=== PATIENT | male | born 1965 | race Caucasian/White ===

== ENCOUNTER → 2020-07-02 10:31 | Outpatient (BNVA) | payer MEDICAID, SELFPAY | PROVIDERS: PCP Internal Medicine; Referring Provider Internal Medicine; Visit Provider Physician Assistant | DX: M17.0 Bilateral primary osteoarthritis of knee (principal) | CPT/HCPCS: 20610; 99212; J1020 ==

== ENCOUNTER 2020-09-23 09:48 | Outpatient (RCR) | payer MEDICAID, SELFPAY ==
--- NOTE | 2020-09-24 07:49 | MHC.PT.EP ---
[facility] [place] [facility] [place] [facility] [place] [facility] [address] [phone] F: [phone] F: [phone] F: [phone] F: [phone] Physical Therapy Plan of Care Date of Evaluation: 09/23/20 Date of Surgery: none Diagnosis: B knee pain Assessment: Patient is a 55 year old R handed male who presents with s/s consistent with b/l knee pain/OA. He is currently not working and has become fairly sedentary. Patient past medical history includes hernia repair, gastric surgery, varicose veins. Current impairments include pain, ROM, strength, safety, independence, activity tolerance and functional mobility. Functional limitations include decreased ability to walk, stand, transfer, negotiate stairs, and perform weight bearing activities.. Patient is motivated with good rehab potential. Skilled PT will address impairments and functional limitations in order to achieve goals. Frequency and Duration: The patient will be seen 2x/week for 5 weeks Short Term Goals: I with HEP - 2 weeks AROM 0-130 - 3 weeks No AD with ambulation - 3 weeks Amb > 5 minutes - 3 weeks Group Home Goals: No AD and amb > 10 minutes - 5 weeks LEFS 40/80 - 5 weeks LE strength 4-/5 - 5 weeks Treatment Plan: Modalities to reduce pain, spasms and effusion. Manual therapy to restore motion and function. Therapeutic exercise to improve strength and flexibility. Neuromuscular re-education for posture and balance. Therapeutic activities to return to functional activities of daily living. Electronically signed by: Duane Jaime, PT Please sign and return to therapist. Thank you for your referral.
== END 2020-11-02 08:28 | disposition home or self-care (01) ==
LOC: HO.PTCHIC 09:48
PROVIDERS: PCP Internal Medicine; Visit Provider Internal Medicine
DX: M25.561 Pain in right knee (principal)
CPT/HCPCS: 97110; 97162

== ENCOUNTER 2020-11-25 22:53 | Emergency (ER) | payer MEDICAID, SELFPAY ==
[2020-11-26 00:02] VITALS: BP 133/72; PULSE 75; RESP 17; TEMP 36.4; O2SAT 96; BMI 46.8
--- NOTE | 2020-11-26 00:13 | ED_ITS ---
HPI - Dental/Oral General Chief complaint: Dental/Oral Stated complaint: dental pain Time Seen by Provider: 11/26/20 00:05 Source: patient Mode of arrival: ambulatory Limitations: no limitations History of Present Illness HPI Narrative: 55-year-old male presents with left lower dental pain. Was supposed to see a dentist and oral surgeon several times this year however due to COVID-19 restrictions he was unable to make those appointments. He does not describe any fevers, chills, chest pain or pressure, difficulty swallowing, difficulty managing secretions, ear pain, neck pain, palpitations, shortness of breath, abdominal pain, abdominal distention, dysuria, hematuria, and any other concerning symptoms. MD Complaint: tooth pain Teeth map: 1. Onset (ago): day(s) (4) Duration: constant Severity: severe Severity scale (1-10): 9 Relieving factors: nothing Exacerbating factors: chewing, cold, heat and drinking fluids Context: history of dental caries and poor dental care Treatment prior to arrival: oral analgesic Related Data Home Medications Medication Instructions Recorded Confirmed bupropion HBr 174 mg 174 mg PO DAILY 07/02/20 tablet,extended release 24 hr cholecalciferol (vitamin D3) 50 50 mcg PO DAILY 07/02/20 mcg (2,000 unit) capsule mecobalamin (vitamin B12) 5,000 5,000 mcg PO DAILY 07/02/20 mcg lozenge Previous Rx's Medication Instructions Recorded amoxicillin-pot clavulanate 1 tab PO Q12H 10 Days #20 tab 11/26/20 [Augmentin] ketorolac 10 mg PO TID PRN 5 Days #15 tab 11/26/20 Allergies Allergy/AdvReac Type Severity Reaction Status Date / Time No Known Allergies Allergy Verified 07/02/20 10:33 [No Known Allergies*] Review of Systems Review of Systems: Constitutional: No Fever, No Chills ENT/Mouth: No swallowing difficulty, no change in voice, positive dental pain, n o jaw pain, no facial swelling Eyes: No Eye Pain, No Swelling Cardiovascular: No Chest Pain, No SOB Respiratory: No Cough, No Sputum, No Wheezing, No Smoke Exposure, No Dyspnea Gastrointestinal: No Nausea, No Vomiting, No Diarrhea Genitourinary: No Dysuria Musculoskeletal: No Myalgias Skin: No rash Neuro: No Weakness, No Numbness, No Headache Yes all other systems are reviewed and are negative [facility] Past Medical History Attestation statement: The following information was validated with the patient. Source: old records reviewed Medical History (Updated 11/26/20 @ 00:17 by Violetta Lee NP) HTN (hypertension) ELO (obstructive sleep apnea) Rupture, spleen Varicose veins of both lower extremities with inflammation Surgical History H/O hernia repair History of vasectomy S/P gastric surgery Social History Social History Smoking Status: Never smoker Use of substances other than those prescribed or required for medical reasons: No Advance Directives: No Current occupational status: unemployed Physical Exam Vital Signs: Vital Signs: Last Vital Signs Temp 97.5 F 11/26/20 00:02 Pulse 75 11/26/20 00:02 Resp 17 11/26/20 00:02 BP 133/72 11/26/20 00:02 Pulse Ox 96 11/26/20 00:02 Body Mass Index 46.8 Appearance: Alert. Oriented X3. No acute distress. Eyes: Pupils equal, round and reactive to light. EOMI, sclera nonicteric ENT: Pharynx normal. Multiple broken molars throughout mouth. Neck: Normal inspection. Neck supple. No cervical lymphadenopathy. CVS: Normal heart rate and rhythm. Pulses normal. Respiratory: No respiratory distress. Breath sounds normal. Abdomen: Soft and nontender. Skin: Skin warm and dry. Normal skin color. Normal skin turgor. Extremities: No lower extremity edema. Neuro: No motor deficit. No sensory deficit. Course Course Course Narrative: 55-year-old male with past medical history of hypertension, morbid obesity, obstructive sleep apnea presents with several days of worsening left lower dental pain. A not been able to see his dentist and oral surgeon secondary to COVID-19 restrictions throughout the year. At this time will treat with antibiotics and Toradol. He will follow-up with his dentist as soon as he can. He does not describe any other symptoms, no indication of Pantera's angina, fevers, chills, trismus, or TMJ dysfunction. Patient verbalized understanding of and agrees to plan of care discharge home. MDM - Dental/Oral Differential Diagnosis Differential diagnosis: Likely gingival abscess, dental caries, toothache, dental abscess and fracture of tooth Medical Records Attestation: I reviewed the patient's medical records. Discharge Plan Discharge Clinical Impression: Dental caries, Dental abscess Patient Disposition: Home, Self-Care Instructions: Dental Abscess (ED), Toothache (ED) Additional Instructions: You evaluated for dental pain and caries. Please take Augmentin twice a day for the next 10 days. Please take Toradol 10 mg every 6 hours as needed for pain management. Please follow-up with your dentist. Thank you for choosing this emergency department for evaluation. Please follow-up with primary care physician as needed. Return to the emergency department for any new, concerning, or worsening symptoms. Prescriptions: New amoxicillin-pot clavulanate [Augmentin] 875-125 mg tablet 1 tab PO Q12H 10 Days Qty: 20 RF: 0 ketorolac 10 mg tablet 10 mg PO TID PRN (Reason: pain) 5 Days Qty: 15 RF: 0
[2020-11-26] MEDS: Ketorolac Tromethamine 60 MG/2 ML VIAL IM (00:25)
[2020-11-26] MEDS: Amoxicillin/Potassium Clav 875 MG TABLET PO (00:25)
== END 2020-11-26 00:42 | disposition home or self-care (01) ==
PROVIDERS: Emergency Provider Emergency Medicine; PCP Internal Medicine
DX: K08.89 Other specified disorders of teeth and supporting structures (principal); K02.9 Dental caries, unspecified; K04.7 Periapical abscess without sinus; I10 Essential (primary) hypertension
CPT/HCPCS: 96372; 99284; J1885

== ENCOUNTER → 2021-02-23 12:58 | Outpatient (BNVA) | payer MEDICAID, SELFPAY | PROVIDERS: PCP Internal Medicine; Visit Provider Surgery Vascular Surgery | DX: I83.12 Varicose veins of left lower extremity with inflammation (principal) | CPT/HCPCS: 99212 ==

== ENCOUNTER → 2021-03-19 07:26 | Outpatient (BNVA) | payer MEDICAID, SELFPAY | PROVIDERS: PCP Internal Medicine; Visit Provider Surgery Vascular Surgery | DX: I83.12 Varicose veins of left lower extremity with inflammation (principal) | CPT/HCPCS: 36482 ==

== ENCOUNTER 2021-03-22 14:04 | Outpatient (REF) | payer MEDICAID, SELFPAY ==
--- NOTE | ~2021-03-22 | US_ITS ---
EXAMINATION: US VENOUS ULTRASOUND WITH DOPPLER LOWER EXTREMITY, LEFT CLINICAL INFORMATION: Post venaseal. Rule out DVT. COMPARISON: Previous exam most recent September 2019 TECHNIQUE: Ultrasound of the deep veins is performed from the hip to the calf with compression sonography and color and pulse Doppler assessment. Spectral analysis with color-flow imaging is performed. FINDINGS: There is normal venous compression and respiratory variation and augmented flow. The visualized common femoral vein, superficial femoral vein, profunda femoral vein, popliteal vein, and the trifurcation region shows no evidence of deep venous thrombosis. There is echogenic material seen in the left greater saphenous vein compatible with previous venaseal procedure. This is 10.6 cm from the saphenofemoral junction. The greater saphenous vein is closed. There is no significant popliteal fossa cyst. US/US venous duplex LE IMPRESSION: No DVT demonstrated in the left lower extremity.
== END 2021-03-22 14:05 | disposition home or self-care (01) ==
LOC: HO.HMGCX 14:04
PROVIDERS: PCP Internal Medicine; Visit Provider Surgery Vascular Surgery
DX: M79.605 Pain in left leg (principal)
CPT/HCPCS: 93971

== ENCOUNTER → 2021-03-25 10:46 | Outpatient (BNVA) | payer MEDICAID, SELFPAY | PROVIDERS: PCP Internal Medicine; Visit Provider Surgery Vascular Surgery | DX: I83.12 Varicose veins of left lower extremity with inflammation (principal) | CPT/HCPCS: 99212 ==

== ENCOUNTER 2021-04-06 05:43 | Emergency (ER) | payer MEDICAID, SELFPAY ==
[2021-04-06 05:54] VITALS: BP 133/75; PULSE 78; RESP 16; TEMP 36.8; O2SAT 93; BMI 48.8
[2021-04-06 08:43] VITALS: BP 137/73; PULSE 71; RESP 20; O2SAT 94
--- NOTE | 2021-04-06 08:44 | PC.NURSE ---
pt reports having rash all over his body mostly on his extremities and some on his back, itchy that started yesterday, the bumps are raised red dots, ls clear and speaking in full clear sentances
--- NOTE | 2021-04-06 09:00 | ED_ITS ---
HPI - Allergic Reaction General Chief complaint: Allergic Reaction Stated complaint: hives all over body Time Seen by Provider: 04/06/21 08:54 Source: patient Mode of arrival: ambulatory Limitations: language barrier (French-speaking) History of Present Illness MD complaint: allergic reaction and hives Onset (ago): day(s) (Since yesterday) Exposure: unknown (Patient reports he was outside a few days ago and might have gotten mosquito bites although he did not start having a rash until yesterday) Symptoms: rash and itching Severity: mild Treatment prior to arrival: benadryl Previous Allergic Reaction History: none Related Data Home Medications Medication Instructions Recorded Confirmed bupropion HBr 174 mg 174 mg PO DAILY 07/02/20 tablet,extended release 24 hr cholecalciferol (vitamin D3) 50 50 mcg PO DAILY 07/02/20 mcg (2,000 unit) capsule mecobalamin (vitamin B12) 5,000 5,000 mcg PO DAILY 07/02/20 mcg lozenge furosemide 20 mg tablet 10 mg PO BID 02/23/21 ibuprofen 800 mg tablet 800 mg PO TID 02/23/21 ropinirole 0.25 mg tablet 0.25 mg PO BEDTIME 02/23/21 Previous Rx's Medication Instructions Recorded amoxicillin-pot clavulanate 1 tab PO Q12H 10 Days #20 tab 11/26/20 [Augmentin] ketorolac 10 mg PO TID PRN 5 Days #15 tab 11/26/20 diphenhydramine HCl [Benadryl 50 mg PO TID PRN #14 tab 04/06/21 Allergy] famotidine [Pepcid] 20 mg PO BID #14 tab 04/06/21 hydrocortisone 1 appl TOPICAL QD-TID PRN #454 g 04/06/21 prednisone 40 mg PO DAILY 5 Days #10 tab 04/06/21 Allergies Allergy/AdvReac Type Severity Reaction Status Date / Time No Known Allergies Allergy Verified 04/06/21 05:57 [No Known Allergies*] Review of Systems Review of Systems: Constitutional : No Fever, No Chills , no body aches, no recent illness Head/Face: No facial swelling, No facial redness ENT/Mouth : No oral/throat swelling, No Hoarseness, No Swallowing Difficulty Eyes: No Eye Pain, No Swelling, No Redness Cardiovascular : No Chest Pain, No SOB, No palpitations Respiratory : No Cough, No Sputum, No Wheezing, No Smoke Exposure, No Dyspnea Gastrointestinal : No Nausea, No Vomiting, No Diarrhea, No abdominal Pain Genitourinary : No Dysuria, No Urinary Frequency, No Hematuria Musculoskeletal : No joint pain, No Myalgias, No Joint Swelling Skin : No Skin Lesions, positive rash Neuro : No Weakness, No Numbness, No Headache, No dizziness, No tingling Psych : No Anxiety/Panic, No Depression Heme/Lymph: No Bruising, No Lymphadenopathy Endocrine : No Polyuria, No Polydipsia Denies changes in lotions or detergents. Denies new medications or any changes in medications. Denies drainage from rash. Denies any recent sick contacts or recent travel. Yes all other systems are reviewed and are negative [facility] Past Medical History Attestation statement: The following information was validated with the patient. Medical History HTN (hypertension) ELO (obstructive sleep apnea) Rupture, spleen Varicose veins of both lower extremities with inflammation Surgical History H/O hernia repair History of vasectomy S/P gastric surgery Social History Social History Patient Tobacco Use Status: Never used Tobacco Use of substances other than those prescribed or required for medical reasons: No Advance Directives: No Advance Directives Information Provided: No Current occupational status: unemployed Physical Exam Vital Signs: Vital Signs: Last Vital Signs Temp 98.3 F 04/06/21 05:54 Pulse 71 04/06/21 08:43 Resp 20 04/06/21 08:43 BP 137/73 04/06/21 08:43 Pulse Ox 94 04/06/21 08:43 Body Mass Index 48.8 vital signs have been reviewed as normal and appeared to be correct. Blood pressure normal. Heart rate normal. Respiration rate normal. Temperature normal. Oxygen saturation normal. Appearance: Alert. Oriented X3. No acute distress. Head: Normal external exam. Normocephalic. Eyes: PERRLA. EOMI. Conjunctiva and sclera normal. Eyelids normal. ENT: Pharynx normal. Uvula midline. Moist mucous membranes. No trismus noted. No drooling noted. No muffled voice noted. Neck: Normal inspection. Neck supple. FROM. No adenopathy. No meningeal signs. CVS: Normal heart rate and rhythm. Heart sound normal. No murmurs noted. Pulses normal throughout. Respiratory: No respiratory distress. Painless inspiration. Breath sounds normal. No wheezes/rales/rhonchi noted. Chest nontender. No accessory muscle usage noted or decreased air movement noted. Abdomen: Soft and nontender. Nondistended. No guarding. No rigidity. Bowel sounds normal in all 4 quadrants. No distention noted. No organomegaly noted. No visible injury noted. Back: Full range of motion noted. Skin: Skin warm and dry. Normal skin color. Normal skin turgor. Patient with scattered macular papular pruritic blanchable rash consistent with mosquito bites versus hives. No additional rashes/lesions/lacerations noted. Extremities: Extremities exhibit normal range of motion. Extremities nontender. Neuro: Oriented X 3. No motor deficit. No sensory deficit. Reflexes normal. Normal steady gait. Course Course Course Narrative: IMP/Plan: Allergic rxn. Not anaphylaxis. Not sepsis/ infe ctious etiology. Patient well appearing in no acute distress, breathing easily without throat symptoms. Speaking full sentences, and handling secretions without difficulty. There is no obvious threat to airway. Lungs are CTA in all cast[place]. No signs of angioedema, stridor, airway compromise, anaphylaxis or anaphylactic shock. Not c/w SSSS/ TEN/ Eryth multiforme/ [place]. Given HPI and PE - Will watch and observe. If patient continues to be symptom free - will d/c with return precautions. Patient understands and agrees with plan MDM - Allergic Reaction Medical Records Attestation: I reviewed the patient's medical records. Discharge Plan Discharge Clinical Impression: Allergic reaction, Urticaria Patient Disposition: Home, Self-Care Instructions: General Allergic Reaction (ED), Allergy Testing (ED) Prescriptions: New diphenhydramine HCl [Benadryl Allergy] 25 mg tablet 50 mg PO TID PRN (Reason: allergic reaction) Qty: 14 RF: 0 famotidine [Pepcid] 20 mg tablet 20 mg PO BID Qty: 14 RF: 0 prednisone 20 mg tablet 40 mg PO DAILY 5 Days Qty: 10 RF: 0 hydrocortisone 2.5 % ointment 1 appl topical QD-TID PRN (Reason: skin irritation) Qty: 454 RF: 0 No Action amoxicillin-pot clavulanate [Augmentin] 875-125 mg tablet 1 tab PO Q12H 10 Days Qty: 20 RF: 0 ketorolac 10 mg tablet 10 mg PO TID PRN (Reason: pain) 5 Days Qty: 15 RF: 0 Referrals: Physician,Unknown [Primary Care Provider] - 2 days (your pcp for allergy testing) Print Language: French
[2021-04-06] MEDS: predniSONE 20 MG TABLET 60 MG PO (09:24)
[2021-04-06] MEDS: Famotidine 20 MG TABLET PO (09:24)
[2021-04-06] MEDS: diphenhydrAMINE HCL 25 MG TABLET 50 MG PO (09:24)
== END 2021-04-06 09:43 | disposition home or self-care (01) ==
PROVIDERS: Emergency Provider Emergency Medicine Emergency Medical Services
DX: T78.40XA Allergy, unspecified, initial encounter (principal); L50.9 Urticaria, unspecified; X58.XXXA Exposure to other specified factors, initial encounter
CPT/HCPCS: 99283; 99284; Q0163

== ENCOUNTER 2021-11-03 11:11 | Outpatient (REF) | payer MEDICAID, SELFPAY ==
--- NOTE | ~2021-11-03 | XR_ITS ---
EXAMINATION: XR KNEE, LEFT CLINICAL INFORMATION: Pain COMPARISON: Previous x-ray October 2017 TECHNIQUE: Four views of the left knee. FINDINGS: Bone alignment is normal. No fracture or dislocation is seen. There is mild arthritis at the medial femoral tibial joint with joint space narrowing and osteophyte formation. There is severe arthritis at the patellofemoral joint with joint space narrowing and osteophyte formation. Very slight lateral subluxation of the patella on the sunrise view. There is a large osteophyte at the quadriceps tendon insertion. There is no joint effusion. XR/XR knee LT 4V IMPRESSION: Degenerative changes, greatest at the patellofemoral joint.
== END 2021-11-03 11:12 | disposition home or self-care (01) ==
LOC: HO.XRAY 11:11
PROVIDERS: Absent Provider Internal Medicine; PCP Internal Medicine; Visit Provider Family Medicine
DX: M25.562 Pain in left knee (principal)
CPT/HCPCS: 73564

== ENCOUNTER 2021-12-23 15:23 | Outpatient (REF) | payer MEDICAID, SELFPAY ==
--- NOTE | ~2021-12-23 | US_ITS ---
EXAMINATION: ULTRASOUND EXTREMITY NONVASCULAR CLINICAL INFORMATION: Left posterior knee pain COMPARISON: None TECHNIQUE: Grayscale and color imaging of the left popliteal fossa using a linear transducer FINDINGS: There is a complex Weinberg's cyst with bilobed appearance measuring 4.3 x 0.8 x 4.1 cm and 4.1 x 1.9 x 3 cm. The left popliteal vein is patent. US/US extremity nonvascular IMPRESSION: Weinberg's cyst.
== END 2021-12-23 15:24 | disposition home or self-care (01) ==
LOC: HO.HMGCX 15:23
PROVIDERS: Visit Provider Internal Medicine
DX: M25.562 Pain in left knee (principal)
CPT/HCPCS: 76882

== ENCOUNTER → 2022-01-17 14:58 | Outpatient (BNVA) | payer MEDICAID, SELFPAY | PROVIDERS: PCP Internal Medicine; Visit Provider Physician Assistant | DX: M17.12 Unilateral primary osteoarthritis, left knee (principal) | CPT/HCPCS: 20610; 99212; J1040 ==

== ENCOUNTER → 2022-03-07 15:49 | Outpatient (BNVA) | payer MEDICAID, SELFPAY | PROVIDERS: PCP Internal Medicine; Visit Provider Anesthesiology | DX: M17.12 Unilateral primary osteoarthritis, left knee (principal); M71.22 Synovial cyst of popliteal space [Baker], left knee; M17.11 Unilateral primary osteoarthritis, right knee; G89.4 Chronic pain syndrome; E66.01 Morbid (severe) obesity due to excess calories; Z68.42 Body mass index [BMI] 45.0-49.9, adult | CPT/HCPCS: 99202 ==

== ENCOUNTER 2022-03-22 05:56 | Outpatient (REF) | payer MEDICAID, SELFPAY ==
--- NOTE | ~2022-03-22 | FL_ITS ---
EXAMINATION: XR FLUOROSCOPY WITH IMAGES CLINICAL INFORMATION: M17.12 - Unilateral primary osteoarthritis, left knee COMPARISON: Radiographs left knee 11/03/2021 TECHNIQUE: Fluoroscopy performed by Dr. Jaylan Cornejo. Fluoroscopy time: 0.3 minutes. Cumulative Dose: 4.73 mGy. DAP: 1.29 Gycm2. Images: 3. FINDINGS: There are spinal needles adjacent to the distal femoral shaft, medial and lateral sides, mid depth. There is a spinal needle adjacent to the proximal tibia on medial side mid depth. FL/FL guidance in treatment room IMPRESSION: Fluoroscopy for pain management procedures.
== END 2022-03-22 05:57 | disposition home or self-care (01) ==
LOC: HO.RADIR 05:56
PROVIDERS: Visit Provider Anesthesiology
DX: M17.0 Bilateral primary osteoarthritis of knee (principal); M71.22 Synovial cyst of popliteal space [Baker], left knee; G89.4 Chronic pain syndrome; E66.01 Morbid (severe) obesity due to excess calories
CPT/HCPCS: 64454

== ENCOUNTER → 2022-03-28 09:41 | Outpatient (BNVA) | payer MEDICAID, SELFPAY | PROVIDERS: PCP Internal Medicine; Visit Provider Anesthesiology | DX: M17.0 Bilateral primary osteoarthritis of knee (principal); M71.22 Synovial cyst of popliteal space [Baker], left knee; G89.4 Chronic pain syndrome; E66.01 Morbid (severe) obesity due to excess calories; Z68.42 Body mass index [BMI] 45.0-49.9, adult | CPT/HCPCS: 99212 ==

== ENCOUNTER 2022-04-26 06:16 | Outpatient (REF) | payer MEDICAID, SELFPAY | END 2022-04-26 06:17 | disposition home or self-care (01) | LOC: HO.RADIR 06:16 | PROVIDERS: Visit Provider Anesthesiology | DX: M71.22 Synovial cyst of popliteal space [Baker], left knee (principal); M17.0 Bilateral primary osteoarthritis of knee; G89.4 Chronic pain syndrome; E66.01 Morbid (severe) obesity due to excess calories | CPT/HCPCS: 64447 ==

== ENCOUNTER 2022-08-09 07:58 | Outpatient (REF) | payer MEDICAID, SELFPAY ==
--- NOTE | ~2022-08-09 | XR_ITS ---
EXAMINATION: XR CHEST CLINICAL INFORMATION: Acute upper respiratory infection COMPARISON: None TECHNIQUE: 2 views of the chest were obtained. FINDINGS: The lungs are somewhat expanded with bandlike atelectasis right middle lobe. Rest of the lungs are clear. The heart size is enlarged. Pulmonary vascularity is normal. No gross bony abnormality seen XR/XR chest 2V IMPRESSION: 1. Bandlike atelectasis right middle lobe. 2. Mild cardiomegaly.
== END 2022-08-09 07:59 | disposition home or self-care (01) ==
LOC: HO.XRAY 07:58
PROVIDERS: Absent Provider Internal Medicine; PCP Internal Medicine; Visit Provider Family Medicine
DX: J06.9 Acute upper respiratory infection, unspecified (principal)
CPT/HCPCS: 71046

== ENCOUNTER 2022-09-14 08:39 | Outpatient (REF) | payer MEDICAID, SELFPAY ==
--- NOTE | ~2022-09-14 | CT_ITS ---
EXAMINATION: CT CHEST WITH CONTRAST CLINICAL INFORMATION: Right middle lobe atelectasis. COMPARISON: Chest x-ray 08/09/2022 TECHNIQUE: Multidetector volumetric CT imaging of the chest was obtained after the administration of 50 mL of Omnipaque 350 intravenous contrast without immediate adverse reactions. Axial MIP volume rendering provided. Sagittal and coronal reformatted images were obtained. This CT examination was performed using dose optimization techniques as appropriate, variously including the following: *Automated exposure control *Adjustment of mA and/or kV according to patient size (this includes techniques or standardized protocols for targeted exams where dose is matched to indication/reason for exam; i.e. extremities or head) *Use of iterative reconstruction technique DLP: 462 mGy-cm FINDINGS: PERSONAL COMPANION: Unremarkable LUNGS: The lungs are well-expanded with a 1 mm calcified nodule, left upper lobe adjacent to the anterior mediastinum, axial image 21/4, a 6 mm nodule left upper lobe axial image 19/4. Band-like atelectasis seen in the right middle lobe and lingula. MEDIASTINUM: The thyroid lobes are symmetric and normal. The central trachea and the bronchi are widely patent. Heart size and the great vessels are normal caliber. No abnormal size mediastinal or hilar lymph nodes seen. There is no pericardial effusion. PLEURA: There is no pleural effusion. No pleural mass or thickening. AXILLA: No abnormal size axillary lymph nodes seen. The chest wall is unremarkable. UPPER ABDOMEN: Visualized liver, pancreas and bilateral adrenal glands are unremarkable. Gastric sleeve surgical changes are noted. The spleen is absent with a small accessory splenule visualized in the left upper quadrant. OSSEOUS STRUCTURES: There is moderate ventral spondylosis throughout mid and lower dorsal spine. No aggressive lytic or sclerotic process seen. CT/CT chest w IV con IMPRESSION: 1. 6 mm noncalcified nodule left upper lobe and a 1 mm calcified nodule left upper lobe. 2. Band-like atelectasis right middle lobe and lingula. 3. No abnormal mediastinal or axillary lymph nodes seen. 4. Gastric sleeve surgical changes are noted. The spleen is absent with multiple accessory splenules visualized in the left upper quadrant. 5. Recommend follow-up in 6-12 months as per Eddy guidelines. Fleischner guidelines were followed.
[2022-09-14] MEDS: iohexoL 350 MG/ML 100 ML INFUS..BTL IV (10:14)
[2022-09-14 12:45] LABS: Creatinine POC 0.4 mg/dL (0.5-1.4); GFR POC > 60
== END 2022-09-14 08:40 | disposition home or self-care (01) ==
LOC: HO.CT 08:39
PROVIDERS: Visit Provider Family Medicine
DX: J98.11 Atelectasis (principal)
CPT/HCPCS: 71260; 82565; Q9967

== ENCOUNTER → 2022-10-05 15:13 | Outpatient (BNVA) | payer MEDICAID, SELFPAY | PROVIDERS: PCP Internal Medicine; Visit Provider Anesthesiology | DX: M25.561 Pain in right knee (principal) | CPT/HCPCS: 99212 ==

== ENCOUNTER 2022-10-28 07:38 | Outpatient (REF) | payer MEDICAID, SELFPAY ==
--- NOTE | ~2022-10-28 | XR_ITS ---
EXAMINATION: XR KNEE, RIGHT XR KNEE AP STANDING CLINICAL INFORMATION: Pain. COMPARISON: None TECHNIQUE: Lateral and axial views of the right knee were obtained. AP bilateral standing view of the knees was obtained. FINDINGS: The lateral joint space compartment of the right knee is well-maintained. The medial and patellofemoral joint space compartments show moderately severe narrowing. There is tricompartment peripheral osteophyte formation. A small loose body is suspected in the lateral joint space compartment. The medial joint space compartment of the left knee shows mild to moderate narrowing, and the lateral joint space compartment is well-maintained. There is peripheral osteophyte formation of the lateral and medial joint space compartments. No fracture or dislocation is seen. There is no significant varus or valgus configuration noted bilaterally. No foreign body is seen. XR/XR knee standing BI IMPRESSION: 1. There is tricompartment osteoarthritic change of the right knee, most pronounced in the medial and patellofemoral compartments, where it is moderately severe. 2. A small loose body is suspected in the lateral joint space compartment of the right knee. 3. There is mild to moderate osteoarthritic change of the medial joint space compartment of the left knee. 4. No fracture or dislocation is seen. 5. There is no significant varus or valgus configuration noted bilaterally.
--- NOTE | ~2022-10-28 | XR_ITS ---
EXAMINATION: XR KNEE, RIGHT XR KNEE AP STANDING CLINICAL INFORMATION: Pain. COMPARISON: None TECHNIQUE: Lateral and axial views of the right knee were obtained. AP bilateral standing view of the knees was obtained. FINDINGS: The lateral joint space compartment of the right knee is well-maintained. The medial and patellofemoral joint space compartments show moderately severe narrowing. There is tricompartment peripheral osteophyte formation. A small loose body is suspected in the lateral joint space compartment. The medial joint space compartment of the left knee shows mild to moderate narrowing, and the lateral joint space compartment is well-maintained. There is peripheral osteophyte formation of the lateral and medial joint space compartments. No fracture or dislocation is seen. There is no significant varus or valgus configuration noted bilaterally. No foreign body is seen. XR/XR knee RT 2V IMPRESSION: 1. There is tricompartment osteoarthritic change of the right knee, most pronounced in the medial and patellofemoral compartments, where it is moderately severe. 2. A small loose body is suspected in the lateral joint space compartment of the right knee. 3. There is mild to moderate osteoarthritic change of the medial joint space compartment of the left knee. 4. No fracture or dislocation is seen. 5. There is no significant varus or valgus configuration noted bilaterally.
== END 2022-10-28 07:39 | disposition home or self-care (01) ==
LOC: HO.HOSX 07:38
PROVIDERS: Visit Provider Physician Assistant
DX: M17.11 Unilateral primary osteoarthritis, right knee (principal)
CPT/HCPCS: 20610; 73560; 73565; 99212; J1040

== ENCOUNTER → 2022-12-22 13:20 | Outpatient (BNVA) | payer MEDICAID, SELFPAY | PROVIDERS: PCP Internal Medicine; Visit Provider Hospitalist | DX: R06.00 Dyspnea, unspecified (principal); J98.11 Atelectasis; R91.8 Other nonspecific abnormal finding of lung field; G47.33 Obstructive sleep apnea (adult) (pediatric); G47.00 Insomnia, unspecified; Z99.89 Dependence on other enabling machines and devices | CPT/HCPCS: 99202 ==

== ENCOUNTER 2023-01-24 09:38 | Outpatient (REF) | payer MEDICAID, SELFPAY ==
--- NOTE | 2023-01-24 10:54 | PFT_ITS ---
FLOWS: 1. FEV1 86% of predicted at 3.48 L. 2. FVC 74% of predicted at 3.96 L. 3. FEV1 to FVC ratio of 0.88. 4. No bronchodilator response. LUNG VOLUMES: 1. Total lung capacity 70% of predicted at 5.37 L. 2. Residual volume 76% of predicted at 1.83 L. 3. Slow vital capacity 68% of predicted at 3.54 L. 4. Expiratory residual volume 27% of predicted at 0.44 L. DIFFUSION CAPACITY: Normal. IMPRESSION: Mild restrictive ventilatory defect. There is no bronchodilator response. Decreased expiratory residual volume suggests extrathoracic restriction likely secondary to abdominal obesity. Shawn Dominguez MD AP/MODL / [id number]
== END 2023-01-24 09:39 | disposition home or self-care (01) ==
LOC: HO.RESP 09:38
PROVIDERS: PCP Internal Medicine; Visit Provider Hospitalist
DX: R06.00 Dyspnea, unspecified (principal)
CPT/HCPCS: 94010; 94727; 94729

== ENCOUNTER → 2023-03-10 09:43 | Outpatient (BNVA) | payer MEDICAID, SELFPAY | PROVIDERS: PCP Internal Medicine; Visit Provider Hospitalist | DX: R06.02 Shortness of breath (principal); J98.11 Atelectasis; R91.8 Other nonspecific abnormal finding of lung field; G47.33 Obstructive sleep apnea (adult) (pediatric); G47.00 Insomnia, unspecified; Z99.89 Dependence on other enabling machines and devices; Z90.81 Acquired absence of spleen | CPT/HCPCS: 99212 ==

== ENCOUNTER 2023-03-30 09:08 | Outpatient (AMB) | payer MEDICAID, SELFPAY ==
--- NOTE | 2023-03-30 09:13 | A.OFFVIS_ITS ---
Intake VS Expanded 03/30/23 09:18 Height 6 ft 1 in Weight 332 lb 6.4 oz BMI 43.9 BP 135/65 Blood Pressure Location Rt brachial Blood Pressure Position Sitting Pulse 60 Pulse Source Pulse Oximeter Temp 97.2 F Temperature Source Temporal Artery Scan Pulse Oximetry 93 Oxygen Delivery Method Room Air Body Fat 126.4 Body Fat Percentage 38.0 Free Fat Mass 206.0 Muscle Mass 196.0 Visceral Mass 26.0 Water Mass 153.0 BMR 2,913 Comment pt states having lung issues being seen for it Intake Visit Reasons: (OV) PO LSG 09/20/18 Allergies No Known Allergies [No Known Allergies*] Allergy (Verified 03/30/23 09:16) Medication List - Last Reconciled 03/30/23 by NOHEMI Sloan budesonide-formoterol 160-4.5 mcg/actuation (Symbicort) 2 puffs inhalation BID 30 days bupropion HCl 1 tab PO QAM cholecalciferol (vitamin D3) 50 mcg PO DAILY CPAP (CPAP Machine/Device) As directed diphenhydramine HCl (Benadryl Allergy) 50 mg (2 x 25 mg) PO TID PRN doxepin 150 mg PO BEDTIME eszopiclone (Lunesta) 3 mg PO BEDTIME 30 days famotidine (Pepcid) 20 mg PO BID furosemide 10 mg PO BID hydrocortisone 2.5% 1 appl topical QD-TID PRN ibuprofen 800 mg PO TID ivermectin 5 tabs PO QWEEK ketoconazole 2% 1 appl topical 2XW ketorolac 10 mg PO TID PRN 5 days mecobalamin (vitamin B12) 5,000 mcg PO DAILY mirtazapine 7.5 mg PO BEDTIME ropinirole 0.25 mg PO BEDTIME sildenafil (Viagra) 1 tab PO DAILY PRN vitamin B complex ER (Complex B-100 tablet,extended release) 1 tab PO DAILY HPI HPI Comments History of Present Illness Details This?is a?57?yo male who is s/p LSG 09/20/2018. Presents for 4.5 year post op visit. Has not been seen in office in several years. Returns to office today to request a new meal plan to help with weight loss. Lowest weight postop was 283lbs. Present meal plan includes: none but wants a new plan taking MVI All meals last 20 - 30 minutes and does not drink and eat at the same time. Exercise routine includes: chronic arthritis, lung issues, follows with pulmonology Did the patient ever have any of these conditions and are they resolved or still being treated? GERD: Pepcid ELO:? CPAP DM:?never HTN:? furosemide Hyperlipidemia:?never Post op complications:? 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 Physical Exam Vital Signs: Last Vital Signs Temp 97.2 F 03/30/23 09:18 Pulse 60 03/30/23 09:18 BP 135/65 03/30/23 09:18 Pulse Ox 93 03/30/23 09:18 Oxygen Delivery Method Room Air 03/30/23 09:18 BMI result Body Mass Index 43.9 Const General: cooperative, comfortable and no acute distress Orientation/consciousness: patient oriented x3 GI Other: soft, nontender, nondistended, incisions well healed, no hernia, no masses, pt also has a large well healed midline scar Neuro General: patient oriented x3 Assessment & Plan Assessment & Plan (1) S/P laparoscopic sleeve gastrectomy: Code(s): Z98.84 - Bariatric surgery status (2) Morbid obesity: Code(s): E66.01 - Morbid (severe) obesity due to excess calories Plan New meal plan per pt request; he does not like shakes, reports he did not feel full with them in the past and experienced anxiety. He does like PP bars. 9am breakfast- 3 eggs 12pm lunch- 3oz protein, 3oz veg 2-4pm snack- Pure Protein bar 5 or 6pm dinner- 3oz protein, 3oz veg 8-10pm bar Offered to write plan down for pt but he reports he should be able to remember as it was similar to plans that were effective for him in the past. Gave pt handout on home workout videos including Sit and Be Fit, and Jaylin Howell. Labs ordered. Also discussed that his NSAID use is not ideal considering he has had bariatric surgery. Also discussed EtOH use in moderation- pt reports every few weeks he will have 3-4 cups of wine while watching a boxing match. Discussed risk for gastritis or reflux. RTC 6 weeks to meet with steamfitter apprentice to ensure meal plan is going well. After that can reschedule for next annual visit unless pt prefers more frequent checkins. Patient is morbidly obese and is not considered stable at this time. I spent a total of 30 minutes reviewing/updating records, examining the patient and counseling the patient on weight management as detailed above. Orders: Orders Vitamin B12 and Folate Today E66.01 - Morbid (severe) obesity due to excess calories, Z98.84 - Bariatric surgery status Comprehensive Met. Panel Today E66.01 - Morbid (severe) obesity due to excess calories, Z98.84 - Bariatric surgery status C Reactive Protein Today E66.01 - Morbid (severe) obesity due to excess calories, Z98.84 - Bariatric surgery status Ferritin Today E66.01 - Morbid (severe) obesity due to excess calories, Z98.84 - Bariatric surgery status Hemoglobin A1c Today E66.01 - Morbid (severe) obesity due to excess calories, Z98.84 - Bariatric surgery status Insulin Today E66.01 - Morbid (severe) obesity due to excess calories, Z98.84 - Bariatric surgery status IRON PROFILE Today E66.01 - Morbid (severe) obesity due to excess calories, Z98.84 - Bariatric surgery status Lipid Panel Today E66.01 - Morbid (severe) obesity due to excess calories, Z98.84 - Bariatric surgery status PTHI Today E66.01 - Morbid (severe) obesity due to excess calories, Z98.84 - Bariatric surgery status TSH reflex Free T4 Today E66.01 - Morbid (severe) obesity due to excess calories, Z98.84 - Bariatric surgery status Vitamin A Today E66.01 - Morbid (severe) obesity due to excess calories, Z98.84 - Bariatric surgery status Vitamin B1 Today E66.01 - Morbid (severe) obesity due to excess calories, Z98.84 - Bariatric surgery status Vitamin D 25-OH Total Today E66.01 - Morbid (severe) obesity due to excess calories, Z98.84 - Bariatric surgery status Zinc Today E66.01 - Morbid (severe) obesity due to excess calories, Z98.84 - Bariatric surgery status Complete Blood Count Auto Diff Today E66.01 - Morbid (severe) obesity due to excess calories, Z98.84 - Bariatric surgery status Coding Level of Care Code Est Pt Level 4 (80071) Diagnoses S/P laparoscopic sleeve gastrectomy Z98.84 Morbid obesity E66.01
[2023-03-30 09:18] VITALS: BP 135/65; PULSE 60; TEMP 36.2; O2SAT 93; BMI 43.9
== END 2023-03-30 10:04 | disposition home or self-care (01) ==
PROVIDERS: PCP Internal Medicine; Visit Provider Physician Assistant Surgical
DX: E66.01 Morbid (severe) obesity due to excess calories (principal); Z68.41 Body mass index [BMI] 40.0-44.9, adult; Z90.3 Acquired absence of stomach [part of]; Z98.84 Bariatric surgery status
CPT/HCPCS: 99213

== ENCOUNTER → 2023-03-30 09:08 | Outpatient (BNVA) | payer MEDICAID, SELFPAY | PROVIDERS: PCP Internal Medicine; Visit Provider Physician Assistant Surgical | DX: E66.01 Morbid (severe) obesity due to excess calories (principal); Z68.41 Body mass index [BMI] 40.0-44.9, adult; Z98.84 Bariatric surgery status | CPT/HCPCS: 99214 ==

== ENCOUNTER 2023-05-03 10:16 | Outpatient (REF) | payer MEDICAID, SELFPAY ==
[2023-05-03 11:06] LABS: Basophils Absolute Auto 0.1 X10*3/uL (0.0-0.2); Basophils Percent Auto 0.5 % (0-2); Eosinophils Absolute Auto 0.6 X10*3/uL (0.0-0.4); Eosinophils Percent Auto 4.1 % (0-4); Hemoglobin 15.3 g/dl (14.0-18.0); Imm Gran Abs Auto 0.04 X10*3/uL (0.00-0.03); Imm Gran Pct Auto 0.3 % (0.0-0.4); Lymphocytes Absolute Auto 5.7 X10*3/uL (1.2-4.9); Lymphocytes Percent Auto 36.6 % (20-40); MANUAL DIFF FLAG SCAN; Mean Corpuscular Hemoglobin 31.1 pg (27.0-33.0); Mean Corpuscular Volume 91.5 fL (80.0-98.0); Mean Platelet Volume 10.8 fL (9.4-12.4); Monocytes Absolute Auto 1.9 X10*3/uL (0.1-1.2); Monocytes Percent Auto 12.4 % (2-11); Neutrophils Absolute Auto 7.1 x10*3/uL (2.0-8.3); Neutrophils Percent Auto 46.1 % (45-73); Platelet Count 429 X10*3/uL (160-400); Red Blood Count 4.92 X10*6/uL (4.60-5.80); Red Cell Distribution Width 14.9 % (11.0-16.0); SCAN SMEAR FLAG 1; White Blood Count 15.4 X10*3/uL (4.8-10.8)
[2023-05-03 11:17] LABS: Estimated Average Glucose 97 mg/dL
[2023-05-03 12:00] LABS: SLIDE REVIEW VERIFIED
[2023-05-03 12:22] LABS: Alanine Aminotransferase 41 U/L (0-40); Albumin Level 3.9 g/dL (3.5-5.0); Alkaline Phosphatase 98 U/L (39-117); Anion Gap 9 (12-20); Aspartate Amino Transferase 22 U/L (5-37); Bilirubin Total 0.6 mg/dL (0.0-1.0); Blood Urea Nitrogen 17 mg/dL (9-16); Calcium 9.8 mg/dL (8.4-10.2); Carbon Dioxide 27 mmol/L (22-29); Chloride 108 mmol/L (96-108); Cholesterol 205 mg/dL (<200); Estimated Glomerular Filt Rate > 60; Ferritin 149 ng/mL (20-250); Glucose Random 87 mg/dL (60-115); HDL Cholesterol 35 mg/dL (>40); Insulin 15 uU/mL (2-29); Iron 119 mcg/dL (45-160); LDL Cholesterol Calculated 153 mg/dL (<100); Percent Iron Saturation 37 % (15-50); Potassium 3.9 mmol/L (3.3-5.1); Sodium 140 mmol/L (135-145); TSH reflex Free T4 1.13 uIU/mL (0.32-4.0); Total Iron Binding Capacity 318 mcg/dL (228-428); Total Protein 6.8 g/dL (6.5-8.0); Triglycerides 88 mg/dL (<150); Unsaturated Iron Binding 199 ug/dL; Vitamin D 25-OH Total 42.9 ng/mL (>30)
[2023-05-03 12:46] LABS: Folate 15.3 ng/mL (> or = 4.0); Vitamin B12 1148 pg/mL (200-900)
[2023-05-04 10:48] LABS: Calcium (PTHI) 9.5 mg/dL (8.6-10.3); PTHI 44 pg/mL (16-77)
[2023-05-07 01:59] LABS: Zinc 88 mcg/dL (60-130)
[2023-05-08 11:58] LABS: Vitamin B1 23 nmol/L (8-30)
[2023-05-09 14:23] LABS: Vitamin A 44 mcg/dL (38-98)
== END 2023-05-03 10:17 | disposition home or self-care (01) ==
LOC: HO.LAB 10:16
PROVIDERS: PCP Internal Medicine; Visit Provider Physician Assistant Surgical
DX: E66.01 Morbid (severe) obesity due to excess calories (principal); Z98.84 Bariatric surgery status
CPT/HCPCS: 36415; 80053; 80061; 82306; 82607; 82728; 82746; 83036; 83525; 83540; 83970; 84425; 84443; 84590; 84630; 85025; 86140

== ENCOUNTER 2023-05-18 09:50 | Outpatient (AMB) | payer MEDICAID, SELFPAY ==
--- NOTE | 2023-05-18 09:55 | MHC.AMNUTRGE ---
Intake VS Expanded 05/18/23 10:46 Height 6 ft 1 in Weight 317 lb BMI 41.8 Intake Visit Reasons: (OV) PO LSG 09/20/18 Trouble Tracer Required: Yes Trouble Tracer Name: Cindy [id number] Information Interpreted: non-clinical & clinical Allergies No Known Allergies [No Known Allergies*] Allergy (Verified 03/30/23 09:16) HPI Nutrition Presentation Details LSG 09/20/2018 4.5 year post op Had not been seen in office in several years. Returned 2 months ago in March with Luisana SONG lowest weight postop was 283# - BMI 37.3 last weight 332# - BMI 43.9 Trouble Tracer was on the phone as standby - however patient and I were able to communicate effectively without the use a fountain operator. Patient declined the use fountain operator for future Sessions patient is accompanied today by his , both are very engaged Reason for consult elevated BMI Diet Assmnt Details nutrition: 7am 3 eggs - either boiled or omelette with veg; decaf coffee with Truvia and 1/2oz of half and half mid morning - pure protein bar lunch: tuna with vegetables or on a sandwich (wheat bread cyril yoly) mid afternoon pure protein bar dinner chicken about 5oz and vegetables another bar pt feels good, no complaints. Doesn't like the protein shakes Exercise: Currently none. Has issues in both knees, walks with a cane. Also has pulmonary issues. He shares his stream is to walk with his in the morning. she walks 4 miles every morning Dietary counseling reduction Who buys your food self and spouse Who prepares/cooks your food self and spouse Lifestyle Reads food labels Yes (Both he and his , but requested education today) Family support Yes () Exercise No Diagnosis Nutrition problem #1 overweight/obesity As related to (etiology) #1 excess energy intake and physical inactivity As evidenced by (sign/symptom) #1 high BMI Monitoring/Goals Nutrition problem monitoring total energy intake, level of knowledge/skill, total PRO intake, total CHO intake and weight Outcome progress progressing Learning/Education Readiness to learn excellent Stages of change action Educational materials provided Yes Most Recent Diabetes Results: Cholesterol 205 mg/dL (<200) H 05/03/23 HDL Cholesterol 35 mg/dL (>40) L 05/03/23 Triglycerides 88 mg/dL (<150) 05/03/23 Creatinine 0.65 mg/dL (0.5-1.4) 05/03/23 Blood Urea Nitrogen 17 mg/dL (9-16) H 05/03/23 Sodium 140 mmol/L (135-145) 05/03/23 Potassium 3.9 mmol/L (3.3-5.1) 05/03/23 Chloride 108 mmol/L (96-108) 05/03/23 Carbon Dioxide 27 mmol/L (22-29) 05/03/23 Calcium 9.8 mg/dL (8.4-10.2) 05/03/23 AST 22 U/L (5-37) 05/03/23 ALT 41 U/L (0-40) H 05/03/23 Total Protein 6.8 g/dL (6.5-8.0) 05/03/23 Albumin 3.9 g/dL (3.5-5.0) 05/03/23 [facility] Medical History (Updated 12/22/22 @ 20:04 by Cayden Hill MD) Insomnia ELO on CPAP Atelectasis Pulmonary nodules Dyspnea Rupture, spleen HTN (hypertension) ELO (obstructive sleep apnea) Varicose veins of both lower extremities with inflammation Surgical History H/O hernia repair History of vasectomy S/P gastric surgery Social History [facility] Members: 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 Educated nutrition label reading. Recommended switching to high-fiber, low carb bread products such as 647 bread or mission wraps. Encouraged increasing exercise, recommended upper body exercises and informational handout provided . Follow-up July 18 at 10:00 in office Coding Level of Care Code Nutr Indiv Subseq (72078) Diagnoses Morbid obesity E66.01 Time Spent (min) 30
[2023-05-18 10:46] VITALS: BMI 41.8
== END 2023-05-18 10:46 | disposition home or self-care (01) ==
PROVIDERS: PCP Internal Medicine; Visit Provider Dietitian, Registered
DX: E66.01 Morbid (severe) obesity due to excess calories (principal)

== ENCOUNTER → 2023-05-18 09:50 | Outpatient (BNVA) | payer MEDICAID, SELFPAY | PROVIDERS: PCP Internal Medicine; Visit Provider Dietitian, Registered | DX: E66.01 Morbid (severe) obesity due to excess calories (principal); Z68.41 Body mass index [BMI] 40.0-44.9, adult; Z98.84 Bariatric surgery status | CPT/HCPCS: 97803 ==

== ENCOUNTER 2023-07-06 10:24 | Outpatient (AMB) | payer MEDICAID, SELFPAY ==
--- NOTE | 2023-07-06 10:36 | MHC.OFFVIS ---
Intake Vital Signs 07/06/23 10:37 Height 6 ft 1 in Weight 324 lb 1.272 oz BMI 42.8 BP 132/65 Blood Pressure Location Lt brachial Position Sitting Pulse 66 Intake Visit Reasons: Colonoscopy Screening Intake Note: Shin presents in the office as a new patient for a colonoscopy screening. CC: He states that he gets acid reflux due to bariartric surgery and sometimes food will come up. He used to take carafate. Bonded Strand Operator Required: Yes Bonded Strand Operator Name: [id number] Allergies No Known Allergies [No Known Allergies*] Allergy (Verified 07/06/23 10:38) HPI HPI Comments History of Present Illness Details A 57-year-old male hx colon polyps- last colonoscopy 2017 -polyps presents with persistent acid reflux status post bariatric surgery He was taking carafate - years ago -have seem to help all ever he has just been dealing with over the past several years. Bowels are normal- Occasional nausea, no vomiting, hematemesis, hematochezia fever chills PFSH Medical History (Updated 07/06/23 @ 11:01 by Sun Ulrich PA-C) Insomnia ELO on CPAP Atelectasis Pulmonary nodules Dyspnea Rupture, spleen HTN (hypertension) ELO (obstructive sleep apnea) Varicose veins of both lower extremities with inflammation Surgical History (Updated 07/06/23 @ 13:47 by Sun Ulrich PA-C) Hx of colonoscopy S/P gastric surgery History of vasectomy H/O hernia repair Social History [facility] Members: [facility] Tobacco Use Status: Never used Tobacco service: No Current occupational status: unemployed and disabled 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 Review of Systems Const All systems reviewed & are unremarkable except as noted in HPI and below Card Denies chest pain and Denies dyspnea Resp Denies dyspnea GI Denies hematochezia, Denies change in bowel habits and Reports heartburn Musc Reports abnormal gait and Reports arthralgias Neuro Reports abnormal gait Physical Exam Vital Signs: Last Vital Signs Pulse 66 07/06/23 10:37 BP 132/65 07/06/23 10:37 BMI result Body Mass Index 42.8 Const General: cooperative, healthy appearing and comfortable Nutritional Appearance: overweight Orientation/consciousness: patient oriented x3 Limitations: language barrier and ambulation with cane Resp Effort & Inspection: normal respiratory effort and able to speak in complete sentences Auscultation: no rales, no rhonchi, no wheezes and diminished lung sounds Cardio Rate: regular rate Rhythm: regular rhythm GI Inspection: Yes Abdominal panniculus present and Yes obesity Palpation (GI): Soft to palpation and nontender Auscultation: normal bowel sounds Neuro General: patient oriented x3 Extrem Other: In all lower extremity venous stasis-varicosities Psych Appearance: well kempt Mental Status: mental status grossly normal Speech and movement: Normal speech and movement present Affect: normal affect Attitude: cooperative Thought process: Normal thought process present Thought content: Normal thought content present Insight: Good insight present (Psych) Judgement: Good judgement present (Psych) Results Reviewed Results Reviewed: 2018-2 adenomas- Dr. Garcia- Assessment & Plan Assessment & Plan (1) Hx of colonoscopy: Code(s): Z98.890 - Other specified postprocedural states Plan: Polyp surveillance colonoscopy (2) History of colon polyps: Code(s): Z86.010 - Personal history of colonic polyps Plan: 2018 to adenoma (3) S/P laparoscopic sleeve gastrectomy: Comment: Persistent GERD, bloating H pylori stool antigen Code(s): Z98.84 - Bariatric surgery status Plan: After submit sample for H pylori he may begin pantoprazole 20 mg (4) ELO on CPAP: Code(s): G47.33 - Obstructive sleep apnea (adult) (pediatric); Z99.89 - Dependence on other enabling machines and devices Plan: Anesthesia consult for procedure (5) Acid reflux: Code(s): K21.9 - Gastro-esophageal reflux disease without esophagitis Plan: Reflux precautions reviewed H pylori test pending if positive will treat If negative continue pantoprazole 20 mg daily EGD Plan HP stool pantoprazole EGD/ colo-anesthesia consult-pulmonary- ELO-CPAP- Orders: Orders H pylori Ag Stool Today A04.8 - Other specified bacterial intestinal infections EGD/Dowagiac Combo - GI Use Only Today G47.33 - Obstructive sleep apnea (adult) (pediatric), K21.9 - Gastro-esophageal reflux disease without esophagitis, Z86.010 - Personal history of colonic polyps, Z98.84 - Bariatric surgery status, Z99.89 - Dependence on other enabling machines and devices Medications: New bisacodyl (Dulcolax (bisacodyl)) Day before procedure, prep day Take 4 tablets by mouth upon awakening followed by large glass of water 20 mg (4 x 5 mg) PO ONCE 1 day 4 tabs 0RF colonoscopy prep Z12.11 - Encounter for screening for malignant neoplasm of colon polyethylene glycol 3350 (Miralax) Take as directed by mouth the day before your procedure. 238 grams PO ONCE 1 day PRN 238 grams 0RF laxative effect pantoprazole 20 mg PO QAM 30 tabs 6RF Patient Instructions: EGD colonoscopy-MiraLax Gatorade prep literature given If H pylori negative continue pantoprazole 20 mg daily Avoid culprits Coding Level of Care Code New Pt Level 4 (71330) Diagnoses Hx of colonoscopy Z98.890 History of colon polyps Z86.010 S/P laparoscopic sleeve gastrectomy Z98.84 ELO on CPAP G47.33; Z99.89 Acid reflux K21.9 Time Spent (min) 35 Comment Rica [id number]
[2023-07-06 10:37] VITALS: BP 132/65; PULSE 66; BMI 42.8
== END 2023-07-06 11:49 | disposition home or self-care (01) ==
PROVIDERS: PCP Internal Medicine; Visit Provider Physician Assistant
DX: Z98.890 Other specified postprocedural states (principal); Z86.010 Personal history of colon polyps; Z98.84 Bariatric surgery status; G47.33 Obstructive sleep apnea (adult) (pediatric); Z99.89 Dependence on other enabling machines and devices; K21.9 Gastro-esophageal reflux disease without esophagitis
CPT/HCPCS: 99204

== ENCOUNTER → 2023-07-06 10:24 | Outpatient (BNVA) | payer MEDICAID, SELFPAY | PROVIDERS: PCP Internal Medicine; Visit Provider Physician Assistant | DX: K21.9 Gastro-esophageal reflux disease without esophagitis (principal); G47.33 Obstructive sleep apnea (adult) (pediatric); Z98.890 Other specified postprocedural states; Z86.010 Personal history of colon polyps; Z98.84 Bariatric surgery status; Z99.89 Dependence on other enabling machines and devices | CPT/HCPCS: 99212 ==

== ENCOUNTER 2023-07-24 15:54 | Outpatient (REF) | payer MEDICAID, SELFPAY ==
[2023-07-24 18:26] LABS: C Reactive Protein 0.49 mg/dL (< or = 0.50); Uric Acid 4.5 mg/dL (3.4-7.0)
[2023-07-24 18:27] LABS: Rheumatoid Factor < 13.0 IU/mL (<15.0)
[2023-07-24 18:37] LABS: Erythrocyte Sedimentation Rate 8 MM/HR (0-15)
== END 2023-07-24 15:55 | disposition home or self-care (01) ==
LOC: HO.CHCLDS 15:54
PROVIDERS: Visit Provider Internal Medicine
DX: M25.579 Pain in unspecified ankle and joints of unspecified foot (principal)
CPT/HCPCS: 36415; 84550; 85652; 86140; 86431

== ENCOUNTER 2023-07-26 09:05 | Outpatient (REF) | payer MEDICAID, SELFPAY ==
--- NOTE | ~2023-07-26 | XR_ITS ---
EXAMINATION: XR FOOT, LEFT CLINICAL INFORMATION: Arthralgia COMPARISON: None available. TECHNIQUE: AP, lateral, and oblique views of the left foot. FINDINGS: There is no evidence of fracture or subluxation. There are changes of osteoarthritis of the second and first metatarsophalangeal joint with marginal spurring. There is plantar and superior calcaneal spurring. Soft tissues unremarkable. XR/XR foot LT min 3V IMPRESSION: Changes of osteoarthritis and calcaneal spurring.
--- NOTE | ~2023-07-26 | XR_ITS ---
EXAMINATION: XR FOOT, RIGHT CLINICAL INFORMATION: Arthralgia COMPARISON: None available. TECHNIQUE: AP, lateral, and oblique views of the right foot. FINDINGS: The bones and soft tissues are normal. No fracture. Alignment is anatomic. Joint spaces are maintained. There is plantar and superior calcaneal spurring. There is mild soft tissue swelling of the fourth toe. XR/XR foot RT min 3V IMPRESSION: Calcaneal spurring and soft tissue swelling.
== END 2023-07-26 09:06 | disposition home or self-care (01) ==
LOC: HO.XRAY 09:05
PROVIDERS: Physician Assistant; PCP Internal Medicine; Visit Provider Internal Medicine
DX: A04.8 Other specified bacterial intestinal infections (principal); M25.571 Pain in right ankle and joints of right foot; M25.572 Pain in left ankle and joints of left foot
CPT/HCPCS: 73630; 87338

== ENCOUNTER → 2023-08-08 11:00 | Outpatient (BNVA) | payer MEDICAID, SELFPAY | PROVIDERS: PCP Internal Medicine; Visit Provider Dietitian, Registered | DX: E66.9 Obesity, unspecified (principal) | CPT/HCPCS: 97803 ==

== ENCOUNTER 2023-08-30 08:52 | Outpatient (REF) | payer MEDICAID, SELFPAY | END 2023-08-30 08:53 | disposition home or self-care (01) | LOC: HO.CT 08:52 | PROVIDERS: PCP Internal Medicine; Visit Provider Hospitalist | DX: R91.8 Other nonspecific abnormal finding of lung field (principal) | CPT/HCPCS: 71250 ==

== ENCOUNTER 2023-08-30 12:15 | Outpatient (AMB) | payer OTHER, SELFPAY ==
--- NOTE | 2023-08-30 12:27 | A.OFFWM_ITS ---
Intake Intake Visit Reasons: VIDEO PO LSG 09/20/18 Allergies No Known Allergies [No Known Allergies*] Allergy (Verified 07/06/23 10:38) PFSH Medical History (Updated 07/06/23 @ 11:01 by Sun Ulrich PA-C) Insomnia ELO on CPAP Atelectasis Pulmonary nodules Dyspnea Rupture, spleen HTN (hypertension) ELO (obstructive sleep apnea) Varicose veins of both lower extremities with inflammation Surgical History (Updated 07/06/23 @ 13:47 by Sun Ulrich PA-C) Hx of colonoscopy S/P gastric surgery History of vasectomy H/O hernia repair Social History [facility]hold Members: [facility] Tobacco Use Status: Never used Tobacco service: No Current occupational status: unemployed and disabled 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 PT reports she is receiving bi-weekly therapy sessions due to adjustment Dx with symptoms of anxiety, depression and sleeping disturbances. Today we identified recent triggers, completed ABC analysis to identofy responses to trigering events. Provided psychoeducation around emotiona/stress eating, and provided twith different strategies to work on these responses, such as mindullness excercises to intruvice thoughts and cravings, and other stress management tecniques to use on a daily basis even if feelign well. Processed sources of stress and patient's concerns. Pt will continue meeting with his current providers and will request another augie with me if feel in need. Presenting Concerns Referral Source Kate Phillips, Electronics Engineering Professor. Reason for referral Support with emotional eating. Precipitating Event PT has been depressed, dealing with sleeping issues and appetite has increased, leading him to eat when alone/bored. Living Situation Current Living Situation Rent At risk of losing current housing? No Satisfied with current living situation? Yes Comments PT lives with partner and 2 children. 17 y/o step-son and 10 y/o son who has autism. Mental Health and Addiction Treatment Psychiatric history PT is attending counseling services at [facility] on a bi-weekly basis. And sees prescriber every 2 months. Never inpatient and/or in crisis, denies any history or concern with SI/SA. Assessment & Plan Assessment & Plan (1) Adjustment disorder: Code(s): F43.20 - Adjustment disorder, unspecified Qualifiers: Adjustment disorder type: with mixed anxiety and depressed mood Qualified Code(s): F43.23 - Adjustment disorder with mixed anxiety and depressed mood Plan: Pt will continue meeting with own providers and will request additional support from me if he decides that. No need for a follow up is required today. Telehealth Telehealth Location of provider rendering services: other Location of patient: address on file Patient Identification confirmed using: Name, : Yes Telehealth method: voice only Patient verbally consented to treatment: No Patient verbally consented to billing insurance company: No Patient informed of any privacy concerns related to visit: Yes Minutes spent on Phone/Video with Pt.: 60 Coding Level of Care Code New Pt Tele Psy Diag Marin ([id number]) Patient Type New Diagnoses Adjustment disorder with mixed anxiety and depressed mood F43.23 Adjustment disorder type: with mixed anxiety and depressed mood Time Spent (min) 60
== END 2023-08-30 13:15 | disposition home or self-care (01) ==
LOC: HO.HBST 13:05
PROVIDERS: PCP Internal Medicine; Visit Provider Counselor Mental Health
DX: F43.23 Adjustment disorder with mixed anxiety and depressed mood (principal)
CPT/HCPCS: 90837

== ENCOUNTER 2023-09-15 09:32 | Outpatient (AMB) | payer MEDICAID, SELFPAY ==
[2023-09-15 09:37] VITALS: PULSE 71; O2SAT 93; BMI 45.4
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
== END 2023-09-15 10:07 | disposition home or self-care (01) ==
PROVIDERS: PCP Internal Medicine; Visit Provider Hospitalist
DX: R06.09 Other forms of dyspnea (principal); R91.8 Other nonspecific abnormal finding of lung field; J98.11 Atelectasis; G47.33 Obstructive sleep apnea (adult) (pediatric); Z99.89 Dependence on other enabling machines and devices; F51.01 Primary insomnia; R06.00 Dyspnea, unspecified
CPT/HCPCS: 99214

== ENCOUNTER → 2023-09-15 09:32 | Outpatient (BNVA) | payer MEDICAID, SELFPAY | PROVIDERS: PCP Internal Medicine; Visit Provider Hospitalist | DX: Z23 Encounter for immunization (principal); R91.8 Other nonspecific abnormal finding of lung field; R06.09 Other forms of dyspnea; J98.11 Atelectasis; G47.33 Obstructive sleep apnea (adult) (pediatric); F51.01 Primary insomnia; Z99.89 Dependence on other enabling machines and devices | CPT/HCPCS: 90471; 90677; 99212 ==

== ENCOUNTER 2023-11-22 08:25 | Day surgery (SDC) | payer MEDICAID, SELFPAY ==
[2023-11-20 11:44] VITALS: BMI 46.2
--- NOTE | 2023-11-20 13:33 | P.CONAN_ITS ---
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) Osteoarthritis of right knee (Acute) Right knee pain (Acute) Morbid obesity (Acute) Chronic pain syndrome (Acute) Synovial cyst of popliteal space [Weinberg], left knee (Acute) Varicose veins of left lower extremity with inflammation (Acute) Patellofemoral arthritis of right knee (Acute) Patellofemoral arthritis of left knee (Acute) Past Medical History Medical History Insomnia ELO on CPAP Atelectasis Pulmonary nodules Dyspnea Rupture, spleen HTN (hypertension) ELO (obstructive sleep apnea) Varicose veins of both lower extremities with inflammation Surgical History Surgical History (Updated 11/22/23 @ 08:50 by Rosangela Aponte RN) Hx of splenectomy Hx of colonoscopy S/P gastric surgery History of vasectomy H/O hernia repair Social History Social History Household Members: Family Housing: [facility] Patient Tobacco Use Status: Never used Tobacco service: No Current occupational status: unemployed and disabled 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 Meds Allergies Allergy/AdvReac Type Severity Reaction Status Date / Time No Known Allergies Allergy Verified 11/22/23 08:58 [No Known Allergies*] Home Medications Medication Instructions Recorded Confirmed Last Taken Type cholecalciferol (vitamin D3) 50 50 mcg PO DAILY 07/02/20 11/22/23 Unknown History mcg (2,000 unit) capsule ibuprofen 800 mg tablet 800 mg PO TID 02/23/21 11/22/23 Unknown History ropinirole 0.25 mg tablet 0.25 mg PO BEDTIME 02/23/21 11/22/23 Unknown History ketoconazole 2 % shampoo 1 appl topical 2XW 01/17/22 11/22/23 Unknown History vitamin B complex (Complex B-100 1 tab PO DAILY 01/17/22 11/22/23 Unknown History tablet,extended release) bupropion HCl 300 mg 24 hr tablet, 1 tab PO QAM 11/23/22 11/22/23 Unknown History extended release sildenafil 25 mg tablet (Viagra) 1 tab PO DAILY PRN Sexual Activity 11/23/22 11/22/23 Unknown History CPAP (CPAP Machine/Device) 12/22/22 11/22/23 Unknown History fluticasone propionate 50 1 spray intranasal BID congestion 07/06/23 11/22/23 Unknown History mcg/actuation nasal spray,suspension gabapentin 300 mg capsule 900 mg PO BEDTIME 07/06/23 11/22/23 Unknown History furosemide 20 mg tablet (Lasix) 20 mg PO DAILY 09/15/23 11/22/23 Unknown History Exam Height,Weight and Vital Signs: Height 6 ft 1 in Weight 158.757 kg Narrative Narrative: ECHO 10/2023 1. LV size is nml 2. Mild conc LVH 3. Overall LV systolic function is nml with EF 65-70% 4. Accurate pulmo pressures could be obtained d/t inadequate TR jet 5. No pericardial effusion 6. Aortic root dilated measuring 40mm 7. No signif changes c/w 10/2022. Aortic arch appears calcified Assessment and Plan Assessment Anesthesia Assessment: Chart Reviewed Documented by User: Jasiel Sheldon MD 11/22/23 09:07 [facility] Past Medical History Medical History Insomnia ELO on CPAP Atelectasis Pulmonary nodules Dyspnea Rupture, spleen HTN (hypertension) ELO (obstructive sleep apnea) Varicose veins of both lower extremities with inflammation Family History Family history of problems with anesthesia: No Surgical History Surgical History (Updated 11/22/23 @ 08:50 by Rosangela Aponte RN) Hx of splenectomy Hx of colonoscopy S/P gastric surgery History of vasectomy H/O hernia repair History of Problems with Anesthesia: No Social History Social History Household Members: Family Housing: Condominium Patient Tobacco Use Status: Never used Tobacco service: No Current occupational status: unemployed and disabled 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 Meds Allergies Allergy/AdvReac Type Severity Reaction Status Date / Time No Known Allergies Allergy Verified 11/22/23 08:58 [No Known Allergies*] Home Medications Medication Instructions Recorded Confirmed Last Taken Type cholecalciferol (vitamin D3) 50 50 mcg PO DAILY 07/02/20 11/22/23 Unknown History mcg (2,000 unit) capsule ibuprofen 800 mg tablet 800 mg PO TID 02/23/21 11/22/23 Unknown History ropinirole 0.25 mg tablet 0.25 mg PO BEDTIME 02/23/21 11/22/23 Unknown History ketoconazole 2 % shampoo 1 appl topical 2XW 01/17/22 11/22/23 Unknown History vitamin B complex (Complex B-100 1 tab PO DAILY 01/17/22 11/22/23 Unknown History tablet,extended release) bupropion HCl 300 mg 24 hr tablet, 1 tab PO QAM 11/23/22 11/22/23 Unknown History extended release sildenafil 25 mg tablet (Viagra) 1 tab PO DAILY PRN Sexual Activity 11/23/22 11/22/23 Unknown History CPAP (CPAP Machine/Device) 12/22/22 11/22/23 Unknown History fluticasone propionate 50 1 spray intranasal BID congestion 07/06/23 11/22/23 Unknown History mcg/actuation nasal spray,suspension gabapentin 300 mg capsule 900 mg PO BEDTIME 07/06/23 11/22/23 Unknown History furosemide 20 mg tablet (Lasix) 20 mg PO DAILY 09/15/23 11/22/23 Unknown History Exam Airway Mallampati Class: II TM Dist: <=3cm Neck ROM: Full Loose/Missing/Broken Teeth: Yes (missing) and Upper Heart: ok Lungs: ok Assessment and Plan Assessment Anesthesia Assessment: Anesthesia Plan Discussed Final Anesthetic Review Family History of Problems with Anesthesia: No History of Problems with Anesthesia: No NPO: Yes ASA Class: III Final Preanesthetic Review: No Changes in Pt Med Stat, Meds/Allgs Chart Reviewed, Consent Obtained/Reviewed and Anes Risks/Benef Reviewed Patient Risk: Intermediate Procedure Risk: Intermediate Anesthetic Plan Anesthetic Plan: Agree w/ Assess. and Plan and TIVA Disposition: Standard PACU
[2023-11-22 08:59] VITALS: BMI 46.2
--- NOTE | 2023-11-22 09:03 | MHC.SHP ---
Pre-Procedural Eval Section A - 24 Hr Update-Section A only Date of Service: 11/22/23 Section B - Complete if H&P > 30 days Chief Complaint: Gastro-esophageal reflux disease without esophagit Details of Present Illness: colon screening Relevant Family History (Specify if Yes): No Relevant Social History: None Present Medications: see Short Stay Collaborative assessment Medical History: Significant History (nsomnia ELO on CPAP Atelectasis Pulmonary nodules Dyspnea Rupture, spleen HTN (hypertension) ELO (obstructive sleep apnea) Varicose veins of both lower extremities with inflammation) History of Previous Operations: Relevant previous surgery/procedure and date(s) (Hx of splenectomy Hx of colonoscopy S/P gastric surgery History of vasectomy H/O hernia repair) Allergies: Allergies Allergy/AdvReac Type Severity Reaction Status Date / Time No Known Allergies Allergy Verified 11/22/23 08:58 [No Known Allergies*] Review of Systems Sugical H&P ROS: Negative: Constitution, Cardiovascular, Respiratory, Neurological, Psychiatric, Hem-Onc, Allergic/Immunologic, Gastrointestinal, Genitourinary, Musculoskeletal, Integumentary, Endocrine and Eyes/Ears/Nose/Throat Exam Surgical H&P Exam: Normal: HEENT, Normal: Heart, Normal: Lungs, Normal: Extremities, Normal: Abdomen, Normal: Skin and Normal: Neurological Plan Diagnosis/Plan: Unchanged I have reviewed the history and physical and performed a pertinent physical examination on my patient. No changes have occurred unless specified. Time Spent With Patient Time: Total time managing care of this patient today ____ minutes.
[2023-11-22 09:13] VITALS: BP 163/99; PULSE 87; RESP 18; TEMP 37.3; O2SAT 94
[2023-11-22] MEDS: Lactated Ringers 1,000 ML 100 ML IVCONT (09:20)
--- NOTE | 2023-11-22 09:38 | P.OP_ITS ---
Operative Note Operative Note Date of Service: 11/22/23 Narrative: Operative Information Procedure Description: EGD, Colonoscopy Indication: GERd, screening colo Anesthesia: MAC FLEXIBLE TRANSORAL UPPER GASTROINTESTINAL ENDOSCOPY AND COLONOSCOPY PROCEDURE NOTE UPPER ENDOSCOPY Consent: Indications for the procedure and potential complications of bleeding, perforation, reaction to medications and missed diagnosis were discussed with the patient and informed consent was obtained. Instrument: Olympus GIF H 190 J mid size upper endoscope Monitoring: Vital signs and clinical assessment, continuous EKG monitoring, Pulse oximetry, Carbon Dioxide monitoring and blood pressure monitoring were done throughout the procedure. Procedure: The patient was placed in the left lateral decubitis position and pre-procedure medications were administered and a bite block was placed. The endoscope was inserted into the mouth and advanced under direct vision to the third part of duodenum. A careful inspection was made as the upper endoscope was withdrawn including a retroflexed examination of the proximal stomach; Findings and interventions are described below. Findings: Larynx:normal Esophagus: GE junction at 42 cm, diaphragm hiatus at 42 cm, normal mucosa Stomach: Patchy erythema with some scarring. Biopsies were obtained. Grade 2 flap valve on retroflexed examination of the cardia. Duodenum: Normal bulb and descending duodenum, Intervention: Biopsies as noted above, COLONOSCOPY Instrument: Olympus variable stiffness pediatric scope 190L Colonoscopy Monitoring: Vital signs and clinical assessment, continuous EKG monitoring, Pulse oximetry, Carbon Dioxide monitoring and blood pressure monitoring were done throughout the procedure. Colon withdrawal time was 6 minutes. Procedure: The patient was placed in the left lateral decubitis position and pre-procedure medications were administered. After a digital rectal examination of the ano-rectum, the video colonoscope was inserted into the rectum and advanced through the colon to the cecum/TI. The colonoscope was slowly withdrawn in a retrograde panoramic fashion and the colon mucosa was carefully examined including a retroflexed view of the rectum. Findings and interventions are described below. Procedure Difficulty:moderate Findings: Terminal Ileum-normal Cecum:normal Right sided retroflexion- few scattered diverticula seen Ascending Colon: normal Transverse Colon -normal Descending Colon:normal Sigmoid Colon: moderate diverticulosis Rectum: Retroflexion with medium sized internal hemorrhoids, grade I Anorectum - normal Colon preparation: [place] Bowel Preparation Scale Right colon; 2 Transverse colon: 2 Left colon; 2 (0 = Unprepared colon segment with mucosa not seen due to solid stool that cannot be cleared. 1 = Portion of mucosa of the colon segment seen, but other areas of the colon segment not well seen due to staining, residual stool and/or opaque liquid. 2 = Minor amount of residual staining, small fragments of stool and/or opaque liquid, but mucosa of colon segment seen well. 3 = Entire mucosa of colon segment seen well with no residual staining, small fragments of stool or opaque liquid) Impression and Post Procedure Diagnosis: Endoscopy Findings: gastritis Colonoscopy Findings: diverticulosis internal hemorrhoids Plan: Await Pathology results Repeat Colonoscopy in 10 years or earlier if clinically indicated High fiber diet leaflet avoid straining at stool, epsom salts and sitz bath, anusol supps or cream if h pylori pos then treat Above findings were reviewed with the patient and relevant handouts were provided if indicated.
[2023-11-22 10:09] VITALS: BP 110/66; PULSE 90; RESP 18; TEMP 37.1; O2SAT 93
[2023-11-22 10:24] VITALS: BP 119/68; PULSE 73; RESP 16; O2SAT 94
[2023-11-22 10:38] VITALS: BP 127/83; PULSE 81; RESP 16; O2SAT 94
[2023-11-22 10:52] VITALS: BP 134/76; PULSE 73; RESP 16; TEMP 36.8; O2SAT 94
== END 2023-11-22 11:28 | disposition home or self-care (01) ==
PROVIDERS: PCP Internal Medicine; Visit Provider Internal Medicine Gastroenterology
PROC: (CPT 43239; principal; 2023-11-22 10:30)
DX: K29.70 Gastritis, unspecified, without bleeding (principal); K21.9 Gastro-esophageal reflux disease without esophagitis; Z98.84 Bariatric surgery status; Z12.11 Encounter for screening for malignant neoplasm of colon; K57.30 Diverticulosis of large intestine without perforation or abscess without bleeding; K64.0 First degree hemorrhoids; I10 Essential (primary) hypertension; G47.33 Obstructive sleep apnea (adult) (pediatric); R06.00 Dyspnea, unspecified; Z99.89 Dependence on other enabling machines and devices
CPT/HCPCS: 43239; 45378; 88305; 88313; 88342; J2704

== ENCOUNTER → 2023-11-22 08:25 | Outpatient (BNV) | payer MEDICAID, SELFPAY | PROVIDERS: PCP Internal Medicine; Visit Provider Internal Medicine Gastroenterology | DX: Z12.11 Encounter for screening for malignant neoplasm of colon (principal); K57.90 Diverticulosis of intestine, part unspecified, without perforation or abscess without bleeding; K64.0 First degree hemorrhoids; K21.9 Gastro-esophageal reflux disease without esophagitis; K29.70 Gastritis, unspecified, without bleeding | CPT/HCPCS: 43239; 45378 ==

== ENCOUNTER 2023-12-06 08:18 | Outpatient (AMB) | payer MEDICAID, SELFPAY ==
--- NOTE | 2023-12-06 08:25 | A.OFFVIS_ITS ---
Intake Vital Signs 12/06/23 08:27 Height 6 ft 1 in Weight 344 lb BMI 45.4 BP 131/68 Blood Pressure Location Lt brachial Position Sitting Intake Visit Reasons: S/P Double; Dr. Alcocer Intake Note: Patient follow up for EGD/Colonoscopy Patient denies any GI issues. Transfer Worker Required: Yes Accompanied by: Spouse Allergies No Known Allergies [No Known Allergies*] Allergy (Verified 12/06/23 08:25) HPI HPI Comments History of Present Illness Details A 58 y/o male f/u after EGD or reflux and colonoscopy Reflux well controlled with ppi and dietary modifications Bowels ok- hemorrhoids bleed on occ. if eats spicy-otherwise not typically initial No N/V/D- abdominal pain- fever or chills Reviewed procedure report, pathology and recommendation [facility] Medical History (Updated 12/06/23 @ 08:38 by Sun Ulrich PA-C) Insomnia ELO on CPAP Atelectasis Pulmonary nodules Dyspnea Rupture, spleen HTN (hypertension) ELO (obstructive sleep apnea) Varicose veins of both lower extremities with inflammation Surgical History History of esophagogastroduodenoscopy (EGD) Hx of splenectomy Hx of colonoscopy S/P gastric surgery History of vasectomy H/O hernia repair Social History Household Members: Family 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 Review of Systems Const All systems reviewed & are unremarkable except as noted in HPI and below Card Denies chest pain and Denies dyspnea Resp Denies dyspnea Physical Exam Vital Signs: Last Vital Signs BP 131/68 12/06/23 08:27 BMI result Body Mass Index 45.4 Const General: cooperative and comfortable Nutritional Appearance: overweight Orientation/consciousness: patient oriented x3 Limitations: language barrier Neuro General: patient oriented x3 Psych Mental Status: mental status grossly normal Speech and movement: Normal speech and movement present and Clear speech present Affect: normal affect Attitude: cooperative Thought process: Normal thought process present Thought content: Normal thought content present Insight: Good insight present (Psych) Judgement: Good judgement present (Psych) Results Reviewed Results Reviewed: Impression and Post Procedure Diagnosis: Endoscopy Findings: gastritis Colonoscopy Findings: diverticulosis internal hemorrhoids Plan: Await Pathology results Repeat Colonoscopy in 10 years or earlier if clinically indicated High fiber diet leaflet avoid straining at stool, epsom salts and sitz bath, anusol supps or cream if h pylori pos then treat Name: Shin Ortiz Age/Sex: 58/M Attending: Joy Alcocer MD : 1965 Submitted by: Joy Alcocer MD Copies to: Ham Burgos MD MR #: [id number] Status: [facility] Collected: 11/22/23 Location: [facility] Received: 11/22/23 Diagnosis Stomach, biopsy: Antral-type and oxyntic mucosa with mild chronic inactive inflammation; no Helicobacter organisms seen. Clinical History Pre-Op Dx: Gastro-esophageal reflux disease without esophagitis Post-Op Dx: Gastritis, diverticulosis, internal hemorrhoids Microscopic Description Microscopic sections examined. No metaplastic changes are seen, supported by AB/PAS stains; no Helicobacter organisms are seen, supported by H. pylori immunostain. Material Received Stomach Gross Description Received in formalin labeled ?stomach? are 3 fragments of pink-waddell soft tissue ranging from 0.2-0.3 cm in greatest dimension which are wrapped in lens paper and entirely submitted for microscopic examination, 3 pieces in 1 cassette ([facility]). Special studies ordered and performed: immunostain for H. pylori and AB/PAS stains Copies To Ham Burgos MD [address] [place] [id number] Joy Alcocer MD [address] [place] [address] [place] [id number] Patient: Shin Ortiz Age/Sex: 58/M MR#: [id number] Page 1 of 2 Assessment & Plan Assessment & Plan (1) Diverticulosis: Code(s): K57.90 - Diverticulosis of intestine, part unspecified, without perforation or abscess without bleeding Plan: ER protocol (2) Hemorrhoids: Code(s): K64.9 - Unspecified hemorrhoids Plan: Avoid straining Rectal cream High-fiber (3) Acid reflux: Code(s): K21.9 - Gastro-esophageal reflux disease without esophagitis Plan: Continue PPI Avoid culprits Plan Repeat asymptomatic colonoscopy 10 Medications: New hydrocortisone 2.5% (Proctosol HC) 1 appl IA BEDTIME 30 days 30 grams 3RF hemorrhoids Refilled pantoprazole 20 mg PO QAM 30 tabs 6RF Patient Instructions: Patient and present with H hris manager Reviewed procedure report, pathology and recommendations Opportunity for questions answered to his satisfaction Repeat asymptomatic colonoscopy 10 years-reminder will be placed Maintain high-fiber diet Diverticulosis/diverticulitis ER protocol reviewed Reflux precautions reviewed Avoid culprits Continue PPI-script refill sent to pharmacy-may follow-up with PCP Encouraged to call questions or concerns Appreciate the opportunity assist in the care the patient Coding Level of Care Code Est Pt Level 3 (95080) Diagnoses Diverticulosis K57.90 Hemorrhoids K64.9 Acid reflux K21.9 Time Spent (min) 25 Comment Transfer Worker
[2023-12-06 08:27] VITALS: BP 131/68; BMI 45.4
== END 2023-12-06 09:11 | disposition home or self-care (01) ==
PROVIDERS: PCP Internal Medicine; Visit Provider Physician Assistant
DX: K57.90 Diverticulosis of intestine, part unspecified, without perforation or abscess without bleeding (principal); K64.9 Unspecified hemorrhoids; K21.9 Gastro-esophageal reflux disease without esophagitis
CPT/HCPCS: 99213

== ENCOUNTER → 2023-12-06 08:18 | Outpatient (BNVA) | payer MEDICAID, SELFPAY | PROVIDERS: PCP Internal Medicine; Visit Provider Physician Assistant | DX: K21.9 Gastro-esophageal reflux disease without esophagitis (principal); K57.90 Diverticulosis of intestine, part unspecified, without perforation or abscess without bleeding; K64.9 Unspecified hemorrhoids | CPT/HCPCS: 99212 ==

== ENCOUNTER 2024-01-29 09:29 | Outpatient (REF) | payer MEDICAID, SELFPAY ==
--- NOTE | ~2024-01-29 | XR_ITS ---
EXAMINATION: XR CHEST CLINICAL INFORMATION: Heart failure. COMPARISON: 08/09/2022 chest radiographs. 08/30/2023 CT chest. TECHNIQUE: 3 views of the chest. FINDINGS: Lung volumes are low. There is no gross pneumothorax. Cardiomediastinal silhouette is stable, but visualization is limited due to low lung volumes. No gross pleural effusion. Increased predominantly right basilar streaky opacities characteristic of atelectasis, although an infectious/inflammatory process should also be considered in the appropriate clinical setting. XR/XR chest 2V IMPRESSION: Increased predominantly right basilar streaky opacities characteristic of atelectasis, although an infectious/inflammatory process should also be considered in the appropriate clinical setting.
[2024-01-29 10:43] LABS: Basophils Absolute Auto 0.1 X10*3/uL (0.0-0.2); Basophils Percent Auto 0.7 % (0-2); Eosinophils Absolute Auto 0.7 X10*3/uL (0.0-0.4); Eosinophils Percent Auto 4.7 % (0-4); Hematocrit 46.2 % (42.0-52.0); Hemoglobin 15.7 g/dl (14.0-18.0); Imm Gran Abs Auto 0.05 X10*3/uL (0.00-0.03); Imm Gran Pct Auto 0.4 % (0.0-0.4); Lymphocytes Percent Auto 35.6 % (20-40); MANUAL DIFF FLAG SCAN; Mean Corpuscular Hemoglobin 31.7 pg (27.0-33.0); Mean Corpuscular Volume 93.3 fL (80.0-98.0); Mean Platelet Volume 9.9 fL (9.4-12.4); Monocytes Absolute Auto 1.8 X10*3/uL (0.1-1.2); Monocytes Percent Auto 12.6 % (2-11); Neutrophils Absolute Auto 6.4 x10*3/uL (2.0-8.3); Platelet Count 456 X10*3/uL (160-400); Red Blood Count 4.95 X10*6/uL (4.60-5.80); SCAN SMEAR FLAG 1
[2024-01-29 11:12] LABS: Anion Gap 10 (12-20); Blood Urea Nitrogen 19 mg/dL (9-16); Calcium 9.6 mg/dL (8.4-10.2); Carbon Dioxide 28 mmol/L (22-29); Chloride 107 mmol/L (96-108); Estimated Glomerular Filt Rate > 60; Glucose Random 98 mg/dL (60-115); Potassium 4.2 mmol/L (3.3-5.1); SLIDE REVIEW VERIFIED; Sodium 141 mmol/L (135-145)
[2024-01-29 11:13] LABS: B Type Natriuretic Peptide 11 pg/mL (<100)
[2024-01-29 11:15] LABS: Troponin-I High Sensitivity < 2.7 ng/L (<3.5-35.0)
== END 2024-01-29 09:30 | disposition home or self-care (01) ==
LOC: HO.XRAY 09:29
PROVIDERS: PCP Internal Medicine; Visit Provider Hospitalist
DX: I50.9 Heart failure, unspecified (principal); R06.09 Other forms of dyspnea
CPT/HCPCS: 36415; 71046; 80048; 83880; 84484; 85025; 94618; 99212

== ENCOUNTER 2024-01-29 09:29 | Outpatient (AMB) | payer MEDICAID, SELFPAY ==
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
[2024-01-29 09:38] VITALS: PULSE 69; O2SAT 93; BMI 46.2
[2024-01-29 21:46] VITALS: PULSE 91; O2SAT 94
== END 2024-01-29 10:11 | disposition home or self-care (01) ==
PROVIDERS: PCP Internal Medicine; Visit Provider Hospitalist
DX: R06.09 Other forms of dyspnea (principal); R91.8 Other nonspecific abnormal finding of lung field; J98.11 Atelectasis; G47.33 Obstructive sleep apnea (adult) (pediatric); Z99.89 Dependence on other enabling machines and devices; F51.01 Primary insomnia; R60.0 Localized edema; I50.810 Right heart failure, unspecified
CPT/HCPCS: 94618; 99214

== ENCOUNTER 2024-02-14 09:44 | Outpatient (AMB) | payer MEDICAID, SELFPAY ==
--- NOTE | 2024-02-14 09:47 | MHC.OFFVIS ---
Intake Visit Reasons: LE swelling Intake Note: Patient presents for leg swelling. Bilateral but the right leg is worse. Patient was given Lasix two weeks ago for 5 days but he did not notice any difference. He sometimes gets cramping. Accompanied by: Spouse Allergies No Known Allergies [No Known Allergies*] Allergy (Verified 02/14/24 09:49) HPI HPI LE swelling: Details: Very pleasant 58-year-old gentleman who is morbidly obese presents for follow-up regarding swollen lower extremities. He would actually seen us nearly 3 years ago for prior venous ablation is. He has persistent swelling of the lower extremities. Most recently he had seen his primary care and had a 5 day course of Lasix which provided no improvement. He is now for follow-up. [facility] Medical History Lower extremity edema CHF (congestive heart failure) Insomnia ELO on CPAP Atelectasis Pulmonary nodules Dyspnea Rupture, spleen HTN (hypertension) ELO (obstructive sleep apnea) Varicose veins of both lower extremities with inflammation Surgical History History of esophagogastroduodenoscopy (EGD) Hx of splenectomy Hx of colonoscopy S/P gastric surgery History of vasectomy H/O hernia repair Social History Household Members: Family Housing: [facility] Patient Tobacco Use Status: Never used Tobacco service: No Current occupational status: unemployed and disabled 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 Review of Systems Const Reports as per HPI ENT Reports no additional complaints Card Denies chest pain, Denies chest pain at rest and Denies chest pain with activity Resp Denies chest congestion and Denies cough GI Reports no additional complaints Musc Details: pain over varicosities, aching of lower extremities, swelling, cramping, heaviness and tiredness, itching Denies abnormal gait Skin/Breast Reports pruritus and Denies wounds Neuro Reports no additional complaints and Denies abnormal gait Psych Denies no additional complaints Physical Exam Const General: cooperative, healthy appearing and comfortable Orientation/consciousness: oriented to person, oriented to place and oriented to time Neck Carotids: no bruits Chest Chest palpation & inspection: normal inspection of the chest and normal palpation of entire chest wall Resp Effort & Inspection: normal respiratory effort and able to speak in complete sentences Cardio Rate: regular rate Heart sounds: S1 normal heart sound present and S2 normal heart sound present Peripheral pulses: Peripheral pulses 2+ throughout GI Inspection: Yes normal to inspection Skin Other: +2 edema, large rope-like varicosities greater than 4 mm left calf CEAP Classification C4 - skin color changes Ep - Etiology Primary As - superficial veins P - reflux General skin exam: dry skin Neuro General: oriented to person, oriented to place and oriented to time Extrem Right lower extremity: full ROM, normal capillary refill and edema Left lower extremity: full ROM, normal capillary refill and edema Psych Mental Status: mental status grossly normal Assessment & Plan Assessment & Plan (1) Varicose veins of left lower extremity with inflammation: Comment: 03/19/2021 left great saphenous vein Cyanoacralate ablation Code(s): I83.12 - Varicose veins of left lower extremity with inflammation Category: Medical Plan: In short patient has lower extremity swelling. This may be actually multifactorial in nature as he does have an element of Congestive heart failure and is morbidly obese. We did discuss routine conservative measures including compression elevation and exercise. Was resistant to exercise as he does have knee issues and shortness of breath. We did reinforce the need for some exercise as he continues to gain weight. I have taken the liberty of ordering repeat venous insufficiency testing. He will follow up with us after testing. Thank you for allowing us to assist in his care. Orders: Orders US venous duplex LE BI 1 Week I83.12 - Varicose veins of left lower extremity with inflammation Coding Level of Care Code Est Pt Level 4 (67645) Diagnoses Varicose veins of left lower extremity with inflammation I83.12
== END 2024-02-14 10:13 | disposition home or self-care (01) ==
PROVIDERS: PCP Internal Medicine; Visit Provider Surgery Vascular Surgery
DX: I83.12 Varicose veins of left lower extremity with inflammation (principal)
CPT/HCPCS: 99213

== ENCOUNTER → 2024-02-14 09:44 | Outpatient (BNVA) | payer MEDICAID, SELFPAY | PROVIDERS: PCP Internal Medicine; Visit Provider Surgery Vascular Surgery | DX: I83.12 Varicose veins of left lower extremity with inflammation (principal) | CPT/HCPCS: 99212 ==

== ENCOUNTER 2024-02-22 09:53 | Outpatient (AMB) | payer MEDICAID, SELFPAY ==
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
[2024-02-22 10:02] VITALS: PULSE 81; O2SAT 92; BMI 46.8
[2024-02-22 21:46] VITALS: PULSE 92; O2SAT 94
== END 2024-02-22 10:34 | disposition home or self-care (01) ==
PROVIDERS: PCP Internal Medicine; Visit Provider Hospitalist
DX: J98.11 Atelectasis (principal); I27.20 Pulmonary hypertension, unspecified; R91.8 Other nonspecific abnormal finding of lung field; G47.33 Obstructive sleep apnea (adult) (pediatric); Z99.89 Dependence on other enabling machines and devices; F51.01 Primary insomnia; R60.0 Localized edema
CPT/HCPCS: 94618; 99215

== ENCOUNTER 2024-02-22 09:53 | Outpatient (REF) | payer MEDICAID, SELFPAY ==
[2024-02-22 11:14] LABS: Venous Blood Gas Refer to POC result
[2024-02-22 11:15] LABS: VBG Base Excess 4.8 mmol/L; VBG HCO3 28 mmol/L (22-26); VBG pCO2 39 mmHg; VBG pH 7.47 (7.32-7.43); VBG pO2 39 mmHg
[2024-02-22 11:16] LABS: Basophils Absolute Auto 0.1 X10*3/uL (0.0-0.2); Basophils Percent Auto 0.7 % (0-2); Eosinophils Absolute Auto 0.7 X10*3/uL (0.0-0.4); Eosinophils Percent Auto 4.9 % (0-4); Hematocrit 44.4 % (42.0-52.0); Hemoglobin 15.6 g/dl (14.0-18.0); Imm Gran Abs Auto 0.05 X10*3/uL (0.00-0.03); Imm Gran Pct Auto 0.3 % (0.0-0.4); Lymphocytes Absolute Auto 5.5 X10*3/uL (1.2-4.9); Lymphocytes Percent Auto 37.8 % (20-40); MANUAL DIFF FLAG SCAN; Mean Corpuscular HGB Conc 35.1 g/dl (31.0-36.0); Monocytes Absolute Auto 1.7 X10*3/uL (0.1-1.2); Monocytes Percent Auto 11.6 % (2-11); Neutrophils Absolute Auto 6.5 x10*3/uL (2.0-8.3); Neutrophils Percent Auto 44.7 % (45-73); Platelet Count 446 X10*3/uL (160-400); Red Blood Count 4.88 X10*6/uL (4.60-5.80); Red Cell Distribution Width 15.4 % (11.0-16.0); SCAN SMEAR FLAG 1; White Blood Count 14.6 X10*3/uL (4.8-10.8)
[2024-02-22 11:33] LABS: Anion Gap 12 (12-20); Blood Urea Nitrogen 18 mg/dL (9-16); Calcium 9.4 mg/dL (8.4-10.2); Carbon Dioxide 25 mmol/L (22-29); Chloride 107 mmol/L (96-108); Estimated Glomerular Filt Rate > 60; Glucose Random 89 mg/dL (60-115); Potassium 4.1 mmol/L (3.3-5.1); Sodium 140 mmol/L (135-145)
[2024-02-22 11:34] LABS: Troponin-I High Sensitivity < 2.7 ng/L (<3.5-35.0)
[2024-02-22 11:38] LABS: SLIDE REVIEW VERIFIED
[2024-02-22 11:47] LABS: B Type Natriuretic Peptide < 10 pg/mL (<100)
== END 2024-02-22 09:54 | disposition home or self-care (01) ==
LOC: HO.LAB 09:53
PROVIDERS: PCP Internal Medicine; Visit Provider Hospitalist
DX: R60.0 Localized edema (principal); I50.810 Right heart failure, unspecified; R06.09 Other forms of dyspnea; G47.33 Obstructive sleep apnea (adult) (pediatric); I27.20 Pulmonary hypertension, unspecified; R91.8 Other nonspecific abnormal finding of lung field; J98.11 Atelectasis; G47.00 Insomnia, unspecified; F51.01 Primary insomnia; Z99.89 Dependence on other enabling machines and devices
CPT/HCPCS: 36415; 80048; 82803; 83880; 84484; 85025; 94618; 99212

== ENCOUNTER 2024-02-26 12:55 | Outpatient (REF) | payer MEDICAID, SELFPAY ==
--- NOTE | ~2024-02-26 | US_ITS ---
EXAMINATION: US LOWER EXTREMITY VENOUS (REFLUX EXAM), BILATERAL CLINICAL INDICATION: Chronic venous insufficiency with lower extremity varicose veins. History of left great saphenous venous procedures COMPARISON: None. TECHNIQUE: Color flow triplex imaging and compression Doppler was performed to evaluate both the deep and the superficial systems bilaterally. To evaluate the superficial system, the examination was performed in the upright position. Color-flow Doppler ultrasound and compression ultrasound were utilized. In addition, maneuvers were utilized to demonstrate reflux. FINDINGS: 1. DEEP VENOUS ULTRASOUND OF THE RIGHT LOWER EXTREMITY: Common Femoral Vein: Compressible, normal respiratory variation and augmented flow. Femoral Vein: Compressible, normal color flow and augmentation. Popliteal Vein: Compressible, normal augmentation. Deep Reflux: There is no evidence of reflux in the deep system in either the common femoral vein, superficial femoral or the popliteal vein. There is no evidence of a Weinberg's cyst. 2. SUPERFICIAL ULTRASOUND WITH DOPPLER OF RIGHT LOWER EXTREMITY: GREAT SAPHENOUS VEIN: Saphenofemoral Junction: 0.7 cm; Reflux: 0 ms Proximal Thigh: 0.8 cm; Reflux: 0 ms Mid Thigh: 0.5 cm; Reflux: 0 ms Above Knee: 0.5 cm; Reflux: 0 ms At Knee: 0.4 cm; Reflux: 0 ms Below Knee: 0.3 cm; Reflux: 0 ms Mid Calf: 0.3 cm; Reflux: 0 ms Ankle: 0.3 cm; Reflux: 0 ms DUPLICATED MEDIAL GREAT SAPHENOUS VEIN: Diameter: None imaged Reflux: NA DUPLICATED LATERAL GREAT SAPHENOUS VEIN: Diameter: None imaged Reflux: NA SMALL SAPHENOUS VEIN: Saphenopopliteal Junction: 0.2 cm; Reflux: 0 ms Proximal: 0.2 cm; Reflux: 0 ms Distal: 0.3 cm; Reflux: 0 ms VEIN OF GIACOMINI: Size: NA Reflux: NA PERFORATORS: Location: None imaged Size: NA Reflux: NA VARICOSITIES: Location: Varicose vein at the level of the knee arising from the great saphenous vein Size: 0.4 cm Reflux: None 3. DEEP VENOUS ULTRASOUND OF THE LEFT LOWER EXTREMITY: Common Femoral Vein: Compressible, normal respiratory variation and augmented flow. Femoral Vein: Compressible, normal color flow and augmentation. Popliteal Vein: Compressible, normal augmentation. Deep Reflux: There is no evidence of reflux in the deep system in either the common femoral vein, superficial femoral or the popliteal vein. There is no evidence of a Weinberg's cyst. 4. SUPERFICIAL ULTRASOUND WITH DOPPLER OF LEFT LOWER EXTREMITY: GREAT SAPHENOUS VEIN: Saphenofemoral Junction: 1.0 cm; Reflux: 0 ms Proximal Thigh: 0.3 cm; occluded Mid Thigh: 0.3 cm; Reflux: 0 ms Above Knee: 0.3 cm; occluded At Knee: 0.3 cm; Reflux: 1980 ms Below Knee: Not visualized Mid Calf: 0.4 cm; Reflux: 968 ms Ankle: 0.3 cm; Reflux: 0 ms DUPLICATED MEDIAL GREAT SAPHENOUS VEIN: Diameter: None imaged Reflux: NA DUPLICATED LATERAL GREAT SAPHENOUS VEIN: Diameter: None imaged Reflux: NA SMALL SAPHENOUS VEIN: Saphenopopliteal Junction: 0.3 cm; Reflux: 0 ms Proximal: 0.2 cm; Reflux: 0 ms Distal: 0.3 cm; Reflux: 0 ms VEIN OF GIACOMINI: Size: NA Reflux: NA PERFORATORS: Location: Mid calf Size: 0.5 cm Reflux: 2056 ms VARICOSITIES: Location: Mid thigh arising from of the residual great saphenous vein Size: 0.3 cm Reflux: 1548 ms US/US venous duplex LE BI IMPRESSION: Right: No significant venous insufficiency or reflux throughout the right great saphenous vein or small saphenous vein. There are multiple varicose veins without significant reflux Left: Partially occluded left great saphenous vein from a prior venous seal ablation. There are recanalized segments in the mid thigh, knee and mid calf with areas of reflux as described above. 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
== END 2024-02-26 12:56 | disposition home or self-care (01) ==
LOC: HO.US 12:55
PROVIDERS: PCP Internal Medicine; Visit Provider Surgery Vascular Surgery
DX: I83.12 Varicose veins of left lower extremity with inflammation (principal)
CPT/HCPCS: 93970

== ENCOUNTER → 2024-02-27 10:48 | Outpatient (REF) | payer MEDICAID, SELFPAY ==
--- NOTE | 2024-02-27 10:51 | CA_ITS ---
Acquisition Time: 2024-02-27 11:49:57 Total Exercise Time: 00:03:49 Test Indications: SOB Medications: SEE H Protocol: EDUAR Max HR: 142 BPM 88% of Pred: 160 BPM Max BP: 180/060 mmHG Max Work Load: 5.5 METS Exercise stress test with exercise 3 min 49 sec of Eduar protocol, achieving 88% MPHR, with moderate shortness of breath and fatigue, without arrythmia, with normotensive response to exercise, without EKG changes meeting criteria for ischemia, with moderate decrease in activity tolerance. Echo images obtained by tech at rest and immediately post peak exercise. Definity contrast used. Test reviewed with Dr Hess. Referred By: Cayden Hill Overread By: IDRIS FITZGERALD
== END ==
LOC: HO.CARD 10:48
PROVIDERS: PCP Internal Medicine; Visit Provider Hospitalist
DX: R06.09 Other forms of dyspnea (principal)
CPT/HCPCS: 93350; Q9957

== ENCOUNTER → 2024-02-27 10:51 | Outpatient (BNV) | payer MEDICAID, SELFPAY | PROVIDERS: PCP Internal Medicine; Visit Provider Nurse Practitioner Family | DX: R06.02 Shortness of breath (principal) | CPT/HCPCS: 93016; 93018; 93350; 93352 ==

== ENCOUNTER 2024-04-06 09:50 | Outpatient (REF) | payer MEDICAID, SELFPAY ==
--- NOTE | 2024-04-06 10:00 | PFT_ITS ---
Flows: FEV1: 75 % of predicted at 2.92 L FVC: 63 % of predicted at 3.21 L FEV1/FVC: 91 % Bronchodilator response: Present Volumes: Total lung capacity: 69 % of predicted at 5.47 L Residual volume: 97 % of predicted at 2.38 L Slow vital capacity: 55 % of predicted at 3.09 L Expiratory reserve volume: 2 % of predicted at 0.03 L Diffusion capacity: Normal Impression: Moderate restrictive ventilatory defect with positive bronchodilator response. Decreased expiratory reserve volume suggests extrathoracic restriction likely secondary to abdominal obesity. MTDD
[2024-04-06 11:06] VITALS: PULSE 75; RESP 16; O2SAT 96
== END 2024-04-06 09:51 | disposition home or self-care (01) ==
LOC: HO.RESP 09:50
PROVIDERS: PCP Internal Medicine; Visit Provider Hospitalist
DX: R06.09 Other forms of dyspnea (principal)
CPT/HCPCS: 94010; 94640; 94727; 94729

== ENCOUNTER 2024-04-11 08:59 | Outpatient (AMB) | payer MEDICAID, SELFPAY ==
--- NOTE | 2024-04-11 09:00 | MHC.OFFVIS ---
Intake Visit Reasons: follow up s/p 02/26/24 Intake Note: Patient presents for follow up 02/26/24. Patient states he is experiencing swelling , more than his last visit. Says the swelling get worse as the day goes on , has trouble walking later in the day. He is using a cane to ambulate. He gets pain and cramping here and there . Allergies No Known Allergies [No Known Allergies*] Allergy (Verified 04/11/24 09:04) HPI HPI follow up s/p 02/26/24: Details: Pleasant 58-year-old gentleman presents for follow-up with venous insufficiency testing. He is morbidly obese and has swollen lower extremities. He had seen us nearly 3 years ago and has had continued swollen lower extremities. He has been on Lasix from his primary care with no significant improvement. He now presents for follow-up with testing [facility] Medical History (Updated 04/11/24 @ 15:53 by Eduardo Nunes MD) Pulmonary hypertension Lower extremity edema CHF (congestive heart failure) Insomnia ELO on CPAP Atelectasis Pulmonary nodules Dyspnea Rupture, spleen HTN (hypertension) ELO (obstructive sleep apnea) Varicose veins of both lower extremities with inflammation Surgical History History of esophagogastroduodenoscopy (EGD) Hx of splenectomy Hx of colonoscopy S/P gastric surgery History of vasectomy H/O hernia repair Social History Household Members: Family [facility]: [facility] Patient Tobacco Use Status: Never used Tobacco service: No Current occupational status: unemployed and disabled 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 Review of Systems Const All systems reviewed & are unremarkable except as noted in HPI and below Reports no additional complaints ENT Reports Normal hearing present Card Denies chest pain, Denies chest pain at rest, Denies chest pain with activity and Denies pedal edema Resp Denies cough GI Denies abdominal pain Musc Denies abnormal gait, Denies muscle cramps and Denies radiating pain into limb Skin/Breast Denies skin ulcer and Denies wounds Neuro Reports Normal hearing present and Denies abnormal gait Psych Reports no additional complaints Physical Exam Const General: cooperative, healthy appearing and comfortable Orientation/consciousness: oriented to person, oriented to place and oriented to time HEENT Head: Yes normal to inspection Neck Neck: Yes normal visual inspection Carotids: no bruits Chest Chest palpation & inspection: normal inspection of the chest Resp Effort & Inspection: normal respiratory effort and able to speak in complete sentences Auscultation: clear to auscultation bilaterally, no crackles, no rales, no rhonchi and no wheezes Cardio Rate: regular rate Rhythm: regular rhythm Heart sounds: S1 normal heart sound present and S2 normal heart sound present Bruits: no carotid bruits Peripheral pulses: Peripheral pulses 2+ throughout GI Inspection: Yes normal to inspection Skin Wounds: no wounds Hair: normal Neuro General: oriented to person, oriented to place and oriented to time Cranial nerves: Yes CN's II-XII intact bilaterally and Yes Normal hearing present Cognition (Neuro): normal cognition Motor exam (neuro): 5/5 motor strength present throughout Extrem Other: venous exam: +2 edema Right in cm: Thigh 67 Knee 48.5 Calf 48 Ankle 31 Left in cm: Thigh 66 Knee 46 Calf 47 Ankle 30 Hip/waist 147 General: No clubbing, No cyanosis and Yes edema Psych Appearance: grossly normal Mental Status: mental status grossly normal Speech and movement: Normal speech and movement present Results Reviewed Results Reviewed: Brief summary of venous insufficiency testing is as follows: right great saphenous vein: negative right small saphenous vein: negative right accessory vein: none present left great saphenous vein: negative left small saphenous vein: negative left accessory vein: none present Please note there is no evidence of any venous aneurysms or significant tortuosity Assessment & Plan Assessment & Plan (1) Varicose veins of left lower extremity with inflammation: Comment: 03/19/2021 left great saphenous vein Cyanoacralate ablation Code(s): I83.12 - Varicose veins of left lower extremity with inflammation Category: Medical Plan: Venous testing is essentially negative. Will treat him for lymphedema. This was discussed with the patient and he will come back for lymphedema clinic (2) Lymphedema: Code(s): I89.0 - Lymphedema, not elsewhere classified Category: Medical Plan: In short the patient has late on sent lymphedema. The patient has been on conservative treatment for at least 3 months with minimal relief. Patient has tried 30 mm of mercury compression garments, elevation, exercise healthy diet and doing manual says self MLD to the best of their ability for over 4 weeks but with no significant relief. She has been compliant with the program but has provided minimal relief. In addition on physical we are noticing hyperpigmentation, lymphorrhea, and hyperplasia. It appears that she has stage 2 lymphedema. Patient has completed multiple forms of conservative therapy yet significant symptoms remain. Patient requires the use of a pneumatic compression device which we will assist in trying to have the patient obtain them. A pneumatic compression device will help reduce swelling and other lymphedema comorbidities. Thank you for allowing us to assist in this patient's care. Coding Level of Care Code Est Pt Level 4 (95742) Diagnoses Varicose veins of left lower extremity with inflammation I83.12 Lymphedema I89.0
== END 2024-04-11 09:44 | disposition home or self-care (01) ==
PROVIDERS: PCP Internal Medicine; Visit Provider Surgery Vascular Surgery
DX: I83.12 Varicose veins of left lower extremity with inflammation (principal); I89.0 Lymphedema, not elsewhere classified
CPT/HCPCS: 99214

== ENCOUNTER → 2024-04-11 08:59 | Outpatient (BNVA) | payer MEDICAID, SELFPAY | PROVIDERS: PCP Internal Medicine; Visit Provider Surgery Vascular Surgery | DX: I83.12 Varicose veins of left lower extremity with inflammation (principal); I89.0 Lymphedema, not elsewhere classified; E66.01 Morbid (severe) obesity due to excess calories | CPT/HCPCS: 99212 ==

== ENCOUNTER 2024-04-12 10:05 | Outpatient (AMB) | payer MEDICAID, SELFPAY ==
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
[2024-04-12 10:12] VITALS: PULSE 73; O2SAT 95; BMI 46.2
== END 2024-04-12 10:40 | disposition home or self-care (01) ==
PROVIDERS: PCP Internal Medicine; Referring Provider Internal Medicine; Visit Provider Hospitalist
DX: R06.09 Other forms of dyspnea (principal); I27.20 Pulmonary hypertension, unspecified; R91.8 Other nonspecific abnormal finding of lung field; J98.11 Atelectasis; G47.33 Obstructive sleep apnea (adult) (pediatric); Z99.89 Dependence on other enabling machines and devices; F51.01 Primary insomnia; R60.0 Localized edema
CPT/HCPCS: 99214

== ENCOUNTER → 2024-04-12 10:05 | Outpatient (BNVA) | payer MEDICAID, SELFPAY | PROVIDERS: PCP Internal Medicine; Visit Provider Hospitalist | DX: R06.09 Other forms of dyspnea (principal); G47.33 Obstructive sleep apnea (adult) (pediatric); R91.8 Other nonspecific abnormal finding of lung field; R60.0 Localized edema; I27.20 Pulmonary hypertension, unspecified; J98.11 Atelectasis; F51.01 Primary insomnia; Z99.89 Dependence on other enabling machines and devices | CPT/HCPCS: 99212 ==

== ENCOUNTER 2024-04-29 12:36 | Outpatient (AMB) | payer MEDICAID, SELFPAY ==
--- NOTE | 2024-04-29 12:40 | A.OFFVIS_ITS ---
Intake Visit Reasons: Lymphedema Clinic Intake Note: Lymphedema clinic for bilateral LE Swelling, worse as the day goes on, even has difficulty ambulating by the end of the day. Pt does have bilateral LE discoloration Information Interpreted: clinical only Accompanied by: Spouse Allergies No Known Allergies [No Known Allergies*] Allergy (Verified 04/29/24 12:44) [facility] Lymphedema Clinic: Details: Morbidly obese 58-year-old gentleman presents for follow-up regarding lower extremity swelling. He had been previously worked up for venous insufficiency and had been treated with Lasix with no significant improvement. He has had previous lymphedema evaluation and now presents for follow-up lymphedema evaluation and trial. Has had no interval changes no significant improvement. He does note any increase in varicosities in particular his left lower extremity. [facility] Medical History Chronic respiratory failure [id number] syndrome Pulmonary hypertension Lower extremity edema CHF (congestive heart failure) Insomnia ELO on CPAP Atelectasis Pulmonary nodules Dyspnea Rupture, spleen HTN (hypertension) ELO (obstructive sleep apnea) Varicose veins of both lower extremities with inflammation Surgical History History of esophagogastroduodenoscopy (EGD) Hx of splenectomy Hx of colonoscopy S/P gastric surgery History of vasectomy H/O hernia repair Social History Household Members: Family [facility] Patient Tobacco Use Status: Never used Tobacco service: No Current occupational status: unemployed and disabled 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 Review of Systems Const Reports as per HPI ENT Reports no additional complaints Card Denies chest pain, Denies chest pain at rest and Denies chest pain with activity Resp Denies chest congestion and Denies cough GI Reports no additional complaints Musc Details: pain over varicosities, aching of lower extremities, swelling, cramping, heaviness and tiredness, itching Denies abnormal gait Skin/Breast Reports pruritus and Denies wounds Neuro Reports no additional complaints and Denies abnormal gait Psych Denies no additional complaints Physical Exam Const General: cooperative, healthy appearing and comfortable Orientation/consciousness: oriented to person, oriented to place and oriented to time Neck Carotids: no bruits Chest Chest palpation & inspection: normal inspection of the chest and normal palpation of entire chest wall Resp Effort & Inspection: normal respiratory effort and able to speak in complete sentences Cardio Rate: regular rate Heart sounds: S1 normal heart sound present and S2 normal heart sound present Peripheral pulses: Peripheral pulses 2+ throughout GI Inspection: Yes normal to inspection Skin Other: +2 edema, large rope-like varicosities greater than 4 mm CEAP Classification C4 - skin color changes Ep - Etiology Primary As - superficial veins P - reflux General skin exam: dry skin Neuro General: oriented to person, oriented to place and oriented to time Extrem Other: Right in cm: Thigh 66.25 Knee 49.25 Calf 48 Ankle 31.75 Left in cm: Thigh 67.5 Knee 50.25 Calf 47 Ankle 31.25 Hip/waist 147 Right lower extremity: full ROM, normal capillary refill and edema Left lower extremity: full ROM, normal capillary refill and edema Psych Mental Status: mental status grossly normal Assessment & Plan Assessment & Plan (1) Lymphedema: Code(s): I89.0 - Lymphedema, not elsewhere classified Category: Medical Plan: In short the patient has late on sent lymphedema. The patient has been on conservative treatment for at least 3 months with minimal relief. Patient has tried 30 mm of mercury compression garments, elevation, exercise healthy diet and doing manual says self MLD to the best of their ability for over 4 weeks but with no significant relief. She has been compliant with the program but has provided minimal relief. In addition on physical we are noticing hyperpigmentation, lymphorrhea, and hyperplasia. It appears that she has stage 2 lymphedema. Patient has completed multiple forms of conservative therapy yet significant symptoms remain. Patient requires the use of a pneumatic compression device which we will assist in trying to have the patient obtain them. A pneumatic compression device will help reduce swelling and other lymphedema comorbidities. In addition I do believe he has truncal swelling. He will require an advance pump to better treat this. Thank you for allowing us to assist in this patient's care. (2) Varicose veins of left lower extremity with inflammation: Comment: 03/19/2021 left great saphenous vein Cyanoacralate ablation Code(s): I83.12 - Varicose veins of left lower extremity with inflammation Category: Medical Plan: We did note an increase in varicosities. We will treat the lymphedema and see how that works. I have scheduled him for 3 month surveillance follow-up as well to see the status of his veins at that point and we will consider microphlebectomy if required. Thank you for allowing us to assist in his care. Please note a longitudinal relationship has been created with the patient and we have been following and surveillance this chronic condition. Coding Level of Care Code Est Pt Level 4 (52938) Complex EM visit Add On G2211 Diagnoses Lymphedema I89.0 Varicose veins of left lower extremity with inflammation I83.12
== END 2024-04-29 13:21 | disposition home or self-care (01) ==
PROVIDERS: PCP Internal Medicine; Visit Provider Surgery Vascular Surgery
DX: I89.0 Lymphedema, not elsewhere classified (principal); I83.12 Varicose veins of left lower extremity with inflammation
CPT/HCPCS: 99214

== ENCOUNTER → 2024-04-29 12:36 | Outpatient (BNVA) | payer MEDICAID, SELFPAY | PROVIDERS: PCP Internal Medicine; Visit Provider Surgery Vascular Surgery | DX: I83.12 Varicose veins of left lower extremity with inflammation (principal); I89.0 Lymphedema, not elsewhere classified; E66.01 Morbid (severe) obesity due to excess calories | CPT/HCPCS: 99212 ==

== ENCOUNTER 2024-05-23 10:00 | Outpatient (RCR) | payer MEDICAID, SELFPAY | END 2024-07-18 10:10 | disposition home or self-care (01) | LOC: HO.PR 10:00 | PROVIDERS: PCP Internal Medicine; Visit Provider Hospitalist | DX: I27.20 Pulmonary hypertension, unspecified (principal); U09.9 Post COVID-19 condition, unspecified; J96.10 Chronic respiratory failure, unspecified whether with hypoxia or hypercapnia | CPT/HCPCS: 94618; 99212 ==

== ENCOUNTER 2024-07-18 11:58 | Outpatient (REF) | payer MEDICAID, SELFPAY ==
[2024-07-18 14:12] LABS: Basophils Absolute Auto 0.1 X10*3/uL (0.0-0.2); Basophils Percent Auto 0.8 % (0-2); Eosinophils Absolute Auto 0.7 X10*3/uL (0.0-0.4); Eosinophils Percent Auto 5.5 % (0-4); Hematocrit 44.6 % (42.0-52.0); Hemoglobin 15.3 g/dl (14.0-18.0); Imm Gran Abs Auto 0.05 X10*3/uL (0.00-0.03); Imm Gran Pct Auto 0.4 % (0.0-0.4); Lymphocytes Absolute Auto 3.7 X10*3/uL (1.2-4.9); Lymphocytes Percent Auto 29.9 % (20-40); MANUAL DIFF FLAG SCAN; Mean Corpuscular HGB Conc 34.3 g/dl (31.0-36.0); Mean Corpuscular Hemoglobin 31.1 pg (27.0-33.0); Mean Corpuscular Volume 90.7 fL (80.0-98.0); Mean Platelet Volume 10.5 fL (9.4-12.4); Monocytes Absolute Auto 1.5 X10*3/uL (0.1-1.2); Monocytes Percent Auto 12.3 % (2-11); Neutrophils Absolute Auto 6.3 x10*3/uL (2.0-8.3); Neutrophils Percent Auto 51.1 % (45-73); Platelet Count 474 X10*3/uL (160-400); Red Blood Count 4.92 X10*6/uL (4.60-5.80); Red Cell Distribution Width 15.6 % (11.0-16.0); SCAN SMEAR FLAG 1; White Blood Count 12.3 X10*3/uL (4.8-10.8)
[2024-07-18 14:17] LABS: INTERNATIONAL NORM RATIO 0.9 (0.9-1.1); Prothrombin Time 10.9 SEC (10.9-12.4)
[2024-07-18 14:19] LABS: Partial Thromboplastin Time 33.5 SEC (26.0-36.8)
[2024-07-18 14:26] LABS: Cholesterol 201 mg/dL (<200); HDL Cholesterol 44 mg/dL (>40); LDL Cholesterol Calculated 137 mg/dL (<100); Triglycerides 102 mg/dL (<150)
[2024-07-18 14:37] LABS: SLIDE REVIEW VERIFIED
== END 2024-07-18 11:59 | disposition home or self-care (01) ==
LOC: HO.CHCLDS 11:58
PROVIDERS: Visit Provider Internal Medicine
DX: R23.3 Spontaneous ecchymoses (principal); I51.7 Cardiomegaly
CPT/HCPCS: 36415; 80061; 85025; 85610; 85730

== ENCOUNTER 2024-08-01 09:47 | Outpatient (AMB) | payer MEDICAID, SELFPAY ==
--- NOTE | 2024-08-01 09:52 | A.OFFVIS_ITS ---
Intake Visit Reasons: 3 mo leg check Intake Note: Patient presents for 3 month leg check. He is using his lymphedema pumps and has noticed his left leg is not swelling as much. He states his right leg has not shown improvement. Accompanied by: Self / Same As Patient Allergies No Known Allergies [No Known Allergies*] Allergy (Verified 08/01/24 09:53) HPI HPI 3 mo leg check: Details: Very pleasant 58-year-old gentleman presents for follow-up regarding lower extremity swelling. He has been previously treated with Lasix and actually has undergone venous ablation with us. He most recently has received lymphedema pumps which have been used for his lower extremity including truncal lymphedema. It does provide some relief but the left lower extremity continues to be swollen. He does have some varicosities that which have been a source of pain and discomfort. Of note since this past May he has become O2 dependent. [facility] Medical History Chronic respiratory failure [id number] syndrome Pulmonary hypertension Lower extremity edema CHF (congestive heart failure) Insomnia ELO on CPAP Atelectasis Pulmonary nodules Dyspnea Rupture, spleen HTN (hypertension) ELO (obstructive sleep apnea) Varicose veins of both lower extremities with inflammation Surgical History History of esophagogastroduodenoscopy (EGD) Hx of splenectomy Hx of colonoscopy S/P gastric surgery History of vasectomy H/O hernia repair Social History Household Members: Family Housing: Condominium Patient Tobacco Use Status: Never used Tobacco service: No Current occupational status: unemployed and disabled 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 Review of Systems Const Reports as per HPI ENT Reports no additional complaints Card Denies chest pain, Denies chest pain at rest and Denies chest pain with activity Resp Denies chest congestion and Denies cough GI Reports no additional complaints Musc Details: pain over varicosities, aching of lower extremities, swelling, cramping, heaviness and tiredness, itching Denies abnormal gait Skin/Breast Reports pruritus and Denies wounds Neuro Reports no additional complaints and Denies abnormal gait Psych Denies no additional complaints Physical Exam Const General: cooperative, healthy appearing and comfortable Orientation/consciousness: oriented to person, oriented to place and oriented to time Neck Carotids: no bruits Chest Chest palpation & inspection: normal inspection of the chest and normal palpation of entire chest wall Resp Effort & Inspection: normal respiratory effort and able to speak in complete sentences Cardio Rate: regular rate Heart sounds: S1 normal heart sound present and S2 normal heart sound present Peripheral pulses: Peripheral pulses 2+ throughout GI Inspection: Yes normal to inspection Skin Other: +2 edema, large rope-like varicosities greater than 4 mm right thigh and calf CEAP Classification C4 - skin color changes Ep - Etiology Primary As - superficial veins P - reflux General skin exam: dry skin Neuro General: oriented to person, oriented to place and oriented to time Extrem Right lower extremity: full ROM, normal capillary refill and edema Left lower extremity: full ROM, normal capillary refill and edema Psych Mental Status: mental status grossly normal Assessment & Plan Assessment & Plan (1) Varicose veins of right lower extremity with inflammation: Code(s): I83.11 - Varicose veins of right lower extremity with inflammation Category: Medical Plan: This patient has varicose veins with inflammation. They continue to be a source of discomfort for the patient. The patient has tried conservative treatment with compression, leg elevation and exercise program for over 3 months time. They have been compliant with all treatment. This has provided minimal relief for the patient. I do not anticipate this course of treatment will alter the underlying etiology. The patient has been scheduled for lower extremity venous treatment inclusive of --- Right leg microphlebectomy. Risks, benefits, and complications of this procedure has been discussed in detail with the patient including but not limited to bleeding, infection, and the development of a DVT. The patient has demonstrated a clear understanding and has consented. We will schedule the patient as soon as possible. Thank you for allowing us to participate in this patient's care. If there are any questions or concerns please do not hesitate to contact us. Coding Level of Care Code Est Pt Level 4 (15627) Diagnoses Varicose veins of right lower extremity with inflammation I83.11
== END 2024-08-01 10:14 | disposition home or self-care (01) ==
PROVIDERS: PCP Internal Medicine; Visit Provider Surgery Vascular Surgery
DX: I83.11 Varicose veins of right lower extremity with inflammation (principal)
CPT/HCPCS: 99214

== ENCOUNTER → 2024-08-01 09:47 | Outpatient (BNVA) | payer MEDICAID, SELFPAY | PROVIDERS: PCP Internal Medicine; Visit Provider Surgery Vascular Surgery | DX: I83.11 Varicose veins of right lower extremity with inflammation (principal) | CPT/HCPCS: 99212 ==

== ENCOUNTER 2024-08-19 09:34 | Outpatient (AMB) | payer MEDICAID, SELFPAY ==
[2024-08-19 09:40] VITALS: BP 138/77; PULSE 78; O2SAT 94; BMI 47.9
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
== END 2024-08-19 10:03 | disposition home or self-care (01) ==
PROVIDERS: PCP Internal Medicine; Visit Provider Hospitalist
DX: R06.09 Other forms of dyspnea (principal); I27.20 Pulmonary hypertension, unspecified; R91.8 Other nonspecific abnormal finding of lung field; J98.11 Atelectasis; G47.33 Obstructive sleep apnea (adult) (pediatric); Z99.89 Dependence on other enabling machines and devices; F51.01 Primary insomnia; R60.0 Localized edema
CPT/HCPCS: 99214

== ENCOUNTER → 2024-08-19 09:34 | Outpatient (BNVA) | payer MEDICAID, SELFPAY | PROVIDERS: PCP Internal Medicine; Visit Provider Hospitalist | DX: R06.09 Other forms of dyspnea (principal); G47.33 Obstructive sleep apnea (adult) (pediatric); R91.8 Other nonspecific abnormal finding of lung field; R60.0 Localized edema; I27.20 Pulmonary hypertension, unspecified; J98.11 Atelectasis; F51.01 Primary insomnia; Z99.89 Dependence on other enabling machines and devices | CPT/HCPCS: 99212 ==

== ENCOUNTER → 2024-09-03 10:55 | Outpatient (REF) | payer MEDICAID, SELFPAY ==
--- NOTE | 2024-09-03 10:58 | CA_ITS ---
Transthoracic Echocardiogram Patient (Last, First, Middle): Shin Ortiz Humberto Gender: Male Date of : 1965 Age: 59 Procedure Date: 09/03/2024 Procedure Type: Transthoracic Echocardiogram Location: OP Height: 185.42 cm Weight: 163.3 kg BSA: 2.76 m2 Heart Rate: bpm BP: 120 / 74 mmHg Orthophoto Tech/Draftsman: TO Referring MD: Cayden Hill MD Symptoms: I27.20 - Pulmonary hypertension, unspecified Study Quality: Technically Difficult/contrast ECG Rhythm: Sinus Conclusions: - The left ventricular systolic function is normal. The calculated ejection fraction is 66% by biplane method. - No obvious valvular pathology seen on this study. Findings Procedure Information Contrast agent, definity, is being given per protocol without apparent complications. The study quality is limited by patients body habitus. Left Ventricle Normal left ventricular cavity size. There is normal left ventricular wall thickness. The left ventricular systolic function is normal. The calculated ejection fraction is 66% by biplane method. There is no evidence of regional wall motion abnormalities. Diastolic function is normal for age. Right Ventricle Normal right ventricular cavity size and systolic function. Atria Both atria are normal in size. Aortic Valve There is a normal trileaflet aortic valve. There is mild calcification of the aortic valve. There is no aortic valve stenosis. There is no aortic valve regurgitation. Mitral Valve There is mild mitral annular calcification. There is trace mitral valve regurgitation. There is no mitral valve stenosis. Pulmonic Valve The pulmonic valve is likely normal. Tricuspid Valve There is trace tricuspid valve regurgitation. Tricuspid regurgitation envelope is inadequate for calculation of right ventricular systolic pressure. Great Vessels The asc aorta is normal in size. Venous The inferior vena cava was not well visualized. The inferior vena cava is normal in size. Pericardium/Pleural There is a trivial pericardial effusion. Prior Study Comparison No significant change compared to prior study dated: 06/21/2018. Recommendations, Care & Conclusions No obvious valvular pathology seen on this study. Measurements 2D Linear Measurements IVSd: 1.01 0.6-0.9/0.6-1.0 cm LVIDd: 5.63 3.9-5.3/4.2-5.9 cm LVIDd Index: 2.04 2.4-3.2/2.2-3.1 cm/m2 LVIDs: 3.30 2.0-3.6 cm LVPWd: 1.02 0.7-1.1 cm LA Diam: 3.60 2.7-3.8/3.0-4.0 cm LAIDs Index: 1.30 1.5-2.3 cm/m2 LV Mass: 281.84 67-162/88-224 g LV Mass Index: 102.12 43-95/49-115 g/m2 LVOT Diam: 2.40 3.0+(-)1.3 cm 2D Systolic Function EF 4C: 67.90 >55% EF 2C: 61.40 >55% EF BiP: 65.70 >55% Mitral Valve MV Pk E: 0.76 MV PK A: 0.68 MV Decel Time: 254.00 E/A: 1.10 E'Lateral: 8.27 E'Medial: 6.31 E/E' Med: 12.10 E/E' Lat: 9.20 PHT: 74.00 MVA PHT: 2.97 Decel Polk: 3.01 Aortic Valve AoV Pk Jama: 1.87 AoV Mn Jama: 1.29 AoV VTI: 0.36 AoV Pk Grad: 14.00 Aov Mn Grad: 7.00 GAYLA Cont.VTI: 3.65 LVOT LVOT Pk Jama: 1.46 LVOT Mn Jama: 0.93 LVOT VTI: 0.29 LVOT Pk Grad: 9.00 LVOT Mn Grad: 4.00 LVOT Diam: 2.40 LVOT Area: 4.52 Diastolic Function MV Pk E: 0.76 MV Pk A: 0.68 E/A: 1.10 E'Medial: 6.31 E/E' Med: 12.10 E' Laterial: 8.27 E/E' Lat: 9.20 Right Ventricle TAPSE (mm): 22.00 TVS' Jama: 14.30 Tricuspid Valve RA Press: 3.00 Great Vessels Aorta Sinus of Valsalva: 3.71 2.0-3.5 cm Ao Asc: 3.70 2.1-3.4 cm Updated in Other Vendor System with Status of Final Todd Hickman MD electronically signed on 09/03/2024 1:24:32 PM with status of Final
== END ==
LOC: HO.CARD 10:55
PROVIDERS: PCP Internal Medicine; Visit Provider Hospitalist
DX: I27.20 Pulmonary hypertension, unspecified (principal)
CPT/HCPCS: 93306; Q9957

== ENCOUNTER → 2024-09-03 10:58 | Outpatient (BNV) | payer MEDICAID, SELFPAY | PROVIDERS: PCP Internal Medicine; Visit Provider Internal Medicine | DX: I35.8 Other nonrheumatic aortic valve disorders (principal); I34.81 Nonrheumatic mitral (valve) annulus calcification; I27.20 Pulmonary hypertension, unspecified | CPT/HCPCS: 93306 ==

== ENCOUNTER 2024-09-27 10:23 | Outpatient (AMB) | payer MEDICAID, SELFPAY ==
[2024-09-27 11:34] VITALS: BMI 47.9
--- NOTE | 2024-09-27 11:34 | MHC.OFFVIS ---
Vital Signs 09/27/24 11:34 Height 6 ft 1 in Weight 363 lb BMI 47.9 Intake Visit Reasons: Right Micro Allergies No Known Allergies [No Known Allergies*] Allergy (Verified 09/27/24 11:34) [facility] HPI Right Micro: Details: Very pleasant 59-year-old gentleman presents to the office for procedure for right lower extremity microphlebectomy. At the time of his visit and exam he reported that he had increased shortness of breath. He has increased swelling of the legs. Of note he is on home oxygen and did come with a portable oxygen tank. He did see pulmonology this past August and was noted to have pulmonary hypertension. He reports that his lower extremity edema has worsened over the past several weeks. He now presents for follow-up. [facility] Medical History Chronic respiratory failure [id number] syndrome Pulmonary hypertension Lower extremity edema CHF (congestive heart failure) Insomnia ELO on CPAP Atelectasis Pulmonary nodules Dyspnea Rupture, spleen HTN (hypertension) ELO (obstructive sleep apnea) Varicose veins of both lower extremities with inflammation Surgical History History of esophagogastroduodenoscopy (EGD) Hx of splenectomy Hx of colonoscopy S/P gastric surgery History of vasectomy H/O hernia repair Social History Household Members: [facility] Tobacco Use Status: Never used Tobacco service: No Current occupational status: unemployed and disabled 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 Review of Systems Const Reports as per HPI ENT Reports no additional complaints Card Denies chest pain, Denies chest pain at rest and Denies chest pain with activity Resp Denies chest congestion and Denies cough GI Reports no additional complaints Musc Details: pain over varicosities, aching of lower extremities, swelling, cramping, heaviness and tiredness, itching Denies abnormal gait Skin/Breast Reports pruritus and Denies wounds Neuro Reports no additional complaints and Denies abnormal gait Psych Denies no additional complaints Physical Exam Vital Signs: BMI result Body Mass Index 47.9 Const General: cooperative, healthy appearing and comfortable Orientation/consciousness: oriented to person, oriented to place and oriented to time Neck Carotids: no bruits Chest Chest palpation & inspection: normal inspection of the chest and normal palpation of entire chest wall Resp Effort & Inspection: normal respiratory effort and able to speak in complete sentences Cardio Rate: regular rate Heart sounds: S1 normal heart sound present and S2 normal heart sound present Peripheral pulses: Peripheral pulses 2+ throughout GI Inspection: Yes normal to inspection Skin Other: +2 edema, large rope-like varicosities greater than 4 mm bilateral calf CEAP Classification C4 - skin color changes Ep - Etiology Primary As - superficial veins P - reflux General skin exam: dry skin Neuro General: oriented to person, oriented to place and oriented to time Extrem Right lower extremity: full ROM, normal capillary refill and edema Left lower extremity: full ROM, normal capillary refill and edema Psych Mental Status: mental status grossly normal Assessment & Plan Assessment & Plan (1) Varicose veins of right lower extremity with inflammation: Code(s): I83.11 - Varicose veins of right lower extremity with inflammation Category: Medical Plan: In short patient has right lower extremity varicosities. At the current time his overall status including his breathing status is tenuous. Would like to hold off on any procedures until his Congestive heart failure improves. We did cancel his 2 week postprocedure follow-up and scheduled him for a six-month routine lower extremity check. We did discuss routine conservative measures including compression elevation and exercise. In addition he does have lymphedema boots at home and I did request he increase usage to twice a day. Thank you for allowing us to assist in his care. If there are any questions or concerns please do not hesitate to contact us. Coding Level of Care Code Est Pt Level 3 (31935) Diagnoses Varicose veins of right lower extremity with inflammation I83.11
== END 2024-09-27 10:58 | disposition home or self-care (01) ==
PROVIDERS: PCP Internal Medicine; Visit Provider Surgery Vascular Surgery
DX: I83.11 Varicose veins of right lower extremity with inflammation (principal)
CPT/HCPCS: 99213

== ENCOUNTER → 2024-09-27 10:23 | Outpatient (BNVA) | payer MEDICAID, SELFPAY | PROVIDERS: PCP Internal Medicine; Visit Provider Surgery Vascular Surgery | DX: I83.11 Varicose veins of right lower extremity with inflammation (principal) | CPT/HCPCS: 99212 ==

== ENCOUNTER 2024-11-22 09:43 | Outpatient (AMB) | payer MEDICAID, SELFPAY ==
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
[2024-11-22 10:05] VITALS: BP 150/78; PULSE 71; O2SAT 94; BMI 47.6
--- OUTSIDE RECORDS SUMMARY | 2024-11-22 10:44 | XMS_ITS | Encounter Summary ---
Author Organization [employer] Address [address] [place] [address] Care Team Providers Care Trawl Net Maker Name Role Phone Ham Burgos MD Primary Care Provider [phone] Encounter Details Date Type Department Care Team ([facility] st Contact Info) Description 04/16/2024 Orders Only [facility] [address] [place], [place] [id number] Ham Burgos MD [address] [place] [address] Restless legs (Primary Dx) Social History Tobacco Use Types Packs/Day Years Used Date Smoking Tobacco: Never Passive Smoke Exposure: Never Smokeless Tobacco: Never Alcohol Use Standard Drinks/Week Comments Never 0 (1 standard drink = 0.6 oz pur e alcohol) Depression Answer Date Recorded Patient Health Questionnaire-9 Score 8 12/11/2023 Patient Health Questionnaire-9 Score 8 12/11/2023 Last PHQ-9: Questionnaire Data Not on file 0 12/11/2023 Housing Stability Answer Date Recorded What is your housing situation today? I have keya ruggiero 07/06/[address] you li ve. Do you have problems with any of the following? None of the above 07/06/2023 Food Insecurity Answer Date Recorded Within the past 12 months, y ou worried that your food would run out before you got money to buy more: Never True 07/06/2023 Within the past 12 months,th e food you bought just didn't last and you didn't have enough money to get more: Never True Transportation Answer Date Recorded In the past 12 months, has l ack of transportation kept you from medical appts, meetings, work or from getting things needed for daily living? No 07/06/2023 Utilities Answer Date Recorded In the past 12 months, has t he electric, gas, oil or water company threatened to shut off services in your home? No 07/06/2023 Depression Answer Date Recorded Patient Health Questionnaire-2 Score 1 12/11/2023 Sex and Gender Information Value Date Recorded Sex Assigned at Male 07/11/2022 10:32 AM EDT Legal Sex Male 10:32 AM EDT Gender Identity Male 07/11/2022 10:32 AM EDT Sexual Orientation Straight 07/11/2022 10 :32 AM EDT documented as of this encounter Plan of Treatment Upcoming Encounters Date Type Department Care Team (Late st Contact Info) Description 11/28/2024 8:00 AM EDT Office Visit [facility] [address] [place] [address] Robb Pickering DMD [address] [place] [address] 12/11/2024 10:00 AM EDT Office Visit [facility] [address] [place] [address] Ham Burgos MD [address] [place] [address] 01/13/2025 9:15 AM EDT Office Visit [facility] [address] [place] [address] Ham Burgos MD [address] [place] [address] documented as of this encounter Visit Diagnoses Diagnosis Restless legs- Primary Restless legs syndrome (RLS) documented in this encounter Additional Health Concerns Assessment Noted Time PHQ-9 Depression Total Score: 8 12/11/19 24 9:29 AM EDT documented as of this encounter Care Teams Trawl Net Maker Relationship Specialty Start Date End Date Ham Burgos MD [address] [place] [address] PCP - General Internal Medicine 05/10/18 documented as of this encounter
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
--- OUTSIDE RECORDS SUMMARY | 2024-11-22 10:44 | XMS_ITS | Encounter Summary ---
Author Organization [employer] Address [address] [place] [address] Care Team Providers Care Menagerie Caretaker Name Role Phone Ham Burgos MD Primary Care Provider [phone] Encounter Details Date Type Department Care Team (Latest Contact Info) Description 11/11/2024 Travel Social History Tobacco Use Types Packs/Day Years [...] Description 11/28/2024 8:00 AM EDT Office Visit [facility] AD[facility] [address] [place] [address] Robb Pickering, SAMANTA [address] [place] [address] 12/11/2024 10:00 AM EDT Office Visit [facility] MED [facility] PEDS [address] [place] [address] Ham Burgos MD [address] [place] [address] 01/13/2025 9:15 AM EDT Office Visit [facility]ED[facility] [address] [place] [address] Ham Burgos MD [address] [place] [address] documented as of this encounter Visit Diagnoses Not on filedocumented in this encounter Additional Health Concerns Assessment Noted Time PHQ-9 Depression Total Score: 17 025 9:11 AM EST documented as of this encounter Care Teams Menagerie Caretaker Relationship Specialty Start Date End Date Ham Burgos MD [address] [place] [address] PCP - General Internal Medicine 05/10/18 documented as of this encounter
--- OUTSIDE RECORDS SUMMARY | 2024-11-22 10:44 | XMS_ITS | Encounter Summary ---
Author Organization [employer] Address [address] 7[address] [place] [address] Care Team Providers Care Oim Architect Name Role Phone Ham Burgos MD Primary Care Provider [phone] Encounter Details Date Type Department Care Team (Latest Contact Info) Description 07/18/2024 Orders Only [facility] [address] [place], [place] [phone] Ham Burgos MD [address] [place] [address] Hypercholesterolemia (Primary Dx) Social History Tobacco Use Types [...] 11/28/2024 8:00 AM EDT Office Visit [facility] ADULT [facility] [address] [place] [address] Robb Pickering DMD [address] [place] [address] 12/11/2024 10:00 AM EDT Office Visit [facility] MED [facility] PEDS [address] [place] [address] Ham Burgos MD [address] [place] [address] 01/13/2025 9:15 AM EDT Office Visit [facility] MED & PEDS [address] [place] [address] Ham Burgos MD [address] [place] [address] documented as of this encounter Visit Diagnoses Diagnosis Hypercholesterolemia- Primary Pure hypercholesterolemia documented in this encounter Additional Health Concerns Assessment Noted Time PHQ-9 Depression Total Score: 8 12/11/19 24 9:29 AM EDT documented as of this encounter Care Teams Oim Architect Relationship Specialty Start Date End Date Ham Brugos MD [address] [place] [address] PCP - General Internal Medicine 05/10/18 documented as of this encounter
--- OUTSIDE RECORDS SUMMARY | 2024-11-22 10:44 | XMS_ITS | Encounter Summary ---
Author Organization [employer] [facility] Address [address] [place] [address] [address] [place] [address] Care Team Providers Care Nail Maker Name Role Phone Ham Burgos MD Primary Care Provider [phone] Reason for Visit * Reason Comments Filling Patient presents tod ay for fillings Trinity HANKS Encounter Details Date Type Department Care Team ([facility] st Contact Info) Description 10/24/2024 1:00 PM EST Office Visit [facility] ADULT [facility] [address] [place] [address] Robb Pickering, DMD [address] [place] [address] Dental caries (Primary Dx) Social History Tobacco Use Types [...] Sign Reading Time Taken Comments Blood Pressure 138/72 10/24/2024 1:05 PM EST Pulse - - Temperature - - Respiratory Rate - - Oxygen Saturation - - Inhaled Oxygen Concentration - - Weight - - Height - - Body Mass Index - - documented in this encounter Progress Notes * Robb Pickering DMD - 10/24/2024 1:00 PM EST Patient ID: Shin Cadena is a 59 y.o. male. Time Out: Timeout Date: 10/24/24, Timeout Time: 1310 (Luis #21,22) Location: [facility] Tooth: #21 and #22 Procedure: Yarsani Verified the above with patient, news production assistant, and provider. Confirmed via patient's chart, intraorally and by radiographs. Stallion Manager: Yes. Language: Malawian. Stallion Manager's Name: Trinity HANKS Chief Complaint Patient presents with Filling Patient presents today for fillings Trinity RDA Medical Hx: Vitals: Blood pressure 138/72. Medications, Med Hx reviewed with patient and updated in chart. Consent Obtained: The risks, benefits, indications, potential complications, and alternatives were explained to the patient and informed consent was obtained with good understanding. Treatment Provided: Dental procedures in this visit D2392 - RESIN-BASED COMPOSITE - 2 SURF, POSTERIOR 21 DBB(V) (Completed) Service provider: Robb Pickering DMD Billing provider: Robb Pickering DMD D2617 - RESIN-BASED COMPOSITE - 3 SURF, ANTERIOR 22 DFL (Completed) Service provider: Robb Pickering DMD Billing provider: Robb Pickering DMD D9450 - CASE PRESENTATION, DETAILED AND EXTENSIVE TREATMENT PLANNING (Completed) Service provider: Robb Pickering DMD Billing provider: Robb Pickering DMD Diagnosis: primary caries into dentin #21-DBB5 and #22-DLF Pt asymptomatic Note generalized heavy plaque on #20,21,27 Stressed importance of oral hygiene Scaled mandibular teeth. Heavy bleeding occurred Topical: 20% Benzocaine Anesthesia: 4% Septocaine (Articaine) w/ 1:200,000 epinephrine Number of Cartridges: 1 Injection Type: Buccal infiltration Confirmed profound anesthesia. Isolation: high speed suction, cotton rolls, and cheek guard Note pt has very strong and active orbicularis jazmín muscle - significant effort required for retraction Tongue very strong, large and active as well Access difficult Prep: All caries removed and Preparation finalized Note heavy bleeding due to inflamed gingiva. Controlled with Quikstat Matrix: size 000 cord soaked in hemodent placed in sulcus, verified removal prior to discharge. Mylar strip and wedge used for #22 Etch: 37% Phosphoric Acid Etch Desensitizer: Gluma Liner/Base: None Alvares: I-Alvares Yarsani Material: Voco Grandioso Packable Shade: A3.5 Polished. Occlusion & contacts verified. Patient satisfied with comfort and esthetics. Patient tolerated procedure well. Post-operative instructions were given. Patient departed alert, oriented, and in stable condition. NV: EXTs Pellet Preparation Operator: Trinity Hill Dentist: Robb Pickering DMD documented in this encounter Plan of Treatment Upcoming Encounters Date Type Department Care Team (Late st Contact Info) Description 11/28/2024 8:00 AM EDT Office Visit [facility] ADULT DENTAL [address] [place] [address] Robb Pickering DMD [address] [place] [address] 12/11/2024 10:00 AM EDT Office Visit [facility] MED & PEDS [address] [place] [address] Ham Burgos MD [address] [place] [address] 01/13/2025 9:15 AM EDT Office Visit [facility] MED & PEDS [address] [place] [address] Ham Burgos MD [address] [place] [address] documented as of this encounter Procedures Procedure Name Priority Date/Time Associated Diagnosis Comments 21 DBB(V) RESIN-BASED COMPOSITE - 2 SURF, POSTERIOR Routine 10/24/2024 1:00 PM EST Dental caries 22 DFL RESIN-BASED COMPOSITE - 3 SURF, ANTERIOR Routine 10/24/2024 1:00 PM EST Dental caries CASE PRESENTATION, DETAILED AND EXTENSIVE TREATMENT PLANNING Routine 10/24/2024 1:00 PM EST Dental caries documented in this encounter Visit Diagnoses Diagnosis Dental caries- Primary Unspecified dental caries documented in this encounter Additional Health Concerns Assessment Noted Time PHQ-9 Depression Total Score: 8 12/11/19 24 9:29 AM EDT documented as of this encounter Care Teams Nail Maker Relationship Specialty Start Date End Date Ham Burgos MD [address] [place] [address] PCP - General Internal Medicine 05/10/18 documented as of this encounter
--- OUTSIDE RECORDS SUMMARY | 2024-11-22 10:44 | XMS_ITS | Clinical Summary ---
Author Organization [employer] Address [address] [place] [address] 7[address] [place] [address] Care Team Providers Care Pipe Finisher Name Role Phone Ham Burgos MD Primary Care Provider [phone] Allergies No known active allergies Medications acetaminophen (Tylenol) 500 MG tablet take 1 tablet by oral route every6 -8 hours as needed not to exceed 4 tablets per 24hrs 022 Active aspirin 81 MG EC tablet Take 1 tablet by mouth at bed time. Take 1 tablet by mouth at bed time. 018 Active buPROPion XL (Wellbutrin XL) 300 MG 24 hr tablet Take 300 mg by mouth in the morning. 023 Active cholecalciferol ([facility] D3) 25 MCG (1000 UT) capsule Ac tive cyanocobalamin (Vitamin B-12) 500 MCG tablet Activ e Diclofenac Sodium 1 % gel APPLY TWO GRAM TO THE AFFECTED AREA(s) TWICE DAILY 022 Active fluticasone (Flonase) 50 MCG/ACT nasal spray USE ONE SPRAY IN EACH NOSTRIL TWICE DAILY FOR NASAL CONGESTION 022 Active furosemide (Lasix) 20 MG tablet take 1 Tablet by oral route 2 times a day Active gabapentin (Neurontin) 300 MG capsule TAKE THREE CAPSULES AT BEDTIME NEEDED 023 Active mirtazapine (Remeron) 7.5 MG tablet Take 7.5 mg by mouth at bedtime. 022 Active Sulfacetamide Sodium 10 % liquid Wash 2 times a day 022 Active zinc 50 MG tablet Ac tive hydrocortisone 2.5 % cream Apply topically in the morning, at noon, and at bedtime. APPLY TO THE AFFECTED AREA(S) TWICE DAILY 20 g 023 Active Additional Information Patient not taking.Reported on 06/11/2024 Symbicort 160-4.5 MCG/ACT inhaler INHALE TWO PUFFS TWICE DAILY, RINSE MOUTH AFTER USE Active Diclofenac Sodium 1 % gelIndications:Ar thralgia of toe, unspecified laterality To apply to the affected area 3 times a day 100 g 023 Active Additional Information Patient not taking.Reported on 06/11/2024 betamethasone valerate (Valisone) 0.1 % ointmentIndicatio ns:Irritant contact dermatitis due to other chemical products Apply topically if needed in the morning and at bedtime (dryness). 45 g 2 024 Active Additional Information Patient not taking.Reported on 06/11/2024 lidocaine (Lidoderm) 5 % patchIndications: Primary osteoarthritis of both knees Apply 1 patch topically Once per day. Remove & discard patch within 12 hours or as directed by MD. 30 patch 3 Active ibuprofen 800 MG tabletIndications :Primary osteoarthritis involving multiple joints Take 1 tablet (800 mg) by mouth 2 times daily. 60 tablet 3 Active ammonium lactate (Lac-Hydrin) 12 % lotionIndications :Dry skin Apply topically every 12 (twelve) hours. Apply topically every 12 (twelve) hours. 500 g 11 Active ketoconazole (NIZOral) 2 % shampoo apply by topical route 2 times every week shampoo with at least 3 days between each shampooing 120 mL 2 Active rOPINIRole (Requip) 0.5 MG tabletIndications :Restless legs Take 1 tablet (0.5 mg) by mouth 3 times daily. 90 tablet 11 024 2024 Active pantoprazole (ProtoNix) 20 MG EC tablet Take 20 mg by mouth in the morning. Active Lunesta 3 MG tablet Active Sod Fluoride-Potassiu m Nitrate 1.1-5 % pasteIndications: Dental caries Boykins teeth for 2 minutes, morning and night. Spit, do not rinse. Do not eat or drink anything for 30 minutes following brushing. 112 g 3 024 Active acetaminophen (Tylenol) 500 MG tabletIndications :History of tooth extraction, unspecified edentulism class Take 1 tablet (500 mg) by mouth every 6 (six) hours if needed for mild pain for up to 20 doses. 20 tablet 024 Active econazole nitrate 1 % creamIndications: Seborrheic dermatitis To apply to the affected area 2 times a day 15 g 024 Active atorvastatin (Lipitor) 40 MG tabletIndications :Hypercholesterol emia Take 1 tablet (40 mg) by mouth Once per day. 30 tablet 11 024 2024 Active terbinafine (LamISIL) 250 MG tabletIndications :Onychomycosis TAKE ONE TABLET EVERY MORNING 30 tablet 2 024 Active sildenafil (Viagra) 25 MG tablet Take 1 tablet (25 mg) by mouth if needed for erectile dysfunction. 8 tablet 5 025 Active ibuprofen 800 MG tabletIndications :Primary osteoarthritis involving multiple joints TAKE ONE TABLET EVERY 8 HOURS NEEDED FOR PAIN 60 tablet 3 025 Active Tirzepatide-Weigh t Management (Zepbound) 2.5 MG/0.5ML solution auto-injectorIndi cations:Morbid obesity (CMS/HCC) Inject 0.5 mL (2.5 mg) under the skin 1 (one) time per week. 2 mL 1 025 Active ibuprofen 800 MG tabletIndications :Primary osteoarthritis involving multiple joints TAKE 1 TABLET EVERY 8 HOURS NEEDED MILD PAIN 60 tablet 3 024 2024 Discontinued Active Problems Problem Noted Date Diagnosed Date Hypercholesterolemia 07/18/2024 Morbid obesity 10/03/2022 ELO (obstructive sleep apnea) 10/03/2022 Restrictive lung disease 08/15/2022 Cardiomegaly 08/15/2022 Synovial cyst of knee 12/27/2021 Demodex acne 07/13/2018 Adjustment insomnia 02/02/2018 Depressive disorder 02/02/2018 Encounters Date Type Department Care Team Description 11/11/2024 9:00 AM EST Office Visit [facility] [address] [place] [address] Ham Burgos MD Seborrheic dermatitis (Primary Dx); Cardiomegaly; Morbid obesity ([facility]/HCC); Hypercholesterolemia; Arthralgia of toe, unspecified laterality 11/11/2024 Travel 11/08/2024 Telephone [facility] [address] [place] [address] Ham Burgos MD chart prep 11/05/2024 Refill [facility] [address] [place] [address] Ham Burgos MD Primary osteoarthritis involving multiple joints 10/24/2024 1:00 PM EST Office Visit [facility] [address] [place], [place] [phone] Robb Pickering DMD Dental caries (Primary Dx) 10/16/2024 Refill [facility] [address] [place] [address] Ham Burgos MD from Last 3 Months Immunizations Name Administration Dates Next Due Influenza injectable quadriv alent IIV4 with preservative 08/01/2019,08/25/2017 Influenza injectable quadriv alent preservative free 06/20/2023,07/11/2022,08/25/2017 Influenza, IIV3, injectable 07/13/2021 Influenza, seasonal, injecta ble, preservative free 06/19/2024 Pfizer Covid-19 Vaccine 12+ 06/19/2024,1 ,07/30/2021,2020,12/09/2020 Pfizer Covid-19 Vaccine 12+ Bivalent 07/28/2022 Pfizer Covid-19 Vaccine 12+ dana-sucrose (Monreal Cap) 07/30/2021,01/01/2021,12/09/2020 Pneumococcal Conjugate PCV 20 09/15/2023 Tdap 08/25/2017 Social History Tobacco Use Types Packs/Day Years Used Date Smoking Tobacco: Never Passive Smoke Exposure: Never Smokeless Tobacco: Never Tobacco Cessation:Counseling Given: Not Answered Alcohol Use Standard Drinks/Week Comments Never 0 [...] Orientation Straight 07/11/2022 10 :32 AM EDT Last Filed Vital Signs Vital Sign Reading [...] Mass Index 47.81 11/11/2024 9:08 AM EST Plan of Treatment Upcoming Encounters Date Type Department Care Team (Late st Contact Info) Description 11/28/2024 8:00 AM EDT Office Visit [facility] [address] [place] [address] Robb Pickering DMD [address] [place] [address] 12/11/2024 10:00 AM EDT Office Visit [facility] [address] [place] [address] Ham Burgos MD [address] [place] [address] 01/13/2025 9:15 AM EDT Office Visit [facility] [address] [place] [address] Ham Burgos MD [address] [place] [address] Health Maintenance Due Date Last Done Comments CT Colonography 1963 FIT DNA/Cologuard 1963 FIT 1963 FOBT 1963 HIV Screening 1963 Sigmoidoscopy 1963 Zoster Vaccines (1 of 2) 2013 RSV Patients and Patients Aged 60 years or older (1 - Risk 60-74 years 1-dose series) 2023 Dental Oral Exam 12/11/2024 06/11/2024 Dental Prophylaxis 01/03/2025 07/04/2024 Depression Monitoring (PHQ-9) 05/14/2025 11/11/2024, 11/11/2024 Dental X-Ray: Bitewings 06/12/2025 06/11/2024 Alcohol/Substance Use Screening 11/11/2025 11/11/2024 Depression Screening 11/11/2025 11/11/2024, 11/12/19 SDOH Screening 11/11/2025 11/11/2024 Tobacco Screening 11/11/2025 11/11/2024 Dental X-Ray: Full Mouth 06/12/2027 024, 06/11/2024, 12/07/2017 DTaP/Tdap/Td Vaccines (2 - Td or Tdap) 08/25/2027 08/25/2017 Lipid Panel 07/18/2029 07/18/2024, 05/03/2023 Colonoscopy 11/22/2033 11/23/2023 Colorectal Cancer Screening 11/22/2033 Pneumococcal Vaccine: 50+ Years Completed 09/15/2023 COVID-19 Vaccine Completed 06/19/2024, 06/2023, 07/28/2022, Additional history exists Influenza Vaccine Completed 06/19/2024, , 07/11/2022, Additional history exists HIB Vaccines Aged Out No longer eligi ble based on patient's age to complete this topic HPV Vaccines Aged Out No longer eligi ble based on patient's age to complete this topic Hepatitis A Vaccines Aged Out No long er eligible based on patient's age to complete this topic Hepatitis B Vaccines Aged Out No long er eligible based on patient's age to complete this topic Hepatitis C Screening Discontinued IPV Vaccines Aged Out No longer eligi ble based on patient's age to complete this topic Meningococcal Vaccine Aged Out No lamont henna eligible based on patient's age to complete this topic RSV under 20 months Aged Out No longe r eligible based on patient's age to complete this topic Rotavirus Vaccines Aged Out No longer eligible based on patient's age to complete this topic Procedures Procedure Name Priority Date/Time Associated Diagnosis Comments CASE PRESENTATION, DETAILED AND EXTENSIVE TREATMENT PLANNING Routine 10/24/2024 1:00 PM EST Dental caries 21 DBB(V) RESIN-BASED COMPOSITE - 2 SURF, POSTERIOR Routine 10/24/2024 1:00 PM EST Dental caries 22 DFL RESIN-BASED COMPOSITE - 3 SURF, ANTERIOR Routine 10/24/2024 1:00 PM EST Dental caries LIPID PANEL, STANDARD Routine 07/18/2024 11:59 AM EST Cardiomegaly PROPHYLAXIS - ADULT Routine 07/04/2024 1 0:00 AM EDT Periodontal disease INTRAORAL - COMPLETE SERIES OF RADIOGRAPHIC IMAGES Routine 06/11/2024 10:00 AM EDT Dental calculus Periodontal disease Dental caries COMPREHENSIVE ORAL EVALUATION - NEW OR ESTABLISHED PATIENT Routine 06/11/2024 10:00 AM EDT Dental calculus Periodontal disease Dental caries HM COLONOSCOPY Routine 11/23/2023 from Last 3 Months or Most Recently Relevant to Health Maintenance Results * (ABNORMAL) Lipid Panel, Standard (07/18/2024 11:59 AM EST) Triglycerides 102 <150 mg/dL [facility] Comment:Desirable Triglyceri de: less than 150 mg/dLBorderline High Triglyceride 150-199 mg/dLHigh Triglyceride: 200-499 mg/dLVery High Triglyceride: greater than or equal to 5OO mg/dL Cholesterol 201(H) <200 mg/dL [facility] Comment:Desirable Cholestero l: less than 200 mg/dLBorderline High Cholesterol: 200-239 mg/dLHigh Cholesterol: greater than 239 mg/dL LDL Cholesterol Calculated 137(H) <100 mg/dL [facility] Comment:Desirable LDL: less than 100 mg/dLNear Optimal/Above Optimal LDL: 110- 129 mg/dLBorderline High LDL: 130-159 mg/dLHigh LDL: 160-189 mg/dLVery High LDL: greater than or equal to 190 mg/dL HDL Cholesterol 44 >40 mg/dL [facility] Comment:Desirable HDL: great er than 40 mg/dL Note: This HDL assay may give artificially low results in patients with liver disease. Blood Venous blood specimen / Unknown 07/18/2024 11:59 AM EST 07/18/2024 2:08 PM EST us Ham Burgos MD LAB BLOOD ORDERABLES Final Result [facility] [address] [place] [phone] * Colonoscopy (11/23/2023) Colonoscopy Normal Normal Narrative Jeri Munoz - 11/23/2023 Repeat colonoscopy in 10 years Historical Provider HEALTH MAINTENANCE Final Result from Last 3 Months or Most Recently Relevant to Health Maintenance Insurance [place] [facility] MEDICAID STAND ADULT Care Teams Pipe Finisher Relationship Specialty Start Date End Date Ham Burgos MD [address] [place] [phone] PCP - General Internal Medicine 05/10/18
--- OUTSIDE RECORDS SUMMARY | 2024-11-22 10:44 | XMS_ITS | Encounter Summary ---
Author Organization [employer] Address [address] [place] [address] 7 [place] [address] Care Team Providers Care Beaming Machine Operator Name Role Phone Ham Burgos MD Primary Care Provider [phone] Reason for Visit * Reason Onset Date Comments chart prep 11/08/2024 Encounter Details Date Type Department Care Team ([facility] st Contact Info) Description 11/08/2024 Telephone [facility] [address] [place] [address] Ham Burgos MD [address] [place] [address] chart prep Social History Tobacco Use Types Packs/Day Years [...] AM EDT documented as of this encounter Miscellaneous Notes * Telephone Encounter - Stephen Vang [place] - 11/08/2024 8:43 AM EST Chart Prep Labs: done Images: done Vaccines due: yes Referrals: complete Screenings: Overdue care gaps: Sbirt, SDOH, PHQ-9 documented in this encounter Plan of Treatment Upcoming Encounters Date Type Department Care Team (Late st Contact Info) Description 11/28/2024 8:00 AM EDT Office Visit [facility] [address] [place] [address] Robb Pickering DMD [address] [place] [address] 12/11/2024 10:00 AM EDT Office Visit [facility] [address] [place] [address] Ham Burgos MD [address] [place] [address] 01/13/2025 9:15 AM EDT Office Visit [facility] [address] [place] [address] Ham Burgos MD [address] [place] [address] documented as of this encounter Visit Diagnoses Not on filedocumented in this encounter Additional Health Concerns Assessment Noted Time PHQ-9 Depression Total Score: 8 12/11/19 24 9:29 AM EDT documented as of this encounter Care Teams Beaming Machine Operator Relationship Specialty Start Date End Date Ham Burgos MD [address] [place] [phone] PCP - General Internal Medicine 05/10/18 documented as of this encounter
--- OUTSIDE RECORDS SUMMARY | 2024-11-22 10:44 | XMS_ITS | Encounter Summary ---
Author Organization [employer] Address [address] [place] [address] 7 [place] [address] Care Team Providers Care Risk Management Consultant Name Role Phone Ham Burgos MD Primary Care Provider [phone] Reason for Visit * Reason Comments Med Refill Encounter Details Date Type Department Care Team ([facility] st Contact Info) Description 11/05/[address] [facility] [address] [place], [place] [phone] Ham Burgos MD [address] [place] [address] Primary osteoarthritis involving multiple joints Social History Tobacco Use Types Packs/Day Years [...] Description 11/28/2024 8:00 AM EDT Office Visit [facility] [address] [place] [address] Robb Pickering DMD [address] [place] [address] 12/11/2024 10:00 AM EDT Office Visit [facility] [address] [place] [address] Ham Burgos MD [address] [place] [address] 01/13/2025 9:15 AM EDT Office Visit [facility] [address] [place] [address] Ham Burgos MD [address] [place] [address] documented as of this encounter Visit Diagnoses Diagnosis Primary osteoarthritis involving multiple joints documented in this encounter Additional Health Concerns Assessment Noted Time PHQ-9 Depression Total Score: 8 12/11/19 24 9:29 AM EDT documented as of this encounter Care Teams Risk Management Consultant Relationship Specialty Start Date End Date Ham Burgos MD [address] [place] [id number] PCP - General Internal Medicine 05/10/18 documented as of this encounter
--- OUTSIDE RECORDS SUMMARY | 2024-11-22 10:44 | XMS_ITS | Encounter Summary ---
Author Organization [employer] Address [address] [place] [address] 7 [place] [address] Care Team Providers Care Pulpit Operator Name Role Phone Ham Burgos MD Primary Care Provider [phone] Reason for Visit * Reason Onset Date Comments Med Refill 10/16/2024 Encounter Details Date Type Department Care Team ([facility] st Contact Info) Description 10/16/2024 Refill [facility] [address] [place] [address] Ham Burgos MD [address] [place] [address] Social History Tobacco Use Types Packs/Day Years [...] 11/28/2024 8:00 AM EDT Office Visit [facility] [address] [place] [address] Robb Pickering DMD [address] [place] [address] 12/11/2024 10:00 AM EDT Office Visit [facility] [address] [place] [address] Ham Burgos MD [address] [place] [address] 01/13/2025 9:15 AM EDT Office Visit [facility] [address] [place] [address] Ham Burgos MD [address] [place] [address] documented as of this encounter Visit Diagnoses Not on filedocumented in this encounter Additional Health Concerns Assessment Noted Time PHQ-9 Depression Total Score: 8 12/11/19 24 9:29 AM EDT documented as of this encounter Care Teams Pulpit Operator Relationship Specialty Start Date End Date Ham Burgos MD [address] [place] [phone] PCP - General Internal Medicine 05/10/18 documented as of this encounter
--- OUTSIDE RECORDS SUMMARY | 2024-11-22 10:44 | XMS_ITS | Encounter Summary ---
Author Organization [employer] Address [address] [place] [address] 7 [place] [address] Care Team Providers Care Guard Entrance Registrar Name Role Phone Ham Burgos MD Primary Care Provider [phone] Encounter Details Date Type Department Care Team ([facility] Contact Info) Description 10/09/2022 Orders Only [facility] [address] [place], [place] [phone] Ham Burgos MD [address] [place], [place] [phone] Morbid obesity (CMS/HCC) (Primary Dx) Social History Tobacco Use Types Packs/Day Years Used Date Smoking Tobacco: Never Passive Smoke Exposure: Never Smokeless Tobacco: Never Sex and Gender Information Value Date Recorded Sex Assigned at Male 07/11/2022 10:32 AM EDT Legal Sex Male 10:32 AM EDT Gender Identity Male 07/11/2022 10:32 AM EDT Sexual Orientation Straight 07/11/2022 10 :32 AM EDT COVID-19 Exposure Response Date Recorded In the last 10 days, have yo u been in contact with someone who was confirmed or suspected to have Coronavirus/COVID-19? No / Unsure 10/03/2022 12:52 PM EST documented as of this encounter Plan of Treatment Upcoming Encounters Date Type Department Care Team (Late Contact Info) Description 11/28/2024 8:00 AM EDT Office Visit [facility]ULT [facility] [address] [place], [place] [phone] Robb Pickering DMD [address] [place], [place] [phone] 12/11/2024 10:00 AM EDT Office Visit [facility] [address] [place] [address] Ham Burgos MD [address] [place] [address] 01/13/2025 9:15 AM EDT Office Visit [facility] [address] [place] [address] Ham Burgos MD [address] [place] [address] Scheduled Orders Name Type Priority Associated Diagnoses Orde r Schedule CBC auto differential Lab Routine Morbid obesity (CMS/HCC) Expected: 10/09/2022 (Approximate), Expires: 10/09/2023 Basic Metabolic Panel Lab Routine Morbid obesity (CMS/HCC) Expected: 10/09/2022 (Approximate), Expires: 10/09/2023 documented as of this encounter Visit Diagnoses Diagnosis Morbid obesity (CMS/HCC)- Primary Morbid obesity documented in this encounter Additional Health Concerns Assessment Noted Time PHQ-9 Depression Total Score: 0 10/03/19 23 1:13 PM EST documented as of this encounter Care Teams Guard Entrance Registrar Relationship Specialty Start Date End Date Ham Burgos MD [address] [place] [id number] PCP - General Internal Medicine 05/10/18 documented as of this encounter
--- OUTSIDE RECORDS SUMMARY | 2024-11-22 10:44 | XMS_ITS | Encounter Summary ---
Author Organization [facility] [facility] Address [address] [place] [address] [address] [place] [address] Care Team Providers Care Embedded Software Development Engineer Name Role Phone Ham Burgos MD Primary Care Provider [phone] Encounter Details Date Type Department Care Team ([facility] Contact Info) Description 05/19/2023 Orders Only [facility]ED[facility] [address] [place], [place] [phone] aHm Burgos MD [address] [place], [place] [phone] Dry skin (Primary Dx) Social History Tobacco Use Types Packs/Day Years Used Date Smoking Tobacco: Never Passive Smoke Exposure: Never Smokeless Tobacco: Never Alcohol Use Standard Drinks/Week Comments Never 0 (1 standard drink = 0.6 oz pur e alcohol) Depression Answer Date Recorded Patient Health Questionnaire-9 Score 14 12/07/2022 Depression Answer Date Recorded Patient Health Questionnaire-2 Score 3 12/07/2022 Sex and Gender Information Value Date Recorded [...] [facility] [address] [place], [place] [phone] Robb Pickering DMD [address] [place], [place] [phone] 12/11/2024 10:00 AM EDT Office Visit [facility] [address] [place] [address] Ham Burgos MD [address] [place] [address] 01/13/2025 9:15 AM EDT Office Visit [facility] PED[facility] [address] [place] [address] Ham Burgos MD [address] [place] [address] documented as of this encounter Visit Diagnoses Diagnosis Dry skin- Primary Other symptoms involving skin and integumentary tissues documented in this encounter Additional Health Concerns Assessment Noted Time PHQ-9 Depression Total Score: 14 023 11:04 AM EDT documented as of this encounter Care Teams Embedded Software Development Engineer Relationship Specialty Start Date End Date Ham Burgos MD [address] [place] [phone] PCP - General Internal Medicine 05/10/18 documented as of this encounter
== END 2024-11-22 10:35 | disposition home or self-care (01) ==
LOC: HO.HPS 09:43
PROVIDERS: PCP Internal Medicine; Visit Provider Hospitalist
DX: R06.09 Other forms of dyspnea (principal); I27.20 Pulmonary hypertension, unspecified; R91.8 Other nonspecific abnormal finding of lung field; J98.11 Atelectasis; G47.33 Obstructive sleep apnea (adult) (pediatric); Z99.89 Dependence on other enabling machines and devices; F51.01 Primary insomnia; R60.0 Localized edema; I50.810 Right heart failure, unspecified
CPT/HCPCS: 99214

== ENCOUNTER → 2024-11-22 09:43 | Outpatient (BNVA) | payer MEDICAID, SELFPAY | PROVIDERS: PCP Internal Medicine; Visit Provider Hospitalist | DX: G47.33 Obstructive sleep apnea (adult) (pediatric) (principal); J98.11 Atelectasis; I27.20 Pulmonary hypertension, unspecified; R91.8 Other nonspecific abnormal finding of lung field; F51.01 Primary insomnia; I50.810 Right heart failure, unspecified; Z99.89 Dependence on other enabling machines and devices | CPT/HCPCS: 99212 ==

== ENCOUNTER → 2024-12-17 19:30 | Outpatient (REF) | payer MEDICAID, SELFPAY ==
--- OUTSIDE RECORDS SUMMARY | 2024-12-17 21:02 | XMS_ITS | Clinical Summary ---
Author Organization [email or web address] Address [address] [place] [address] 7t [place] [address] Care Team Providers Care Meat Butcher Name Role Phone Ham Burgos MD Primary Care Provider [phone] Allergies No known active allergies Medications acetaminophen (Tylenol) 500 MG tablet take 1 tablet by oral route every6 -8 hours as needed not to exceed 4 tablets per 24hrs 09/20/19 22 Active aspirin 81 MG EC tablet Take 1 tablet by mouth at bed time. Take 1 tablet by mouth at bed time. 09/28/19 18 Active buPROPion XL (Wellbutrin XL) 300 MG 24 hr tablet Take 300 mg by mouth in the morning. 09/30/19 23 Active cholecalciferol ([facility] D3) 25 MCG (1000 UT) capsule Ac tive cyanocobalamin (Vitamin B-12) 500 MCG tablet Active Diclofenac Sodium 1 % gel APPLY TWO GRAM TO THE AFFECTED AREA(s) TWICE DAILY 11/19/19 22 Active fluticasone (Flonase) 50 MCG/ACT nasal spray USE ONE SPRAY IN EACH NOSTRIL TWICE DAILY FOR NASAL CONGESTION 08/01/20 22 Active furosemide (Lasix) 20 MG tablet take 1 Tablet by oral route 2 times a day 03/17/20 21 Active gabapentin (Neurontin) 300 MG capsule TAKE THREE CAPSULES AT BEDTIME NEEDED 09/19/19 23 Active mirtazapine (Remeron) 7.5 MG tablet Take 7.5 mg by mouth at bedtime. 11/03/19 22 Active Sulfacetamide Sodium 10 % liquid Wash 2 times a day 10/28/19 22 Active zinc 50 MG tablet Ac tive hydrocortisone 2.5 % cream Apply topically in the morning, at noon, and at bedtime. APPLY TO THE AFFECTED AREA(S) TWICE DAILY 20 g 12/08/19 23 Active Additional Information Patient not taking.Reported on 06/11/2024 Symbicort 160-4.5 MCG/ACT inhaler INHALE TWO PUFFS TWICE DAILY, RINSE MOUTH AFTER USE 04/18/20 23 Active Diclofenac Sodium 1 % gelIndications:Art hralgia of toe, unspecified laterality To apply to the affected area 3 times a day 100 g 07/24/20 23 Active Additional Information Patient not taking.Reported on 06/11/2024 betamethasone valerate (Valisone) 0.1 % ointmentIndication s:Irritant contact dermatitis due to other chemical products Apply topically if needed in the morning and at bedtime (dryness). 45 g 2 10/11/19 24 Active Additional Information Patient not taking.Reported on 06/11/2024 lidocaine (Lidoderm) 5 % patchIndications:P rimary osteoarthritis of both knees Apply 1 patch topically Once per day. Remove & discard patch within 12 hours or as directed by MD. 30 patch 3 01/03/20 24 Active ibuprofen 800 MG tabletIndications: Primary osteoarthritis involving multiple joints Take 1 tablet (800 mg) by mouth 2 times daily. 60 tablet 3 03/15/20 24 Active ammonium lactate (Lac-Hydrin) 12 % lotionIndications: Dry skin Apply topically every 12 (twelve) hours. Apply topically every 12 (twelve) hours. 500 g 11 03/26/20 24 Active ketoconazole (NIZOral) 2 % shampoo apply by topical route 2 times every week shampoo with at least 3 days between each shampooing 120 mL 2 03/26/20 24 Active rOPINIRole (Requip) 0.5 MG tabletIndications: Restless legs Take 1 tablet (0.5 mg) by mouth 3 times daily. 90 tablet 11 04/16/20 24 025 Active pantoprazole (ProtoNix) 20 MG EC tablet Take 20 mg by mouth in the morning. 04/15/20 24 Active Lunesta 3 MG tablet 12/27/19 23 Active Sod Fluoride-Potassium Nitrate 1.1-5 % pasteIndications:D ental caries Holl[place] teeth for 2 minutes, morning and night. Spit, do not rinse. Do not eat or drink anything for 30 minutes following brushing. 112 g 3 06/11/20 24 Active acetaminophen (Tylenol) 500 MG tabletIndications: History of tooth extraction, unspecified edentulism class Take 1 tablet (500 mg) by mouth every 6 (six) hours if needed for mild pain for up to 20 doses. 20 tablet 07/04/20 24 Active econazole nitrate 1 % creamIndications:S eborrheic dermatitis To apply to the affected area 2 times a day 15 g 07/18/20 24 Active atorvastatin (Lipitor) 40 MG tabletIndications: Hypercholesterolem ia Take 1 tablet (40 mg) by mouth Once per day. 30 tablet 11 07/18/20 24 025 Active terbinafine (LamISIL) 250 MG tabletIndications: Onychomycosis TAKE ONE TABLET EVERY MORNING 30 tablet 2 07/22/20 24 Active sildenafil (Viagra) 25 MG tablet Take 1 tablet (25 mg) by mouth if needed for erectile dysfunction. 8 tablet 5 10/22/19 25 Active ibuprofen 800 MG tabletIndications: Primary osteoarthritis involving multiple joints TAKE ONE TABLET EVERY 8 HOURS NEEDED FOR PAIN 60 tablet 3 11/05/19 25 Active Tirzepatide-Weight Management (Zepbound) 2.5 MG/0.5ML solution auto-injectorIndic ations:Morbid obesity (CMS/HCC) Inject 0.5 mL (2.5 mg) under the skin 1 (one) time per week. 2 mL 1 11/12/19 25 Active chlorhexidine (Peridex) 0.12 % solutionIndication s:History of tooth extraction, unspecified edentulism class Swish 15 mL morning and night for 1 minute. Spit, do not swallow. Do not eat or drink for 30 minutes following use. 473 mL 11/29/19 25 Active acetaminophen (Tylenol) 500 MG tabletIndications: History of tooth extraction, unspecified edentulism class Take 1 tablet (500 mg) by mouth every 6 (six) hours if needed for mild pain for up to 20 doses. 20 tablet 11/29/19 25 Active Phentermine-Topira mate 3.75-23 MG capsule sustained-release 24 hrIndications:Morb id obesity (CMS/HCC) 1 capsule a day 30 capsule 3 03/27/20 25 Active econazole nitrate 1 % creamIndications:S eborrheic dermatitis Apply topically Once per day. 30 g 12/12/19 25 026 Active amoxicillin (Amoxil) 500 MG capsuleIndications :History of tooth extraction, unspecified edentulism class Take 1 capsule (500 mg) by mouth every 8 (eight) hours for 7 days. 21 capsule 11/29/19 25 025 Active Problems Problem Noted Date Diagnosed Date Hypercholesterolemia 07/18/2024 Morbid obesity 10/03/2022 ELO (obstructive sleep apnea) 10/03/2022 Restrictive lung disease 08/15/2022 Cardiomegaly 08/15/2022 Synovial cyst of knee 12/27/2021 Demodex acne 07/13/2018 Adjustment insomnia 02/02/2018 Depressive disorder 02/02/2018 Encounters Date Type Department Care Team Description 12/11/2024 10:00 AM EDT Office Visit [facility] [address] [place] [address] Ham Burgos MD Annual physical exam (Primary Dx); Dietary counseling; Exercise counseling; Class 3 severe obesity due to excess calories with serious comorbidity and body mass index (BMI) of 45.0 to 49.9 in adult ([facility]); Seborrheic dermatitis; Hypercholesterolemia; S/P splenectomy; Encounter for immunization 12/11/2024 Travel 12/09/2024 Telephone [facility] [address] [place] [address] Ham Burgos MD Chart Prep 12/05/2024 Orders Only [facility] [address] [place] [address] Ham Burgos MD Morbid obesity ([facility]) (Primary Dx) 12/04/2024 Orders Only [facility] [address] [place] [address] Ham Burgos MD 12/03/2024 Patient Outreach [address] [address] Ham Burgos MD Pre-visit Planning (SDOH screening completed on 11/11/24) 11/29/[address] [place] [address] Ham Burgos MD PA 11/28/2024 8:00 AM EDT Office Visit [facility] [address] [place] [address] Robb Pickering DMD History of tooth extraction, unspecified edentulism class (Primary Dx); Periodontal disease; Dental caries 11/27/2024 Travel 11/22/2024 Population Health Risk Score [facility] () Department [address] [place] [phone] Provider, Population Health Generic 11/11/2024 9:00 AM EST Office Visit [facility] [address] [place] [address] Ham Burgos MD Seborrheic dermatitis (Primary Dx); Cardiomegaly; Morbid obesity ([facility]); Hypercholesterolemia; Arthralgia of toe, unspecified laterality 11/11/2024 Travel 11/08/2024 Telephone [facility] [address] [place] [address] Ham Burgos MD chart prep 11/05/2024 Refill [facility] [address] [place] [address] Ham Burgos MD Primary osteoarthritis involving multiple joints 10/24/2024 1:00 PM EST Office Visit [facility] [address] [place] [address] Robb Pickering DMD Dental caries (Primary Dx) 10/16/2024 Refill [facility] [address] [place] [address] Ham Burgos MD from Last 3 Months Immunizations Name Administration Dates Next Due Influenza injectable quadriv alent IIV4 with preservative 08/01/2019,08/25/2017 Influenza injectable quadriv alent preservative free 06/20/2023,07/11/2022,08/25/2017 Influenza, IIV3, injectable 07/13/2021 Influenza, seasonal, injecta ble, preservative free 06/19/2024 Meningococcal Polysaccharide A,C,Y,W-135 TT Conjugate 12/11/2024 Pfizer Covid-19 Vaccine 12+ 06/19/2024,1 ,07/30/2021,01/01,12/09/2020 Pfizer Covid-19 Vaccine 12+ Bivalent 07/28/2022 Pfizer [...] Sign Reading Time Taken Comments Blood Pressure 137/76 12/11/2024 9:56 AM EDT Pulse 77 12/11/2024 9:56 AM EDT Temperature 36.8 ??C (98.2 ??F) 12/11/2024 9:56 AM ED T Respiratory Rate 19 12/11/2024 9:56 AM EDT Oxygen Saturation 97% 12/11/2024 9:56 AM EDT Inhaled Oxygen Concentration - - Weight 161 kg (356 lb) 12/11/2024 9:56 AM EDT Height 185.4 cm (6' 1 ) 12/11/2024 9:56 AM EDT Body Mass Index 46.97 12/11/2024 9:56 AM EDT Plan of Treatment Upcoming Encounters Date Type Department Care Team (Late st Contact Info) Description 01/02/2025 8:00 AM EDT Office Visit [facility] [address] [place] [address] Robb Pickering, DMD [address] [place] [address] 01/13/2025 9:15 AM EDT Office Visit [facility] [address] [place] [address] Ham Burgos MD [address] [place] [address] 03/13/2025 9:45 AM EDT Office Visit [facility] [address] [place] [address] Ham Burgos MD [address] [place] [address] Health Maintenance Due Date Last Done Comments CT Colonography 1963 FIT DNA/Cologuard 1963 FIT 1963 FOBT 1963 HIV Screening 1963 Sigmoidoscopy 1963 HIB Vaccines (1 of 1 - Risk 1-dose series) 11/05/1964 Meningococcal B Vaccine (1 of 4 - Increased Risk) 1973 Zoster Vaccines (1 of 2) 2013 RSV Patients and Patients Aged 60 years or older (1 - Risk 60-74 years 1-dose series) 2023 Dental Oral Exam 12/11/2024 06/11/2024 Dental Prophylaxis 01/03/2025 07/04/2024 Meningococcal Vaccine (2 - Risk 2-dose series) 02/05/2025 12/11/2024 Depression Monitoring (PHQ-9) 05/14/2025 11/11/2024, 11/11/2024 Dental X-Ray: Bitewings 06/12/2025 06/11/2024 Alcohol/Substance Use Screening 11/11/2025 11/11/2024 Depression Screening 11/11/2025 11/11/2024, 11/12/19 SDOH Screening 11/11/2025 11/11/2024 Tobacco Screening 12/11/2025 12/11/2024 Dental X-Ray: Full Mouth 06/12/2027 024, 06/11/2024, 12/07/2017 DTaP/Tdap/Td Vaccines (2 - Td or Tdap) 08/25/2027 08/25/2017 Lipid Panel 07/18/2029 07/18/2024, 05/03/2023 Colonoscopy 11/22/2033 11/23/2023 Colorectal Cancer Screening 11/22/2033 Pneumococcal Vaccine: 50+ Years Completed 09/15/2023 COVID-19 Vaccine Completed 06/19/2024, 06/2023, 07/28/2022, Additional history exists Influenza Vaccine Completed 06/19/2024, , 07/11/2022, Additional history exists HPV Vaccines Aged Out No longer eligi [...] Procedure Name Priority Date/Time Associated Diagnosis Comments 13 EXTRACTION, ERUPTED TOOTH REQ REMOVAL OF BONE AND/OR SECTIONING OF TOOTH Routine 11/28/2024 8:00 AM EDT Periodontal disease Dental caries UL ALVEOLOPLASTY IN CONJ W/ EXTRACTIONS - 1-3 TEETH, PER QUAD Routine 11/28/2024 8:00 AM EDT Periodontal disease Dental caries UR ALVEOLOPLASTY IN CONJ W/ EXTRACTIONS - 1-3 TEETH, PER QUAD Routine 11/28/2024 8:00 AM EDT Periodontal disease Dental caries 12 EXTRACTION, ERUPTED TOOTH OR EXPOSED ROOT (ELEVATION/FORCEPS REMOVAL) Routine 11/28/2024 8:00 AM EDT Periodontal disease Dental caries 11 EXTRACTION, ERUPTED TOOTH OR EXPOSED ROOT (ELEVATION/FORCEPS REMOVAL) Routine 11/28/2024 8:00 AM EDT Periodontal disease Dental caries 10 EXTRACTION, ERUPTED TOOTH OR EXPOSED ROOT (ELEVATION/FORCEPS REMOVAL) Routine 11/28/2024 8:00 AM EDT Periodontal disease Dental caries 9 EXTRACTION, ERUPTED TOOTH OR EXPOSED ROOT (ELEVATION/FORCEPS REMOVAL) Routine 11/28/2024 8:00 AM EDT Periodontal disease Dental caries 8 EXTRACTION, ERUPTED TOOTH OR EXPOSED ROOT (ELEVATION/FORCEPS REMOVAL) Routine 11/28/2024 8:00 AM EDT Periodontal disease Dental caries 7 EXTRACTION, ERUPTED TOOTH OR EXPOSED ROOT (ELEVATION/FORCEPS REMOVAL) Routine 11/28/2024 8:00 AM EDT Periodontal disease Dental caries 6 EXTRACTION, ERUPTED TOOTH OR EXPOSED ROOT (ELEVATION/FORCEPS REMOVAL) Routine 11/28/2024 8:00 AM EDT Periodontal disease Dental caries 5 EXTRACTION, ERUPTED TOOTH OR EXPOSED ROOT (ELEVATION/FORCEPS REMOVAL) Routine 11/28/2024 8:00 AM EDT Periodontal disease Dental caries 4 EXTRACTION, ERUPTED TOOTH OR EXPOSED ROOT (ELEVATION/FORCEPS REMOVAL) Routine 11/28/2024 8:00 AM EDT Periodontal disease Dental caries 3 EXTRACTION, ERUPTED TOOTH OR EXPOSED ROOT (ELEVATION/FORCEPS REMOVAL) Routine 11/28/2024 8:00 AM EDT Periodontal disease Dental caries CASE PRESENTATION, DETAILED AND EXTENSIVE [...] 11:59 AM EST) Triglycerides 102 <150 mg/dL [facility] Comment:Desirable Triglyceri de: less than 150 mg/dLBorderline High Triglyceride 150-199 mg/dLHigh Triglyceride: 200-499 mg/dLVery High Triglyceride: greater than or equal to 5OO mg/dL Cholesterol 201(H) <200 mg/dL [facility] Comment:Desirable Cholestero l: less than 200 mg/dLBorderline High Cholesterol: 200-239 mg/dLHigh Cholesterol: greater than 239 mg/dL LDL Cholesterol Calculated 137(H) <100 mg/dL [facility] Comment:Desirable LDL: less than 100 mg/dLNear Optimal/Above Optimal LDL: 110- 129 mg/dLBorderline High LDL: 130-159 mg/dLHigh LDL: 160-189 mg/dLVery High LDL: greater than or equal to 190 mg/dL HDL Cholesterol 44 >40 mg/dL [facility] Comment:Desirable HDL: great er than 40 mg/dL Note: This HDL assay may give artificially low results in patients with liver disease. Blood Venous blood specimen / Unknown 07/18/2024 11:59 AM EST 07/18/2024 2:08 PM EST us Ham Burgos MD LAB BLOOD ORDERABLES Final Result [facility] [address] [place] [address] [phone] * Hm Colonoscopy (11/23/2023) Colonoscopy Normal Normal Narrative Jeri Munoz - 11/23/2023 Repeat colonoscopy in 10 years us Historical Provider HEALTH MAINTENANCE Final Result from Last 3 Months or Most Recently Relevant to Health Maintenance Insurance [facility] C3 DENTAL-[facility] MEDICAID STAND ADULT Care Teams Meat Butcher Relationship Specialty Start Date End Date Ham Burgos MD [address] [place] [address] YENNIFER Hernandez [id number] PCP - General Internal Medicine 05/10/18
--- OUTSIDE RECORDS SUMMARY | 2024-12-17 21:02 | XMS_ITS | Encounter Summary ---
Author Organization [employer] [facility] Address [address] [place] [address] 7 [place] [address] Care Team Providers Care Yarn Weigher Name Role Phone Ham Burgos MD Primary Care Provider [phone] Encounter Details Date Type Department Care Team ([facility] Contact Info) Description 05/19/2023 Orders Only [facility] [address] [place], [place] [phone] Ham Burgos MD [address] [place], [place] [phone] Dry skin (Primary Dx) Social History Tobacco [...] Department Care Team (Late Contact Info) Description 01/02/2025 8:00 AM EDT Office Visit [facility] [address] [place], [place] [phone] Robb Pickering DMD [address] [place], [place] [phone] 01/13/2025 9:15 AM EDT Office Visit [facility] [address] [place] [address] Ham Burgos MD [address] [place] [address] 03/13/2025 9:45 AM EDT Office Visit [facility] [address] [place] [address] Ham Burgos MD [address] [place] [address] documented as of this encounter Visit Diagnoses Diagnosis Dry skin- Primary Other symptoms involving skin and integumentary tissues documented in this encounter Additional Health Concerns Assessment Noted Time PHQ-9 Depression Total Score: 14 023 11:04 AM EDT documented as of this encounter Care Teams Yarn Weigher Relationship Specialty Start Date End Date Ham Burgos MD [address] [place] [id number] PCP - General Internal Medicine 05/10/18 documented as of this encounter
--- OUTSIDE RECORDS SUMMARY | 2024-12-17 21:02 | XMS_ITS | Encounter Summary ---
Author Organization [employer] Address [address] [facility] 7t [place] [address] Care Team Providers Care Elementary Math Tutor Name Role Phone Ham Burgos MD Primary Care Provider [phone] Encounter Details Date Type Department Care Team ([facility] st Contact Info) Description 12/05/2024 Orders Only [facility] [address] [place], [place] [phone] Ham Burgos MD [address] [place] [address] Morbid obesity (CMS/HCC) (Primary Dx) Social History [...] Description 01/02/2025 8:00 AM EDT Office Visit [facility] [address] [place] [address] Robb Pickering DMD [address] [place] [address] 01/13/2025 9:15 AM EDT Office Visit [facility] [address] [place] [address] Ham Burgos MD [address] [place] [address] 03/13/2025 9:45 AM EDT Office Visit [facility] [address] [place] [address] Ham Burgos MD [address] [place] [address] documented as of this encounter Visit Diagnoses Diagnosis Morbid obesity (CMS/HCC)- Primary Morbid obesity documented in this encounter Additional Health Concerns Assessment Noted Time PHQ-9 Depression Total Score: 17 025 9:11 AM EST documented as of this encounter Care Teams Elementary Math Tutor Relationship Specialty Start Date End Date Ham Burgos MD [address] [place] [id number] PCP - General Internal Medicine 05/10/18 documented as of this encounter
--- OUTSIDE RECORDS SUMMARY | 2024-12-17 21:02 | XMS_ITS | Encounter Summary ---
Author Organization [employer] Address [address] [facility] 7t [place] [address] Care Team Providers Care Cost Analyst Name Role Phone Ham Burgos MD Primary Care Provider [phone] Encounter Details Date Type Department Care Team ([facility] st Contact Info) Description 04/16/2024 Orders Only [facility] [address] [place], [place] [phone] Ham Burgos MD [address] [place] [address] Restless legs (Primary Dx) Social History Tobacco [...] AM EDT Office Visit [facility] [address] [place] [address] Robb Pickering DMD [address] [place] [address] 01/13/2025 9:15 AM EDT Office Visit [facility] [address] [place] [address] Ham Burgos MD [address] [place] [address] 03/13/2025 9:45 AM EDT Office Visit [facility] [address] [place] [address] Ham Burgos MD [address] [place] [address] documented as of this encounter Visit Diagnoses Diagnosis Restless legs- Primary Restless legs syndrome (RLS) documented in this encounter Additional Health Concerns Assessment Noted Time PHQ-9 Depression Total Score: 8 12/11/19 9:29 AM EDT documented as of this encounter Care Teams Cost Analyst Relationship Specialty Start Date End Date Ham Burgos MD [address] [place] [address] PCP - General Internal Medicine 05/10/18 documented as of this encounter
--- OUTSIDE RECORDS SUMMARY | 2024-12-17 21:02 | XMS_ITS | Encounter Summary ---
Author Organization [employer] Address [address] [facility] 7t [place] [address] Care Team Providers Care Descriptive Catalog Librarian Name Role Phone Ham Burgos MD Primary Care Provider [phone] Encounter Details Date Type Department Care Team (Latest Contact Info) Description 07/18/2024 Orders Only [facility] [address] [place], [place] [phone] Ham Burgos MD [address] [place] [address] Hypercholesterolemia (Primary Dx) Social History Tobacco Use [...] 01/02/2025 8:00 AM EDT Office Visit [facility] [address] [place] [address] Robb Pickering DMD [address] [place] [address] 01/13/2025 9:15 AM EDT Office Visit [facility] [address] [place] [address] Ham Burgos MD [address] [place] [address] 03/13/2025 9:45 AM EDT Office Visit [facility] [address] [place] [address] Ham Burgos MD [address] [place] [address] documented as of this encounter Visit Diagnoses Diagnosis Hypercholesterolemia- Primary Pure hypercholesterolemia documented in this encounter Additional Health Concerns Assessment Noted Time PHQ-9 Depression Total Score: 8 12/11/19 24 9:29 AM EDT documented as of this encounter Care Teams Descriptive Catalog Librarian Relationship Specialty Start Date End Date Ham Burgos MD [address] [place] [id number] PCP - General Internal Medicine 05/10/18 documented as of this encounter
--- OUTSIDE RECORDS SUMMARY | 2024-12-17 21:02 | XMS_ITS | Encounter Summary ---
Author Organization [email or web address] Address [address] [facility] 7t [place] [address] Care Team Providers Care Cooker Pie Filling Name Role Phone Ham Burgos MD Primary Care Provider [phone] Encounter Details Date Type Department Care Team (Late st Contact Info) Description 12/04/2024 Orders Only [facility] [address] [place] [address] Ham Burgos MD [address] [place] [address] Social History Tobacco Use Types Packs/Day Years [...] Description 01/02/2025 8:00 AM EDT Office Visit [facility] [address] [place] [address] Robb Pickering DMD [address] [place] [address] 01/13/2025 9:15 AM EDT Office Visit [facility] [address] [place] [address] Ham Burgos MD [address] [place] [address] 03/13/2025 9:45 AM EDT Office Visit [facility] [address] [place] [address] Ham Burgos MD [address] [place] [address] documented as of this encounter Visit Diagnoses Not on filedocumented in this encounter Additional Health Concerns Assessment Noted Time PHQ-9 Depression Total Score: 17 025 9:11 AM EST documented as of this encounter Care Teams Cooker Pie Filling Relationship Specialty Start Date End Date Ham Burgos MD [address] [place] [phone] PCP - General Internal Medicine 05/10/18 documented as of this encounter
--- OUTSIDE RECORDS SUMMARY | 2024-12-17 21:02 | XMS_ITS | Encounter Summary ---
Author Organization [employer] Address [address] [facility] 7 [place] [address] Care Team Providers Care Tool Programmer Name Role Phone Ham Burgos MD Primary Care Provider [phone]- [phone] Reason for Visit * Reason Onset Date Comments PA 11/29/2024 Encounter Details Date Type Department Care Team (Late st Contact Info) Description 11/29/2024 Telephone [facility] [address] [place] [address] Ham Burgos MD 505 [place] [address] PA Social History Tobacco Use Types Packs/Day Years [...] encounter Miscellaneous Notes * Telephone Encounter - Teri Ren LPN - 12/05/2024 1:29 PM EDT Please read message below and advise, per MH pt will need to Have tried Oral weight loss medication. Tc from pt calling requesting status on Zepbound 2.5mg. Corrugator works on [facility] Pharmacy and rejection that we have is medication require a PA. PCP DR. Burgos * Telephone Encounter - Christine Freeman - 11/29/2024 4:06 PM EDT Tc from pt calling requesting status on Zepbound 2.5mg. Corrugator works on [facility] Pharmacy and rejection that we have is medication require a PA. PCP DR. Burgos documented in this encounter Plan of Treatment Upcoming Encounters Date Type Department Care Team (Late st Contact Info) Description 01/02/2025 8:00 AM EDT Office Visit [facility]AL [address] [place] [address] Robb Pickering, DMD [address] [place] [address] 01/13/2025 9:15 AM EDT Office Visit [facility] MED & PEDS [address] [place] [address] Ham Burgos MD 505 [place] [address] 03/13/2025 9:45 AM EDT Office Visit [facility] [address] [place] [address] Ham Burgos MD 505 [place] [address] documented as of this encounter Visit Diagnoses Not on filedocumented in this encounter Additional Health Concerns Assessment Noted Time PHQ-9 Depression Total Score: 17 025 9:11 AM EST documented as of this encounter Care Teams Tool Programmer Relationship Specialty Start Date End Date Ham Burgos MD [address] [place] [address] PCP - General Internal Medicine 05/10/18 documented as of this encounter
--- OUTSIDE RECORDS SUMMARY | 2024-12-17 21:02 | XMS_ITS | Encounter Summary ---
Author Organization [employer] [facility] Address [address] [place] [address] 7 [place] [address] Care Team Providers Care Patent Counsel Name Role Phone Ham Burgos MD Primary Care Provider [phone]- [phone] Encounter Details Date Type Department Care Team ([facility] Contact Info) Description 10/09/2022 Orders Only [facility] [address] [place], [place] [phone] Ham Burgos MD [address] [place], [place] [phone] Morbid obesity (CMS/HCC) (Primary Dx) Social History [...] Description 01/02/2025 8:00 AM EDT Office Visit [facility] ADULT [facility] [address] [place], [place] [phone] Robb Pickering DMD [address] [place], [place] [phone] 01/13/2025 9:15 AM EDT Office Visit [facility] MED [facility] PEDS [address] [place] [address] Ham Burgos MD [address] [place] [address] 03/13/2025 9:45 AM EDT Office Visit [facility] [address] [place] [address] Ham Burgos MD 505 [place] [address] Scheduled Orders Name Type Priority Associated Diagnoses [...] documented as of this encounter Care Teams Patent Counsel Relationship Specialty Start Date End Date Ham Burgos MD [address] [place] [address] PCP - General Internal Medicine 05/10/18 documented as of this encounter
== END ==
LOC: HO.SL 19:30
PROVIDERS: PCP Internal Medicine; Visit Provider Hospitalist
DX: G47.33 Obstructive sleep apnea (adult) (pediatric) (principal); Z99.89 Dependence on other enabling machines and devices
CPT/HCPCS: 95810

== ENCOUNTER → 2024-12-17 19:30 | Outpatient (BNV) | payer MEDICAID, SELFPAY | PROVIDERS: PCP Internal Medicine; Visit Provider Internal Medicine | DX: G47.33 Obstructive sleep apnea (adult) (pediatric) (principal) | CPT/HCPCS: 95810 ==

== ENCOUNTER 2025-01-02 08:54 | Outpatient (REF) | payer MEDICAID, SELFPAY ==
--- OUTSIDE RECORDS SUMMARY | 2025-01-02 09:28 | XMS_ITS | Encounter Summary ---
Author Organization [employer] Address [address] [place] [address] 7t [place] [address] Care Team Providers Care V Block Saw Operator Name Role Phone Ham Burgos MD Primary Care Provider +- [phone] Reason for Visit * Reason Comments Dentures Encounter Details Date Type Department Care Team ([facility] Contact Info) Description 01/02/2025 8:00 AM EDT Office Visit [facility] ADULT DENTAL 505 [place] [address] Robb Pickering, DMD 505 [place] [address] Social History Tobacco Use Types Packs/Day Years [...] Sign Reading Time Taken Comments Blood Pressure 128/80 01/02/2025 8:07 AM EDT Pulse 64 01/02/2025 8:07 AM EDT Temperature - - Respiratory Rate - - Oxygen Saturation - - Inhaled Oxygen Concentration - - Weight - - Height - - Body Mass Index - - documented in this encounter Plan of Treatment Upcoming Encounters Date Type Department Care Team (Late st Contact Info) Description 01/13/2025 9:15 AM EDT Office Visit [facility]ED[facility] [address] [place] [address] Ham Burgos MD 505 [place] [address] 01/27/2025 9:30 AM EDT Office Visit [facility] ADULT DENTAL [address] [place] [address] Robb Pickering DMD 505 [place] [address] 03/13/2025 9:45 AM EDT Office Visit [facility]ED[facility] [address] [place] [address] Ham Burgos MD 505 [place] [address] Scheduled Orders Name Type Priority Associated Diagnoses Orde r Schedule DENTURE IMPRESSION Dental Routine 1 Occu rrences starting 01/02/2025 documented as of this encounter Visit Diagnoses Not on filedocumented in this encounter Additional Health Concerns Assessment Noted Time PHQ-9 Depression Total Score: 17 025 9:11 AM EST documented as of this encounter Care Teams V Block Saw Operator Relationship Specialty Start Date End Date Ham Burgos MD [address] [place] [address] PCP - General Internal Medicine 05/10/18 documented as of this encounter
--- OUTSIDE RECORDS SUMMARY | 2025-01-02 09:28 | XMS_ITS | Encounter Summary ---
Author Organization [facility] Address [address] [place] [address] [address] [place] [address] Care Team Providers Care Vocational Rehabilitation Administrator Name Role Phone Ham Burgos MD Primary Care Provider [phone]- [phone] Encounter Details Date Type Department Care Team ([facility] Contact Info) Description 05/19/2023 Orders Only [facility] MED & PEDS [address] [place], [place] [phone] Ham Burgos MD 505 [place] [address] Dry skin (Primary Dx) Social History Tobacco [...] Upcoming Encounters Date Type Department Care Team ([facility] Contact Info) Description 01/13/2025 9:15 AM EDT Office Visit [facility] MED & PEDS [address] [place], [place] [phone] Ham Burgos MD 505 [place], [place] [phone] 01/27/2025 9:30 AM EDT Office Visit [facility] ADULT DENTAL 505 [place] [address] Robb Pickering DMD 505 [place] [address] 03/13/2025 9:45 AM EDT Office Visit [facility] MED & PEDS 505 [place] [address] Ham Burgos MD 505 [place] [address] documented as of this encounter Visit Diagnoses Diagnosis Dry skin- Primary Other symptoms involving skin and integumentary tissues documented in this encounter Additional Health Concerns Assessment Noted Time PHQ-9 Depression Total Score: 14 023 11:04 AM EDT documented as of this encounter Care Teams Vocational Rehabilitation Administrator Relationship Specialty Start Date End Date Ham Burgos MD 505 [place] [address] PCP - General Internal Medicine 05/10/18 documented as of this encounter
--- OUTSIDE RECORDS SUMMARY | 2025-01-02 09:28 | XMS_ITS | Encounter Summary ---
Author Organization [employer] Address 75 [facility] 7 [place] [address] Care Team Providers Care Hydraulic Rubbish Compactor Mechanic Name Role Phone Ham Burgos MD Primary Care Provider [phone]- [phone] Reason for Visit * Reason Onset Date Comments PA 11/29/2024 Encounter Details Date Type Department Care Team (Late st Contact Info) Description 11/29/2024 Telephone [facility] MED[facility]INE 230 [place] [address] Ham Burgos MD 505 [place] [address] PA Social History Tobacco Use Types Packs/Day [...] pt calling requesting status on Zepbound 2.5mg. Service Order Taker works on [facility] Pharmacy and rejection that we have is medication require a PA. PCP DR. Burgos * Telephone Encounter - Christine Freeman - 11/29/2024 4:06 PM EDT Tc from pt calling requesting status on Zepbound 2.5mg. Service Order Taker works on [facility] Pharmacy and rejection that we have is medication require a PA. PCP DR. Burgos documented in this encounter Plan of Treatment Upcoming Encounters Date Type Department Care Team ([facility] st Contact Info) Description 01/13/2025 9:15 AM EDT Office Visit [facility] MED & PEDS [address] [place] [address] Ham Burgos MD [address] [place], [place] [phone] 01/27/2025 9:30 AM EDT Office Visit [facility] ADULT DENTAL [address] [place] [address] Robb Pickering DMD 505 [place] [address] 03/13/2025 9:45 AM EDT Office Visit [facility] MED & PEDS 505 [place] [address] Ham Burgos MD 505 [place] [address] documented as of this encounter Visit Diagnoses Not on filedocumented in this encounter Additional Health Concerns Assessment Noted Time PHQ-9 Depression Total Score: 17 025 9:11 AM EST documented as of this encounter Care Teams Hydraulic Rubbish Compactor Mechanic Relationship Specialty Start Date End Date Ham Burgos MD 505 [place] [address] PCP - General Internal Medicine 05/10/18 documented as of this encounter
--- OUTSIDE RECORDS SUMMARY | 2025-01-02 09:28 | XMS_ITS | Encounter Summary ---
Author Organization [employer] Address [address] [facility] 7t [place] [address] Care Team Providers Care Jewelry Bench Molder Name Role Phone Ham Burgos MD Primary Care Provider [phone] Encounter Details Date Type Department Care Team (Late st Contact Info) Description 12/04/2024 Orders Only [facility] MEDICINE [address] [place] [address] Ham Burgos MD [address] [place] [address] Social History Tobacco Use Types Packs/Day Years [...] Description 01/13/2025 9:15 AM EDT Office Visit [facility] MED & PEDS 505 [place] [address] Ham Burgos MD 505 [place] [address] 01/27/2025 9:30 AM EDT Office Visit [facility] ADULT DENTAL [address] [place] [address] Robb Pickering DMD 505 [place] [address] 03/13/2025 9:45 AM EDT Office Visit [facility] MED & PEDS 505 [place] [address] Ham Burgos MD 505 [place] [address] documented as of this encounter Visit Diagnoses Not on filedocumented in this encounter Additional Health Concerns Assessment Noted Time PHQ-9 Depression Total Score: 17 025 9:11 AM EST documented as of this encounter Care Teams Jewelry Bench Molder Relationship Specialty Start Date End Date Ham Burgos MD [address] [place] [address] PCP - General Internal Medicine 05/10/18 documented as of this encounter
--- OUTSIDE RECORDS SUMMARY | 2025-01-02 09:28 | XMS_ITS | Encounter Summary ---
Author Organization [employer] Address [address] [facility] 7t [place] [address] Care Team Providers Care Ring Making Machine Operator Name Role Phone Ham Burgos MD Primary Care Provider [phone] Encounter Details Date Type Department Care Team ([facility] st Contact Info) Description 12/05/2024 Orders Only [facility] MED & PEDS [address] [place], [place] [phone] Ham Burgos MD 505 [place] [address] Morbid obesity (CMS/HCC) (Primary Dx) Social History [...] Description 01/13/2025 9:15 AM EDT Office Visit [facility] [address] [place] [address] Ham Burgos MD 505 [place] [address] 01/27/2025 9:30 AM EDT Office Visit [facility] AD[facility] [address] [place] [address] Robb Pickering DMD 505 [place] [address] 03/13/2025 9:45 AM EDT Office Visit [facility] [address] [place] [address] Ham Burgos MD 505 [place] [address] documented as of this encounter Visit Diagnoses Diagnosis Morbid obesity (CMS/HCC)- Primary Morbid obesity documented in this encounter Additional Health Concerns Assessment Noted Time PHQ-9 Depression Total Score: 17 025 9:11 AM EST documented as of this encounter Care Teams Ring Making Machine Operator Relationship Specialty Start Date End Date Ham Burgos MD [address] [place] [address] PCP - General Internal Medicine 05/10/18 documented as of this encounter
--- OUTSIDE RECORDS SUMMARY | 2025-01-02 09:28 | XMS_ITS | Encounter Summary ---
Author Organization [employer] Address [address] [facility] 7t [place] [address] Care Team Providers Care Elastic Attacher Chainstitch Name Role Phone Ham Burgos MD Primary Care Provider [phone] Encounter Details Date Type Department Care Team ([facility] st Contact Info) Description 04/16/2024 Orders Only [facility] MED & PEDS 505 [place], [place] [phone] Ham Burgos MD 505 [place] [address] Restless legs (Primary Dx) Social History Tobacco [...] [facility] MED [facility] PEDS [address] [place] [address] Ham Burgos MD 505 [place] [address] 01/27/2025 9:30 AM EDT Office Visit [facility] ADULT DENTAL 505 [place] [address] Robb Pickering DMD 505 [place] [address] 03/13/2025 9:45 AM EDT Office Visit [facility] PED[facility] 505 [place] [address] Ham Burgos MD 505 [place] [address] documented as of this encounter Visit Diagnoses Diagnosis Restless legs- Primary Restless legs syndrome (RLS) documented in this encounter Additional Health Concerns Assessment Noted Time PHQ-9 Depression Total Score: 8 12/11/19 24 9:29 AM EDT documented as of this encounter Care Teams Elastic Attacher Chainstitch Relationship Specialty Start Date End Date Ham Burgos MD [address] [place] [address] PCP - General Internal Medicine 05/10/18 documented as of this encounter
--- OUTSIDE RECORDS SUMMARY | 2025-01-02 09:28 | XMS_ITS | Clinical Summary ---
Author Organization [employer] Address [address] [place] [address] 7t [place] [address] Care Team Providers Care Guyline Operator Name Role Phone Ham Burgos MD Primary Care Provider +1- [phone] Allergies No known active allergies Medications acetaminophen [...] Fluoride-Potassium Nitrate 1.1-5 % pasteIndications:D ental caries Watson teeth for 2 minutes, morning and night. [...] Encounters Date Type Department Care Team Description 01/02/2025 8:00 AM EDT Office Visit [facility] ADULT DENTAL [address] [place] [address] Robb Pickering DMD 12/11/2024 10:00 AM EDT Office Visit [facility] MED & PEDS [address] [place] [address] Ham Burgos MD Annual physical exam (Primary Dx); Dietary counseling; Exercise counseling; Class 3 severe obesity due to excess calories with serious comorbidity and body mass index (BMI) of 45.0 to 49.9 in adult; Seborrheic dermatitis; Hypercholesterolemia; S/P splenectomy; Encounter for immunization 12/11/2024 Travel 12/09/2024 Telephone [facility] [address] [place] [address] Ham Burgos MD Chart Prep 12/05/2024 Orders Only [facility] [address] [place] [address] Ham Burgos MD Morbid obesity ([facility]) (Primary Dx) 12/04/2024 Orders Only [facility] MEDICINE [address] [place] [address] Ham Burgos MD 12/03/2024 Patient Outreach [facility] [address] [place] [phone] Ham Burgos MD Pre-visit Planning (SDOH screening completed on 11/11/24) 11/29/2024 Telephone [facility] [address] [place] [address] Ham Burgos MD PA 11/28/2024 8:00 AM EDT Office Visit [facility] ADULT DENTAL [address] [place] [address] Robb Pickering DMD History of tooth extraction, unspecified edentulism class (Primary Dx); Periodontal disease; Dental caries 11/27/2024 Travel 11/22/2024 Population Health Risk Score [facility] () Department [address] [place] [phone] Provider, Population Health Generic 11/11/2024 9:00 AM EST Office Visit [facility] PED[facility] [address] [place] [address] Ham Burgos MD Seborrheic dermatitis (Primary Dx); Cardiomegaly; Morbid obesity (CMS/HCC); Hypercholesterolemia; Arthralgia of toe, unspecified laterality 11/11/2024 Travel 11/08/2024 Telephone [facility] [address] [place] [address] Ham Burgos MD chart prep 11/05/2024 Refill [facility] [address] [place] [address] Ham Burgos MD Primary osteoarthritis involving multiple joints 10/24/2024 1:00 PM EST Office Visit [facility] ADULT DENTAL [address] [place] [address] Robb Pickering DMD Dental caries (Primary Dx) 10/16/2024 Refill [facility] [address] [place] [address] Ham Burgos MD from Last 3 Months [...] Pulse 64 01/02/2025 8:07 AM EDT Temperature 36.8 ??C (98.2 ??F) [...] Description 01/13/2025 9:15 AM EDT Office Visit [facility] [address] [place] [address] Ham Burgos MD 505 [place] [address] 01/27/2025 9:30 AM EDT Office Visit [facility] ADULT DENTAL [address] [place] [address] Robb Pickeirng, SAMANTA 505 [place] [address] 03/13/2025 9:45 AM EDT Office Visit [facility] PED[facility] [address] [place] [address] Ham Burgos MD [address] [place] [address] Health Maintenance Due Date Last Done Comments [...] (2 - Risk 2-dose series) 02/05/2025 12/11/2024 Dental X-Ray: Bitewings 06/12/2025 06/11/2024 Alcohol/Substance Use Screening 11/11/2025 11/11/2024 Depression Screening 11/11/2025 11/11/2024, 11/12/19 SDOH Screening 11/11/2025 11/11/2024 Tobacco Screening 01/02/2026 01/02/2025 Dental X-Ray: Full Mouth 06/12/2027 024, 06/11/2024, [...] 11:59 AM EST) Triglycerides 102 <150 mg/dL [facility] Comment:Desirable Triglyceri de: less than 150 mg/dLBorderline High Triglyceride 150-199 mg/dLHigh Triglyceride: 200-499 mg/dLVery High Triglyceride: greater than or equal to 5OO mg/dL Cholesterol 201(H) <200 mg/dL [facility] Comment:Desirable Cholestero l: less than 200 mg/dLBorderline High Cholesterol: 200-239 mg/dLHigh Cholesterol: greater than 239 mg/dL LDL Cholesterol Calculated 137(H) <100 mg/dL [facility] Comment:Desirable LDL: less than 100 mg/dLNear Optimal/Above Optimal LDL: 110- 129 mg/dLBorderline High LDL: 130-159 mg/dLHigh LDL: 160-189 mg/dLVery High LDL: greater than or equal to 190 mg/dL HDL Cholesterol 44 >40 mg/dL [facility] Comment:Desirable HDL: great er than 40 mg/dL Note: This HDL assay may give artificially low results in patients with liver disease. Blood Venous blood specimen / Unknown 07/18/2024 11:59 AM EST 07/18/2024 2:08 PM EST us Ham Burgos MD LAB BLOOD ORDERABLES Final Result [facility] [address] [place] [address] [phone] * Hm Colonoscopy (11/23/2023) Colonoscopy Normal Normal Narrative Jeri Munoz - 11/23/2023 Repeat colonoscopy in 10 years us Historical Provider HEALTH MAINTENANCE Final Result from Last 3 Months or Most Recently Relevant to Health Maintenance Insurance [facility] C3 DENTAL-[facility] MEDICAID STAND ADULT Care Teams Guyline Operator Relationship Specialty Start Date End Date Ham Burgos MD [address] [place] [address] YENNIFER Hernandez [address] PCP - General Internal Medicine 05/10/18
--- OUTSIDE RECORDS SUMMARY | 2025-01-02 09:28 | XMS_ITS | Encounter Summary ---
Author Organization [email or web address] [facility] Address [address] [place] [address] 7 [place] [address] Care Team Providers Care Toppiece Cutter Name Role Phone Ham Burgos MD Primary Care Provider [phone]- [phone] Encounter Details Date Type Department Care Team ([facility] Contact Info) Description 10/09/2022 Orders Only [facility] MEDICINE [address] [place], [place] [phone] Ham Burgos MD [address] [place], [place] [phone] Morbid obesity (CMS/HCC) (Primary Dx) Social History [...] Upcoming Encounters Date Type Department Care Team ([facility] Contact Info) Description 01/13/2025 9:15 AM EDT Office Visit [facility] CH[facility] MED & PEDS [address] [place] [address] Ham Burgos MD [address] [place], [place] [phone] 01/27/2025 9:30 AM EDT Office Visit [facility] ADULT DENTAL [address] [place] [address] Robb Pickering DMD 505 [place] [address] 03/13/2025 9:45 AM EDT Office Visit [facility] MED & PEDS [address] [place] [address] Ham Burgos MD [address] [place] [address] Scheduled Orders Name Type Priority Associated Diagnoses Orde r Schedule CBC auto differential Lab Routine Morbid obesity ([facility]/HCC) Expected: 10/09/2022 (Approximate), Expires: 10/09/2023 Basic Metabolic Panel Lab Routine Morbid obesity ([facility]) Expected: 10/09/2022 (Approximate), Expires: 10/09/2023 documented as of this encounter Visit Diagnoses Diagnosis Morbid obesity (CMS/HCC)- Primary Morbid obesity documented in this encounter Additional Health Concerns Assessment Noted Time PHQ-9 Depression Total Score: 0 10/03/19 23 1:13 PM EST documented as of this encounter Care Teams Toppiece Cutter Relationship Specialty Start Date End Date Ham Burgos MD [address] [place] [address] PCP - General Internal Medicine 05/10/18 documented as of this encounter
--- OUTSIDE RECORDS SUMMARY | 2025-01-02 09:28 | XMS_ITS | Encounter Summary ---
Author Organization [employer] Address [address] [facility] 7t [place] [address] Care Team Providers Care Bar Turner Name Role Phone Ham Burgos MD Primary Care Provider [phone] Encounter Details Date Type Department Care Team (Latest Contact Info) Description 07/18/2024 Orders Only [facility] MED & PEDS [address] [place], [place] [phone] Ham Burgos MD [address] [place] [address] Hypercholesterolemia (Primary Dx) Social History Tobacco Use [...] Description 01/13/2025 9:15 AM EDT Office Visit [facility] MED & PEDS [address] [place] [address] Ham Burgos MD [address] [place] [address] 01/27/2025 9:30 AM EDT Office Visit [facility] ADULT DENTAL [address] [place] [address] Robb Pickering DMD [address] [place] [address] 03/13/2025 9:45 AM EDT Office Visit [facility] MED & PEDS [address] [place] [address] Ham Burgos MD [address] [place] [address] documented as of this encounter Visit Diagnoses Diagnosis Hypercholesterolemia- Primary Pure hypercholesterolemia documented in this encounter Additional Health Concerns Assessment Noted Time PHQ-9 Depression Total Score: 8 12/11/19 24 9:29 AM EDT documented as of this encounter Care Teams Bar Turner Relationship Specialty Start Date End Date Ham Burgos MD [address] [place] [address] PCP - General Internal Medicine 05/10/18 documented as of this encounter
[2025-01-02 14:51] LABS: Albumin Level 3.7 g/dL (3.5-5.0); Alkaline Phosphatase 122 U/L (39-117); Anion Gap 10 (12-20); Aspartate Amino Transferase 42 U/L (5-37); Bilirubin Total 0.5 mg/dL (0.0-1.0); Blood Urea Nitrogen 15 mg/dL (9-16); Calcium 9.3 mg/dL (8.4-10.2); Carbon Dioxide 27 mmol/L (22-29); Chloride 106 mmol/L (96-108); Cholesterol 200 mg/dL (<200); Estimated Glomerular Filt Rate > 60; Glucose Random 97 mg/dL (60-115); HDL Cholesterol 46 mg/dL (>40); LDL Cholesterol Calculated 140 mg/dL (<100); Potassium 3.9 mmol/L (3.3-5.1); Sodium 139 mmol/L (135-145); Total Protein 6.6 g/dL (6.5-8.0); Triglycerides 70 mg/dL (<150)
[2025-01-02 14:52] LABS: TSH reflex Free T4 0.97 uIU/mL (0.32-4.0)
[2025-01-02 15:12] LABS: Alanine Aminotransferase 52 U/L (0-40)
== END 2025-01-02 08:55 | disposition home or self-care (01) ==
LOC: HO.CHCLDS 08:54
PROVIDERS: Visit Provider Internal Medicine
DX: E78.00 Pure hypercholesterolemia, unspecified (principal)
CPT/HCPCS: 36415; 80053; 80061; 84443

== ENCOUNTER 2025-01-13 09:49 | Outpatient (REF) | payer MEDICAID, SELFPAY ==
--- OUTSIDE RECORDS SUMMARY | 2025-01-13 10:56 | XMS_ITS | Encounter Summary ---
Author Organization [employer] [facility] Address [address] [place] [address] 7 [place] [address] Care Team Providers Care Electronics Installer Name Role Phone Ham Burgos MD Primary Care Provider [phone]- [phone] Encounter Details Date Type Department Care Team ([facility] Contact Info) Description 10/09/2022 Orders Only [facility] MEDICINE [address] [place], [place] [phone] Ham Burgos MD [address] [place], [place] [phone] Morbid obesity (CMS/HCC) (Primary Dx) Social History [...] Department Care Team (Late Contact Info) Description 01/27/2025 9:30 AM EDT Office Visit [facility] ADULT DENTAL [address] [place], [place] [phone] Robb Pickering DMD 505 [place], [place] [phone] 03/13/2025 9:45 AM EDT Office Visit [facility] CHC MED & PEDS [address] [place] [address] Hma Burgos MD 505 [place] [address] Scheduled Orders Name Type Priority Associated Diagnoses [...] documented as of this encounter Care Teams Electronics Installer Relationship Specialty Start Date End Date Ham Burgos MD 505 [place] [address] PCP - General Internal Medicine 05/10/18 documented as of this encounter
--- OUTSIDE RECORDS SUMMARY | 2025-01-13 10:56 | XMS_ITS | Encounter Summary ---
Author Organization [employer] [facility] Address [address] [place] [address] 7 [place] [address] Care Team Providers Care Supervisor Heading Name Role Phone Ham Burgos MD Primary Care Provider [phone]- [phone] Encounter Details Date Type Department Care Team ([facility] Contact Info) Description 05/19/2023 Orders Only [facility] MED & PEDS [address] [place], [place] [phone] Ham Burgos MD 505 [place], [place] [phone] Dry skin (Primary Dx) Social History Tobacco [...] Description 01/27/2025 9:30 AM EDT Office Visit [facility] ADULT DENTAL [address] [place], [place] [phone] Robb Pickering DMD 505 [place], [place] [phone] 03/13/2025 9:45 AM EDT Office Visit [facility] CHC MED & PEDS 505 [place] [address] Ham Burgos MD 505 [place] [address] documented as of this encounter Visit Diagnoses Diagnosis Dry skin- Primary Other symptoms involving skin and integumentary tissues documented in this encounter Additional Health Concerns Assessment Noted Time PHQ-9 Depression Total Score: 14 023 11:04 AM EDT documented as of this encounter Care Teams Supervisor Heading Relationship Specialty Start Date End Date Ham Burgos MD 505 [place] [address] PCP - General Internal Medicine 05/10/18 documented as of this encounter
--- OUTSIDE RECORDS SUMMARY | 2025-01-13 10:56 | XMS_ITS | Encounter Summary ---
Author Organization [email or web address] Address [address] [facility] 7 [place] [address] Care Team Providers Care Mold Preparer Name Role Phone Ham Burgos MD Primary Care Provider [phone]- [phone] Reason for Visit * Reason Onset Date Comments PA 11/29/2024 Encounter Details Date Type Department Care Team (Late st Contact Info) Description 11/29/2024 Telephone [facility] MEDICINE [address] [place] [address] Ham Burgos MD 505 [place] [address] PA Social History Tobacco Use Types Packs/Day [...] pt calling requesting status on Zepbound 2.5mg. Lard Maker works on [facility] Pharmacy and rejection that we have is medication require a PA. PCP DR. Burgos * Telephone Encounter - Christine Freeman - 11/29/2024 4:06 PM EDT Tc from pt calling requesting status on Zepbound 2.5mg. Lard Maker works on [facility] Pharmacy and rejection that we have is medication require a PA. PCP DR. Burgos documented in this encounter Plan of Treatment Upcoming Encounters Date Type Department Care Team (Late st Contact Info) Description 01/27/2025 9:30 AM EDT Office Visit [facility] ADULT DENTAL [address] [place] [address] Robb Pickering, DMD [address] [place] [address] 03/13/2025 9:45 AM EDT Office Visit [facility] CHC MED & PEDS 505 [place] [address] Ham Burgos MD 505 [place] [address] documented as of this encounter Visit Diagnoses Not on filedocumented in this encounter Additional Health Concerns Assessment Noted Time PHQ-9 Depression Total Score: 17 025 9:11 AM EST documented as of this encounter Care Teams Mold Preparer Relationship Specialty Start Date End Date Ham Burgos MD 505 [place] [address] PCP - General Internal Medicine 05/10/18 documented as of this encounter
--- OUTSIDE RECORDS SUMMARY | 2025-01-13 10:56 | XMS_ITS | Encounter Summary ---
Author Organization [employer] Address [address] [facility] 7t [place] [address] Care Team Providers Care Business Support Name Role Phone Ham Burgos MD Primary Care Provider [phone] Encounter Details Date Type Department Care Team (Late st Contact Info) Description 12/04/2024 Orders Only [facility] MEDICINE [address] [place] [address] Ham Burgos MD [address] [place] [address] Social History Tobacco Use Types Packs/Day Years [...] Description 01/27/2025 9:30 AM EDT Office Visit [facility] ADULT DENTAL 505 [place] [address] Robb Pickering DMD 505 [place] [address] 03/13/2025 9:45 AM EDT Office Visit [facility] MED & PEDS [address] [place] [address] Ham Burgos MD 505 [place] [address] documented as of this encounter Visit Diagnoses Not on filedocumented in this encounter Additional Health Concerns Assessment Noted Time PHQ-9 Depression Total Score: 17 025 9:11 AM EST documented as of this encounter Care Teams Business Support Relationship Specialty Start Date End Date Ham Burgos MD 505 [place] [address] PCP - General Internal Medicine 05/10/18 documented as of this encounter
--- OUTSIDE RECORDS SUMMARY | 2025-01-13 10:56 | XMS_ITS | Encounter Summary ---
Author Organization [employer] Address [address] [facility] 7t [place] [address] Care Team Providers Care Part Time Name Role Phone Ham Burgos MD Primary Care Provider [phone] Encounter Details Date Type Department Care Team (Latest Contact Info) Description 07/18/2024 Orders Only [facility] CHC MED & PEDS 505 [place], [place] [phone] Ham Burgos MD [address] [place] [address] Hypercholesterolemia (Primary Dx) Social History Tobacco Use [...] Description 01/27/2025 9:30 AM EDT Office Visit [facility] ADULT DENTAL 505 [place] [address] Robb Pickering DMD 505 [place] [address] 03/13/2025 9:45 AM EDT Office Visit [facility] MED & PEDS 505 [place] [address] Ham Burgos MD [address] [place] [address] documented as of this encounter Visit Diagnoses Diagnosis Hypercholesterolemia- Primary Pure hypercholesterolemia documented in this encounter Additional Health Concerns Assessment Noted Time PHQ-9 Depression Total Score: 8 12/11/19 24 9:29 AM EDT documented as of this encounter Care Teams Part Time Relationship Specialty Start Date End Date Ham Burgos MD 505 [place] [address] PCP - General Internal Medicine 05/10/18 documented as of this encounter
--- OUTSIDE RECORDS SUMMARY | 2025-01-13 10:56 | XMS_ITS | Encounter Summary ---
Author Organization [employer] Address [address] [facility] 7t [place] [address] Care Team Providers Care Monologist Name Role Phone Ham Burgos MD Primary Care Provider [phone] Encounter Details Date Type Department Care Team ([facility] st Contact Info) Description 04/16/2024 Orders Only [facility] CHC MED & PEDS [address] [place], [place] [phone] Ham Burgos MD 505 [place] [address] Restless legs (Primary Dx) Social History Tobacco [...] Description 01/27/2025 9:30 AM EDT Office Visit [facility] ADULT DENTAL 505 [place] [address] Robb Pickering DMD 505 [place] [address] 03/13/2025 9:45 AM EDT Office Visit [facility] MED & PEDS [address] [place] [address] Ham Burgos MD 505 [place] [address] documented as of this encounter Visit Diagnoses Diagnosis Restless legs- Primary Restless legs syndrome (RLS) documented in this encounter Additional Health Concerns Assessment Noted Time PHQ-9 Depression Total Score: 8 12/11/19 24 9:29 AM EDT documented as of this encounter Care Teams Monologist Relationship Specialty Start Date End Date Ham Burgos MD 505 [place] [address] PCP - General Internal Medicine 05/10/18 documented as of this encounter
--- OUTSIDE RECORDS SUMMARY | 2025-01-13 10:56 | XMS_ITS | Encounter Summary ---
Author Organization [employer] Address [address] [facility] [address] 7t [place] [address] Care Team Providers Care Lotus Notes Developer Name Role Phone Ham Burgos MD Primary Care Provider [phone] Encounter Details Date Type Department Care Team (Latest Contact Info) Description 01/13/2025 Travel Social History Tobacco Use Types Packs/Day [...] is your housing situation today? I have keyakathy ruggiero 07/06/[address] you [...] Description 01/27/2025 9:30 AM EDT Office Visit [facility] ADULT DENTAL 505 [place] [address] Robb Pickering DMD 505 [place] [address] 03/13/2025 9:45 AM EDT Office Visit [facility] MED & PEDS 505 [place] [address] Ham Burgos MD 505 [place] [address] documented as of this encounter Visit Diagnoses Not on filedocumented in this encounter Additional Health Concerns Assessment Noted Time PHQ-9 Depression Total Score: 17 025 9:11 AM EST documented as of this encounter Care Teams Lotus Notes Developer Relationship Specialty Start Date End Date Ham Burgos MD 505 [place] [address] PCP - General Internal Medicine 05/10/18 documented as of this encounter
--- OUTSIDE RECORDS SUMMARY | 2025-01-13 10:56 | XMS_ITS | Encounter Summary ---
Author Organization [employer] Address [address] [facility] 7t [place] [address] Care Team Providers Care Chief Unit Forester Name Role Phone Ham Burgos MD Primary Care Provider [phone] Encounter Details Date Type Department Care Team ([facility] st Contact Info) Description 12/05/2024 Orders Only [facility] CHC MED & PEDS [address] [place], [place] [phone] Ham Burgos MD 505 [place] [address] Morbid obesity (CMS/HCC) (Primary Dx) Social History [...] Description 01/27/2025 9:30 AM EDT Office Visit [facility] ADULT DENTAL 505 [place] [address] Robb Pickering DMD 505 [place] [address] 03/13/2025 9:45 AM EDT Office Visit [facility] MED & PEDS 505 [place] [address] Ham Burgos MD 505 [place] [address] documented as of this encounter Visit Diagnoses Diagnosis Morbid obesity (CMS/HCC)- Primary Morbid obesity documented in this encounter Additional Health Concerns Assessment Noted Time PHQ-9 Depression Total Score: 17 025 9:11 AM EST documented as of this encounter Care Teams Chief Unit Forester Relationship Specialty Start Date End Date Ham Burgos MD 505 [place] [address] PCP - General Internal Medicine 05/10/18 documented as of this encounter
--- OUTSIDE RECORDS SUMMARY | 2025-01-13 10:56 | XMS_ITS | Encounter Summary ---
Author Organization [employer] Address [address] [place] [address] 7 [place] [address] Care Team Providers Care Public Speaking Teacher Name Role Phone Ham Burgos MD Primary Care Provider [phone]- [phone] Reason for Visit * Reason Comments Follow-up Weight Encounter Details Date Type Department Care Team ([facility] Contact Info) Description 01/13/2025 9:15 AM EDT Office Visit [facility] CHC MED & PEDS [address] [place] [address] Ham Burgos MD [address] [place] [address] Social History Tobacco Use Types Packs/Day Years [...] Reading Time Taken Comments Blood Pressure 137/76 01/13/2025 9:01 AM EDT Pulse 68 01/13/2025 9:01 AM EDT Temperature 36.7 ??C (98.1 ??F) 01/13/2025 9:01 AM ED T Respiratory Rate 18 01/13/2025 9:01 AM EDT Oxygen Saturation 98% 01/13/2025 9:01 AM EDT Inhaled Oxygen Concentration - - Weight 163 kg (360 lb) 01/13/2025 9:01 AM EDT Height 185.4 cm (6' 1 ) 01/13/2025 9:01 AM EDT Body Mass Index 47.5 01/13/2025 9:01 AM EDT documented in this encounter Plan of Treatment Upcoming Encounters Date Type Department Care Team (Late st Contact Info) Description 01/27/2025 9:30 AM EDT Office Visit [facility] ADULT DENTAL [address] [place] [address] Robb Pickering DMD 505 [place] [address] 03/13/2025 9:45 AM EDT Office Visit [facility] MED & PEDS [address] [place] [address] Ham Burgos MD 505 [place] [address] documented as of this encounter Visit Diagnoses Not on filedocumented in this encounter Additional Health Concerns Assessment Noted Time PHQ-9 Depression Total Score: 17 11/11/ 025 9:11 AM EST documented as of this encounter Care Teams Public Speaking Teacher Relationship Specialty Start Date End Date Ham Burgos MD 505 [place] [address] PCP - General Internal Medicine 05/10/18 documented as of this encounter
--- OUTSIDE RECORDS SUMMARY | 2025-01-13 10:56 | XMS_ITS | Clinical Summary ---
Author Organization [email or web address] Address [address] [place] [address] 7t [place] [address] Care Team Providers Care Operations Examiner Name Role Phone Ham Burgos MD Primary Care Provider +1- [phone] Allergies No known active allergies Medications acetaminophen [...] Fluoride-Potassium Nitrate 1.1-5 % pasteIndications:D ental caries [place] teeth for 2 minutes, morning and night. [...] day. 30 g 12/12/19 25 026 Active phentermine 15 MG capsuleIndications :Morbid obesity (CMS/HCC) Take 1 capsule (15 mg) by mouth before breakfast. 30 capsule 01/03/20 25 025 Active topiramate (Topamax) 25 MG tabletIndications: Morbid obesity (CMS/HCC) Take 1 tablet (25 mg) by mouth every 12 (twelve) hours. 60 tablet 01/03/20 25 026 Active Active Problems Problem Noted Date Diagnosed Date Hypercholesterolemia 07/18/2024 Morbid obesity 10/03/2022 ELO (obstructive sleep apnea) 10/03/2022 Restrictive lung disease 08/15/2022 Cardiomegaly 08/15/2022 Synovial cyst of knee 12/27/2021 Demodex acne 07/13/2018 Adjustment insomnia 02/02/2018 Depressive disorder 02/02/2018 Encounters Date Type Department Care Team Description 01/13/2025 9:15 AM EDT Office Visit [facility] MED & PEDS [address] [place] [address] Ham Burgos MD 01/13/2025 Travel 01/02/2025 8:00 AM EDT Office Visit [facility] ADULT DENTAL [address] [place] [address] Robb Pickering DMD Edentulism (Primary Dx); Partial edentulism, class I 01/02/2025 Orders Only [facility] MED & PEDS [address] [place] [address] Ham Burgos MD Morbid obesity (CMS/HCC) (Primary Dx); Transaminitis 12/11/2024 10:00 AM EDT Office Visit [facility] MED & PEDS [address] [place] [address] Ham Burgos MD Annual physical exam (Primary Dx); Dietary counseling; Exercise counseling; Class 3 severe obesity due to excess calories with serious comorbidity and body mass index (BMI) of 45.0 to 49.9 in adult; Seborrheic dermatitis; Hypercholesterolemia; S/P splenectomy; Encounter for immunization 12/11/2024 Travel 12/09/2024 Telephone [facility] MED & PEDS [address] [place] [address] Ham Burgos MD Chart Prep 12/05/2024 Orders Only [facility] MED & PEDS [address] [place] [address] Ham Burgos MD Morbid obesity (CMS/HCC) (Primary Dx) 12/04/2024 Orders Only [address] [address] Ham Burgos MD 12/03/2024 Patient Outreach [address] [address] Ham Burgos MD Pre-visit Planning (SDOH screening completed on 11/11/24) 11/29/[address] [address] Ham Burgos MD PA 11/28/2024 8:00 AM EDT Office Visit [facility] ADULT DENTAL [address] [place] [address] Robb Pickering DMD History of tooth extraction, unspecified edentulism class (Primary Dx); Periodontal disease; Dental caries 11/27/2024 Travel 11/22/2024 Population Health Risk Score [facility] () [address] [phone] Provider, Population Health Generic 11/11/2024 9:00 AM EST Office Visit [facility] MED & PEDS [address] [place] [address] Ham Burgos MD Seborrheic dermatitis (Primary Dx); Cardiomegaly; Morbid obesity (CMS/HCC); Hypercholesterolemia; Arthralgia of toe, unspecified laterality 11/11/2024 Travel 11/08/2024 Telephone [facility] MED & PEDS [address] [place] [address] Ham Burgos MD chart prep 11/05/2024 Refill [facility] MED & PEDS [address] [place] [address] Ham Burgos MD Primary osteoarthritis involving multiple joints 10/24/2024 1:00 PM EST Office Visit [facility] ADULT DENTAL [address] [place] [address] Robb Pickering DMD Dental caries (Primary Dx) 10/16/2024 Refill [facility] MED & PEDS [address] [place] [address] Ham Burgos MD from Last 3 Months [...] Mass Index 47.5 01/13/2025 9:01 AM EDT Plan of Treatment Upcoming Encounters Date Type Department Care Team (Late st Contact Info) Description 01/27/2025 9:30 AM EDT Office Visit [facility] CHC ADULT DENTAL [address] [place] [address] Robb Pickering, [place]ANT[place] [address] [place] [address] 03/13/2025 9:45 AM EDT Office Visit [facility] CHC MED & PEDS [address] [place] [address] Ham Burgos MD 505 [place] [address] Health Maintenance Due Date Last Done Comments [...] Risk 60-74 years 1-dose series) 2023 Dental Prophylaxis 01/03/2025 07/04/2024 Meningococcal Vaccine (2 - Risk 2-dose series) 02/05/2025 12/11/2024 Dental X-Ray: Bitewings 06/12/2025 06/11/2024 Dental Oral Exam 07/05/2025 01/02/2025, 06/11/2024 Alcohol/Substance Use Screening 11/11/2025 11/11/2024 Depression Screening 11/11/2025 11/11/2024, 11/12/19 25 SDOH Screening 11/11/2025 11/11/2024 Tobacco Screening 01/13/2026 01/13/2025 Dental X-Ray: Full Mouth 06/12/2027 024, 06/11/2024, 12/07/2017 DTaP/Tdap/Td Vaccines (2 - Td or Tdap) 08/25/2027 08/25/2017 Lipid Panel 01/02/2030 01/02/2025, 11/0 03/2024, 05/03/2023 Colonoscopy 11/22/2033 11/23/2023 Colorectal Cancer Screening [...] Procedure Name Priority Date/Time Associated Diagnosis Comments TSH W/REFLEX TO FT4 Routine 01/02/2025 8 :55 AM EDT Hypercholesterolem ia LIPID PANEL, STANDARD Routine 01/02/2025 8:55 AM EDT Hypercholesterolem ia COMPREHENSIVE METABOLIC PANEL Routine 01/02/2025 8:55 AM EDT Hypercholesterolem ia CASE PRESENTATION, DETAILED AND EXTENSIVE TREATMENT PLANNING Routine 01/02/2025 8:00 AM EDT Edentulism Partial edentulism, class I PERIODIC ORAL EVALUATION - ESTABLISHED PATIENT Routine 01/02/2025 8:00 AM EDT Edentulism Partial edentulism, class I DENTURE IMPRESSION Routine 01/02/2025 8: 00 AM EDT Edentulism Partial edentulism, class I 13 EXTRACTION, ERUPTED TOOTH REQ REMOVAL OF [...] Routine 10/24/2024 1:00 PM EST Dental caries PROPHYLAXIS - ADULT Routine 07/04/2024 1 0:00 AM EDT Periodontal disease INTRAORAL - COMPLETE SERIES OF RADIOGRAPHIC IMAGES Routine 06/11/2024 10:00 AM EDT Dental calculus Periodontal disease Dental caries HM COLONOSCOPY Routine 11/23/2023 from Last 3 Months or Most Recently Relevant to Health Maintenance Results * TSH W/Reflex to FT4 (01/02/2025 8:55 AM EDT) TSH reflex Free T4 0.97 0.32 - 4.0 uIU/mL [facility] Blood Venous blood specimen / Unknown 01/02/2025 8:55 AM EDT 01/02/2025 2:06 PM EDT us Ham Burgos MD LAB BLOOD ORDERABLES Final Result Performing Organization Address [facility] Co de Phone Number [facility] [address] [place] [address] [phone] * (ABNORMAL) Lipid Panel, Standard (01/02/2025 8:55 AM EDT) Triglycerides 70 <150 mg/dL [facility] Comment:Slight Lipemia.Izzy able Triglyceride: less than 150 mg/dLBorderline High Triglyceride 150-199 mg/dLHigh Triglyceride: 200-499 mg/dLVery High Triglyceride: greater than or equal to 5OO mg/dL Cholesterol 200(H) <200 mg/dL [facility] Comment:Desirable Cholestero l: less than 200 mg/dLBorderline High Cholesterol: 200-239 mg/dLHigh Cholesterol: greater than 239 mg/dL LDL Cholesterol Calculated 140(H) <100 mg/dL [facility] Comment:Desirable LDL: less than 100 mg/dLNear Optimal/Above Optimal LDL: 110- 129 mg/dLBorderline High LDL: 130-159 mg/dLHigh LDL: 160-189 mg/dLVery High LDL: greater than or equal to 190 mg/dL HDL Cholesterol 46 >40 mg/dL [facility] Comment:Desirable HDL: great er than 40 mg/dL Note: This HDL assay may give artificially low results in patients with liver disease. Blood Venous blood specimen / Unknown 01/02/2025 8:55 AM EDT 01/02/2025 2:06 PM EDT us Ham Burgos MD LAB BLOOD ORDERABLES Final Result Performing Organization Address [facility]/ZIP Co de Phone Number [facility] [address] [place] [address] [phone] * (ABNORMAL) Comprehensive Metabolic Panel (01/02/2025 8:55 AM EDT) Sodium 139 135 - 145 mmol/L [facility] Potassium 3.9 3.3 - 5.1 mmol/L [facility] Chloride 106 96 - 108 mmol/L [facility] Carbon Dioxide 27 22 - 29 mmol/L [facility] Anion Gap 10(L) 12 - 20 [facility] Urea Nitrogen (BUN) 15 9 - 16 mg/dL [facility] Creatinine, Serum 0.64 0.5 - 1.4 mg/dL [facility] Estimated Glomerular Filt Rate >60 [facility] Comment:Chronic Kidney Disea se: Estimated GFR < 60 mL/min/[id number] Kidney Disease: Estimated GFR < 15 mL/min/1.73m2 Glucose 97 60 - 115 mg/dL [facility] Calcium 9.3 8.4 - 10.2 mg/dL [facility] Bilirubin, Total 0.5 0.0 - 1.0 mg/dL [facility] Aspartate Amino Transferase 42(H) 5 - 37 U/L [facility] Alanine Aminotransferase 52(H) 0 - 40 U/L [facility] Total Protein 6.6 6.5 - 8.0 g/dL [facility] Albumin Level 3.7 3.5 - 5.0 g/dL [facility] Alkaline Phosphatase 122(H) 39 - 117 U/L [facility] Blood Venous blood specimen / Unknown 01/02/2025 8:55 AM EDT 01/02/2025 2:06 PM EDT us Ham Burgos MD LAB BLOOD ORDERABLES Final Result [facility] [address] [place] [address] [phone] * Colonoscopy (11/23/2023) Colonoscopy Normal Normal Narrative Jeri Munoz - 11/23/2023 Repeat colonoscopy in 10 years us Historical Provider HEALTH MAINTENANCE Final Result from Last 3 Months or Most Recently Relevant to Health Maintenance Insurance [facility] C3 DENTAL-[facility] MEDICAID STAND ADULT Care Teams Operations Examiner Relationship Specialty Start Date End Date Ham Burgos MD [address] [place] [address] YENNIFER Hernandez [id number] PCP - General Internal Medicine 05/10/18
--- OUTSIDE RECORDS SUMMARY | 2025-01-13 10:56 | XMS_ITS | Encounter Summary ---
Author Organization [facility] Address [address] [place] [address] [address] [place] [address] Care Team Providers Care Pulmonary Function Technician Name Role Phone Ham Burgos MD Primary Care Provider [phone] Reason for Referral * Imaging (Routine) - Authorized Specialty Diagnoses / Procedures Referred By Contdeyvi t Referred To Contact Radiology Diagnoses Transaminitis Procedures US Abdomen Complete Ham Burgos MD [address] [place] [address] Phone: tel: fax: [address] Phone: tel: fax: Referral ID Status Reason Start Date Expiration Date V isits Requested Visits Authorized [id number] Authorized 01/07/2025 01/07/2026 1 1 Encounter Details Date Type Department Care Team (Late st Contact Info) Description 01/02/2025 Orders Only [facility] CHC MED & PEDS [address] [place], [place] [phone] Ham Burgos MD [address] [place], [place] [phone] Morbid obesity (CMS/HCC) (Primary Dx); Transaminitis Social History Tobacco Use Types Packs/Day Years [...] Description 01/27/2025 9:30 AM EDT Office Visit [facility] ADULT DENTAL [address] [place] [address] Robb Pickering, SAMANTA [address] [place] [address] 03/13/2025 9:45 AM EDT Office Visit [facility] MED & PEDS [address] [place] [address] Ham Burgos MD [address] [place] [address] Scheduled Orders Name Type Priority Associated Diagnoses Orde r Schedule Smooth Muscle Antibody with Reflex to Titer Lab Routine Transaminitis Expected: 01/07/2025 (Approximate), Expires: 01/07/2026 Alpha 1 Antitrypsin Lab Routine Transaminitis Expected: 01/07/2025 (Approximate), Expires: 01/07/2026 Ferritin Lab Routine Transaminitis Expected: 01/07/2025, Expires: 01/07/2026 Immunoglobulins Panel, Serum Lab Routine Transaminitis Expected: 01/07/2025 (Approximate), Expires: 01/07/2026 BECCA Screen,IFA, with Reflex to Titer and Pattern Lab Routine Transaminitis Expected: 01/07/2025 (Approximate), Expires: 01/07/2026 US Abdomen Complete Imaging Routine Transaminitis Expected: 01/07/2025, Expires: 01/07/2026 Hepatitis A,B,C Profile Lab Routine Morbid obesity (CMS/HCC) Transaminitis Expected: 01/07/2025, Expires: 01/07/2026 documented as of this encounter Visit Diagnoses Diagnosis Morbid obesity (CMS/HCC)- Primary Morbid obesity Transaminitis Nonspecific elevation of levels of transaminase or lactic acid dehydrogenase (LDH) documented in this encounter Additional Health Concerns Assessment Noted Time PHQ-9 Depression Total Score: 17 11/11/ 025 9:11 AM EST documented as of this encounter Care Teams Pulmonary Function Technician Relationship Specialty Start Date End Date Ham Burgos MD [address] [place] [address] PCP - General Internal Medicine 05/10/18 documented as of this encounter
[2025-01-13 15:23] LABS: Ferritin 120 ng/mL (20-250)
[2025-01-14 04:11] LABS: HBS Num1 0.66 mIU/mL (0-7.99); HBc Num1 0.04 S/CO (0.00-0.79); HBsAGNum1 0.39 S/CO (0.00-0.99); Hepatitis A Antibody IgM 0.22 Index (0-0.79); Hepatitis B Core Antibody Nonreactive (Nonreactive); Hepatitis B Surface Antigen Negative (Negative); ~HepC Num1 0.06 S/CO (0.00-0.79); ~Hepatitis A Antibody IgM Nonreactive (Nonreactive); ~Hepatitis B Surface Antibody NONREACTIVE (Nonreactive); ~Hepatitis C Antibody Nonreactive (Nonreactive)
[2025-01-14 04:37] LABS: IgA 185 mg/dL (70-320); IgG 971 mg/dL (600-1540); IgM 30 mg/dL (50-300)
[2025-01-14 11:09] LABS: Anti Nuclear Antibody Screen NEGATIVE (NEGATIVE)
== END 2025-01-13 09:50 | disposition home or self-care (01) ==
LOC: HO.CHCLDS 09:49
PROVIDERS: Visit Provider Internal Medicine
DX: R74.01 Elevation of levels of liver transaminase levels (principal); E66.01 Morbid (severe) obesity due to excess calories
CPT/HCPCS: 36415; 82728; 82784; 86038; 86704; 86706; 86709; 86803; 87340

== ENCOUNTER 2025-01-21 10:01 | Outpatient (AMB) | payer MEDICAID, SELFPAY ==
--- NOTE | 2025-01-21 10:05 | MHC.OFFVIS ---
Intake Visit Reasons: 3 month follow up Intake Note: Patient presents for follow up. Patient states he is still having issues with swelling. Both legs are discolored. Accompanied by: Self / Same As Patient Allergies No Known Allergies [No Known Allergies*] Allergy (Verified 01/21/25 10:08) [facility] 3 month follow up: Details: Very pleasant 59-year-old gentleman presents for routine surveillance follow-up regarding venous disease. He has significantly swollen lower extremities. He has been followed by pulmonology which did prescribe a diuretic which provided minimal relief. In addition he has CPAP for sleep apnea. He is now oxygen dependent. Of note last venous insufficiency testing was 02/26/2024. At the current time he does have swollen lower extremities right greater than left. 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 Pulmonary hypertension Lower extremity edema CHF (congestive heart failure) Insomnia ELO on CPAP Atelectasis Pulmonary nodules Dyspnea Rupture, spleen HTN (hypertension) ELO (obstructive sleep apnea) Varicose veins of both lower extremities with inflammation Surgical History History of esophagogastroduodenoscopy (EGD) Hx of splenectomy Hx of colonoscopy S/P gastric surgery History of vasectomy H/O hernia repair Social History Household Members: Family [facility] Patient Tobacco Use Status: Never used Tobacco service: No Current occupational status: unemployed and disabled 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 Review of Systems Const Reports as per HPI ENT Reports no additional complaints Card Denies chest pain, Denies chest pain at rest and Denies chest pain with activity Resp Denies chest congestion and Denies cough GI Reports no additional complaints Musc Details: pain over varicosities, aching of lower extremities, swelling, cramping, heaviness and tiredness, itching Denies abnormal gait Skin/Breast Reports pruritus and Denies wounds Neuro Reports no additional complaints and Denies abnormal gait Psych Denies no additional complaints Physical Exam Const General: cooperative, healthy appearing and comfortable Orientation/consciousness: oriented to person, oriented to place and oriented to time Neck Carotids: no bruits Chest Chest palpation & inspection: normal inspection of the chest and normal palpation of entire chest wall Resp Effort & Inspection: normal respiratory effort and able to speak in complete sentences Cardio Rate: regular rate Heart sounds: S1 normal heart sound present and S2 normal heart sound present Peripheral pulses: Peripheral pulses 2+ throughout GI Inspection: Yes normal to inspection Skin Other: +2 edema, large rope-like varicosities greater than 4 mm CEAP Classification C4 - skin color changes Ep - Etiology Primary As - superficial veins P - reflux General skin exam: dry skin Neuro General: oriented to person, oriented to place and oriented to time Extrem Right lower extremity: full ROM, normal capillary refill and edema Left lower extremity: full ROM, normal capillary refill and edema Psych Mental Status: mental status grossly normal Assessment & Plan Assessment & Plan (1) Varicose veins of left lower extremity with inflammation: Comment: 03/19/2021 left great saphenous vein Cyanoacralate ablation Code(s): I83.12 - Varicose veins of left lower extremity with inflammation Category: Medical Plan: See below (2) Varicose veins of right lower extremity with inflammation: Code(s): I83.11 - Varicose veins of right lower extremity with inflammation Category: Medical Plan: In short patient has persistent swollen lower extremities. He has had multiple medical issues over the past year. At the current time would like to manage him conservatively as his pulmonary issues seem to be improving. I have scheduled him for a repeat venous insufficiency testing as it has been nearly a year since his last testing. He will follow up with us after testing. Thank you for allowing us to assist in his care. If there are any questions or concerns please do not hesitate to contact us. Orders: Orders US venous duplex LE BI 3 Months I83.11 - Varicose veins of right lower extremity with inflammation Coding Level of Care Code Est Pt Level 4 (35084) Diagnoses Varicose veins of left lower extremity with inflammation I83.12 Varicose veins of right lower extremity with inflammation I83.11
--- OUTSIDE RECORDS SUMMARY | 2025-01-21 10:55 | XMS_ITS | Encounter Summary ---
Author Organization [employer] Address [address] [place] [address] Care Team Providers Care Business Insurance Agent Name Role Phone Ham Burgos MD Primary Care Provider [phone] Encounter Details Date Type Department Care Team (Latest Contact Info) Description 07/18/2024 Orders Only [facility] CHC MED & PEDS [address] [place], [place] [phone] Ham Burgos MD [address] [place] [address] Hypercholesterolemia (Primary Dx) Social History Tobacco Use [...] [facility] [address] [place] [address] Robb Pickering DMD [address] [place] [address] 03/13/2025 9:45 AM EDT Office Visit [facility] MED & PEDS [address] [place] [address] Ham Burgos MD [address] [place] [address] documented as of this encounter Visit Diagnoses Diagnosis Hypercholesterolemia- Primary Pure hypercholesterolemia documented in this encounter Additional Health Concerns Assessment Noted Time PHQ-9 Depression Total Score: 8 12/11/19 24 9:29 AM EDT documented as of this encounter Care Teams Business Insurance Agent Relationship Specialty Start Date End Date Ham Burgos MD [address] [place] [address] PCP - General Internal Medicine 05/10/18 documented as of this encounter
--- OUTSIDE RECORDS SUMMARY | 2025-01-21 10:55 | XMS_ITS | Encounter Summary ---
Author Organization [employer] Address [address] [place] [address] Care Team Providers Care Colorer Name Role Phone Ham Burgos MD Primary Care Provider [phone] Encounter Details Date Type Department Care Team ([facility] st Contact Info) Description 04/16/2024 Orders Only [facility] CHC MED & PEDS [address] [place], [place] [phone] Ham Burgos MD [address] [place] [address] Restless legs (Primary Dx) Social History Tobacco [...] Description 01/27/2025 9:30 AM EDT Office Visit [facility] ADULT DENTAL [address] [place] [address] Robb Pickering DMD [address] [place] [address] 03/13/2025 9:45 AM EDT Office Visit [facility] MED & PEDS [address] [place] [address] Ham Burgos MD [address] [place] [address] documented as of this encounter Visit Diagnoses Diagnosis Restless legs- Primary Restless legs syndrome (RLS) documented in this encounter Additional Health Concerns Assessment Noted Time PHQ-9 Depression Total Score: 8 12/11/19 24 9:29 AM EDT documented as of this encounter Care Teams Colorer Relationship Specialty Start Date End Date Ham Burgos MD [address] [place] [address] PCP - General Internal Medicine 05/10/18 documented as of this encounter
--- OUTSIDE RECORDS SUMMARY | 2025-01-21 10:55 | XMS_ITS | Encounter Summary ---
Author Organization [employer] Address [address] [place] [address] Care Team Providers Care Manager Php Name Role Phone Ham Burgos MD Primary Care Provider [phone] Reason for Visit * Reason Onset Date Comments PA 11/29/2024 Encounter Details Date Type Department Care Team ([facility] st Contact Info) Description 11/29/2024 Telephone [facility] MEDICINE [address] [place] [address] Ham Burgos MD [address] [place] [address] PA Social History Tobacco Use Types Packs/Day [...] pt calling requesting status on Zepbound 2.5mg. Community Specialist works on [facility] and rejection that we have is medication require a PA. PCP DR. Burgos * Telephone Encounter - Christine Freeman - 11/29/2024 4:06 PM EDT Tc from pt calling requesting status on Zepbound 2.5mg. Community Specialist works on [facility] and rejection that we have is medication require a PA. PCP DR. Burgos documented in this encounter Plan of Treatment Upcoming Encounters Date Type Department Care Team (Late st Contact Info) Description 01/27/2025 9:30 AM EDT Office Visit [facility] ADULT DENTAL [address] [place] [address] Robb Pickering, DMD [address] [place] [address] 03/13/2025 9:45 AM EDT Office Visit [facility] MED & PEDS [address] [place] [address] Ham Burgos MD [address] [place] [address] documented as of this encounter Visit Diagnoses Not on filedocumented in this encounter Additional Health Concerns Assessment Noted Time PHQ-9 Depression Total Score: 17 025 9:11 AM EST documented as of this encounter Care Teams Manager Php Relationship Specialty Start Date End Date Ham Burgos MD [address] [place] [address] PCP - General Internal Medicine 05/10/18 documented as of this encounter
--- OUTSIDE RECORDS SUMMARY | 2025-01-21 10:55 | XMS_ITS | Encounter Summary ---
Author Organization [employer] Address [address] [place] [address] Care Team Providers Care Saddle Cutter Name Role Phone Ham Burgos MD Primary Care Provider [phone] Encounter Details Date Type Department Care Team (Late st Contact Info) Description 12/04/2024 Orders Only [facility] MEDICINE [address] [place] [address] Ham Burgos MD [address] [place] [address] Social History Tobacco Use Types Packs/Day Years [...] Description 01/27/2025 9:30 AM EDT Office Visit [facility] ADULT DENTAL [address] [place] [address] Robb Pickering DMD [address] [place] [address] 03/13/2025 9:45 AM EDT Office Visit [facility] MED & PEDS [address] [place] [address] Ham Burgos MD [address] [place] [address] documented as of this encounter Visit Diagnoses Not on filedocumented in this encounter Additional Health Concerns Assessment Noted Time PHQ-9 Depression Total Score: 17 025 9:11 AM EST documented as of this encounter Care Teams Saddle Cutter Relationship Specialty Start Date End Date Ham Burgos MD [address] [place] [address] PCP - General Internal Medicine 05/10/18 documented as of this encounter
--- OUTSIDE RECORDS SUMMARY | 2025-01-21 10:55 | XMS_ITS | Encounter Summary ---
Author Organization [employer] Address [address] [facility] [facility] 7t [place] [address] Care Team Providers Care Sugar Trucker Name Role Phone Ham Burgos MD Primary Care Provider [phone] Encounter Details Date Type Department Care Team (Late Contact Info) Description 05/19/2023 Orders Only [facility] MED & PEDS [address] [place], [place] [phone] Ham Burgos MD [address] [place], [place] [phone] Dry skin (Primary Dx) Social History Tobacco [...] Description 01/27/2025 9:30 AM EDT Office Visit [facility] ADULT DENTAL [address] [place], [place] [phone] Robb Pickering DMD [address] [place], [place] [phone] 03/13/2025 9:45 AM EDT Office Visit [facility] CHC MED & PEDS [address] [place] [address] Ham Burgos MD [address] [place] [address] documented as of this encounter Visit Diagnoses Diagnosis Dry skin- Primary Other symptoms involving skin and integumentary tissues documented in this encounter Additional Health Concerns Assessment Noted Time PHQ-9 Depression Total Score: 14 023 11:04 AM EDT documented as of this encounter Care Teams Sugar Trucker Relationship Specialty Start Date End Date Ham Burgos MD [address] [place] [address] PCP - General Internal Medicine 05/10/18 documented as of this encounter
--- OUTSIDE RECORDS SUMMARY | 2025-01-21 10:55 | XMS_ITS | Encounter Summary ---
Author Organization [employer] Address [address] [place] [address] Care Team Providers Care Admission Nurse Name Role Phone Ham Burgos MD Primary Care Provider [phone] Encounter Details Date Type Department Care Team ([facility] st Contact Info) Description 01/21/2025 9:30 AM EDT Telemedicine [facility] MED & PEDS [address] [place], [place] [phone] Lakhwinder Morris MD [address] [place] [address] Class 3 severe obesity due to excess calories with serious comorbidity and body mass index (BMI) of 45.0 to 49.9 in adult (Primary Dx) Social History Tobacco Use Types [...] AM EDT documented as of this encounter Progress Notes * Lakhwinder Santacruz MD - 01/21/2025 9:30 AM EDT Subjective Patient ID: Shin Cadena is a 59 y.o. male who presents for No chief complaint on file.. HPI Patient was scheduled for a televisit to discuss weight loss treatment Review of Systems Constitutional: Negative for fatigue and fever. Cardiovascular: Negative for chest pain and palpitations. Objective Physical Exam Neurological: General: No focal deficit present. Mental Status: He is oriented to person, place, and time. Psychiatric: Mood and Affect: Mood normal. Behavior: Behavior normal. Assessment/Plan Problem List Items Addressed This Visit Class 3 severe obesity due to excess calories with serious comorbidity and body mass index (BMI) of45.0 to 49.9 in adult - Primary Patient tried phentermine and topamax, developed side effects ( palpitations, diarrhea, insomnia, abdominal pain) will prescribe zepbound pending on insurance approval Reviewed indications for pharmacotherapy with patient, which is treatment for patient w/ obesity ora patient with a BMI > 27 w/ CV risk factors who have failed lifestyle modifications alone. These are always prescribed in combination with ongoing lifestyle modification; and will be titrated up from the lowest dose. Will start patient on zepbound, given know efficacy and proven benefits to reduce the risk of cardiovascular events in patients who are overweight or obese and have cardiovascular disease, following of the SELECT trial results. Reviewed mechanism of action with patient. Discussed side effects with patient: nausea, vomiting, diarrhea & risk of pancreatitis. No contraindications identified: , hx of pancreatitis, hx of medullary thyroid cancer or MEN 2. Discussed calorie deficit, recommended reduction of 20-30% of maintenance calories; movie theater usher referral offered. Recommended to decrease soda and sugary beverage consumption. Recommended at least 20 g per meal of protein to assist with satiety. Recommended at least 150 min/week of moderate intensity exercise. documented in this encounter Miscellaneous Notes * Assessment & Plan Note - Lakhwinder Santacruz MD - 01/21/2025 9:55 AM EDTAssociated Problem(s): Class 3 severe obesity due to excess calories with serious comorbidity and body mass index (BMI) of 45.0 to 49.9 in adult Patient tried phentermine and topamax, developed side effects ( palpitations, diarrhea, insomnia, abdominal pain) will prescribe zepbound pending on insurance approval Reviewed indications for pharmacotherapy with patient, which is treatment for patient w/ obesity ora patient with a BMI > 27 w/ CV risk factors who have failed lifestyle modifications alone. These are always prescribed in combination with ongoing lifestyle modification; and will be titrated up from the lowest dose. Will start patient on zepbound, given know efficacy and proven benefits to reduce the risk of cardiovascular events in patients who are overweight or obese and have cardiovascular disease, following of the SELECT trial results. Reviewed mechanism of action with patient. Discussed side effects with patient: nausea, vomiting, diarrhea & risk of pancreatitis. No contraindications identified: , hx of pancreatitis, hx of medullary thyroid cancer or MEN 2. Discussed calorie deficit, recommended reduction of 20-30% of maintenance calories; movie theater usher referral offered. Recommended to decrease soda and sugary beverage consumption. Recommended at least 20 g per meal of protein to assist with satiety. Recommended at least 150 min/week of moderate intensity exercise. documented in this encounter Plan of Treatment Upcoming Encounters Date Type Department Care Team (Late st Contact Info) Description 01/27/2025 9:30 AM EDT Office Visit [facility] ADULT DENTAL [address] [place] [address] Robb Pickering DMD [address] [place] [address] 03/13/2025 9:45 AM EDT Office Visit [facility] MED & PEDS [address] [place] [address] Ham Burgos MD [address] [place] [address] documented as of this encounter Visit Diagnoses Diagnosis Class 3 severe obesity due to excess calories with serious comorbidity and body mass index (BMI) of 45.0 to 49.9 in adult- Primary documented in this encounter Additional Health Concerns Assessment Noted Time PHQ-9 Depression Total Score: 17 025 9:11 AM EST documented as of this encounter Care Teams Admission Nurse Relationship Specialty Start Date End Date Ham Burgos MD [address] [place] [address] PCP - General Internal Medicine 05/10/18 documented as of this encounter
--- OUTSIDE RECORDS SUMMARY | 2025-01-21 10:55 | XMS_ITS | Encounter Summary ---
Author Organization [employer] Address [address] [facility] 7t [place] [address] Care Team Providers Care Billing Typist Name Role Phone Ham Burgos MD Primary Care Provider [phone] Encounter Details Date Type Department Care Team ([facility] Contact Info) Description 10/09/2022 Orders Only [facility] MEDICINE [address] [place], [place] [phone] Ham Burgos MD [address] [place], [place] [phone] Morbid obesity (CMS/HCC) (Primary Dx) Social History [...] Description 01/27/2025 9:30 AM EDT Office Visit [facility] ADULT DENTAL [address] [place], [place] [phone] Robb Pickering DMD [address] [place], [place] [phone] 03/13/2025 9:45 AM EDT Office Visit [facility] CHC MED & PEDS [address] [place] [address] Ham Burgos MD [address] [place] [address] Scheduled Orders Name Type Priority Associated Diagnoses [...] documented as of this encounter Care Teams Billing Typist Relationship Specialty Start Date End Date Ham Burgos MD [address] [place] [address] PCP - General Internal Medicine 05/10/18 documented as of this encounter
--- OUTSIDE RECORDS SUMMARY | 2025-01-21 10:55 | XMS_ITS | Encounter Summary ---
Author Organization [employer] Address [address] [facility] 7t [place] [address] Care Team Providers Care Molecular Biology Director Name Role Phone Ham Burgos MD Primary Care Provider [phone] Reason for Visit * Reason Onset Date Comments Med Refill 01/17/2025 Encounter Details Date Type Department Care Team ([facility] st Contact Info) Description 01/17/[address] [facility] CHC MED & PEDS [address] [place] [address] Ham Burgos MD [address] [place] [address] Social History Tobacco Use Types Packs/Day Years [...] 01/27/2025 9:30 AM EDT Office Visit [facility] ADULT DENTAL [address] [place] [address] Robb Pickering, SAMANTA [address] [place] [address] 03/13/2025 9:45 AM EDT Office Visit [facility] MED & PEDS [address] [place] [address] Ham Burgos MD [address] [place] [address] documented as of this encounter Visit Diagnoses Not on filedocumented in this encounter Additional Health Concerns Assessment Noted Time PHQ-9 Depression Total Score: 17 025 9:11 AM EST documented as of this encounter Care Teams Molecular Biology Director Relationship Specialty Start Date End Date Ham Burgos MD [address] [place] [address] PCP - General Internal Medicine 05/10/18 documented as of this encounter
--- OUTSIDE RECORDS SUMMARY | 2025-01-21 10:55 | XMS_ITS | Clinical Summary ---
Author Organization [employer] Address [address] [facility] 7t [place] [address] Care Team Providers Care Alterations Sewer Name Role Phone Ham Burgos MD Primary Care Provider [phone] Allergies No known active allergies Medications acetaminophen [...] TWICE DAILY, RINSE MOUTH AFTER USE 04/18/20 Active Diclofenac Sodium 1 % gelIndications:Art hralgia [...] Fluoride-Potassium Nitrate 1.1-5 % pasteIndications:D ental caries [place] teeth for 2 minutes, morning and night. [...] PAIN 60 tablet 3 11/05/19 25 Active chlorhexidine (Peridex) 0.12 % solutionIndication [...] 20 doses. 20 tablet 11/29/19 25 Active econazole nitrate 1 % creamIndications:S eborrheic dermatitis Apply topically Once per day. 30 g 12/12/19 25 026 Active Tirzepatide-Weight Management (Zepbound) 2.5 MG/0.5ML solution auto-injector Inject 0.5 mL (2.5 mg) under the skin 1 (one) time per week. 3 mL 01/22/20 25 Active Tirzepatide-Weight Management (Zepbound) 2.5 MG/0.5ML solution auto-injectorIndic ations:Morbid obesity (CMS/HCC) Inject 0.5 mL (2.5 mg) under the skin 1 (one) time per week. 2 mL 1 11/12/19 025 Discontin ued(Thera py completed ) Phentermine-Topira mate 3.75-23 MG capsule sustained-release 24 hrIndications:Morb id obesity (CMS/HCC) 1 capsule a day 30 capsule 3 12/06/19 025 Discontin ued(Side effects) phentermine 15 MG capsuleIndications :Morbid obesity (CMS/HCC) Take 1 capsule (15 mg) by mouth before breakfast. 30 capsule 01/03/20 025 Discontin ued(Side effects) topiramate (Topamax) 25 MG tabletIndications: Morbid obesity (CMS/HCC) Take 1 tablet (25 mg) by mouth every 12 (twelve) hours. 60 tablet 11 01/03/20 025 Discontin ued(Side effects) Active Problems Problem Noted Date Diagnosed Date Class 3 severe obesity due t o excess calories with serious comorbidity and body mass index (BMI) of 45.0 to 49.9 in adult 01/21/2025 Assessment & Plan (01/21/2025 9:55 AM EDT): Patient tried phentermine and topamax, developed side effects ( palpitations, diarrhea, insomnia, abdominal pain) will prescribe zepbound pending on insurance approval Reviewed indications for pharmacotherapy with patient, which is treatment for patient w/ obesity or a patient with a BMI > 27 w/ [...] recommended reduction of 20-30% of maintenance calories; telescope maintenance referral offered. Recommended to decrease soda and sugary beverage consumption. Recommended at least 20 g per meal of protein to assist with satiety. Recommended at least 150 min/week of moderate intensity exercise. Hypercholesterolemia 07/18/2024 Morbid obesity 10/03/2022 ELO (obstructive sleep apnea) 10/03/2022 Restrictive lung disease 08/15/2022 Cardiomegaly 08/15/2022 Synovial cyst of knee 12/27/2021 Demodex acne 07/13/2018 Adjustment insomnia 02/02/2018 Depressive disorder 02/02/2018 Encounters Date Type Department Care Team Description 01/21/2025 9:30 AM EDT Telemedicine [facility] MED & PEDS [address] [place] [address] Lakhwinder Morris MD Class 3 severe obesity due to excess calories with serious comorbidity and body mass index (BMI) of 45.0 to 49.9 in adult (Primary Dx) 01/21/2025 Travel 01/17/2025 Refill [facility] MED & [facility]EDS [address] [place] [address] Ham Burgos MD 01/13/2025 9:15 AM EDT Office Visit [facility] MED [facility]EDS [address] [place] [address] Ham Burgos MD Morbid obesity ([facility]/HCC) (Primary Dx); Hypercholesterolemia 01/13/2025 Travel 01/02/2025 8:00 AM EDT Office Visit [facility] ADULT DENTAL [address] [place] [address] Robb Pickering DMD Edentulism (Primary Dx); Partial edentulism, class I 01/02/2025 Orders Only [facility] MED & PEDS [address] [place] [address] Ham Burgos MD Morbid obesity (CMS/HCC) (Primary Dx); Transaminitis 12/11/2024 10:00 AM EDT Office Visit [facility] MED & PEDS [address] [place] [address] Ham Burgos MD Annual physical exam (Primary Dx); Dietary counseling; Exercise counseling; Class 3 severe obesity due to excess calories with serious comorbidity and body mass index (BMI) of 45.0 to 49.9 in adult; Seborrheic dermatitis; Hypercholesterolemia ; S/P splenectomy; Encounter for immunization 12/11/2024 Travel 12/09/2024 Telephone [facility] MED [facility] PEDS [address] [place] [address] Ham Burgos MD Chart Prep 12/05/2024 Orders Only [facility]ED[facility] [address] [place] [address] Ham Burgos MD Morbid obesity (CMS/HCC) (Primary Dx) 12/04/2024 Orders Only [address] [address] Ham Burgos MD 12/03/2024 Patient Outreach [address] [address] Ham Burgos MD Pre-visit Planning (SDOH screening completed on 11/11/24) 11/29/[address] [address] Ham Burgos MD PA 11/28/2024 8:00 AM EDT Office Visit [facility] ADULT DENTAL [address] [place] [address] Robb Pickering DMD History of tooth extraction, unspecified edentulism class (Primary Dx); Periodontal disease; Dental caries 11/27/2024 Travel 11/22/2024 Population Health Risk Score [facility] () Department [address] [place] [phone] Provider, Population Health Generic 11/11/2024 9:00 AM EST Office Visit [facility] MED & PEDS [address] [place] [address] Ham Burgos MD Seborrheic dermatitis (Primary Dx); Cardiomegaly; Morbid obesity (CMS/HCC); Hypercholesterolemia ; Arthralgia of toe, unspecified laterality 11/11/2024 Travel 11/08/2024 Telephone [facility] MED [facility] PEDS [address] [place] [address] Ham Burgos MD chart prep 11/05/2024 Refill [facility] PED[facility] [address] [place] [address] Ham Burgos MD Primary osteoarthritis involving multiple joints 10/24/2024 1:00 PM EST Office Visit [facility] ADULT DENTAL [address] [place] [address] Robb Pickering DMD Dental caries (Primary Dx) from Last 3 Months Immunizations Name Administration [...] Description 01/27/2025 9:30 AM EDT Office Visit [facility] ADULT [facility] [address] [place] [address] Robb Pickering, SAMANTA [address] [place] [address] 03/13/2025 9:45 AM EDT Office Visit [facility] MED & PEDS [address] [place] [address] Ham Burgos MD [address] [place] [address] Health Maintenance Due Date Last Done Comments [...] 11/12/19 SDOH Screening 11/11/2025 11/11/2024 Tobacco Screening 01/13/2026 01/13/2025 Dental X-Ray: Full Mouth 06/12/2027 024, 06/11/2024, 12/07/2017 DTaP/Tdap/Td Vaccines (2 - Td or Tdap) 08/25/2027 08/25/2017 Lipid Panel 01/02/2030 01/02/2025, 11/0 03/2024, 05/03/2023 Colonoscopy 11/22/2033 11/23/2023 Colorectal Cancer Screening 11/22/2033 Pneumococcal Vaccine: 50+ Years Completed 09/15/2023 COVID-19 Vaccine Completed 06/19/2024, 06/2023, 07/28/2022, Additional history exists Influenza Vaccine Completed 06/19/2024, , 07/11/2022, Additional history exists Hepatitis C Screening Discontinued 01/13/2025 HPV Vaccines Aged Out No longer eligi ble based on patient's age to complete this topic Hepatitis A Vaccines Aged Out No long er eligible based on patient's age to complete this topic Hepatitis B Vaccines Aged Out No long er eligible based on patient's age to complete this topic IPV Vaccines Aged Out No longer eligi ble based on patient's age to complete this topic RSV under 20 months Aged Out No longe r eligible based on patient's age to complete this topic Rotavirus Vaccines Aged Out No longer eligible based on patient's age to complete this topic Procedures Procedure Name Priority Date/Time Associated Diagnosis Comments HEPATITIS PANEL, GENERAL Routine 01/13/2025 9:51 AM EDT Morbid obesity (CMS/HCC) Transaminitis BECCA SCREEN, IFA, W/REFL TITER AND PATTERN Routine 01/13/2025 9:51 AM EDT Transaminitis IMMUNOGLOBULINS, QUANTITATIVE, IGA, IGG, IGM Routine 01/13/2025 9:51 AM EDT Transaminitis FERRITIN Routine 01/13/2025 9:51 AM EDT Transaminitis TSH W/REFLEX TO FT4 Routine 01/02/2025 8 [...] Recently Relevant to Health Maintenance Results * Hepatitis A,B,C Profile (01/13/2025 9:51 AM EDT) Hepatitis A IgM Nonreactive Nonreactive [facility] Comment:IgM antibodies to DAILY V not detected; does not exclude earlyacute or recovered HAV infection. ~Hepatitis B Surface Antibody NONREACTIVE Nonreactive [facility] Comment:Nonreactive: < 8.00 mIU/mL Hepatitis B Core Antibody Nonreactive Nonreactive [facility] Hepatitis C Antibody Nonreactive Nonreactive [facility] Comment:Antibodies to HCV no t detected; does not exclude early acuteHCV infection. Hepatitis B Surface Ag Negative Negative [facility] Blood Venous blood specimen / Unknown 01/13/2025 9:51 AM EDT 01/13/2025 2:46 PM EDT Ham Burgos MD LAB BLOOD ORDERABLES Final Result [facility] [address] [place] [phone] * (ABNORMAL) Immunoglobulins Panel, Serum (01/13/2025 9:51 AM EDT) IMMUNOGLOBULIN G 971 600 - 1540 mg/dL [facility] IMMUNOGLOBULIN A 185 70 - 320 mg/dL [facility] Immunoglobulin M 30(A) 50 - 300 mg/dL [facility] Comment:THIS TEST WAS PERFOR MED AT:[facility] [place] [phone] ELIZONDO MD Blood Venous blood specimen / Unknown 01/13/2025 9:51 AM EDT 01/13/2025 2:46 PM EDT us Ham Burgos MD LAB BLOOD ORDERABLES Final Result Performing Organization Address City/[facility]/ZIP Co de Phone Number [facility] [address] [place] [phone] * BECCA Screen,IFA, with Reflex to Titer and Pattern (01/13/2025 9:51 AM EDT) Anti Nuclear Antibody Screen NEGATIVE NEGATIVE [facility] Comment:BECCA IFA is a first l ine screen for detecting thepresence of up to approximately 150 autoantibodies invarious autoimmune diseases. A negative BECCA IFA resultsuggests an BECCA-associated autoimmune disease is notpresent at this time, but is not definitive. If thereis high clinical suspicion for Sjogren's syndrome,testing for anti-SS-A/Ro antibody should be considered.Anti-Stephania-1 antibody should be considered for clinicallysuspected inflammatory myopathies.AC-0: NegativeInternational Consensus on BECCA Patterns(https://doi.org/10.1515/wqzz-3204-5691)For additional information, please refer tohttp://education.Cryoport/faq/PGF817(This link is being provided for informational/educational purposes only.)THIS TEST WAS PERFORMED AT:[facility] [place] [phone] ELIZONDO MD BECCA Titer TNP [facility] BECCA Pattern [facility] BECCA TITER 2 (REF LAB) [facility] BECCA Pattern 2 [facility] BECCA TITER 3 [facility] BECCA PATTERN 3 [facility] Blood Venous blood specimen / Unknown 01/13/2025 9:51 AM EDT 01/13/2025 2:46 PM EDT us Ham Burgos MD LAB BLOOD ORDERABLES Final Result Performing Organization Address [facility]/ZIP Co de Phone Number [facility] [address] [place] [phone] * Ferritin (01/13/2025 9:51 AM EDT) Ferritin 120 20 - 250 ng/mL [facility] Blood Venous blood specimen / Unknown 01/13/2025 9:51 AM EDT 01/13/2025 2:46 PM EDT us Ham Burgos MD LAB BLOOD ORDERABLES Final Result Performing Organization Address [facility] Co de Phone Number [facility] [address] [place] [phone] * TSH W/Reflex to FT4 (01/02/2025 8:55 AM EDT) TSH reflex Free T4 0.97 0.32 - 4.0 uIU/mL [facility] Blood Venous blood specimen / Unknown 01/02/2025 8:55 AM EDT 01/02/2025 2:06 PM EDT us Ham Burgos MD LAB BLOOD ORDERABLES Final Result Performing Organization Address [facility] de Phone Number [facility] [address] [place] [phone] * (ABNORMAL) Lipid Panel, Standard (01/02/2025 8:55 AM EDT) Triglycerides 70 <150 mg/dL [facility] Comment:Slight Lipemia.Izzy able Triglyceride: less than 150 mg/dLBorderline High Triglyceride 150-199 mg/dLHigh Triglyceride: 200-499 mg/dLVery High Triglyceride: greater than or equal to 5OO mg/dL Cholesterol 200(H) <200 mg/dL [facility] Comment:Desirable Cholestero l: less than 200 mg/dLBorderline High Cholesterol: 200-239 mg/dLHigh Cholesterol: greater than 239 mg/dL LDL Cholesterol Calculated 140(H) <100 mg/dL [facility] Comment:Desirable LDL: less than 100 mg/dLNear Optimal/Above Optimal LDL: 110- 129 mg/dLBorderline High LDL: 130-159 mg/dLHigh LDL: 160-189 mg/dLVery High LDL: greater than or equal to 190 mg/dL HDL Cholesterol 46 >40 mg/dL [facility] Comment:Desirable HDL: great er than 40 mg/dL Note: This HDL assay may give artificially low results in patients with liver disease. Blood Venous blood specimen / Unknown 01/02/2025 8:55 AM EDT 01/02/2025 2:06 PM EDT us Ham Burgos MD LAB BLOOD ORDERABLES Final Result [facility] [address] [place] [phone] * (ABNORMAL) Comprehensive Metabolic Panel (01/02/2025 8:55 AM EDT) Sodium 139 135 - 145 mmol/L [facility] Potassium 3.9 3.3 - 5.1 mmol/L [facility] Chloride 106 96 - 108 mmol/L [facility] Carbon Dioxide 27 22 - 29 mmol/L [facility] Anion Gap 10(L) 12 - 20 [facility] Urea Nitrogen (BUN) 15 9 - 16 mg/dL [facility] Creatinine, Serum 0.64 0.5 - 1.4 mg/dL [facility] Estimated Glomerular Filt Rate >60 [facility] Comment:Chronic Kidney Disea se: Estimated GFR < 60 mL/min/1.34h1Laavol Kidney Disease: Estimated GFR < 15 mL/min/1.73m2 Glucose 97 60 - 115 mg/dL [facility] Calcium 9.3 8.4 - 10.2 mg/dL [facility] Bilirubin, Total 0.5 0.0 - 1.0 mg/dL [facility] Aspartate Amino Transferase 42(H) 5 - 37 U/L [facility] Alanine Aminotransferase 52(H) 0 - 40 U/L [facility] Total Protein 6.6 6.5 - 8.0 g/dL [facility] Albumin Level 3.7 3.5 - 5.0 g/dL [facility] Alkaline Phosphatase 122(H) 39 - 117 U/L [facility] Blood Venous blood specimen / Unknown 01/02/2025 8:55 AM EDT 01/02/2025 2:06 PM EDT us Ham Burgos MD LAB BLOOD ORDERABLES Final Result [facility] [address] [place] [phone] * Colonoscopy (11/23/2023) Colonoscopy Normal Normal Narrative Jeri Munoz - 11/23/2023 Repeat colonoscopy in 10 years us Historical Provider HEALTH MAINTENANCE Final Result from Last 3 Months or Most Recently Relevant to Health Maintenance Insurance [facility] C3 DENTAL-[facility] MEDICAID STAND ADULT Care Teams Alterations Sewer Relationship Specialty Start Date End Date Ham Burgos MD [address] [place] [address] YENNIFRE Hernandez [phone] PCP - General Internal Medicine 05/10/18
--- OUTSIDE RECORDS SUMMARY | 2025-01-21 10:55 | XMS_ITS | Encounter Summary ---
Author Organization [email or web address] Address [address] [place] [address] 7 [place] [address] Care Team Providers Care Machinist Supervisor Outside Name Role Phone Ham Burgos MD Primary Care Provider [phone] Reason for Referral * Imaging (Routine) - Authorized Specialty Diagnoses / Procedures Referred By Thomas stevenson Referred To Contact Radiology Diagnoses Transaminitis Procedures US Abdomen Complete Ham Burgos MD [address] [place] [address] Phone: tel: fax: [address] Phone: tel: fax: Referral ID Status Reason Start Date Expiration Date V isits Requested Visits Authorized [id number] Authorized 01/07/2025 01/07/2026 1 1 Encounter Details Date Type Department Care Team (Late st Contact Info) Description 01/02/2025 Orders Only [facility]EDS [address] [place], [place] [phone] Ham Burgos MD [address] [place] [address] Morbid obesity (CMS/HCC) (Primary Dx); Transaminitis Social [...] Description 01/27/2025 9:30 AM EDT Office Visit [facility] ADULT DENTAL [address] [place] [address] Robb Pickering DMD [address] [place] [address] 03/13/2025 9:45 AM EDT Office Visit [facility] MED & PEDS [address] [place] [address] Ham Burgos MD [address] [place] [phone] Scheduled Orders Name Type Priority Associated Diagnoses Orde r Schedule Smooth Muscle Antibody with Reflex to Titer Lab Routine Transaminitis Expected: 01/07/2025 (Approximate), Expires: 01/07/2026 Alpha 1 Antitrypsin Lab Routine Transaminitis Expected: 01/07/2025 (Approximate), Expires: 01/07/2026 US Abdomen Complete Imaging Routine Transaminitis Expected: 01/07/2025, Expires: 01/07/2026 documented as of this encounter Procedures Procedure Name Priority Date/Time Associated Diagnosis Comments HEPATITIS PANEL, GENERAL Routine 01/13/2025 9:51 AM EDT Morbid obesity (CMS/HCC) Transaminitis IMMUNOGLOBULINS, QUANTITATIVE, IGA, IGG, IGM Routine 01/13/2025 9:51 AM EDT Transaminitis BECCA SCREEN, IFA, W/REFL TITER AND PATTERN Routine 01/13/2025 9:51 AM EDT Transaminitis FERRITIN Routine 01/13/2025 9:51 AM EDT Transaminitis documented in this encounter Results * Hepatitis A,B,C Profile (01/13/2025 9:51 AM EDT) Hepatitis A IgM Nonreactive Nonreactive [facility] Comment:IgM antibodies to DAILY V not detected; does not exclude earlyacute or recovered HAV infection. ~Hepatitis B Surface Antibody NONREACTIVE Nonreactive [facility] Comment:Nonreactive: < 8.00 mIU/mL Hepatitis B Core Antibody Nonreactive Nonreactive [facility] Hepatitis C Antibody Nonreactive Nonreactive [facility] Comment:Antibodies to HCV no t detected; does not exclude early acuteHCV infection. Hepatitis B Surface Ag Negative Negative [facility] Blood Venous blood specimen / Unknown 01/13/2025 9:51 AM EDT 01/13/2025 2:46 PM EDT us Ham Burgos MD LAB BLOOD ORDERABLES Final Result Performing Organization Address City/[facility]/ZIP Co de Phone Number [facility] [address] [place] [phone] * BECCA Screen,IFA, with Reflex to Titer and Pattern (01/13/2025 9:51 AM EDT) Anti Nuclear Antibody Screen NEGATIVE NEGATIVE [facility] Comment:BECCA IFA is a first l [...] clinicallysuspected inflammatory myopathies.AC-0: NegativeInternational Consensus on BECCA Patterns(https://doi.org/10.1515/hjdu-6994-1240)For additional information, please refer tohttp://education.Spectral Image/faq/EBH140(This link is being provided for informational/educational purposes only.)THIS TEST WAS PERFORMED AT:[employer] [place] [phone] ELIZONDO MD BECCA Titer TNP [facility] BECCA [facility]S BECCA TITER 2 (REF LAB) [facility] BECCA Pattern 2 [facility] BECCA TITER 3 [facility] BECCA PATTERN 3 [facility] Blood Venous blood specimen / Unknown 01/13/2025 9:51 AM EDT 01/13/2025 2:46 PM EDT us Ham Burgos MD LAB BLOOD ORDERABLES Final Result Performing Organization Address [facility]/ZIP Co de Phone Number [facility] [address] [place] [phone] * (ABNORMAL) Immunoglobulins Panel, Serum (01/13/2025 9:51 AM EDT) IMMUNOGLOBULIN G 971 600 - 1540 mg/dL [facility] IMMUNOGLOBULIN A 185 70 - 320 mg/dL [facility] Immunoglobulin M 30(A) 50 - 300 mg/dL [facility] Comment:THIS TEST WAS PERFOR MED AT:[employer] [place] [phone] ELIZONDO MD Blood Venous blood specimen / Unknown 01/13/2025 9:51 AM EDT 01/13/2025 2:46 PM EDT us Ham Burgos MD LAB BLOOD ORDERABLES Final Result Performing Organization Address [facility] Co de Phone Number [facility] [address] [place] [phone] * Ferritin (01/13/2025 9:51 AM EDT) Ferritin 120 20 - 250 ng/mL [facility] Blood Venous blood specimen / Unknown 01/13/2025 9:51 AM EDT 01/13/2025 2:46 PM EDT Ham Burgos MD LAB BLOOD ORDERABLES Final Result Performing Organization Address [facility] de Phone Number [facility] [address] [place] [phone] documented in this encounter Visit Diagnoses Diagnosis Morbid obesity (CMS/HCC)- Primary Morbid obesity Transaminitis Nonspecific elevation of levels of transaminase or lactic acid dehydrogenase (LDH) documented in this encounter Additional Health Concerns Assessment Noted Time PHQ-9 Depression Total Score: 17 11/11/2 025 9:11 AM EST documented as of this encounter Care Teams Machinist Supervisor Outside Relationship Specialty Start Date End Date Ham Burgos MD [address] [place] [phone] PCP - General Internal Medicine 05/10/18 documented as of this encounter
--- OUTSIDE RECORDS SUMMARY | 2025-01-21 10:55 | XMS_ITS | Encounter Summary ---
Author Organization [employer] Address [address] [place] [address] Care Team Providers Care Outside Production Inspector Name Role Phone Ham Burgos MD Primary Care Provider [phone] Encounter Details Date Type Department Care Team (Latest Contact Info) Description 01/21/2025 Travel Social History Tobacco Use Types Packs/Day [...] [facility] AD[facility] D[facility] [address] [place] [address] Robb Pickering DMD [address] [place] [address] 03/13/2025 9:45 AM EDT Office Visit [facility] MED & PEDS [address] [place] [address] Ham Burgos MD [address] [place] [address] documented as of this encounter Visit Diagnoses Not on filedocumented in this encounter Additional Health Concerns Assessment Noted Time PHQ-9 Depression Total Score: 17 025 9:11 AM EST documented as of this encounter Care Teams Outside Production Inspector Relationship Specialty Start Date End Date Ham Burgos MD [address] [place] [address] PCP - General Internal Medicine 05/10/18 documented as of this encounter
--- OUTSIDE RECORDS SUMMARY | 2025-01-21 10:55 | XMS_ITS | Encounter Summary ---
Author Organization [employer] Address [address] [place] [address] Care Team Providers Care Medical Scientific Liaison Name Role Phone Ham Burgos MD Primary Care Provider [phone] Encounter Details Date Type Department Care Team ([facility] st Contact Info) Description 12/05/2024 Orders Only [facility] MED & PEDS [address] [place], [place] [phone] Ham Burgos MD [address] [place] [address] Morbid obesity (CMS/HCC) (Primary Dx) Social History [...] 9:30 AM EDT Office Visit [facility] ADULT DENTAL [address] [place] [address] Robb Pickering, SAMANTA [address] [place] [address] 03/13/2025 9:45 AM EDT Office Visit [facility] MED & PEDS [address] [place] [address] Ham Burgos MD [address] [place] [address] documented as of this encounter Visit Diagnoses Diagnosis Morbid obesity (CMS/HCC)- Primary Morbid obesity documented in this encounter Additional Health Concerns Assessment Noted Time PHQ-9 Depression Total Score: 17 025 9:11 AM EST documented as of this encounter Care Teams Medical Scientific Liaison Relationship Specialty Start Date End Date Ham Burgos MD [address] [place] [address] PCP - General Internal Medicine 05/10/18 documented as of this encounter
== END 2025-01-21 10:24 | disposition home or self-care (01) ==
LOC: HO.HVS 10:02
PROVIDERS: PCP Internal Medicine; Visit Provider Surgery Vascular Surgery
DX: I83.12 Varicose veins of left lower extremity with inflammation (principal); I83.11 Varicose veins of right lower extremity with inflammation
CPT/HCPCS: 99214

== ENCOUNTER → 2025-01-21 10:01 | Outpatient (BNVA) | payer MEDICAID, SELFPAY | PROVIDERS: PCP Internal Medicine; Visit Provider Surgery Vascular Surgery | DX: G47.33 Obstructive sleep apnea (adult) (pediatric) (principal); R06.09 Other forms of dyspnea; R91.8 Other nonspecific abnormal finding of lung field; R60.0 Localized edema; J98.11 Atelectasis; J96.10 Chronic respiratory failure, unspecified whether with hypoxia or hypercapnia; I27.20 Pulmonary hypertension, unspecified; I50.810 Right heart failure, unspecified; F51.01 Primary insomnia; Z99.89 Dependence on other enabling machines and devices; I83.12 Varicose veins of left lower extremity with inflammation; I83.11 Varicose veins of right lower extremity with inflammation | CPT/HCPCS: 99212 ==

== ENCOUNTER 2025-01-21 14:03 | Outpatient (AMB) | payer MEDICAID, SELFPAY ==
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
[2025-01-21 14:05] VITALS: BP 138/66; PULSE 73; O2SAT 93; BMI 47.6
--- OUTSIDE RECORDS SUMMARY | 2025-01-21 15:15 | XMS_ITS | Clinical Summary ---
Author Organization [employer] Address [address] [facility] 7t [place] [address] Care Team Providers Care Lighting Fixture Installer Name Role Phone Hma Burgos MD Primary Care Provider +1- [phone] Allergies No known active allergies Medications acetaminophen [...] Fluoride-Potassium Nitrate 1.1-5 % pasteIndications:D ental caries [place] teeth for 2 minutes, morning and night. [...] recommended reduction of 20-30% of maintenance calories; vice chair referral offered. Recommended to decrease soda and [...] Team Description 01/21/2025 9:30 AM EDT Telemedicine [facility] [address] [place] [address] Lakhwinder Morris MD Class 3 severe obesity due to excess calories with serious comorbidity and body mass index (BMI) of 45.0 to 49.9 in adult (Primary Dx) 01/21/2025 Travel 01/17/2025 Refill [facility] [address] [place] [address] Ham Burgos MD 01/13/2025 9:15 AM EDT Office Visit [facility] [address] [place] [address] Ham Burgos MD Morbid obesity ([facility]/HCC) (Primary Dx); Hypercholesterolemia 01/13/2025 Travel 01/02/2025 8:00 AM EDT Office Visit [facility] [address] [place] [address] Robb Pickering DMD Edentulism (Primary Dx); Partial edentulism, class I 01/02/2025 Orders Only [facility] [address] [place] [address] Ham Burgos MD Morbid obesity (CMS/HCC) (Primary Dx); Transaminitis 12/11/2024 10:00 AM EDT Office Visit [facility] [address] [place] [address] Ham Burgos MD Annual physical exam (Primary Dx); Dietary counseling; Exercise counseling; Class 3 severe obesity due to excess calories with serious comorbidity and body mass index (BMI) of 45.0 to 49.9 in adult; Seborrheic dermatitis; Hypercholesterolemia ; S/P splenectomy; Encounter for immunization 12/11/2024 Travel 12/09/2024 Telephone [facility] [address] [place] [address] Ham Burgos MD Chart Prep 12/05/2024 Orders Only [facility] [address] [place] [address] Ham Burgos MD Morbid obesity (CMS/HCC) (Primary Dx) 12/04/2024 Orders Only [address] [address] Ham Burgos MD 12/03/2024 Patient Outreach [address] [address] Ham Burgos MD Pre-visit Planning (SDOH screening completed on 11/11/24) 11/29/[address] [address] Ham Burgos MD PA 11/28/2024 8:00 AM EDT Office Visit [facility] [address] [place] [address] Robb Pickering DMD History of tooth extraction, unspecified edentulism class (Primary Dx); Periodontal disease; Dental caries 11/27/2024 Travel 11/22/2024 Population Health Risk Score [facility] () Department [address] [place] [phone] Provider, Population Health Generic 11/11/2024 9:00 AM EST Office Visit [facility] [address] [place] [address] Ham Burgos MD Seborrheic dermatitis (Primary Dx); Cardiomegaly; Morbid obesity (CMS/HCC); Hypercholesterolemia ; Arthralgia of toe, unspecified laterality 11/11/2024 Travel 11/08/2024 Telephone [facility] [address] [place] [address] Ham Burgos MD chart prep 11/05/2024 Refill [facility] [address] [place] [address] Ham Burgos MD Primary osteoarthritis involving multiple joints 10/24/2024 1:00 PM EST Office Visit [facility] [address] [place] [address] Robb Pickering DMD Dental caries (Primary Dx) [...] Description 01/27/2025 9:30 AM EDT Office Visit [facility] [address] [place] [address] Robb Pickering, SAMANTA [address] [place] [address] 03/13/2025 9:45 AM EDT Office Visit [facility] [address] [place] [address] Ham Burgos MD [address] [place] [address] Health Maintenance Due Date Last Done Comments [...] AM EDT) Hepatitis A IgM Nonreactive Nonreactive [facility] Comment:IgM antibodies to DAILY V not detected; does not exclude earlyacute or recovered HAV infection. ~Hepatitis B Surface Antibody NONREACTIVE Nonreactive [facility] Comment:Nonreactive: < 8.00 mIU/mL Hepatitis B Core Antibody Nonreactive Nonreactive [facility] Hepatitis C Antibody Nonreactive Nonreactive [facility] Comment:Antibodies to HCV no t detected; does not exclude early acuteHCV infection. Hepatitis B Surface Ag Negative Negative [facility] Blood Venous blood specimen / Unknown 01/13/2025 9:51 AM EDT 01/13/2025 2:46 PM EDT Ham Burgos MD LAB BLOOD ORDERABLES Final Result [facility] [address] [place] [phone] * (ABNORMAL) Immunoglobulins Panel, Serum (01/13/2025 9:51 AM EDT) IMMUNOGLOBULIN G 971 600 - 1540 mg/dL [facility] IMMUNOGLOBULIN A 185 70 - 320 mg/dL [facility] Immunoglobulin M 30(A) 50 - 300 mg/dL [facility] Comment:THIS TEST WAS PERFOR MED AT:[email or web address] [place] [id number] ELIZONDO MD Blood Venous blood specimen / Unknown 01/13/2025 9:51 AM EDT 01/13/2025 2:46 PM EDT us Ham Burgos MD LAB BLOOD ORDERABLES Final Result Performing Organization Address City/[facility]/ZIP Co de Phone Number [facility] [address] [place] [phone] * BECCA Screen,IFA, with Reflex to Titer and Pattern (01/13/2025 9:51 AM EDT) Anti Nuclear Antibody Screen NEGATIVE NEGATIVE [facility] Comment:BECCA IFA is a first l [...] clinicallysuspected inflammatory myopathies.AC-0: NegativeInternational Consensus on BECCA Patterns(https://doi.org/10.1515/uuma-5290-0617)For additional information, please refer tohttp://education.Cytoo/faq/PNV441(This link is being provided for informational/educational purposes only.)THIS TEST WAS PERFORMED AT:[email or web address] [place] [id number] ELIZONDO MD BECCA Titer TNP [facility] BECCA Pattern [facility] BECCA TITER 2 (REF LAB) [facility] BECCA Pattern 2 [facility] BECCA TITER 3 [facility] BECCA PATTERN 3 [facility] Blood Venous blood specimen / Unknown 01/13/2025 9:51 AM EDT 01/13/2025 2:46 PM EDT us Ham Burgos MD LAB BLOOD ORDERABLES Final Result Performing Organization Address [facility]/ZIP Co de Phone Number [facility] [address] [place] [phone] * Ferritin (01/13/2025 9:51 AM EDT) Ferritin 120 20 - 250 ng/mL [facility] Blood Venous blood specimen / Unknown 01/13/2025 9:51 AM EDT 01/13/2025 2:46 PM EDT us Ham Burgos MD LAB BLOOD ORDERABLES Final Result Performing Organization Address [facility] Co de Phone Number [facility] [address] [place] [phone] * TSH W/Reflex to FT4 (01/02/2025 8:55 AM EDT) TSH reflex Free T4 0.97 0.32 - 4.0 uIU/mL [facility] Blood Venous blood specimen / Unknown 01/02/2025 8:55 AM EDT 01/02/2025 2:06 PM EDT us Ham Burgos MD LAB BLOOD ORDERABLES Final Result Performing Organization Address [facility] de Phone Number [facility] [address] [place] [phone] * (ABNORMAL) Lipid Panel, Standard (01/02/2025 8:55 AM EDT) Triglycerides 70 <150 mg/dL [facility] Comment:Slight Lipemia.Izzy able Triglyceride: less than 150 mg/dLBorderline High Triglyceride 150-199 mg/dLHigh Triglyceride: 200-499 mg/dLVery High Triglyceride: greater than or equal to 5OO mg/dL Cholesterol 200(H) <200 mg/dL [facility] Comment:Desirable Cholestero l: less than 200 mg/dLBorderline High Cholesterol: 200-239 mg/dLHigh Cholesterol: greater than 239 mg/dL LDL Cholesterol Calculated 140(H) <100 mg/dL [facility] Comment:Desirable LDL: less than 100 mg/dLNear Optimal/Above Optimal LDL: 110- 129 mg/dLBorderline High LDL: 130-159 mg/dLHigh LDL: 160-189 mg/dLVery High LDL: greater than or equal to 190 mg/dL HDL Cholesterol 46 >40 mg/dL [facility] Comment:Desirable HDL: great er than 40 mg/dL Note: This HDL assay may give artificially low results in patients with liver disease. Blood Venous blood specimen / Unknown 01/02/2025 8:55 AM EDT 01/02/2025 2:06 PM EDT us Ham Burgos MD LAB BLOOD ORDERABLES Final Result [facility] [address] [place] [phone] * (ABNORMAL) Comprehensive Metabolic Panel (01/02/2025 8:55 AM EDT) Sodium 139 135 - 145 mmol/L [facility] Potassium 3.9 3.3 - 5.1 mmol/L [facility] Chloride 106 96 - 108 mmol/L [facility] Carbon Dioxide 27 22 - 29 mmol/L [facility] Anion Gap 10(L) 12 - 20 [facility] Urea Nitrogen (BUN) 15 9 - 16 mg/dL [facility] Creatinine, Serum 0.64 0.5 - 1.4 mg/dL [facility] Estimated Glomerular Filt Rate >60 [facility] Comment:Chronic Kidney Disea se: Estimated GFR < 60 mL/min/1.72m7Tfnbzz Kidney Disease: Estimated GFR < 15 mL/min/1.73m2 Glucose 97 60 - 115 mg/dL [facility] Calcium 9.3 8.4 - 10.2 mg/dL [facility] Bilirubin, Total 0.5 0.0 - 1.0 mg/dL [facility] Aspartate Amino Transferase 42(H) 5 - 37 U/L [facility] Alanine Aminotransferase 52(H) 0 - 40 U/L [facility] Total Protein 6.6 6.5 - 8.0 g/dL [facility] Albumin Level 3.7 3.5 - 5.0 g/dL [facility] Alkaline Phosphatase 122(H) 39 - 117 U/L [facility] Blood Venous blood specimen / Unknown 01/02/2025 8:55 AM EDT 01/02/2025 2:06 PM EDT us Ham Burgos MD LAB BLOOD ORDERABLES Final Result [facility] [address] [place] [phone] [phone] * Colonoscopy (11/23/2023) Colonoscopy Normal Normal Narrative Jeri Munoz - 11/23/2023 Repeat colonoscopy in 10 years us Historical Provider HEALTH MAINTENANCE Final Result from Last 3 Months or Most Recently Relevant to Health Maintenance Insurance [facility] C3 DENTAL-[facility] MEDICAID STAND ADULT Care Teams Lighting Fixture Installer Relationship Specialty Start Date End Date Ham Burgos MD [address] [place] [address] YENNIFER Hernandez [id number] PCP - General Internal Medicine 05/10/18
--- OUTSIDE RECORDS SUMMARY | 2025-01-21 15:15 | XMS_ITS | Encounter Summary ---
Author Organization [employer] Address [address] [facility] [address] 7[address] [place] [address] Care Team Providers Care Steam Gigger Name Role Phone Ham Burgos MD Primary Care Provider [phone] Encounter Details Date Type Department Care Team ([facility] st Contact Info) Description 12/05/2024 Orders Only [facility] [address] [place], [place] [phone] Ham Burgos MD [address] [place] [address] Morbid obesity (CMS/HCC) (Primary Dx) Social History [...] Description 01/27/2025 9:30 AM EDT Office Visit [facility] [address] [place] [address] Robb Pickering, SAMANTA [address] [place] [address] 03/13/2025 9:45 AM EDT Office Visit [facility] [address] [place] [address] Ham Burgos MD [address] [place] [address] documented as of this encounter Visit Diagnoses Diagnosis Morbid obesity (CMS/HCC)- Primary Morbid obesity documented in this encounter Additional Health Concerns Assessment Noted Time PHQ-9 Depression Total Score: 17 025 9:11 AM EST documented as of this encounter Care Teams Steam Gigger Relationship Specialty Start Date End Date Ham Burgos MD [address] [place] [address] PCP - General Internal Medicine 05/10/18 documented as of this encounter
--- OUTSIDE RECORDS SUMMARY | 2025-01-21 15:15 | XMS_ITS | Encounter Summary ---
Author Organization [employer] Address [address] [facility] 7t [place] [address] Care Team Providers Care Key Account Coordinator Name Role Phone Ham Burgos MD Primary Care Provider [phone] Encounter Details Date Type Department Care Team (Late Contact Info) Description 05/19/2023 Orders Only [facility] [address] [place], [place] [phone] Ham Burgos MD [address] [place], [place] [phone] Dry skin (Primary Dx) Social History Tobacco [...] [facility] [address] [place], [place] [phone] Robb Pickering DMD [address] [place], [place] [phone] 03/13/2025 9:45 AM EDT Office Visit [facility] [address] [place] [address] Ham Burgos MD [address] [place] [address] documented as of this encounter Visit Diagnoses Diagnosis Dry skin- Primary Other symptoms involving skin and integumentary tissues documented in this encounter Additional Health Concerns Assessment Noted Time PHQ-9 Depression Total Score: 14 023 11:04 AM EDT documented as of this encounter Care Teams Key Account Coordinator Relationship Specialty Start Date End Date Ham Burgos MD [address] [place] [address] PCP - General Internal Medicine 05/10/18 documented as of this encounter
--- OUTSIDE RECORDS SUMMARY | 2025-01-21 15:15 | XMS_ITS | Encounter Summary ---
Author Organization [employer] Address [address] [facility] [address] [place] [address] Care Team Providers Care Bait Man Name Role Phone Ham Burgos MD Primary Care Provider [phone] Encounter Details Date Type Department Care Team ([facility] st Contact Info) Description 01/21/2025 9:30 AM EDT Telemedicine [facility] [address] [place], [place] [phone] Lakhwinder Morris MD [address] [place] [address] Class 3 severe obesity due to excess [...] recommended reduction of 20-30% of maintenance calories; truck driver supervisor referral offered. Recommended to decrease soda and [...] recommended reduction of 20-30% of maintenance calories; truck driver supervisor referral offered. Recommended to decrease soda and sugary beverage consumption. Recommended at least 20 g per meal of protein to assist with satiety. Recommended at least 150 min/week of moderate intensity exercise. documented in this encounter Plan of Treatment Upcoming Encounters Date Type Department Care Team (Late st Contact Info) Description 01/27/2025 9:30 AM EDT Office Visit [facility] [address] [place] [address] Robb Pickering DMD [address] [place] [address] 03/13/2025 9:45 AM EDT Office Visit [facility] [address] [place] [address] Ham Burgos MD [address] [place] [address] documented as of this encounter Visit Diagnoses Diagnosis Class 3 severe obesity due to excess calories with serious comorbidity and body mass index (BMI) of 45.0 to 49.9 in adult- Primary documented in this encounter Additional Health Concerns Assessment Noted Time PHQ-9 Depression Total Score: 17 025 9:11 AM EST documented as of this encounter Care Teams Bait Man Relationship Specialty Start Date End Date Ham Burgos MD [address] [place] [address] PCP - General Internal Medicine 05/10/18 documented as of this encounter
--- OUTSIDE RECORDS SUMMARY | 2025-01-21 15:15 | XMS_ITS | Encounter Summary ---
Author Organization [employer] Address [address] [facility] [address] [place] [address] Care Team Providers Care Wood Coater Name Role Phone Ham Burgos MD Primary Care Provider [phone] Encounter Details Date Type Department Care Team (Late st Contact Info) Description 12/04/2024 Orders Only [facility] [address] [place] [address] Ham Burgos MD [address] [place] [address] Social History Tobacco Use Types Packs/Day Years [...] Description 01/27/2025 9:30 AM EDT Office Visit [facility]ULT [facility] [address] [place] [address] Robb Pickering DMD [address] [place] [address] 03/13/2025 9:45 AM EDT Office Visit [facility] [address] [place] [address] Ham Burgos MD [address] [place] [address] documented as of this encounter Visit Diagnoses Not on filedocumented in this encounter Additional Health Concerns Assessment Noted Time PHQ-9 Depression Total Score: 17 025 9:11 AM EST documented as of this encounter Care Teams Wood Coater Relationship Specialty Start Date End Date Ham Burgos MD [address] [place] [address] PCP - General Internal Medicine 05/10/18 documented as of this encounter
--- OUTSIDE RECORDS SUMMARY | 2025-01-21 15:15 | XMS_ITS | Encounter Summary ---
Author Organization [employer] Address [address] [facility] 7t [place] [address] Care Team Providers Care Stave Log Cut Off Saw Operator Name Role Phone Ham Burgos MD Primary Care Provider [phone] Reason for Visit * Reason Onset Date Comments Med Refill 01/17/2025 Encounter Details Date Type Department Care Team ([facility] st Contact Info) Description 01/17/2025 Refill [facility] [address] [place] [address] Ham Burgos MD [address] [place] [address] Social History Tobacco Use Types Packs/Day Years [...] [facility] [address] [place] [address] Robb Pickering, SAMANTA [address] [place] [address] 03/13/2025 9:45 AM EDT Office Visit [facility] [address] [place] [address] Ham Burgos MD [address] [place] [address] documented as of this encounter Visit Diagnoses Not on filedocumented in this encounter Additional Health Concerns Assessment Noted Time PHQ-9 Depression Total Score: 17 025 9:11 AM EST documented as of this encounter Care Teams Stave Log Cut Off Saw Operator Relationship Specialty Start Date End Date Ham Burgos MD [address] [place] [address] PCP - General Internal Medicine 05/10/18 documented as of this encounter
--- OUTSIDE RECORDS SUMMARY | 2025-01-21 15:15 | XMS_ITS | Encounter Summary ---
Author Organization [employer] Address [address] [place] [address] 7 [place] [address] Care Team Providers Care Uniform Maker Name Role Phone Ham Burgos MD Primary Care Provider [phone] Reason for Referral * Imaging (Routine) - Authorized Specialty Diagnoses / Procedures Referred By Thomas stevenson Referred To Contact Radiology Diagnoses Transaminitis Procedures US Abdomen Complete Ham Burgos MD [address] [place] [address] Phone: tel: fax: [address] Phone: tel: fax: Referral ID Status Reason Start Date Expiration Date V isits Requested Visits Authorized [id number] Authorized 01/07/2025 01/07/2026 1 1 Encounter Details Date Type Department Care Team (Late st Contact Info) Description 01/02/2025 Orders Only [facility] [address] [place], [place] [phone] Ham Burgos MD [address] [place] [address] Morbid obesity (CMS/HCC) (Primary Dx); Transaminitis Social [...] 9:30 AM EDT Office Visit [facility] [address] [place] [address] Robb Pickering DMD [address] [place] [address] 03/13/2025 9:45 AM EDT Office Visit [facility] [address] [place] [address] Ham Burgos MD [address] [place] [phone] Scheduled Orders Name Type Priority Associated Diagnoses [...] AM EDT) Hepatitis A IgM Nonreactive Nonreactive [facility] Comment:IgM antibodies to DAILY V not detected; does not exclude earlyacute or recovered HAV infection. ~Hepatitis B Surface Antibody NONREACTIVE Nonreactive [facility] Comment:Nonreactive: < 8.00 mIU/mL Hepatitis B Core Antibody Nonreactive Nonreactive [facility] Hepatitis C Antibody Nonreactive Nonreactive [facility] Comment:Antibodies to HCV no t detected; does not exclude early acuteHCV infection. Hepatitis B Surface Ag Negative Negative [facility] Blood Venous blood specimen / Unknown 01/13/2025 9:51 AM EDT 01/13/2025 2:46 PM EDT us Ham Burgos MD LAB BLOOD ORDERABLES Final Result Performing Organization Address City/[facility]/ZIP Co de Phone Number [facility] [address] [place] [phone] * BECCA Screen,IFA, with Reflex to Titer and Pattern (01/13/2025 9:51 AM EDT) Anti Nuclear Antibody Screen NEGATIVE NEGATIVE [facility] Comment:BECCA IFA is a first [...] clinicallysuspected inflammatory myopathies.AC-0: NegativeInternational Consensus on BECCA Patterns(https://doi.org/10.1515/nvcv-8199-2693)For additional information, please refer tohttp://education.[employer]/faq/LYW058(This link is being provided for informational/educational purposes only.)THIS TEST WAS PERFORMED AT:[employer] [place] [phone] ELIZONDO MD BECCA Titer TNP [facility] BECCA Pattern [facility] BECCA TITER 2 (REF LAB) [facility] BECCA Pattern 2 [facility] BECCA TITER 3 [facility] BECCA PATTERN 3 [facility] Blood Venous blood specimen / Unknown 01/13/2025 9:51 AM EDT 01/13/2025 2:46 PM EDT us Ham Burgos MD LAB BLOOD ORDERABLES Final Result Performing Organization Address [facility]/ZIP Co de Phone Number [facility] [address] [place] [phone] * (ABNORMAL) Immunoglobulins Panel, Serum (01/13/2025 9:51 AM EDT) IMMUNOGLOBULIN G 971 600 - 1540 mg/dL [facility] IMMUNOGLOBULIN A 185 70 - 320 mg/dL [facility] Immunoglobulin M 30(A) 50 - 300 mg/dL [facility] Comment:THIS TEST WAS PERFOR MED AT:[employer] [place] [phone] ELIZONDO MD Blood Venous blood specimen / Unknown 01/13/2025 9:51 AM EDT 01/13/2025 2:46 PM EDT us Ham Burgos MD LAB BLOOD ORDERABLES Final Result Performing Organization Address [facility] Co de Phone Number [facility] [address] [place] [phone] * Ferritin (01/13/2025 9:51 AM EDT) Ferritin 120 20 - 250 ng/mL [facility] Blood Venous blood specimen / Unknown 01/13/2025 9:51 AM EDT 01/13/2025 2:46 PM EDT Ham Burgos MD LAB BLOOD ORDERABLES Final Result Performing Organization Address [facility] de Phone Number [facility] [address] [place] [phone] documented in this encounter Visit Diagnoses Diagnosis Morbid obesity (CMS/HCC)- Primary Morbid obesity Transaminitis Nonspecific elevation of levels of transaminase or lactic acid dehydrogenase (LDH) documented in this encounter Additional Health Concerns Assessment Noted Time PHQ-9 Depression Total Score: 17 11/11/2 025 9:11 AM EST documented as of this encounter Care Teams Uniform Maker Relationship Specialty Start Date End Date Ham Burgos MD [address] [place] [address] PCP - General Internal Medicine 05/10/18 documented as of this encounter
--- OUTSIDE RECORDS SUMMARY | 2025-01-21 15:15 | XMS_ITS | Encounter Summary ---
Author Organization [employer] Address [address] [place] [address] Care Team Providers Care Pecan Gatherer Name Role Phone Ham Burgos MD Primary Care Provider [phone] Encounter Details Date Type Department Care Team [...] 01/27/2025 9:30 AM EDT Office Visit [facility] [address] [place] [address] Robb Pickering DMD [address] [place] [address] 03/13/2025 9:45 AM EDT Office Visit [facility] [address] [place] [address] Ham Burgos MD [address] [place] [address] documented as of this encounter Visit Diagnoses Not on filedocumented in this encounter Additional Health Concerns Assessment Noted Time PHQ-9 Depression Total Score: 17 025 9:11 AM EST documented as of this encounter Care Teams Pecan Gatherer Relationship Specialty Start Date End Date Ham Burgos MD [address] [place] [address] PCP - General Internal Medicine 05/10/18 documented as of this encounter
--- OUTSIDE RECORDS SUMMARY | 2025-01-21 15:15 | XMS_ITS | Encounter Summary ---
Author Organization [employer] Address [address] [place] [address] Care Team Providers Care Armature Winder Name Role Phone Ham Burgos MD Primary Care Provider [phone] Encounter Details Date Type Department Care Team (Latest Contact Info) Description 07/18/2024 Orders Only [facility] [address] [place], [place] [phone] Ham Burgos MD [address] [place] [address] Hypercholesterolemia (Primary Dx) Social History Tobacco Use [...] Description 01/27/2025 9:30 AM EDT Office Visit [facility] ADULT [facility] [address] [place] [address] Robb Pickering DMD 505 [place] [address] 03/13/2025 9:45 AM EDT Office Visit [facility] [address] [place] [address] Ham Burgos MD [address] [place] [address] documented as of this encounter Visit Diagnoses Diagnosis Hypercholesterolemia- Primary Pure hypercholesterolemia documented in this encounter Additional Health Concerns Assessment Noted Time PHQ-9 Depression Total Score: 8 12/11/19 24 9:29 AM EDT documented as of this encounter Care Teams Armature Winder Relationship Specialty Start Date End Date Ham Burgos MD [address] [place] [address] PCP - General Internal Medicine 05/10/18 documented as of this encounter
--- OUTSIDE RECORDS SUMMARY | 2025-01-21 15:15 | XMS_ITS | Encounter Summary ---
Author Organization [employer] Address [address] [facility] [address] [facility] 7t [place] [address] Care Team Providers Care Groundwater Consultant Name Role Phone Ham Burgos MD Primary Care Provider [phone] Encounter Details Date Type Department Care Team ([facility] Contact Info) Description 10/09/2022 Orders Only [facility] [address] [place], [place] [phone] Ham Burgos MD [address] [place], [place] [phone] Morbid obesity (CMS/HCC) (Primary Dx) Social History [...] Description 01/27/2025 9:30 AM EDT Office Visit [facility] [address] [place], [place] [phone] Robb Pickering DMD [address] [place], [place] [phone] 03/13/2025 9:45 AM EDT Office Visit [facility] [address] [place] [address] Ham Burgos MD [address] [place] [address] Scheduled Orders Name Type Priority Associated Diagnoses [...] documented as of this encounter Care Teams Groundwater Consultant Relationship Specialty Start Date End Date Ham Burgos MD [address] [place] [address] PCP - General Internal Medicine 05/10/18 documented as of this encounter
--- OUTSIDE RECORDS SUMMARY | 2025-01-21 15:15 | XMS_ITS | Encounter Summary ---
Author Organization [employer] Address [address] [place] [address] Care Team Providers Care Project Design Engineer Name Role Phone Ham Burgos MD Primary Care Provider [phone] Encounter Details Date Type Department Care Team ([facility] st Contact Info) Description 04/16/2024 Orders Only [facility] [address] [place], [place] [phone] Ham Burgos MD [address] [place] [address] Restless legs (Primary Dx) Social History Tobacco [...] 9:30 AM EDT Office Visit [facility] ADULT D[facility] [address] [place] [address] Robb Pickering DMD [address] [place] [address] 03/13/2025 9:45 AM EDT Office Visit [facility] [address] [place] [address] Ham Burgos MD [address] [place] [address] documented as of this encounter Visit Diagnoses Diagnosis Restless legs- Primary Restless legs syndrome (RLS) documented in this encounter Additional Health Concerns Assessment Noted Time PHQ-9 Depression Total Score: 8 12/11/19 24 9:29 AM EDT documented as of this encounter Care Teams Project Design Engineer Relationship Specialty Start Date End Date Ham Burgos MD [address] [place] [address] PCP - General Internal Medicine 05/10/18 documented as of this encounter
--- OUTSIDE RECORDS SUMMARY | 2025-01-21 15:15 | XMS_ITS | Encounter Summary ---
Author Organization [employer] Address [address] [place] [address] Care Team Providers Care Road Manager Name Role Phone Ham Burgos MD Primary Care Provider [phone] Reason for Visit * Reason Onset Date Comments [place] 11/29/2024 Encounter Details Date Type Department Care Team ([facility] st Contact Info) Description 11/29/2024 Telephone [facility] [address] [place] [address] Ham Burgos MD [address] [place] [address] [place] Social History Tobacco Use Types Packs/Day [...] pt calling requesting status on Zepbound 2.5mg. Com Writer works on [facility] Pharmacy and rejection that we have is medication require a PA. PCP DR. Burgos * Telephone Encounter - Christine Freeman - 11/29/2024 4:06 PM EDT Tc from pt calling requesting status on Zepbound 2.5mg. Com Writer works on [facility] Pharmacy and rejection that we have is medication require a PA. PCP DR. Burgos documented in this encounter Plan of Treatment Upcoming Encounters Date Type Department Care Team (Late st Contact Info) Description 01/27/2025 9:30 AM EDT Office Visit [facility] [address] [place] [address] Robb Pickering, DMD [address] [place] [address] 03/13/2025 9:45 AM EDT Office Visit [facility] [address] [place] [address] Ham Burgos MD [address] [place] [address] documented as of this encounter Visit Diagnoses Not on filedocumented in this encounter Additional Health Concerns Assessment Noted Time PHQ-9 Depression Total Score: 17 025 9:11 AM EST documented as of this encounter Care Teams Road Manager Relationship Specialty Start Date End Date Ham Burgos MD [address] [place] [address] PCP - General Internal Medicine 05/10/18 documented as of this encounter
== END 2025-01-21 14:32 | disposition home or self-care (01) ==
LOC: HO.HPS 14:03
PROVIDERS: PCP Internal Medicine; Visit Provider Hospitalist
DX: R06.09 Other forms of dyspnea (principal); I27.20 Pulmonary hypertension, unspecified; R91.8 Other nonspecific abnormal finding of lung field; J98.11 Atelectasis; G47.33 Obstructive sleep apnea (adult) (pediatric); Z99.89 Dependence on other enabling machines and devices; F51.01 Primary insomnia; R60.0 Localized edema; I50.810 Right heart failure, unspecified; J96.10 Chronic respiratory failure, unspecified whether with hypoxia or hypercapnia
CPT/HCPCS: 99214

== ENCOUNTER 2025-01-28 22:14 | Inpatient (IN) | payer MEDICAID, SELFPAY ==
--- NOTE | 2025-01-28 | ECG_ITS ---
Test Reason : ABD PAIN Blood Pressure : */* mmHG Vent. Rate : 78 BPM Atrial Rate : 78 BPM P-R Int : 184 ms QRS Dur : 102 ms QT Int : 382 ms P-R-T Axes : 39 -52 38 degrees QTcB Int : 435 ms Normal sinus rhythm Left axis deviation Pulmonary disease pattern Incomplete right bundle branch block Abnormal ECG When compared with ECG of 05-Jul-2018 11:02, Incomplete right bundle branch block is now Present Referred By: Generic ED Physician Electronically Signed By: Dexter Hess
--- NOTE | ~2025-01-28 | XR_ITS ---
EXAMINATION: XR CHEST CLINICAL INFORMATION: Ng placement COMPARISON: January 29, 2025 at 4:01 AM. TECHNIQUE: Frontal view of the chest was obtained. FINDINGS: The NG tube is present overlapping the mediastinal structures extending below the left hemidiaphragm. Tip is not fully included in the [id number]. No no change in the appearance of the lungs or the cardiomediastinal silhouette. Focal 4 mm calcific abnormality left humeral head. XR/XR chest 1V IMPRESSION: NG tube probably in the stomach region. Electronically signed by: Don Mallory MD 01/29/2025 07:52 AM EDT
--- NOTE | ~2025-01-28 | CT_ITS ---
CLINICAL HISTORY: RUQ ABD pain N V CT abdomen and pelvis with contrast Comparison: None Findings: Postsurgical changes of splenectomy and sleeve gastrectomy. Mildly dilated stomach. Threshold dilated loops of proximal and mid small bowel measuring up to 4.8 cm. Anterior transition point on series 3, image 42. No free fluid or free air. Normal appearance of the colon. Normal gallbladder, bile ducts, liver, pancreas, and adrenal glands. Bilateral renal cysts. Otherwise normal kidneys, ureters, and urinary bladder. Prostate unremarkable. No aortic aneurysm. No acute fracture. No suspicious lytic or blastic bone lesion. 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 This document has been electronically signed by: Trace Godoy MD on 01/29/2025 02:00:09
--- NOTE | ~2025-01-28 | XR_ITS ---
CLINICAL HISTORY: NGT placement 1 view chest x-ray Comparison: CR/SR - XR CHEST 2V - 01/29/24 10:55 EDT Findings: Low lung volumes. Cardiomegaly. No acute fracture. IMPRESSION: NG tube is obscured distally by scatter artifact. Recommend abdomen film. This document has been electronically signed by: Aníbal Chavez MD on 01/29/2025 04:25:25
[2025-01-28 22:20] VITALS: BP 162/74; PULSE 72; RESP 18; TEMP 36.6; O2SAT 97; BMI 47.5
[2025-01-28 23:01] LABS: Basophils Absolute Auto 0.1 X10*3/uL (0.0-0.2); Basophils Percent Auto 0.6 % (0-2); Eosinophils Absolute Auto 0.6 X10*3/uL (0.0-0.4); Eosinophils Percent Auto 3.2 % (0-4); Hematocrit 43.6 % (42.0-52.0); Hemoglobin 15.3 g/dl (14.0-18.0); Imm Gran Abs Auto 0.07 X10*3/uL (0.00-0.03); Imm Gran Pct Auto 0.4 % (0.0-0.4); Lymphocytes Absolute Auto 4.5 X10*3/uL (1.2-4.9); Lymphocytes Percent Auto 23.8 % (20-40); Mean Corpuscular HGB Conc 35.1 g/dl (31.0-36.0); Mean Corpuscular Hemoglobin 30.9 pg (27.0-33.0); Mean Corpuscular Volume 88.1 fL (80.0-98.0); Mean Platelet Volume 9.9 fL (9.4-12.4); Monocytes Percent Auto 10.4 % (2-11); Neutrophils Absolute Auto 11.6 x10*3/uL (2.0-8.3); Neutrophils Percent Auto 61.6 % (45-73); Platelet Count 479 X10*3/uL (160-400); Red Blood Count 4.95 X10*6/uL (4.60-5.80); Red Cell Distribution Width 15.5 % (11.0-16.0); SCAN SMEAR FLAG 1; White Blood Count 18.8 X10*3/uL (4.8-10.8)
[2025-01-28 23:02] LABS: MANUAL DIFF FLAG SCAN
[2025-01-28 23:17] LABS: Alanine Aminotransferase 43 U/L (0-40); Alkaline Phosphatase 132 U/L (39-117); Anion Gap 11 (12-20); Aspartate Amino Transferase 35 U/L (5-37); Bilirubin Direct 0.2 mg/dL (0.0-0.5); Bilirubin Total 0.5 mg/dL (0.0-1.0); Blood Urea Nitrogen 17 mg/dL (9-16); Calcium 9.4 mg/dL (8.4-10.2); Carbon Dioxide 23 mmol/L (22-29); Chloride 108 mmol/L (96-108); Creatinine Clr Calc Pharmacy 185.4; Estimated Glomerular Filt Rate > 60; Glucose Random 122 mg/dL (60-115); Lipase 10 U/L (8-78); Potassium 4.3 mmol/L (3.3-5.1); Sodium 138 mmol/L (135-145); Total Protein 7.2 g/dL (6.5-8.0)
[2025-01-28 23:19] LABS: SLIDE REVIEW VERIFIED
[2025-01-29] VITALS (11 sets, daily range): BP systolic 108–182; BP diastolic 57–93; PULSE 84–102; RESP 14–22; TEMP 36.4–37.1; O2SAT 93–98; BMI 46.9
--- NOTE | 2025-01-29 | ECG_ITS ---
Test Reason : cp Blood Pressure : */* mmHG Vent. Rate : 105 BPM Atrial Rate : 105 BPM P-R Int : 182 ms QRS Dur : 116 ms QT Int : 348 ms P-R-T Axes : 54 133 31 degrees QTcB Int : 459 ms Sinus tachycardia Right axis deviation Abnormal ECG When compared with ECG of 28-Jan-2025 22:58, Questionable change in QRS axis Referred By: Generic ED Physician Electronically Signed By: Dexter Hess
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
--- OUTSIDE RECORDS SUMMARY | 2025-01-29 00:26 | XMS_ITS | Encounter Summary ---
Author Organization [employer] Address [address] [facility] [address]t [place] [address] Care Team Providers Care Building Manager Name Role Phone Ham Burgos MD Primary Care Provider [phone] Encounter Details Date Type Department Care Team ([facility] st Contact Info) Description 12/05/[address] [facility] MED & PEDS [address] [place], [place] [phone] Ham Burgos MD [address] [place], [place] [phone] Morbid obesity (CMS/HCC) (Primary Dx) Social History [...] Care Team (Late st Contact Info) Description 02/07/2025 11:30 AM EDT Office Visit [facility] ADULT DENTAL [address] [place] [address] Robb Pickering, DMD [address] [place] [address] 02/19/2025 11:00 AM EDT Office Visit [facility] ADULT DENTAL [address] [place] [address] Robb Pickering, DMD [address] [place] [address] 03/13/2025 9:45 AM EDT Office Visit [facility] MED & PEDS [address] [place] [address] Ham uBrgos MD [address] [place] [address] documented as of this encounter Visit Diagnoses Diagnosis Morbid obesity (CMS/HCC)- Primary Morbid obesity documented in this encounter Additional Health Concerns Assessment Noted Time PHQ-9 Depression Total Score: 17 025 9:11 AM EST documented as of this encounter Care Teams Building Manager Relationship Specialty Start Date End Date Ham Burgos MD [address] [place] [address] PCP - General Internal Medicine 05/10/18 documented as of this encounter
--- OUTSIDE RECORDS SUMMARY | 2025-01-29 00:26 | XMS_ITS | Encounter Summary ---
Author Organization [employer] Address [address] [facility] [address] [place] [address] Care Team Providers Care Java Designer Name Role Phone Ham Burgos MD Primary Care Provider [phone] Encounter Details Date Type Department Care Team ([facility] st Contact Info) Description 04/16/2024 Orders Only [facility] CH[facility] MED & PEDS [address] [place], [place] [phone] Ham Burgos MD [address] [place], [place] [phone] Restless legs (Primary Dx) Social History Tobacco [...] Description 02/07/2025 11:30 AM EDT Office Visit [facility] ADULT DENTAL [address] [place] [address] Robb Pickering DMD [address] [place] [address] 02/19/2025 11:00 AM EDT Office Visit [facility] ADULT DENTAL [address] [place] [address] Robb Pickering, SAMANTA [address] [place] [address] 03/13/2025 9:45 AM EDT Office Visit [facility] MED & PEDS [address] [place] [address] Ham Burgos MD [address] [place] [address] documented as of this encounter Visit Diagnoses Diagnosis Restless legs- Primary Restless legs syndrome (RLS) documented in this encounter Additional Health Concerns Assessment Noted Time PHQ-9 Depression Total Score: 8 12/11/19 24 9:29 AM EDT documented as of this encounter Care Teams Java Designer Relationship Specialty Start Date End Date Ham Burgos MD [address] [place] [address] PCP - General Internal Medicine 05/10/18 documented as of this encounter
--- OUTSIDE RECORDS SUMMARY | 2025-01-29 00:26 | XMS_ITS | Encounter Summary ---
Author Organization [employer] Address [address] [facility] 7t [place] [address] Care Team Providers Care Cleaning And Washing Equipment Operator Name Role Phone Ham Burgos MD Primary Care Provider Encounter Details Date Type Department Care Team ([facility] Contact Info) Description 10/09/2022 Orders Only [facility] MEDICINE [address] [place], [place] [phone] Ham Burgos MD [address] [place], [place] [phone] Morbid obesity (CMS/HCC) (Primary Dx) Social History [...] Upcoming Encounters Date Type Department Care Team ([facility] Contact Info) Description 02/07/2025 11:30 AM EDT Office Visit [facility] CH[facility] ADULT DENTAL [address] [place], [place] [phone] Robb Pickering DMD [address] [place], [place] [phone] 02/19/2025 11:00 AM EDT Office Visit [facility] ADULT DENT[facility] [address] [place] [address] Robb Pickering DMD [address] [place] [address] 03/13/2025 9:45 AM EDT Office Visit [facility] MED & PEDS [address] [place] [address] Ham Burgos MD [address] [place] [address] Scheduled Orders Name Type Priority Associated Diagnoses [...] documented as of this encounter Care Teams Cleaning And Washing Equipment Operator Relationship Specialty Start Date End Date Ham Burgos MD [address] [place] [address] PCP - General Internal Medicine 05/10/18 documented as of this encounter
--- OUTSIDE RECORDS SUMMARY | 2025-01-29 00:26 | XMS_ITS | Encounter Summary ---
Author Organization [employer] Address [address] [facility] 7t [place] [address] Care Team Providers Care Biostatistics Director Name Role Phone Ham Burgos MD Primary Care Provider [phone] Reason for Visit * Reason Onset Date Comments PA 11/29/2024 Encounter Details Date Type Department Care Team ([facility] st Contact Info) Description 11/29/2024 Telephone [facility] MEDICINE [address] [place] [address] Ham Burgos MD [address] [place] [address] PA Social History Tobacco Use Types Packs/Day [...] pt calling requesting status on Zepbound 2.5mg. Toy Department Manager works on [facility] Pharmacy and rejection that we have is medication require a PA. PCP DR. Burgos * Telephone Encounter - Christine Freeman - 11/29/2024 4:06 PM EDT Tc from pt calling requesting status on Zepbound 2.5mg. Toy Department Manager works on [facility] Pharmacy and rejection that we have is medication require a PA. PCP DR. Burgos documented in this encounter Plan of Treatment Upcoming Encounters Date Type Department Care Team (Late st Contact Info) Description 02/07/2025 11:30 AM EDT Office Visit [facility] ADULT DENTAL [address] [place] [address] Robb Pickering, DMD [address] [place] [address] 02/19/2025 11:00 AM EDT Office Visit [facility] ADULT DENTAL [address] [place] [address] Robb Pickering DMD [address] [place] [address] 03/13/2025 9:45 AM EDT Office Visit [facility] MED & PEDS [address] [place] [address] Ham Burgos MD [address] [place] [address] documented as of this encounter Visit Diagnoses Not on filedocumented in this encounter Additional Health Concerns Assessment Noted Time PHQ-9 Depression Total Score: 17 025 9:11 AM EST documented as of this encounter Care Teams Biostatistics Director Relationship Specialty Start Date End Date Ham Burgos MD [address] [place] [address] PCP - General Internal Medicine 05/10/18 documented as of this encounter
--- OUTSIDE RECORDS SUMMARY | 2025-01-29 00:26 | XMS_ITS | Encounter Summary ---
Author Organization [employer] Address [address] [facility] [place] [address] Care Team Providers Care Clothing And Textiles Teacher Name Role Phone Ham Burgos MD Primary Care Provider [phone] Encounter Details Date Type Department Care Team (Late st Contact Info) Description 12/04/2024 Orders Only [facility] MEDICINE [address] [place] [address] Ham Burgos MD [address] [place] [address] Social History Tobacco Use Types Packs/Day Years [...] Description 02/07/2025 11:30 AM EDT Office Visit [facility] ADULT DENTAL [address] [place] [address] Robb Pickering DMD [address] [place] [address] 02/19/2025 11:00 AM EDT Office Visit [facility] ADULT DENTAL [address] [place] [address] Robb Pickering, DMD [address] [place] [address] 03/13/2025 9:45 AM EDT Office Visit [facility] MED & PEDS [address] [place] [address] Ham Burgos MD [address] [place] [address] documented as of this encounter Visit Diagnoses Not on filedocumented in this encounter Additional Health Concerns Assessment Noted Time PHQ-9 Depression Total Score: 17 025 9:11 AM EST documented as of this encounter Care Teams Clothing And Textiles Teacher Relationship Specialty Start Date End Date Ham Burgos MD [address] [place] [address] PCP - General Internal Medicine 05/10/18 documented as of this encounter
--- OUTSIDE RECORDS SUMMARY | 2025-01-29 00:27 | XMS_ITS | Encounter Summary ---
Author Organization [facility] [employer] Address [address] [facility] [address] [place] [address] Care Team Providers Care Wheel Cutter Name Role Phone Ham Burgos MD Primary Care Provider [phone] Reason for Visit * Reason Comments Dentures Patient presents tod ay for final Impression [facility] Encounter Details Date Type Department Care Team ([facility] st Contact Info) Description 01/27/2025 9:30 AM EDT Office Visit [facility] ADULT DENTAL [address] [place] [address] Robb Pickering, DMD [address] [place] [address] Edentulism (Primary Dx); Partial edentulism, class I Social History Tobacco Use Types Packs/Day Years [...] as of this encounter Progress Notes * Robb Pickering DMD - 01/27/2025 9:30 AM EDT Patient ID: Shin Cadena is a 59 y.o. male. Time Out: Timeout Date: 01/27/25, Timeout Time: 953 (final impresion) Location: [facility] Tooth: Maxilla and Mandible Procedure: Dentures Verified the above with patient, assistant hvac mechanic, and provider. Confirmed via patient's chart, intraorally and by radiographs. Warehouse Logistics Coordinator: not applicable Chief Complaint Patient presents with Dentures Patient presents today for final Impression Trinity HANKS Medical Hx: Vitals: There were no vitals taken for this visit. Medications, Med Hx reviewed with patient and updated in chart. Consent Obtained: The risks, benefits, indications, potential complications, and alternatives were explained to the patient and informed consent was obtained with good understanding. Treatment Provided: Dental procedures in this visit D5110 - DENTURE IMPRESSION (Completed) Service provider: Robb Pickering DMD Billing provider: Robb Pickering DMD D9450 - CASE PRESENTATION, DETAILED AND EXTENSIVE TREATMENT PLANNING (Completed) Service provider: Robb Pickering DMD Billing provider: Robb Pickering DMD Note - pt's son is getting in March, hoping he can have dentures by 03/18 Reviewed we will do our best, but cannot make any guarantees. Pt understood Impression taken with [employer] and [employer] Light Body of Maxilla and Mandible Case sent to lab to fabricate record base and wax rims. Lab used: [facility] Lab Due Date: 02/06 Patient discharged alert, oriented, and in stable condition. NV: Bite reg and records technician: [place] Dentist: Robb Pickering DMD documented in this encounter Plan of Treatment Upcoming Encounters Date Type Department Care Team (Late st Contact Info) Description 02/07/2025 11:30 AM EDT Office Visit [facility] ADULT DENTAL [address] [place] [address] Robb Pickering DMD [address] [place] [address] 02/19/2025 11:00 AM EDT Office Visit [facility] ADULT DENTAL [address] [place] [address] Robb Pickering DMD [address] [place] [address] 03/13/2025 9:45 AM EDT Office Visit [facility] MED & PEDS [address] [place] [address] Ham Burgos MD [address] [place] [address] Scheduled Orders Name Type Priority Associated Diagnoses Orde r Schedule DENTAL LAB DENTURES AND PARTIALS Dental Routine Ordered: 025 documented as of this encounter Procedures Procedure Name Priority Date/Time Associated Diagnosis Comments DENTURE IMPRESSION Routine 01/27/2025 9:30 AM EDT Edentulism Partial edentulism, class I CASE PRESENTATION, DETAILED AND EXTENSIVE TREATMENT PLANNING Routine 01/27/2025 9:30 AM EDT Edentulism Partial edentulism, class I documented in this encounter Visit Diagnoses Diagnosis Edentulism- Primary Partial edentulism, class I documented in this encounter Additional Health Concerns Assessment Noted Time PHQ-9 Depression Total Score: 17 11/11/ 025 9:11 AM EST documented as of this encounter Care Teams Wheel Cutter Relationship Specialty Start Date End Date Ham Burgos MD [address] [place] [phone] PCP - General Internal Medicine 05/10/18 documented as of this encounter
--- OUTSIDE RECORDS SUMMARY | 2025-01-29 00:27 | XMS_ITS | Encounter Summary ---
Author Organization [facility] [employer] Address [address] [place] [address] 7 [place] [address] Care Team Providers Care Sales Training Coordinator Name Role Phone Ham Burgos MD Primary Care Provider [phone] Reason for Referral * Imaging (Routine) - Authorized Specialty Diagnoses / Procedures Referred By Contdeyvi stevenson Referred To Contact Radiology Diagnoses Transaminitis Procedures US Abdomen Complete Ham Burgos MD [address] [place] [address] Phone: tel: fax: [address] Phone: tel: fax: Referral ID Status Reason Start Date Expiration Date V isits Requested Visits Authorized [id number] Authorized 01/07/2025 01/07/2026 1 1 Encounter Details Date Type Department Care Team (Late st Contact Info) Description 01/02/2025 Orders Only [facility] CH[facility] MED & PEDS [address] [place] [address] Ham Burgos MD [address] [place] [address] Morbid obesity (CMS/HCC) (Primary Dx); Transaminitis Social [...] [facility] ADULT DENTAL [address] [place] [address] Robb Pickering DMD [address] [place] [address] 02/19/2025 11:00 AM EDT Office Visit [facility] ADULT DENTAL [address] [place] [address] Robb Pickering, SAMANTA [address] [place] [address] 03/13/2025 9:45 AM EDT Office Visit [facility] CH[facility] MED & PEDS [address] [place] [address] Ham Burgos MD [address] [place] [address] Scheduled Orders Name Type Priority Associated Diagnoses [...] AM EDT) Hepatitis A IgM Nonreactive Nonreactive [facility] Comment:IgM antibodies to DAILY V not detected; does not exclude earlyacute or recovered HAV infection. ~Hepatitis B Surface Antibody NONREACTIVE Nonreactive [facility] Comment:Nonreactive: < 8.00 mIU/mL Hepatitis B Core Antibody Nonreactive Nonreactive [facility] Hepatitis C Antibody Nonreactive Nonreactive [facility] Comment:Antibodies to HCV no t detected; does not exclude early acuteHCV infection. Hepatitis B Surface Ag Negative Negative [facility] Blood Venous blood specimen / Unknown 01/13/2025 9:51 AM EDT 01/13/2025 2:46 PM EDT us Ham Burgos MD LAB BLOOD ORDERABLES Final Result [facility] [address] [place] [phone] [phone] * BECCA Screen,IFA, with Reflex to Titer and Pattern (01/13/2025 9:51 AM EDT) Anti Nuclear Antibody Screen NEGATIVE NEGATIVE [facility] Comment:BECCA IFA is a first [...] clinicallysuspected inflammatory myopathies.AC-0: NegativeInternational Consensus on BECCA Patterns(https://doi.org/10.1515/sxhq-2638-0892)For additional information, please refer tohttp://education.Resermap.Symtavision/faq/JKE011(This link is being provided for informational/educational purposes only.)THIS TEST WAS PERFORMED AT:[facility] [employer] [place] [phone] ELIZONDO MD BECCA Titer TNP [facility] BECCA Pattern TNP [facility] BECCA TITER 2 (REF LAB) [facility] Pattern 2 [facility] BE[facility] TITER 3 [facility] BECCA PATTERN 3 [facility] Blood Venous blood specimen / Unknown 01/13/2025 9:51 AM EDT 01/13/2025 2:46 PM EDT us Ham Burgos MD LAB BLOOD ORDERABLES Final Result Performing Organization Address [facility] de Phone Number [facility] [address] [place] [phone] * (ABNORMAL) Immunoglobulins Panel, Serum (01/13/2025 9:51 AM EDT) IMMUNOGLOBULIN G 971 600 - 1540 mg/dL [facility] IMMUNOGLOBULIN A 185 70 - 320 mg/dL [facility] Immunoglobulin M 30(A) 50 - 300 mg/dL [facility] Comment:THIS TEST WAS PERFOR MED AT:[facility] [employer] [place] [phone] ELIZONDO MD Blood Venous blood specimen / Unknown 01/13/2025 9:51 AM EDT 01/13/2025 2:46 PM EDT us Ham Burgos MD LAB BLOOD ORDERABLES Final Result Performing Organization Address [facility] de Phone Number [facility] [address] [place] [phone] * Ferritin (01/13/2025 9:51 AM EDT) Ferritin 120 20 - 250 ng/mL [facility] Blood Venous blood specimen / Unknown 01/13/2025 9:51 AM EDT 01/13/2025 2:46 PM EDT us Ham Burgos MD LAB BLOOD ORDERABLES Final Result Performing Organization Address [facility] Co de Phone Number [facility] [address] [place] [phone] documented in this encounter Visit Diagnoses Diagnosis Morbid obesity (CMS/HCC)- Primary Morbid obesity Transaminitis Nonspecific elevation of levels of transaminase or lactic acid dehydrogenase (LDH) documented in this encounter Additional Health Concerns Assessment Noted Time PHQ-9 Depression Total Score: 17 025 9:11 AM EST documented as of this encounter Care Teams Sales Training Coordinator Relationship Specialty Start Date End Date Ham Burgos MD [address] [place] [phone] PCP - General Internal Medicine 05/10/18 documented as of this encounter
--- OUTSIDE RECORDS SUMMARY | 2025-01-29 00:27 | XMS_ITS | Encounter Summary ---
Author Organization [facility] Address [address] [facility] 7 [place] [address] Care Team Providers Care Rougher Merchant Mill Name Role Phone Ham Burgos MD Primary Care Provider [phone] Reason for Visit * Reason Onset Date Comments Med Refill 01/17/2025 Encounter Details Date Type Department Care Team ([facility] st Contact Info) Description 01/17/2025 Refill [facility] MED & PEDS [address] [place] [address] Ham Burgos MD [address] [place] [address] Social History Tobacco Use Types Packs/Day Years [...] Description 02/07/2025 11:30 AM EDT Office Visit [facility] ADULT DENTAL [address] [place] [address] Robb Pickering, DMD [address] [place] [address] 02/19/2025 11:00 AM EDT Office Visit [facility] ADULT DENTAL [address] [place] [address] Robb Pickering, DMD [address] [place] [address] 03/13/2025 9:45 AM EDT Office Visit [facility] MED & PEDS [address] [place] [address] Ham Burgos MD [address] [place] [address] documented as of this encounter Visit Diagnoses Not on filedocumented in this encounter Additional Health Concerns Assessment Noted Time PHQ-9 Depression Total Score: 17 025 9:11 AM EST documented as of this encounter Care Teams Rougher Merchant Mill Relationship Specialty Start Date End Date Ham Burgos MD [address] [place] [phone] PCP - General Internal Medicine 05/10/18 documented as of this encounter
--- OUTSIDE RECORDS SUMMARY | 2025-01-29 00:27 | XMS_ITS | Encounter Summary ---
Author Organization [facility] [employer] Address [address] [place] [address] Care Team Providers Care Casting Tester Name Role Phone Ham Burgos MD Primary Care Provider [phone] Encounter Details Date Type Department Care Team (Latest Contact Info) Description 07/18/2024 Orders Only [facility] CH[facility] MED & PEDS [address] [place], [place] [phone] Ham Burgos MD [address] [place] [address] Hypercholesterolemia (Primary Dx) Social History Tobacco Use [...] Description 02/07/2025 11:30 AM EDT Office Visit [facility] ADULT DENTAL [address] [place] [address] Robb Pickering, SAMANTA [address] [place] [address] 02/19/2025 11:00 AM EDT Office Visit [facility] ADULT DENTAL [address] [place] [address] Robb Pickering, DMD [address] [place] [address] 03/13/2025 9:45 AM EDT Office Visit [facility] MED & PEDS [address] [place] [address] Ham Burgos MD [address] [place] [address] documented as of this encounter Visit Diagnoses Diagnosis Hypercholesterolemia- Primary Pure hypercholesterolemia documented in this encounter Additional Health Concerns Assessment Noted Time PHQ-9 Depression Total Score: 8 12/11/19 24 9:29 AM EDT documented as of this encounter Care Teams Casting Tester Relationship Specialty Start Date End Date Ham Burgos MD [address] [place] [address] PCP - General Internal Medicine 05/10/18 documented as of this encounter
--- OUTSIDE RECORDS SUMMARY | 2025-01-29 00:27 | XMS_ITS | Clinical Summary ---
Author Organization [employer] Address [address] [facility] [address] [place] [address] Care Team Providers Care Nursing Program Manager Name Role Phone Ham Burgos MD Primary Care Provider [phone] Allergies No known active allergies Medications acetaminophen [...] Fluoride-Potassium Nitrate 1.1-5 % pasteIndications:D ental caries Dun[place] teeth for 2 minutes, morning and night. 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 Recommended to decrease soda and [...] Encounters Date Type Department Care Team Description 01/27/2025 9:30 AM EDT Office Visit [facility] ADULT DENTAL [address] [place] [address] Robb Pickering DMD Edentulism (Primary Dx); Partial edentulism, class I 01/21/2025 9:30 AM EDT Telemedicine [facility] [address] [place] [address] Lakhwinder Morris MD Class 3 severe obesity due to excess calories with serious comorbidity and body mass index (BMI) of 45.0 to 49.9 in adult (Primary Dx) 01/21/2025 Travel 01/17/2025 Refill [facility] [address] [place] [address] Ham Burgos MD 01/13/2025 9:15 AM EDT Office Visit [facility] [address] [place] [address] Ham Burgos MD Morbid obesity ([facility]) (Primary Dx); Hypercholesterolemia 01/13/2025 Travel 01/02/2025 8:00 AM EDT Office Visit [facility] ADULT DENTAL [address] [place] [address] Robb Pickering DMD Edentulism (Primary Dx); Partial edentulism, class I 01/02/2025 Orders Only [facility] [address] [place] [address] Ham Burgos MD Morbid obesity ([facility]/HCC) (Primary Dx); Transaminitis 12/11/2024 10:00 AM EDT Office Visit [facility] [address] [place] [address] Ham Burgos MD Annual physical exam (Primary Dx); Dietary counseling; Exercise counseling; Class 3 severe obesity due to excess calories with serious comorbidity and body mass index (BMI) of 45.0 to 49.9 in adult; Seborrheic dermatitis; Hypercholesterolemia ; S/P splenectomy; Encounter for immunization 12/11/2024 Travel 12/09/2024 Telephone [facility] [address] [place] [address] Ham Burgos MD Chart Prep 12/05/2024 Orders Only [facility] [address] [place] [address] Ham Burgos MD Morbid obesity (CMS/HCC) (Primary Dx) 12/04/2024 Orders Only [address] [address] Ham Burgos MD 12/03/2024 Patient Outreach [address] [address] Ham Burgos MD Pre-visit Planning (SDOH screening completed on 11/11/24) 11/29/[address] [address] Ham Burgos MD PA 11/28/2024 8:00 AM EDT Office Visit [facility] ADULT DENTAL [address] [place] [address] Robb Pickering DMD History of tooth extraction, unspecified edentulism class (Primary Dx); Periodontal disease; Dental caries 11/27/2024 Travel 11/22/2024 Population Health Risk Score [facility] () Department [address] [phone] Provider, Population Health Generic 11/11/2024 9:00 AM EST Office Visit [facility] [address] [place] [address] Ham Burgos MD Seborrheic dermatitis (Primary Dx); Cardiomegaly; Morbid obesity (CMS/HCC); Hypercholesterolemia ; Arthralgia of toe, unspecified laterality 11/11/2024 Travel 11/08/2024 Telephone [facility] [address] [place] [address] Ham Burgos MD chart prep 11/05/2024 Refill [facility] [address] [place] [address] Ham Burgos MD Primary osteoarthritis involving multiple joints from Last 3 Months Immunizations Immunization Administration Dates Next Due Influenza injectable quadriv [...] Description 02/07/2025 11:30 AM EDT Office Visit [facility] AD[facility] [address] [place] [address] Robb Pickering, DMD [address] [place] [address] 02/19/2025 11:00 AM EDT Office Visit [facility] ADULT DENTAL [address] [place], [place] [phone] Robb Pickering DMD [address] [place] [address] 03/13/2025 9:45 AM EDT Office Visit [facility] [address] [place], [place] [phone] Ham Burgos MD [address] [place] [address] Health Maintenance Due Date Last Done Comments CT Colonography 1963 FIT DNA/Cologuard 1963 FIT 1963 FOBT 1963 HIV Screening 1963 Sigmoidoscopy 1963 Disability Screening 1963 HIB Vaccines (1 of 1 - Risk 1-dose series) 11/05/1964 Meningococcal B Vaccine (1 of 5 - Increased Risk) 1973 Zoster Vaccines (1 [...] 11/12/19 SDOH Screening 11/11/2025 11/11/2024 Tobacco Screening 01/27/2026 01/27/2025 Dental X-Ray: Full Mouth 06/12/2027 024, 06/11/2024, [...] Partial edentulism, class I DENTURE IMPRESSION Routine 01/27/2025 9: 30 AM EDT Edentulism Partial edentulism, class I HEPATITIS PANEL, GENERAL Routine 01/13/2025 9:51 AM [...] 8:00 AM EDT Periodontal disease Dental caries PROPHYLAXIS - ADULT Routine 07/04/2024 1 0:00 AM EDT Periodontal disease INTRAORAL - COMPLETE SERIES OF RADIOGRAPHIC IMAGES Routine 06/11/2024 10:00 AM EDT Dental calculus Periodontal disease Dental caries HM COLONOSCOPY Routine 11/23/2023 from Last 3 Months or Most Recently Relevant to Health Maintenance Results * Hepatitis A,B,C Profile (01/13/2025 9:51 AM EDT) Hepatitis A IgM Nonreactive Nonreactive [facility] Comment:IgM antibodies to DAILY V not detected; does not exclude earlyacute or recovered HAV infection. ~Hepatitis B Surface Antibody NONREACTIVE Nonreactive [facility] Comment:Nonreactive: < 8.00 mIU/mL Hepatitis B Core Antibody Nonreactive Nonreactive [facility] Hepatitis C Antibody Nonreactive Nonreactive [facility] Comment:Antibodies to HCV no t detected; does not exclude early acuteHCV infection. Hepatitis B Surface Ag Negative Negative [facility] Blood Venous blood specimen / Unknown 01/13/2025 9:51 AM EDT 01/13/2025 2:46 PM EDT us Ham Burgos MD LAB BLOOD ORDERABLES Final Result [facility] [address] [place], [place] [phone] * (ABNORMAL) Immunoglobulins Panel, Serum (01/13/2025 9:51 AM EDT) IMMUNOGLOBULIN G 971 600 - 1540 mg/dL [facility] IMMUNOGLOBULIN A 185 70 - 320 mg/dL [facility] Immunoglobulin M 30(A) 50 - 300 mg/dL [facility] Comment:THIS TEST WAS PERFOR MED AT:[facility] [place] [phone] ELIZONDO MD Blood Venous blood specimen / Unknown 01/13/2025 9:51 AM EDT 01/13/2025 2:46 PM EDT Ham Burgos MD LAB BLOOD ORDERABLES Final Result [facility] [address] [place] [address] [phone] * EBCCA Screen,IFA, with Reflex to Titer and Pattern (01/13/2025 9:51 AM EDT) Anti Nuclear Antibody Screen NEGATIVE NEGATIVE [facility] Comment:BECCA IFA is a [...] clinicallysuspected inflammatory myopathies.AC-0: NegativeInternational Consensus on BECCA Patterns(https://doi.org/10.1515/qyfp-5337-0041)For additional information, please refer tohttp://education.Shopdeca.Organic Motion/faq/VYW666(This link is being provided for informational/educational purposes only.)THIS TEST WAS PERFORMED AT:[facility] [place] [phone] ELIZONDO MD BECCA Titer TNP [facility] BECCA Pattern TNP [facility] BECCA TITER 2 (REF LAB) TNP [facility] BECCA Pattern 2 [facility] BECCA TITER 3 [facility] BECCA PATTERN 3 [facility] Blood Venous blood specimen / Unknown 01/13/2025 9:51 AM EDT 01/13/2025 2:46 PM EDT us Ham Burgos MD LAB BLOOD ORDERABLES Final Result Performing Organization Address [facility] Co de Phone Number [facility] [address] [place] [phone] * Ferritin (01/13/2025 9:51 AM EDT) Ferritin 120 20 - 250 ng/mL [facility] Blood Venous blood specimen / Unknown 01/13/2025 9:51 AM EDT 01/13/2025 2:46 PM EDT us Ham Burgos MD LAB BLOOD ORDERABLES Final Result Performing Organization Address [facility] Phone Number [facility] [address] [place] [phone] * TSH W/Reflex to FT4 (01/02/2025 8:55 AM EDT) TSH reflex Free T4 0.97 0.32 - 4.0 uIU/mL [facility] Blood Venous blood specimen / Unknown 01/02/2025 8:55 AM EDT 01/02/2025 2:06 PM EDT us Ham Burgos MD LAB BLOOD ORDERABLES Final Result Performing Organization Address [facility] Co de Phone Number [facility] [address] [place] [phone] * (ABNORMAL) Lipid Panel, Standard (01/02/2025 8:55 AM EDT) Triglycerides 70 <150 mg/dL [facility] Comment:Slight Lipemia.Izzy able Triglyceride: less than 150 mg/dLBorderline High Triglyceride 150-199 mg/dLHigh Triglyceride: 200-499 mg/dLVery High Triglyceride: greater than or equal to 5OO mg/dL Cholesterol 200(H) <200 mg/dL [facility] Comment:Desirable Cholestero l: less than 200 mg/dLBorderline High Cholesterol: 200-239 mg/dLHigh Cholesterol: greater than 239 mg/dL LDL Cholesterol Calculated 140(H) <100 mg/dL [facility] Comment:Desirable LDL: less than 100 mg/dLNear Optimal/Above Optimal LDL: 110- 129 mg/dLBorderline High LDL: 130-159 mg/dLHigh LDL: 160-189 mg/dLVery High LDL: greater than or equal to 190 mg/dL HDL Cholesterol 46 >40 mg/dL [facility] Comment:Desirable HDL: great er than 40 mg/dL Note: This HDL assay may give artificially low results in patients with liver disease. Blood Venous blood specimen / Unknown 01/02/2025 8:55 AM EDT 01/02/2025 2:06 PM EDT us Ham Burgos MD LAB BLOOD ORDERABLES Final Result [facility] [address] [place] [phone] * (ABNORMAL) Comprehensive Metabolic Panel (01/02/2025 8:55 AM EDT) Sodium 139 135 - 145 mmol/L [facility] Potassium 3.9 3.3 - 5.1 mmol/L [facility] Chloride 106 96 - 108 mmol/L [facility] Carbon Dioxide 27 22 - 29 mmol/L [facility] Anion Gap 10(L) 12 - 20 [facility] Urea Nitrogen (BUN) 15 9 - 16 mg/dL [facility] Creatinine, Serum 0.64 0.5 - 1.4 mg/dL [facility] Estimated Glomerular Filt Rate >60 [facility] Comment:Chronic Kidney Disea se: Estimated GFR < 60 mL/min/1.61o1Fobgen Kidney Disease: Estimated GFR < 15 mL/min/1.73m2 Glucose 97 60 - 115 mg/dL [facility] Calcium 9.3 8.4 - 10.2 mg/dL [facility] Bilirubin, Total 0.5 0.0 - 1.0 mg/dL [facility] Aspartate Amino Transferase 42(H) 5 - 37 U/L [facility] Alanine Aminotransferase 52(H) 0 - 40 U/L [facility] Total Protein 6.6 6.5 - 8.0 g/dL [facility] Albumin Level 3.7 3.5 - 5.0 g/dL [facility] Alkaline Phosphatase 122(H) 39 - 117 U/L [facility] Blood Venous blood specimen / Unknown 01/02/2025 8:55 AM EDT 01/02/2025 2:06 PM EDT Ham Burgos MD LAB BLOOD ORDERABLES Final Result [facility] [address] [place] [phone] * Colonoscopy (11/23/2023) Colonoscopy Normal Normal Narrative Jeri Munoz - 11/23/2023 Repeat colonoscopy in 10 years Historical Provider HEALTH MAINTENANCE Final Result from Last 3 Months or Most Recently Relevant to Health Maintenance Insurance [facility] AD[facility] Care Teams Nursing Program Manager Relationship Specialty Start Date End Date Ham Burgos MD [address] [place] [address] YENNIFER Hernandez [phone] PCP - General Internal Medicine 05/10/18
[2025-01-29 00:30] LABS: Troponin-I High Sensitivity < 2.7 ng/L (<3.5-35.0)
[2025-01-29] MEDS: ondansetron HCL 4 MG/2 ML VIAL IVPUSH (00:34)
[2025-01-29] MEDS: Famotidine/PF 20 MG/2 ML VIAL IVPUSH (00:34)
[2025-01-29] MEDS: 0.9 % Sodium Chloride 1,000 ML 999 ML IV (00:34)
[2025-01-29] MEDS: iohexoL 350 MG/ML 100 ML INFUS..BTL IV (00:54)
[2025-01-29] MEDS: Magnesium Hydrox/Alum Hydrox 30 ML ORAL.SUSP PO (01:01)
[2025-01-29] MEDS: Lidocaine HCl Viscous 2 % 15 ML SOLUTION MUCOUS MEM (01:01)
[2025-01-29] MEDS: Metoclopramide HCl 10 MG/2 ML VIAL IVPUSH (01:24)
[2025-01-29] MEDS: Morphine Sulfate 4 MG/ML CARTRIDGE IVPUSH ×4 (01:51→22:43)
[2025-01-29] MEDS: Morphine Sulfate 2 MG/ML CARTRIDGE IVPUSH ×2 (04:26→10:03)
[2025-01-29] MEDS: 0.9 % Sodium Chloride 1,000 ML 150 ML IVCONT ×3 (04:27→16:51)
--- NOTE | 2025-01-29 04:38 | PC.NURSE ---
NG tube placed by this RN and PA Cristi PA confirmed placement, 1200cc output, Changed into hospital attire, pt placed on 3 liter of oxygen, and bedside monitor. Call joseph in at the bedside.
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
--- NOTE | 2025-01-29 07:09 | PC.NURSE ---
Dr. Barron notified of chest pain and xray order for NG tube placement, by Vani YORK .
[2025-01-29] MEDS: Acetaminophen 1,000 MG/100 ML PIGGYBACK 400 MG IV (07:21)
--- NOTE | 2025-01-29 08:17 | PC.NURSE ---
This RN assumed careof patient @ 0700. Patient presents with small bowel obstruction. Patient currently has NG tube in place in Right nare secured. Patient on suction INT at 80 400ml brown fluid in container. Patient c/o abdomen pain rated 6/10, medicated with tylenol, not effective, patient states pain level is the same. Currently runnning 1L NaCl @150 IV in right AC. Patient NPO but able to take PO meds with water. Paln of care on going
[2025-01-29] MEDS: Pantoprazole Sodium 40 MG/10 ML VIAL IVPUSH ×2 (09:01→10:03)
--- NOTE | 2025-01-29 10:36 | PHA.MEDREC ---
Addendum entered by Dyan Duke RPh 01/29/25 10:45: Reviewed by [facility] Original Note: Pharmacy Consult ? Medication Reconciliation Pharmacy has completed the medication reconciliation. Spoke with patient through an collection officer to confirm medications. He had a list on his phone and we went through it together. He is not taking baby aspirin, terbinafine, zepbound, phentermine, or topiramate. He does not use albuterol inhaler, but uses his symbicort as needed. He confirmed furosemide is one tab once daily. He reports he took his medications yesterday morning.
--- NOTE | 2025-01-29 10:42 | PC.NURSE ---
Patient transfered to hospital bed for comfort
--- NOTE | 2025-01-29 11:55 | PC.NURSE ---
Pt. in overflow 3, report received. Taken over care at this time.
--- NOTE | 2025-01-29 13:10 | MHC.CM.PN ---
CM MET WITH PT AT BEDSIDE WITH INDUSTRIAL LABORER. PT HAVING MODERATE DISCOMFORT BUT WILLING TO PARTICIPATE IN ASSESSMENT. PT LIVES WITH FAMILY AND USES [facility] FOR MOBILITY. PT ALSO HAS A WALKER . PT HAS SENIOR CATEGORY MANAGER ASSIST 4HR/DAY VIA [facility]. HOME 02 AND C PAP VIA [facility]. PT DECLINES TO COMPLETE A HCP AT THIS TIME. PCP Yimi BANKS DP: HOME WITH RESUMPTION OF SENIOR CATEGORY MANAGER HRS IS THE GOAL. PT'S FAMILY WILL TRANSPORT HOME. CM WILL CONTINUE TO FOLLOW FOR ANY CHANGE TO DC PLAN/NEEDS.
--- NOTE | 2025-01-29 16:31 | PM.EVENT ---
Event Note Date of Service: 01/29/25 Event Note: Seen on afternoon rounds Denies abdominal pain He complains of the NG tube bothering his throat and nose and asked for morphine for this No nausea or vomiting Abdomen obese, soft, benign, nontender Keep NG tube in place for today Re-evaluate tomorrow Hopefully we can of the NG tube at bedside Clinically the patient appears well Time Spent With Patient Time: Total time managing care of this patient today ____ minutes.
--- NOTE | 2025-01-29 16:42 | PC.NURSE ---
RT Veto and Edilson spoke and informed tp via medical public health staff nurse if he uses his CPAP, it could cause a leak with the NG tube. Pt. states understanding and continues to wear CPAP.
--- NOTE | 2025-01-29 21:01 | P.CONHOSP_ITS ---
History of Present Illness Data of Consult Service Date: 01/29/25 Requesting physician: Roxy Moses Primary Care Provider: Ham Burgos MD [facility] Reason for consult: medical managment Patient is a 59-year-old Slovak-speaking male with a past medical history significant for pulmonary hypertension, ELO on CPAP, HTN, pulmonary nodules, multiple abdominal surgeries, GERD, gastritis, HFpEF, morbid obesity, HLD, stage 1 COPD and mood disorder, consulted for medical management, patient admitted by surgery for partial small bowel obstruction with NG tube placed. The patient denies any nausea, vomiting, abdominal pain. He reports that he has passed gas scanned feels his bowels moving. He has no concerns currently including chest pain, shortness of breath, fever or chills. Review of Systems 2 Constitutional: Constitutional: Denies chills, Denies fatigue, Denies fever(s) and Denies headache(s) Eyes: Eyes: Denies change in vision and Denies photophobia ENT: Denies headache(s) Cardiovascular: Cardiovascular: Denies chest pain, Denies leg edema and Denies dyspnea Respiratory: Respiratory: Denies cough, Denies dyspnea and Denies wheezing Gastrointestinal: Gastrointestinal: Denies abdominal pain, Denies nausea and Denies vomiting Genitourinary: Genitourinary: Denies dysuria and Denies urinary urgency Musculoskeletal: Musculoskeletal: Denies myalgias Integumentary/Breasts: Skin/Breast: Denies rash Neurologic: Denies confusion and Denies headache(s) Psychiatric: Psychiatric: Denies confusion Endocrine: Endocrine: Denies fatigue Allergic/Immunologic: Allergic/Immunologic: Denies wheezing [facility] Medical History Chronic respiratory failure 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 Pulmonary hypertension Lower extremity edema CHF (congestive heart failure) Insomnia ELO on CPAP Atelectasis Pulmonary nodules Dyspnea Rupture, spleen HTN (hypertension) ELO (obstructive sleep apnea) Varicose veins of both lower extremities with inflammation Surgical History (Updated 01/29/25 @ 08:55 by Alecia Sierra PA-C) History of esophagogastroduodenoscopy (EGD) Hx of splenectomy Hx of colonoscopy S/P gastric surgery History of vasectomy H/O hernia repair Social History Household Members: Family [facility] Patient Tobacco Use Status: Never used Tobacco service: No Current occupational status: unemployed and disabled 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 Narrative: No smoking, alcohol or drug use Meds Allergies Allergy/AdvReac Type Severity Reaction Status Date / Time No Known Allergies Allergy Verified 01/28/25 22:21 [No Known Allergies*] Active Medications: Current Medications Benzocaine (Throat Lozenge, Medicated Lozenge) 1 lozenge MUCOUS MEM Q2H PRN PRN Reason: Sore Throat Bupropion HCl (Bupropion Hcl Xl 300 Mg Tab.Er.24h) 300 mg PO DAILY [facility] Last Admin: 01/29/25 12:22 Dose: Not Given Calcium Carbonate (Calcium Carbonate 750 Mg Tab.Chew) 750 mg PO Q4H PRN PRN Reason: Heartburn Fluticasone/Vilanterol (Fluticasone/Vilanterol 200/25 Blst.W.Dev) 1 puff INHALE RDAILY PRN PRN Reason: Shortness Of Breath Or Wheezing Gabapentin (Gabapentin 300 Mg Capsule) 900 mg PO BEDTIME [facility] Last Admin: 01/29/25 20:34 Dose: Not Given Acetaminophen (Ofirmev) 1,000 mg in 100 mls @ 400 mls/hr IV Q6H PRN PRN Reason: Pain, Moderate(Pain Scale 4-6) Last Infusion: 01/29/25 08:26 Dose: Infused Sodium Chloride (Ns) 1,000 mls @ 150 mls/hr IVCONT .Q6H40M [facility] Last Infusion: 01/29/25 20:51 Dose: 0 mls/hr Magnesium Hydroxide (Milk Of Magnesia 30 Ml Oral.Susp) 30 ml PO DAILY PRN PRN Reason: Constipation Melatonin (Melatonin 3 Mg Tablet) 6 mg PO BEDTIME PRN PRN Reason: Insomnia Morphine Sulfate (Morphine Sulfate 4 Mg/Ml Cartridge) 4 mg IVPUSH Q4H PRN; Protocol PRN Reason: Pain, Severe (Pain Scale 7-10) Last Admin: 01/29/25 18:09 Dose: 4 mg Ondansetron HCl (Ondansetron Hcl 4 Mg/2 Ml Vial) 4 mg IVPUSH ONCE PRN PRN Reason: Nausea and Vomiting Pantoprazole Sodium (Pantoprazole Sodium 40 Mg/10 Ml Vial) 40 mg IVPUSH DAILY MRX1 [facility] Last Admin: 01/29/25 10:03 Dose: 40 mg Ropinirole HCl (Ropinirole Hcl 0.5 Mg Tablet) 0.5 mg PO TID [facility] Last Admin: 01/29/25 20:34 Dose: Not Given Sodium Chloride (0.9 % Sodium Chloride Flush 3 Ml Syringe) 3 ml IVFLUSH QSHIFT [facility] Last Admin: 01/29/25 15:45 Dose: Not Given Home Medications ?Medication ?Instructions ?Recorded ?Confirmed ?Last Taken ?Type ibuprofen 800 mg tablet 800 mg PO Q8H PRN Pain 02/23/21 01/29/25 Unknown History ketoconazole 2 % shampoo 1 appl topical 2XW 01/17/22 01/29/25 Unknown History bupropion HCl 300 mg 24 hr tablet, 1 tab PO QAM 11/23/22 01/29/25 Unknown History extended release sildenafil 25 mg tablet (Viagra) 1 tab PO DAILY PRN Sexual Activity 11/23/22 01/29/25 Unknown History CPAP (CPAP Machine/Device) 12/22/22 11/22/23 Unknown History fluticasone propionate 50 1 spray intranasal BID PRN 07/06/23 01/29/25 Unknown History mcg/actuation nasal congestion spray,suspension gabapentin 300 mg capsule 900 mg PO BEDTIME 07/06/23 01/29/25 Unknown History Oxygen Home Use 04/12/24 Unknown History acetaminophen 500 mg tablet 500 mg PO Q6H PRN mild pain 01/29/25 01/29/25 Unknown History ammonium lactate 12 % lotion 1 appl topical Q12H 01/29/25 01/29/25 Unknown History atorvastatin 40 mg tablet 40 mg PO DAILY 01/29/25 01/29/25 Unknown History budesonide-formoterol HFA 160 2 puff inhalation BID PRN 01/29/25 01/29/25 Unknown History mcg-4.5 mcg/actuation aerosol Shortness Of Breath Or Wheezing inhaler (Symbicort) chlorhexidine gluconate 0.12 % 15 ml PO BID 01/29/25 01/29/25 Unknown History mouthwash cholecalciferol (vitamin D3) 25 25 mcg PO DAILY 01/29/25 01/29/25 Unknown History mcg (1,000 unit) capsule cyanocobalamin (vitamin B-12) 500 500 mcg PO DAILY 01/29/25 01/29/25 Unknown History mcg tablet econazole nitrate 1 % topical cream 1 appl topical DAILY PRN Rash 01/29/25 01/29/25 Unknown History furosemide 20 mg tablet (Lasix) 20 mg PO DAILY 01/29/25 01/29/25 Unknown History lidocaine 5 % topical patch 1 patch topical DAILY PRN Pain 01/29/25 01/29/25 Unknown History ropinirole 0.5 mg tablet 0.5 mg PO TID 01/29/25 01/29/25 Unknown History zinc 50 mg tablet 50 mg PO DAILY 01/29/25 01/29/25 Unknown History Physical Exam 2 Vital Signs and Narrative: Vital Signs: Last Vital Signs Temp 98.7 F 01/29/25 20:09 Pulse 96 01/29/25 20:09 Resp 16 01/29/25 20:09 BP 108/57 L 01/29/25 20:09 Pulse Ox 93 01/29/25 20:09 O2 Del Method CPAP 01/29/25 20:09 O2 Flow Rate 3 01/29/25 20:00 Oxygen Flow Rate 3 01/28/25 22:20 BMI result Body Mass Index 47.5 General: AOx3, no acute distress, morbidly obese, seen with food production manager Resp: CTA bilaterally, no wheezing or crackles CVS: S1, S2, RRR GI: +BS, NT, no distention, vertical scar from previous surgery Skin: Warm, dry Neuro: Cranial nerves II-XII grossly intact bilaterally. Motor grossly intact bilaterally Extremities: Trace pitting edema in ankles Psych: Appropriate affect Const: General: No confusion Orientation/consciousness: No confusion Eyes: Direct Ophthalmoscopy: No photophobia Neuro: General: No confusion Results Labs 01/28/25 22:57 01/28/25 22:57 Labs: Laboratory Results - last 24 hr 01/28/25 22:57 MCV 88.1 MCH 30.9 MCHC 35.1 RDW 15.5 Plt Count 479 H MPV 9.9 Immature Gran % (Auto) 0.4 Neut % (Auto) 61.6 Lymph % (Auto) 23.8 [place] % (Auto) 10.4 Eos % (Auto) 3.2 Baso % (Auto) 0.6 Lymph # (Auto) 4.5 [place] # (Auto) 2.0 H Eos # (Auto) 0.6 H Baso # (Auto) 0.1 Abs Immat Gran (auto) 0.07 H Absolute Neuts (auto) 11.6 H Absolute Nucleated RBC 0.000 Nucleated RBC % (auto) 0.0 Smear Tech's Comments VERIFIED Anion Gap 11 L Estim Creat Clear Calc 185.4 Estimated GFR > 60 Random Glucose 122 H Calcium 9.4 Total Bilirubin 0.5 Direct Bilirubin 0.2 AST 35 ALT 43 H Alkaline Phosphatase 132 H Total Protein 7.2 Albumin 4.0 Lipase 10 Imaging Radiologist's Impressions: Impressions Chest X-Ray 01/29/25 07:35 IMPRESSION: NG tube probably in the stomach region. Electronically signed by: Don Mallory MD 01/29/2025 07:52 AM EDT RP Assessment and Plan (1) Small bowel obstruction: Status: Acute Plan Patient is a 59-year-old Slovak-speaking male with a past medical history significant for pulmonary hypertension, ELO on CPAP, HTN, pulmonary nodules, multiple abdominal surgeries, GERD, gastritis, HFpEF, morbid obesity, HLD, stage 1 COPD and mood disorder, consulted for medical management, patient admitted by surgery for partial small bowel obstruction with NG tube placed. Partial SBO - s/p NGT placement - no nausea or vomiting - has been able to pass gas and bowels sounds are active - plan per surgery Pulmonary hypertension/chronic HFpEF, no acute exacerbation - hold lasix - hold IVF - trace pitting edema - monitor for fluid overload ELO - CPAP at bedtime - discontinue CPAP if nausea or vomiting due to risk of aspiration HTN - holding Lasix, blood pressure okay GERD - pantoprazole 40 mg daily Morbid obesity - BMI 47.5 - weight loss encouraged Stage I COPD, no acute exacerbation - continue home inhalers Thank you for allowing me to participate in the pt's care. Signing off for now. Please contact the medical team if any questions or concerns.
[2025-01-29] MEDS: 0.9 % Sodium Chloride Flush 3 ML SYRINGE IVFLUSH (22:43)
[2025-01-30 03:00] VITALS: BP 150/76; PULSE 81; RESP 18; TEMP 36.2; O2SAT 93
[2025-01-30] MEDS: Morphine Sulfate 4 MG/ML CARTRIDGE IVPUSH (03:18)
[2025-01-30 06:05] LABS: Anion Gap 11 (12-20); Blood Urea Nitrogen 16 mg/dL (9-16); Calcium 8.5 mg/dL (8.4-10.2); Carbon Dioxide 26 mmol/L (22-29); Chloride 107 mmol/L (96-108); Creatinine Clr Calc Pharmacy 181.4; Estimated Glomerular Filt Rate > 60; Glucose Fasting 116 mg/dL (60-99); Potassium 3.9 mmol/L (3.3-5.1); Sodium 140 mmol/L (135-145)
[2025-01-30 07:29] VITALS: BP 133/64; PULSE 75; RESP 18; TEMP 36.4; O2SAT 93
--- NOTE | 2025-01-30 07:51 | P.PNGS_ITS ---
Subjective Subjective Date of Service: 01/30/25 <Alecia Sierra PA-C - Last Filed: 01/30/25 07:58> 01/30/25 <Olivier Howell MD - Last Filed: 01/30/25 08:23> Interval history: Had a BM last night. He was complaining of significant NGT discomfort with the tube on suction and therefore it was clamped overnight. Continues to pass flatus. Denies abd pain. Feels hungry. Would like the NGT out. has been OOB to bathroom. <Alecia Sierra PA-C - Last Filed: 01/30/25 07:58> Physical Exam 2 Vital Signs: Vital Signs: Last Vital Signs Temp 97.6 F 01/30/25 07:29 Pulse 75 01/30/25 07:29 Resp 18 01/30/25 07:29 BP 133/64 01/30/25 07:29 Pulse Ox 93 01/30/25 07:29 O2 Del Method Room Air 01/30/25 07:29 O2 Flow Rate 3 01/29/25 21:30 Oxygen Flow Rate 3 01/28/25 22:20 BMI result Body Mass Index 46.9 <Alecia Sierra PA-C - Last Filed: 01/30/25 07:58> Const: General: comfortable, no acute distress and alert <MARIANN Humphreys Last Filed: 01/30/25 07:58> Nutritional Appearance: obese <Alecia Sierra PA-C - Last Filed: 01/30/25 07:58> HEENT: Other: NGT basically out on exam this morning <MARIANN Humphreys Last Filed: 01/30/25 07:58> Resp: Effort & Inspection: normal respiratory effort <MARIANN Humphreys Last Filed: 01/30/25 07:58> GI: Inspection: No distended <MARIANN Humphreys Last Filed: 01/30/25 07:58> Palpation (GI): Soft to palpation, nontender, no guarding and not rigid < MARIANN Humphreys Last Filed: 01/30/25 07:58> Percussion: Yes normal to percussion <Alecia Sierra PA-C - Last Filed: 01/30/25 07:58> Skin: Other: warm and dry <Alecia Sierra PA-C - Last Filed: 01/30/25 07:58> Objective Data Active Medications Benzocaine (Throat Lozenge, Medicated Lozenge) 1 lozenge MUCOUS MEM Q2H PRN PRN Reason: Sore Throat Bupropion HCl (Bupropion Hcl Xl 300 Mg Tab.Er.24h) 300 mg PO DAILY [facility] Last Admin: 01/29/25 12:22 Dose: Not Given Documented By: DERICK Non-Admin Reason: NPO Calcium Carbonate (Calcium Carbonate 750 Mg Tab.Chew) 750 mg PO Q4H PRN PRN Reason: Heartburn Fluticasone/Vilanterol (Fluticasone/Vilanterol 200/25 Blst.W.Dev) 1 puff INHALE RDAILY PRN PRN Reason: Shortness Of Breath Or Wheezing Gabapentin (Gabapentin 300 Mg Capsule) 900 mg PO BEDTIME [facility] Last Admin: 01/29/25 20:34 Dose: Not Given Documented By: DERICK Non-Admin Reason: Patient Refused Acetaminophen (Ofirmev) 1,000 mg in 100 mls @ 400 mls/hr IV Q6H PRN PRN Reason: Pain, Moderate(Pain Scale 4-6) Last Infusion: 01/29/25 08:26 Dose: Infused Documented By: ISMAEL Sodium Chloride (Ns) 1,000 mls @ 150 mls/hr IVCONT .Q6H40M [facility] Last Infusion: 01/29/25 22:44 Dose: Infused Documented By: JOSE Magnesium Hydroxide (Milk Of Magnesia 30 Ml Oral.Susp) 30 ml PO DAILY PRN PRN Reason: Constipation Melatonin (Melatonin 3 Mg Tablet) 6 mg PO BEDTIME PRN PRN Reason: Insomnia Morphine Sulfate (Morphine Sulfate 4 Mg/Ml Cartridge) 4 mg IVPUSH Q4H PRN; Protocol PRN Reason: Pain, Severe (Pain Scale 7-10) Last Admin: 01/30/25 03:18 Dose: 4 mg Documented By: JOSE Ondansetron HCl (Ondansetron Hcl 4 Mg/2 Ml Vial) 4 mg IVPUSH ONCE PRN PRN Reason: Nausea and Vomiting Pantoprazole Sodium (Pantoprazole Sodium 40 Mg/10 Ml Vial) 40 mg IVPUSH DAILY MRX1 [facility] Last Admin: 01/29/25 10:03 Dose: 40 mg Documented By: COLTEN Ropinirole HCl (Ropinirole Hcl 0.5 Mg Tablet) 0.5 mg PO TID [facility] Last Admin: 01/29/25 20:34 Dose: Not Given Documented By: DERICK Non-Admin Reason: Patient Refused Sodium Chloride (0.9 % Sodium Chloride Flush 3 Ml Syringe) 3 ml IVFLUSH QSHIFT [facility] Last Admin: 01/29/25 22:43 Dose: 3 ml Documented By: JOSE <Alecia Sierra PA-C - Last Filed: 01/30/25 07:58> Labs CBC & Chem 7: 01/28/25 22:57 01/30/25 05:10 <Alecia Sierra PA-C - Last Filed: 01/30/25 07:58> Labs: Laboratory Results - last 24 hr 01/30/25 05:10 Hold Purple Top SEE NOTE Anion Gap 11 L Estim Creat Clear Calc 181.4 Estimated GFR > 60 Fasting Glucose 116 H Calcium 8.5 D <Alecia Sierra PA-C - Last Filed: 01/30/25 07:58> Procedures Date of Service Date of Service: 01/30/25 <Alecia Sierra PA-C - Last Filed: 01/30/25 07:58> 01/30/25 <Olivier Howell MD - Last Filed: 01/30/25 08:23> Progress Note: A&P Assessment and plan (1) Small bowel obstruction: Status: Acute <Alecia Sierra PA-C - Last Filed: 01/30/25 07:58> Assessment and Plan: Feels well Passing flatus NG tube noted to be not in place Was pulled out this morning Clear liquids and advance as tolerated Plan to DC home tomorrow morning Seen and examined independently <Olivier Howell MD - Last Filed: 01/30/25 08:23> Assessment and Plan: PSBO appears resolved with evidence of GI function and resolution of symptoms. NGT only in about 6 inches this morning and was clamped overnight and therefore was removed. Abd very benign, soft nontender. Start on clears and will advance further as tolerated. Encouraged OOB/ambulation. <Alecia Sierra PA-C - Last Filed: 01/30/25 07:58> Time Spent With Patient Time: Total time managing care of this patient today ____ minutes. <Alecia Sierra PA-C - Last Filed: 01/30/25 07:58> Quality Stroke Does the patient have a stroke diagnosis?: No <Alecia Sierra PA-C - Last Filed: 01/30/25 07:58> VTE Prior VTE?: No <Alecia Sierra PA-C - Last Filed: 01/30/25 07:58> VTE Risk Level:: Surgical - low <Alecia Sierra PA-C - Last Filed: 01/30/25 07:58> VTE Device Contraindication: N/A - Device Ordered <MARIANN Humphreys Last Filed: 01/30/25 07:58> VTE Drug Contraindication: Treatment Not Indicated <MARIANN Humphreys Last Filed: 01/30/25 07:58>
[2025-01-30] MEDS: rOPINIRole HCL 0.5 MG TABLET PO ×2 (08:43→14:16)
[2025-01-30] MEDS: 0.9 % Sodium Chloride Flush 3 ML SYRINGE IVFLUSH (08:43)
[2025-01-30] MEDS: Pantoprazole Sodium 40 MG/10 ML VIAL IVPUSH (08:43)
[2025-01-30] MEDS: buPROPion HCl XL 300 MG TAB.ER.24H PO (08:43)
[2025-01-30] MEDS: Acetaminophen 1,000 MG/100 ML PIGGYBACK 400 MG IV (08:43)
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
[2025-01-30 12:00] VITALS: BP 129/67; PULSE 78; RESP 18; TEMP 36.7; O2SAT 96
[2025-01-30 15:30] VITALS: BP 111/67; PULSE 80; RESP 16; TEMP 36.6; O2SAT 93
== END 2025-01-30 17:36 | disposition home or self-care (01) | DRG 247 ==
LOC: HO.ED 01-29 03:17 → HO.EDOVER 01-29 03:20 → HO.S3 01-29 19:23
PROVIDERS: Nurse Practitioner Family; Physician Assistant Surgical; Admitting Provider Surgery; Emergency Provider Emergency Medicine; PCP Internal Medicine; Visit Provider Surgery
DX: K56.600 Partial intestinal obstruction, unspecified as to cause (principal); I27.20 Pulmonary hypertension, unspecified; I50.32 Chronic diastolic (congestive) heart failure; I11.0 Hypertensive heart disease with heart failure; E66.01 Morbid (severe) obesity due to excess calories; G47.33 Obstructive sleep apnea (adult) (pediatric); Z68.42 Body mass index [BMI] 45.0-49.9, adult; Z71.3 Dietary counseling and surveillance; K21.9 Gastro-esophageal reflux disease without esophagitis; Z98.84 Bariatric surgery status; Z79.899 Other long term (current) drug therapy
CPT/HCPCS: 36415; 71045; 74177; 80048; 80053; 82248; 83690; 84484; 85025; 93005; 99285; J0131; J1308; J2270; J2405; J2470; J2765; Q9967

== ENCOUNTER → 2025-01-28 22:58 | Outpatient (BNV) | payer MEDICAID, SELFPAY | PROVIDERS: Admitting Provider Surgery; Emergency Provider Emergency Medicine; PCP Internal Medicine; Visit Provider Internal Medicine Cardiovascular Disease | DX: I45.10 Unspecified right bundle-branch block (principal); J98.4 Other disorders of lung | CPT/HCPCS: 93010 ==

== ENCOUNTER → 2025-01-29 00:19 | Outpatient (BNV) | payer MEDICAID, SELFPAY | PROVIDERS: Emergency Provider Emergency Medicine; PCP Internal Medicine; Visit Provider Radiology Diagnostic Radiology | DX: K91.30 Postprocedural intestinal obstruction, unspecified as to partial versus complete (principal); Z43.1 Encounter for attention to gastrostomy; R94.2 Abnormal results of pulmonary function studies | CPT/HCPCS: 71045; 74177 ==

== ENCOUNTER 2025-01-29 02:56 | Outpatient (BNV) | payer MEDICAID, SELFPAY | END 2025-01-29 07:14 | PROVIDERS: Admitting Provider Surgery; Emergency Provider Emergency Medicine; PCP Internal Medicine; Visit Provider Internal Medicine Cardiovascular Disease | DX: R00.0 Tachycardia, unspecified (principal) | CPT/HCPCS: 93010 ==

== ENCOUNTER → 2025-01-29 02:56 | Outpatient (BNV) | payer MEDICAID, SELFPAY | PROVIDERS: Admitting Provider Surgery; Emergency Provider Emergency Medicine; PCP Internal Medicine; Visit Provider Physician Assistant Surgical | DX: K56.609 Unspecified intestinal obstruction, unspecified as to partial versus complete obstruction (principal) | CPT/HCPCS: 99222; 99232; 99499 ==

== ENCOUNTER → 2025-01-29 02:56 | Outpatient (BNV) | payer MEDICAID, SELFPAY | PROVIDERS: Admitting Provider Surgery; Emergency Provider Emergency Medicine; PCP Internal Medicine; Visit Provider Physician Assistant | DX: K56.609 Unspecified intestinal obstruction, unspecified as to partial versus complete obstruction (principal) | CPT/HCPCS: 99222 ==

== ENCOUNTER 2025-02-06 10:05 | Outpatient (REF) | payer MEDICAID, SELFPAY ==
--- OUTSIDE RECORDS SUMMARY | 2025-02-06 10:27 | XMS_ITS | Encounter Summary ---
Author Organization [employer] Address [address] [place] [address] Care Team Providers Care [employer]rotechn[employer] Press Tender Name Role Phone Ham Burgos MD Primary Care Provider Roberta Jolly RN Unavailable [phone] Taye Garcia Unavailable Encounter Details Date Type Department Care Team ([facility] Contact Info) Description 05/19/2023 Orders Only [facility] [address] [place] [address] Ham Burgos MD [address] [place] [address] Dry skin (Primary Dx) Social History Tobacco [...] Upcoming Encounters Date Type Department Care Team ([facility] Contact Info) Description 02/07/2025 11:30 AM EDT Office Visit [facility] [address] [place] [address] Robb Pickering, DMD [address] [place] [address] 02/19/2025 11:00 AM EDT Office Visit [facility] [address] [place] [address] Robb Pickering, DMD [address] [place], [place] 03/13/2025 9:45 AM EDT Office Visit [facility] [address], [place] [phone] Ham Burgos MD [address] [place], [place] documented as of this encounter Visit Diagnoses Diagnosis Dry skin- Primary Other symptoms involving skin and integumentary tissues documented in this encounter Additional Health Concerns Assessment Noted Time PHQ-9 Depression Total Score: 14 023 11:04 AM EDT documented as of this encounter Care Teams [employer] Tender Relationship Specialty Start Date End Date Ham Burgos MD [address] [place] [address] PCP - General Internal Medicine 05/10/18 Roberta Jolly RN [address] [place] [address] Registered Nurse Family Medicine 01/29/25 Taye Garcia 01/29/25 documented as of this encounter
[2025-02-06 14:26] LABS: Basophils Absolute Auto 0.1 X10*3/uL (0.0-0.2); Basophils Percent Auto 0.7 % (0-2); Eosinophils Absolute Auto 0.7 X10*3/uL (0.0-0.4); Eosinophils Percent Auto 4.7 % (0-4); Hematocrit 43.1 % (42.0-52.0); Hemoglobin 14.5 g/dl (14.0-18.0); Imm Gran Abs Auto 0.06 X10*3/uL (0.00-0.03); Imm Gran Pct Auto 0.4 % (0.0-0.4); Lymphocytes Percent Auto 34.5 % (20-40); MANUAL DIFF FLAG SCAN; Mean Corpuscular HGB Conc 33.6 g/dl (31.0-36.0); Mean Corpuscular Hemoglobin 30.7 pg (27.0-33.0); Mean Corpuscular Volume 91.3 fL (80.0-98.0); Mean Platelet Volume 11.1 fL (9.4-12.4); Monocytes Absolute Auto 1.8 X10*3/uL (0.1-1.2); Monocytes Percent Auto 12.1 % (2-11); Neutrophils Absolute Auto 6.9 x10*3/uL (2.0-8.3); Neutrophils Percent Auto 47.6 % (45-73); Platelet Count 534 X10*3/uL (160-400); Red Blood Count 4.72 X10*6/uL (4.60-5.80); Red Cell Distribution Width 15.6 % (11.0-16.0); SCAN SMEAR FLAG 1; White Blood Count 14.5 X10*3/uL (4.8-10.8)
[2025-02-06 14:36] LABS: Anion Gap 9 (12-20); Blood Urea Nitrogen 18 mg/dL (9-16); Calcium 9.3 mg/dL (8.4-10.2); Carbon Dioxide 26 mmol/L (22-29); Chloride 109 mmol/L (96-108); Estimated Glomerular Filt Rate > 60; Glucose Random 90 mg/dL (60-115); Potassium 3.9 mmol/L (3.3-5.1); Sodium 140 mmol/L (135-145)
[2025-02-06 14:45] LABS: SLIDE REVIEW VERIFIED
== END 2025-02-06 10:06 | disposition home or self-care (01) ==
LOC: HO.CHCLDS 10:05
PROVIDERS: Visit Provider Internal Medicine
DX: K56.609 Unspecified intestinal obstruction, unspecified as to partial versus complete obstruction (principal)
CPT/HCPCS: 36415; 80048; 85025

== ENCOUNTER 2025-02-17 08:50 | Outpatient (REF) | payer MEDICAID, SELFPAY ==
--- NOTE | ~2025-02-17 | US_ITS ---
CLINICAL HISTORY: Transaminitis US abdomen complete Comparison: CT/SR - CT ABDOMEN PELVIS W IV CON - 01/29/25 00:45 EDT Findings: Pancreas not well visualized secondary to overlying bowel gas. Limited visualization of the IVC and aorta secondary to bowel gas. The liver is echogenic. Limited evaluation of liver parenchyma secondary to poor penetration by the ultrasound beam. Liver length estimated at 16.9 cm. There is no intrahepatic bile duct dilatation. The common duct is 4 mm in diameter. There are multiple gallstones. Gallbladder wall thickness 2.1 mm. Positive sonographic tang's sign. The main portal vein is antegrade. The right kidney is 14.6 cm in length. The left kidney is 15.1 cm in length. There are multiple kidney cysts. Prior splenectomy. A 2.5 x 2.3 x 2.4 cm splenule is present. No ascites. IMPRESSION: 1. Cholelithiasis with a positive sonographic Tang's sign raising the possibility of acute cholecystitis. 2. Fatty infiltration of the liver. This document has been electronically signed by: Ary Weaver MD on 02/17/2025 14:21:54
--- OUTSIDE RECORDS SUMMARY | 2025-02-17 09:01 | XMS_ITS | Encounter Summary ---
Author Organization [employer] Address [address] [facility] [address] [place] [address] Care Team Providers Care Arts Administrator Or Manager Name Role Phone Ham Burgos MD Primary Care Provider Roberta Jolly RN Unavailable [phone] Taye Garcia Unavailable Encounter Details Date Type Department Care Team ([facility] Contact Info) Description 05/19/[address] [facility] MED & PEDS [address] [place] [address] Ham Burgos MD [address] [place] [address] Dry skin (Primary Dx) Social History Tobacco [...] Department Care Team (Late Contact Info) Description 02/19/2025 11:00 AM EDT Office Visit [facility] ADULT DENTAL [address] [place] [address] Robb Pickering DMD [address] [place] [address] 03/13/2025 9:45 AM EDT Office Visit [facility] MED [facility] PEDS [address] [place] [address] Ham Burgos MD [address] [place] [address] documented as of this encounter Visit Diagnoses Diagnosis Dry skin- Primary Other symptoms involving skin and integumentary tissues documented in this encounter Additional Health Concerns Assessment Noted Time PHQ-9 Depression Total Score: 14 023 11:04 AM EDT documented as of this encounter Care Teams Arts Administrator Or Manager Relationship Specialty Start Date End Date Ham Burgos MD [address] [place] [address] PCP - General Internal Medicine 05/10/18 Roberta Jolly, CHELA [address] [place] [id number] Registered Nurse Family Medicine 01/29/25 Taye Garcia 01/29/25 documented as of this encounter
== END 2025-02-17 08:51 | disposition home or self-care (01) ==
LOC: HO.HMGCX 08:50
PROVIDERS: PCP Internal Medicine; Visit Provider Internal Medicine
DX: R74.01 Elevation of levels of liver transaminase levels (principal)
CPT/HCPCS: 76700

== ENCOUNTER → 2025-02-17 09:01 | Outpatient (BNV) | payer MEDICAID, SELFPAY | PROVIDERS: PCP Internal Medicine; Visit Provider Radiology Diagnostic Radiology | DX: K80.00 Calculus of gallbladder with acute cholecystitis without obstruction (principal) | CPT/HCPCS: 76700 ==

== ENCOUNTER 2025-03-13 10:35 | Outpatient (REF) | payer MEDICAID, SELFPAY ==
--- OUTSIDE RECORDS SUMMARY | 2025-03-13 11:21 | XMS_ITS | Encounter Summary ---
Author Organization [facility] Address [address] [place] [address] [address] [place] [address] Care Team Providers Care Front Maker Name Role Phone Ham Burgos MD Primary Care Provider [phone] Roberta Jolly RN Unavailable [phone] Taye Garcia Unavailable Encounter Details Date Type Department Care Team ([facility] Contact Info) Description 05/19/2023 Orders Only [facility] MED & PEDS [address] [place] [address] Ham Burgos MD [address] [place] [address] Dry skin (Primary Dx) Social History Tobacco [...] Department Care Team (Late Contact Info) Description 03/17/2025 3:30 PM EDT Office Visit [facility] ADULT DENTAL [address] [place] [address] Robb Pickering, DMD [address] [place] [address] documented as of this encounter Visit Diagnoses Diagnosis Dry skin- Primary Other symptoms involving skin and integumentary tissues documented in this encounter Additional Health Concerns Assessment Noted Time PHQ-9 Depression Total Score: 14 023 11:04 AM EDT documented as of this encounter Care Teams Front Maker Relationship Specialty Start Date End Date Ham Burgos MD [address] [place] [address] PCP - General Internal Medicine 05/10/18 Roberta Jolly RN [address] [place] [address] Registered Nurse Family Medicine 01/29/25 Taye Garcia 01/29/25 documented as of this encounter
[2025-03-13 15:09] LABS: Hematocrit 44.0 % (42.0-52.0); Hemoglobin 14.9 g/dl (14.0-18.0); Imm Gran Abs Auto 0.03 X10*3/uL (0.00-0.03); Imm Gran Pct Auto 0.3 % (0.0-0.4); Lymphocytes Absolute Auto 4.1 X10*3/uL (1.2-4.9); MANUAL DIFF FLAG SCAN; Mean Corpuscular HGB Conc 33.9 g/dl (31.0-36.0); Mean Corpuscular Hemoglobin 30.7 pg (27.0-33.0); Mean Corpuscular Volume 90.7 fL (80.0-98.0); NRBC Abs Auto 0.000 X10*3/uL (0.0-0.012); NRBC Pct Auto 0.0 /100WBC (0.0-0.2); Platelet Count 519 X10*3/uL (160-400); Red Blood Count 4.85 X10*6/uL (4.60-5.80); SCAN SMEAR FLAG 1; White Blood Count 11.3 X10*3/uL (4.8-10.8)
[2025-03-13 15:37] LABS: Anion Gap 10 (12-20); Blood Urea Nitrogen 20 mg/dL (9-16); Calcium 8.9 mg/dL (8.4-10.2); Carbon Dioxide 25 mmol/L (22-29); Chloride 109 mmol/L (96-108); Estimated Glomerular Filt Rate > 60; Potassium 4.1 mmol/L (3.3-5.1); Sodium 140 mmol/L (135-145)
== END 2025-03-13 10:36 | disposition home or self-care (01) ==
LOC: HO.CHCLDS 10:35
PROVIDERS: Visit Provider Internal Medicine
DX: K56.609 Unspecified intestinal obstruction, unspecified as to partial versus complete obstruction (principal); Z90.81 Acquired absence of spleen
CPT/HCPCS: 36415; 80048; 85025

== ENCOUNTER 2025-03-27 10:33 | Outpatient (AMB) | payer MEDICAID, SELFPAY ==
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
[2025-03-27 10:52] VITALS: BP 186/93; PULSE 71; BMI 45.9
--- OUTSIDE RECORDS SUMMARY | 2025-03-27 11:05 | XMS_ITS | Encounter Summary ---
Author Organization [employer] Address [address] [facility] [address] [place] [address] Care Team Providers Care Cotton Dispatcher Name Role Phone Ham Burgos MD Primary Care Provider Roberta Jolly RN Unavailable [phone] Taye Garcia Unavailable Encounter Details Date Type Department Care Team ([facility] st Contact Info) Description 05/19/2023 Orders Only [facility] MED & PEDS [address] [place], [place] [id number] Ham Burgos MD [address] [place] [address] Dry skin (Primary Dx) Social History Tobacco [...] as of this encounter Plan of Treatment Not on file documented as of this encounter Visit Diagnoses Diagnosis Dry skin- Primary Other symptoms involving skin and integumentary tissues documented in this encounter Additional Health Concerns Assessment Noted Time PHQ-9 Depression Total Score: 14 023 11:04 AM EDT documented as of this encounter Care Teams Cotton Dispatcher Relationship Specialty Start Date End Date Ham Burgos MD [address] [place] [address] PCP - General Internal Medicine 05/10/18 Roberta Jolly RN [address] [place] [address] Registered Nurse Family Medicine 01/29/25 Taye Garcia 01/29/25 documented as of this encounter
== END 2025-03-27 11:21 | disposition home or self-care (01) ==
LOC: HO.HGS 10:33
PROVIDERS: PCP Internal Medicine; Visit Provider Surgery
DX: K80.20 Calculus of gallbladder without cholecystitis without obstruction (principal)
CPT/HCPCS: 99214

== ENCOUNTER → 2025-03-27 10:33 | Outpatient (BNVA) | payer MEDICAID, SELFPAY | PROVIDERS: PCP Internal Medicine; Visit Provider Surgery | DX: K80.20 Calculus of gallbladder without cholecystitis without obstruction (principal) | CPT/HCPCS: 99212 ==

== ENCOUNTER 2025-04-01 01:32 | Inpatient (IN) | payer MEDICAID, SELFPAY ==
[2025-04-01] VITALS (7 sets, daily range): BP systolic 118–152; BP diastolic 57–89; PULSE 67–96; RESP 18–20; TEMP 36.6–36.9; O2SAT 91–98; BMI 46.3; BMI 45.9
--- NOTE | ~2025-04-01 | CT_ITS ---
CLINICAL HISTORY: abd pain, hx SBOs CT abdomen and pelvis with contrast Comparison: 01/29/2025 Findings: The lung bases are clear. Gallbladder is unremarkable. No focal hepatic lesion identified. The pancreas is within normal limits. Small splenules in the left upper quadrant. Adrenal glands are unremarkable. Kidneys enhance symmetrically and are non hydronephrotic. Bilateral probable renal cysts are present. Dilated fluid-filled loops of small bowel measure up to 3.9 cm diameter with scattered air-fluid levels. Transition point is in the left upper quadrant. Postsurgical changes are noted along the greater curvature of the stomach, likely prior sleeve gastrectomy. Fat containing inguinal hernias are present bilaterally. Visualized pelvic structures are within normal limits The bones are intact. IMPRESSION: Small-bowel obstruction with transition point in the left upper quadrant. This document has been electronically signed by: Sam Dumont MD, PHD on 04/01/2025 04:18:40
--- NOTE | ~2025-04-01 | XR_ITS ---
EXAMINATION: XR CHEST CLINICAL INFORMATION: NG tube placement confirmation COMPARISON: January 29, 2025. TECHNIQUE: Frontal view of the chest was obtained. FINDINGS: The NG tube dated and stenosis just below the left hemidiaphragm. Poor inspiration. Linear opacities both lung bases. No prominence of the interstitial markings. No gross pneumothorax. Cardiomediastinal silhouette size is normal. Multilevel spondylosis. Radiopaque anchors in the left humeral head. XR/XR chest 1V IMPRESSION: NG tube probably at the gastroesophageal junction. Mild interstitial lung edema. Electronically signed by: Don Mallory MD 04/01/2025 07:55 AM EDT
[2025-04-01 02:01] LABS: Hematocrit 45.6 % (42.0-52.0); Hemoglobin 16.1 g/dl (14.0-18.0); Imm Gran Abs Auto 0.05 X10*3/uL (0.00-0.03); Imm Gran Pct Auto 0.3 % (0.0-0.4); Lymphocytes Absolute Auto 4.4 X10*3/uL (1.2-4.9); Mean Corpuscular HGB Conc 35.3 g/dl (31.0-36.0); Mean Corpuscular Hemoglobin 31.5 pg (27.0-33.0); Mean Corpuscular Volume 89.2 fL (80.0-98.0); NRBC Abs Auto 0.000 X10*3/uL (0.0-0.012); NRBC Pct Auto 0.0 /100WBC (0.0-0.2); Platelet Count 500 X10*3/uL (160-400); Red Blood Count 5.11 X10*6/uL (4.60-5.80); SCAN SMEAR FLAG 1; White Blood Count 17.0 X10*3/uL (4.8-10.8)
[2025-04-01 02:03] LABS: Appearance Urine Clear; Glucose Urine UA Negative (Negative); PH 6.5 (5.0-9.0); Specific Gravity - Urine <= 1.005 (1.005-1.025)
--- NOTE | 2025-04-01 02:13 | PC.NURSE ---
Pt resting on stretcher with at bedside. Pt had an episode of nausea and vomting. Pt medicated per MAR. Call joseph in reach and pt understands use.
[2025-04-01 02:22] LABS: Alanine Aminotransferase 41 U/L (0-40); Albumin Level 4.2 g/dL (3.5-5.0); Alkaline Phosphatase 125 U/L (39-117); Anion Gap 14 (12-20); Aspartate Amino Transferase 31 U/L (5-37); Blood Urea Nitrogen 14 mg/dL (9-16); Calcium 9.3 mg/dL (8.4-10.2); Carbon Dioxide 24 mmol/L (22-29); Chloride 109 mmol/L (96-108); Creatinine Clr Calc Pharmacy 172.5; Estimated Glomerular Filt Rate > 60; Potassium 4.4 mmol/L (3.3-5.1); Sodium 143 mmol/L (135-145); Total Protein 7.1 g/dL (6.5-8.0)
[2025-04-01 02:32] LABS: MANUAL DIFF FLAG SCAN
[2025-04-01 03:11] LABS: Lipase 14 U/L (8-78)
--- NOTE | 2025-04-01 03:12 | ED.ABDPAIN ---
HPI - Abdominal Pain General Chief Complaint: Abdominal Pain Stated Complaint: AB Pain. HX Stomach Blockage & Twisted Intestines Time Seen by Provider: 04/01/25 02:57 Source: patient Mode of arrival: ambulatory Limitations: no limitations History of Present Illness ED Provider: Dr. Amelia Medina HPI narrative: Patient comes to the emergency room complaining of 6 hours of diffuse abdominal pain. Patient states that he has had history of small-bowel obstructions. However, patient states that last week he was seen at the general surgery office for ?gallbladder inflammation?. According to the patient, he was told that he may have cholelithiasis and may need surgery. However, given patient's body habitus and past medical history, it was considered that this was a high risk surgery. According to the patient's , patient has been managing his symptoms with diet. Today, patient complaining of 7/10 diffuse abdominal pain. Denies blood in the stool. Denies diarrhea. Related Data Home Medications ?Medication ?Instructions ?Recorded ?Confirmed ibuprofen 800 mg tablet 800 mg PO Q8H PRN Pain 02/23/21 01/29/25 ketoconazole 2 % shampoo 1 appl topical 2XW 01/17/22 01/29/25 bupropion HCl 300 mg 24 hr tablet, 1 tab PO QAM 11/23/22 01/29/25 extended release sildenafil 25 mg tablet (Viagra) 1 tab PO DAILY PRN Sexual Activity 11/23/22 01/29/25 CPAP (CPAP Machine/Device) 12/22/22 11/22/23 fluticasone propionate 50 1 spray intranasal BID PRN 07/06/23 01/29/25 mcg/actuation nasal congestion spray,suspension gabapentin 300 mg capsule 900 mg PO BEDTIME 07/06/23 01/29/25 Oxygen Home Use 04/12/24 acetaminophen 500 mg tablet 500 mg PO Q6H PRN mild pain 01/29/25 01/29/25 ammonium lactate 12 % lotion 1 appl topical Q12H 01/29/25 01/29/25 atorvastatin 40 mg tablet 40 mg PO DAILY 01/29/25 01/29/25 budesonide-formoterol HFA 160 2 puff inhalation BID PRN 01/29/25 01/29/25 mcg-4.5 mcg/actuation aerosol Shortness Of Breath Or Wheezing inhaler (Symbicort) chlorhexidine gluconate 0.12 % 15 ml PO BID 01/29/25 01/29/25 mouthwash cholecalciferol (vitamin D3) 25 25 mcg PO DAILY 01/29/25 01/29/25 mcg (1,000 unit) capsule cyanocobalamin (vitamin B-12) 500 500 mcg PO DAILY 01/29/25 01/29/25 mcg tablet econazole nitrate 1 % topical cream 1 appl topical DAILY PRN Rash 01/29/25 01/29/25 lidocaine 5 % topical patch 1 patch topical DAILY PRN Pain 01/29/25 01/29/25 ropinirole 0.5 mg tablet 0.5 mg PO TID 01/29/25 01/29/25 zinc 50 mg tablet 50 mg PO DAILY 01/29/25 01/29/25 Previous Rx's ?Medication ?Instructions ?Recorded compress.stocking,knee,reg,med #2 ea 01/29/24 pantoprazole 20 mg tablet,delayed 20 mg PO QAM #30 tabs 07/09/24 release furosemide 20 mg tablet 20 mg PO DAILY #30 tabs 02/17/25 Allergies Allergy/AdvReac Type Severity Reaction Status Date / Time No Known Allergies (No Known Allergy Verified 04/01/25 01:40 Allergies*) Review of Systems Review of Systems Constitutional : No Weight loss, No Fever, No Chills, No Night Sweats, No Fatigue, No Malaise ENT/Mouth : No Hearing loss, No Ear Pain, No Nasal Congestion, No Sinus Pain, No Hoarseness, No sore throat, No Rhinorrhea, No Swallowing Difficulty Eyes: No Eye Pain, No Swelling, No Redness, No Foreign Body, No Discharge, No Vision Changes Cardiovascular : No Chest Pain, No SOB, No Dyspnea on Exertion, No Orthopnea, No Edema, No Palpitations Respiratory : No Cough, No Sputum, No Wheezing, No Smoke Exposure, No Dyspnea Gastrointestinal : Complaining of nausea and vomiting, No Diarrhea, No Constipation, complaining of diffuse abdominal pain Genitourinary : no irregular bleeding, No Dysuria, No Urinary Frequency, No Hematuria, No Urinary Incontinence, No Urgency, No Flank Pain, No Urinary Flow Changes, No Hesitancy Musculoskeletal : No joint pain, No Myalgias, No Joint Swelling Skin : No Skin Lesions, No rash Neuro : No Weakness, No Numbness, No Paresthesias, No Loss of Consciousness, No Dizziness, No Headache Psych : No Anxiety/Panic, No Depression, No SI/HI/AH/VH, No Social Issues, Heme/Lymph: No Bruising, No Bleeding,No Lymphadenopathy Endocrine : No Polyuria, No Polydipsia, No Temperature Intolerance [facility] Past Medical History Medical History Gallstones Chronic respiratory failure [id number] syndrome Pulmonary hypertension Lower extremity edema CHF (congestive heart failure) Insomnia ELO on CPAP Atelectasis Pulmonary nodules Dyspnea Rupture, spleen HTN (hypertension) ELO (obstructive sleep apnea) Varicose veins of both lower extremities with inflammation Surgical History History of esophagogastroduodenoscopy (EGD) Hx of splenectomy Hx of colonoscopy S/P gastric surgery History of vasectomy H/O hernia repair Social History Social History Household Members: Spouse and Children Housing: Apartment Do you presently have visiting nurse or other home services: Yes (MANAGEMENT AIDE 20hrs per week) Patient Tobacco Use Status: Never used Tobacco Smoked in Last 30 Days: No Use of substances other than those prescribed or required for medical reasons: No Advance Directives: No Advance Directives Information Provided: Yes service: No Current occupational status: unemployed and disabled 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 Oriented X3. Patient looks uncomfortable Eyes: Pupils equal, round and reactive to light. ENT: Pharynx normal. Neck: Normal inspection. Neck supple. No lymph nodes noted. No crepitus CVS: Normal heart rate and rhythm. Pulses normal. Normal S1 and S2 Respiratory: No respiratory distress. Breath sounds normal. No Wheezing. No rales Abdomen: Soft , nondistended, tender tenderness to palpation in the epigastric area, no rebound or guarding Skin: Skin warm and dry. Normal skin color. Normal skin turgor. Extremities: No lower extremity edema. No Lacerations. No Rash Neuro: Oriented X 3. No motor deficit. No sensory deficit. Moving all extremities. No slurred speech. CN 2 through 12 grossly intact Psych: calm, cooperative, normal affect Medical Decision Making Medical Decision Making [facility] Narrative: Patient has history of both gallbladder inflammation and small bowel obstructions. Patient receiving IV fluids, Zofran. Left-sided, patient continued having nausea and vomiting, given an additional dose of Compazine. CT scan of the abdomen pending. Of note, we attempted giving p.o. contrast to the patient. However, patient is still actively vomiting. CT scan of the abdomen shows a small bowel obstruction with transition point in the left upper quadrant. NG tube has been inserted Discussed the above-mentioned with Dr. Howell from general surgery, patient will be admitted this morning Patient agrees with plan Differential Diagnosis Differential Diagnoses: The differential diagnosis associated with the presentation includes (Small bowel obstruction, acute cholecystitis, pancreatitis) Admission/Observation Consideration of admission/observation: Escalation of care including admission/observation considered Consult Healthcare Provider Management of the patient was discussed with: Childcare Director Lab Data [facility] Lab Attestation statement: I reviewed the patient's lab results. 04/01/25 01:55 04/01/25 01:55 Labs: Lab Results 04/01/25 Range/Units 01:55 WBC 17.0 H (4.8-10.8) X10*3/uL RBC 5.11 (4.60-5.80) X10*6/uL Hgb 16.1 (14.0-18.0) g/dl Hct 45.6 (42.0-52.0) % MCV 89.2 (80.0-98.0) fL MCH 31.5 (27.0-33.0) pg MCHC 35.3 (31.0-36.0) g/dl RDW 15.1 (11.0-16.0) % Plt Count 500 H (160-400) X10*3/uL MPV 9.8 (9.4-12.4) fL Immature Gran % (Auto) 0.3 (0.0-0.4) % Neut % (Auto) 58.5 (45-73) % Lymph % (Auto) 25.9 (20-40) % [place] % (Auto) 11.3 H (2-11) % Eos % (Auto) 3.5 (0-4) % Baso % (Auto) 0.5 (0-2) % Lymph # (Auto) 4.4 (1.2-4.9) X10*3/uL [place] # (Auto) 1.9 H (0.1-1.2) X10*3/uL Eos # (Auto) 0.6 H (0.0-0.4) X10*3/uL Baso # (Auto) 0.1 (0.0-0.2) X10*3/uL Abs Immat Gran (auto) 0.05 H (0.00-0.03) X10*3/uL Absolute Neuts (auto) 9.9 H (2.0-8.3) x10*3/uL Absolute Nucleated RBC 0.000 (0.0-0.012) X10*3/uL Nucleated RBC % (auto) 0.0 (0.0-0.2) /100WBC Smear Tech's Comments VERIFIED Sodium 143 (135-145) mmol/L Potassium 4.4 (3.3-5.1) mmol/L Chloride 109 H (96-108) mmol/L Carbon Dioxide 24 (22-29) mmol/L Anion Gap 14 (12-20) BUN 14 (9-16) mg/dL Creatinine 0.71 (0.5-1.4) mg/dL Estim Creat Clear Calc 172.5 Estimated GFR > 60 Random Glucose 109 (60-115) mg/dL Calcium 9.3 (8.4-10.2) mg/dL Total Bilirubin 0.4 (0.0-1.0) mg/dL AST 31 (5-37) U/L ALT 41 H (0-40) U/L Alkaline Phosphatase 125 H (39-117) U/L Total Protein 7.1 (6.5-8.0) g/dL Albumin 4.2 (3.5-5.0) g/dL Lipase 14 (8-78) U/L Urine Color Yellow Urine Appearance Clear Urine pH 6.5 (5.0-9.0) Ur Specific [place] <= 1.005 (1.005-1.025) Urine Protein Negative (Neg-Trace) mg/dL Urine Glucose (UA) Negative (Negative) mg/dL Urine Ketones Negative (Negative) mg/dL Urine Blood Negative (Negative) Urine Nitrite Negative (Negative) Ur Leukocyte Esterase Negative (Negative) Independent Interpretation I performed an independent interpretation of an: CT Scan Radiology Impression Discussion of test interpretation with radiology: I have reviewed the radiologist's reading. Radiologist Impression: Gallbladder is unremarkable. No focal hepatic lesion identified. The pancreas is within normal limits. Small splenules in the left upper quadrant. Adrenal glands are unremarkable. Kidneys enhance symmetrically and are non hydronephrotic. Bilateral probable renal cysts are present. Dilated fluid-filled loops of small bowel measure up to 3.9 cm diameter with scattered air-fluid levels. Transition point is in the left upper quadrant. Postsurgical changes are noted along the greater curvature of the stomach, likely prior sleeve gastrectomy. Fat containing inguinal hernias are present bilaterally. Visualized pelvic structures are within normal limits The bones are intact. IMPRESSION: Small-bowel obstruction with transition point in the left upper quadrant. Medications Administered Discontinued Medications Generic Name Dose Route Start Last Admin Trade Name Freq PRN Reason Stop Dose Admin Sodium Chloride 1,000 mls @ 999 mls/hr 04/01/25 03:10 04/01/25 03:27 Ns IVCONT 04/01/25 04:10 999 mls/hr .Q1H1M ONE Administration Iohexol 100 ml 04/01/25 03:16 04/01/25 03:19 Iohexol 350 Mg/Ml 100 Ml Infus..Btl IV 04/01/25 03:17 100 ml ONCE ONE Administration Morphine Sulfate 4 mg 04/01/25 03:10 04/01/25 03:27 Morphine Sulfate 4 Mg/Ml Cartridge IVPUSH 04/01/25 03:11 4 mg ONCE ONE Administration Protocol Ondansetron HCl 4 mg 04/01/25 02:02 04/01/25 02:07 Ondansetron Hcl 4 Mg/2 Ml Vial IVPUSH 04/01/25 02:03 4 mg ONCE ONE Administration Prochlorperazine Edisylate 10 mg 04/01/25 03:10 04/01/25 03:27 Prochlorperazine Edisylate 10 Mg/2 Ml Vial IVPUSH 04/01/25 03:11 10 mg ONCE ONE Administration Critical Care Time Critical Care Time Critical Care Time: Yes Total Critical Care Time: 60 Attestation: I have personally provided critical care time. Time includes review of lab data, radiology results, discussion with consultants, and monitoring for potential decompensation. Intervention performed as documented. Discharge Plan Discharge Clinical Impression: Small bowel obstruction, Nausea & vomiting Additional Instructions: Please follow-up with your primary care physician tomorrow. If you have any worsening or new symptoms, please return to the emergency room or call 911 Prescriptions: No Action pantoprazole 20 mg tablet,delayed release (DR/EC) 20 mg PO QAM Qty: 30 6RF furosemide 20 mg tablet 20 mg PO DAILY Qty: 30 3RF sildenafil [Viagra] 25 mg tablet 1 tab PO DAILY PRN (Reason: Sexual Activity) bupropion HCl 300 mg tablet extended release 24 hr 1 tab PO QAM atorvastatin 40 mg tablet 40 mg PO DAILY ammonium lactate 12 % lotion 1 appl topical Q12H acetaminophen 500 mg tablet 500 mg PO Q6H PRN (Reason: mild pain) cyanocobalamin (vitamin B-12) 500 mcg Tablet 500 mcg PO DAILY econazole nitrate 1 % cream 1 appl topical DAILY PRN (Reason: Rash) ropinirole 0.5 mg tablet 0.5 mg PO TID lidocaine 5 % adhesive patch,medicated 1 patch topical DAILY PRN (Reason: Pain) zinc 50 mg Tablet 50 mg PO DAILY cholecalciferol (vitamin D3) 25 mcg (1,000 unit) Capsule 25 mcg PO DAILY chlorhexidine gluconate 0.12 % mouthwash 15 ml PO BID Rx Instructions: swish for 1 minute and spit. Do no eat or drink for 30 minutes after budesonide-formoterol [Symbicort] 160-4.5 mcg/actuation HFA aerosol inhaler 2 puff inhalation BID PRN (Reason: Shortness Of Breath Or Wheezing) ibuprofen 800 mg tablet 800 mg PO Q8H PRN (Reason: Pain) ketoconazole 2 % shampoo 1 appl topical 2XW Rx Instructions: with 3 days in between uses (DME) compress.stocking,knee,reg,med Misc See Rx Instructions .Route Qty: 2 0RF Rx Instructions: 15-20 cm (DME) Oxygen Home Use Kit See Rx Instructions .ROUTE Rx Instructions: As directed (DME) CPAP Machine/Device Device See Rx Instructions .Route Rx Instructions: As directed gabapentin 300 mg capsule 900 mg PO BEDTIME fluticasone propionate 50 mcg/actuation spray,suspension 1 spray intranasal BID PRN (Reason: congestion) Print Language: Thai
[2025-04-01] MEDS: iohexoL 350 MG/ML 100 ML INFUS..BTL IV (03:19)
--- NOTE | 2025-04-01 06:45 | PC.NURSE ---
NG tube placed by Lurdes RN. Pt tolerated well. NGtube hooked to LIWS and 1000ml out and canister changed. Call joseph in reach and pt understands use.
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
[2025-04-01] MEDS: Lactated Ringers 1,000 ML 80 ML IVCONT ×2 (07:49→19:22)
--- NOTE | 2025-04-01 07:54 | PC.NURSE ---
assumed care at 0700, patient is awake, alert and oriented x3. patient has NG tube to R Nare, output as of 0755 300cc, marked on canister. patient has 80ml/hr LR running. patient NG tube site shows no skin breakdown. otherwise patient skin is dry and intact. VSS at this time, patient is currently on 2l NC
--- NOTE | 2025-04-01 09:13 | PHA.MEDREC ---
Pharmacy Consult ? Medication Reconciliation Pharmacy has completed the medication reconciliation. Spoke with patient to confirm medications. Patient pulled up med list from his patient's portal. Many medications on the portal were not in pharmacy claims. Pt confirmed he was on these medications, and fills his RX's at [facility].
--- NOTE | 2025-04-01 09:44 | PC.NURSE ---
patient assisted to sitting position on the edge of the bed. patient NG tube in place, on intermittent suction. patient assisted with removing personal tshirt and into gown. patient phone and belongings within reach.
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
[2025-04-01] MEDS: Throat Lozenge, Medicated LOZENGE 1 LOZENGE MUCOUS MEM (11:34)
--- NOTE | 2025-04-01 11:35 | PC.NURSE ---
patient endorsed throat pain/discomfort due to NG, inpatient attending made aware, PRN medication utilized, inpatient provider requested NGT to be advanced by 2in, 2inch advancement done by this R, patient tolerated well.
--- NOTE | 2025-04-01 14:05 | MHC.CM.PN ---
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
[2025-04-01 14:44] LABS: B Type Natriuretic Peptide 16 pg/mL (<100)
--- NOTE | 2025-04-01 14:47 | PM.EVENT ---
Event Note Date of Service: 04/02/25 Event Note: Seen on afternoon rounds Says he feels comfortable Denies any abdominal pain He says he has been passing flatus No nausea or vomiting Stable vital signs Abdomen is soft, nontender, no guarding, no rebound NG tube output not much compared to this morning NG tube advanced I about 2 in in view of chest x-ray findings showing that tip is near the EG junction Possibly DC NG tube tomorrow Appreciate hospitalist input Doing well overall at bedside Time Spent With Patient Time: Total time managing care of this patient today ____ minutes.
--- NOTE | 2025-04-01 15:06 | PC.NURSE ---
patient sitting on edge of bed, at bedside, NGT still draining on low intermittent suction- yellow drainage, see in/out for amounts. patient is alert and oriented x3, LR 80ml/hr
[2025-04-02 03:28] VITALS: BP 144/67; PULSE 68; RESP 18; TEMP 36.6; O2SAT 96
[2025-04-02 06:25] LABS: Hematocrit 42.9 % (42.0-52.0); Hemoglobin 14.7 g/dl (14.0-18.0); Imm Gran Abs Auto 0.02 X10*3/uL (0.00-0.03); Imm Gran Pct Auto 0.1 % (0.0-0.4); Lymphocytes Absolute Auto 5.3 X10*3/uL (1.2-4.9); MANUAL DIFF FLAG SCAN; Mean Corpuscular HGB Conc 34.3 g/dl (31.0-36.0); Mean Corpuscular Hemoglobin 30.9 pg (27.0-33.0); Mean Corpuscular Volume 90.1 fL (80.0-98.0); NRBC Abs Auto 0.000 X10*3/uL (0.0-0.012); NRBC Pct Auto 0.0 /100WBC (0.0-0.2); Platelet Count 462 X10*3/uL (160-400); Red Blood Count 4.76 X10*6/uL (4.60-5.80); SCAN SMEAR FLAG 1; White Blood Count 15.4 X10*3/uL (4.8-10.8)
[2025-04-02] MEDS: Lactated Ringers 1,000 ML 80 ML IVCONT ×2 (06:34→17:56)
[2025-04-02 06:44] LABS: Anion Gap 12 (12-20); Blood Urea Nitrogen 13 mg/dL (9-16); Calcium 8.9 mg/dL (8.4-10.2); Carbon Dioxide 27 mmol/L (22-29); Chloride 106 mmol/L (96-108); Creatinine Clr Calc Pharmacy 184.6; Estimated Glomerular Filt Rate > 60; Potassium 3.8 mmol/L (3.3-5.1); Sodium 141 mmol/L (135-145)
--- NOTE | 2025-04-02 06:45 | P.PNGS_ITS ---
Subjective Subjective Date of Service: 04/02/25 <Sada Crawford - Last Filed: 04/02/25 07:32> 04/02/25 <Alecia Sierra PA-C - Last Filed: 04/02/25 08:06> 04/02/25 <Olivier Howell MD - Last Filed: 04/02/25 08:53> Interval history: Pt denies any abdominal or flank pain, nausea, vomiting. He has passed flatus but has not had a BM since Monday at 10pm. He states he needs to have a BM but was waiting for his to come so she can help him shower. On admission, pt had leukocytosis. Labs are pending <Sada Garrido Last Filed: 04/02/25 07:32> Pt denies any abdominal or flank pain, nausea, vomiting. He has passed flatus but has not had a BM since Monday at 10pm. He states he needs to have a BM but was waiting for his to come so she can help him shower. On admission, pt had leukocytosis. Labs are pending <Alecia Sierra PA-C - Last Filed: 04/02/25 08:06> Physical Exam 2 Vital Signs: Vital Signs: Last Vital Signs Temp 97.9 F 04/02/25 03:28 Pulse 68 04/02/25 03:28 Resp 18 04/02/25 03:28 BP 144/67 H 04/02/25 03:28 Pulse Ox 96 04/02/25 03:28 O2 Del Method Room Air 04/02/25 03:28 O2 Flow Rate 2 04/01/25 18:48 Oxygen Flow Rate 3 04/01/25 01:34 BMI result Body Mass Index 45.9 <Sada Crawford - Last Filed: 04/02/25 07:32> Const: General: cooperative, comfortable, no acute distress and awake < Sada Crawford - Last Filed: 04/02/25 07:32> Orientation/consciousness: patient oriented x3 <MARIANN Humphreys Last Filed: 04/02/25 08:06> Resp: Effort & Inspection: normal respiratory effort <Sada Crawford - Last Filed: 04/02/25 07:32> Auscultation: clear to auscultation bilaterally <Sada Sarahisauro - Last Filed: 04/02/25 07:32> Cardio: Heart sounds: S1 normal heart sound present and S2 normal heart sound present <Sada Sarahisauro - Last Filed: 04/02/25 07:32> GI: Inspection: Yes normal to inspection, Yes obesity and Yes scar (from splenectomy) <Sada Crawford - Last Filed: 04/02/25 07:32> Palpation (GI): Soft to palpation <Sada Crawford - Last Filed: 04/02/25 07:32> Palpation (GI): nontender <MARIANN Humphreys Last Filed: 04/02/25 08:06> Percussion: Yes normal to percussion <Sada Crawford - Last Filed: 04/02/25 07:32> Auscultation: normal bowel sounds (in all quadrants) <Sada Crawford - Last Filed: 04/02/25 07:32> Skin: General skin exam: no rashes or lesions noted <MARIANN Humphreys Last Filed: 04/02/25 08:06> Neuro: General: patient oriented x3 <MARIANN Humphreys Last Filed: 04/02/25 08:06> Extrem: Right lower extremity: edema <Sada Crawford - Last Filed: 04/02/25 07:32> Left lower extremity: edema <Sada Crawford Last Filed: 04/02/25 07:32> Objective Data Active Medications Acetaminophen (Acetaminophen 325 Mg Tablet) 650 mg PO Q6H PRN PRN Reason: Pain, Mild 1-3,fever,headache Benzocaine (Throat Lozenge, Medicated Lozenge) 1 lozenge MUCOUS MEM Q2H PRN PRN Reason: Sore Throat Last Admin: 04/01/25 11:34 Dose: 1 lozenge Documented By: KATLYN Furosemide (Furosemide 20 Mg Tablet) 20 mg PO DAILY [facility]IN; Protocol Heparin Sodium (Porcine) (Heparin Sodium,Porcine 5,000 Unit/Ml Vial) 5,000 unit SUBCUT Q8H [facility] Lactated Ringer's (Lr) 1,000 mls @ 80 mls/hr IVCONT .[id number] [facility] Last Admin: 04/02/25 06:34 Dose: 80 mls/hr Documented By: ALONZO Melatonin (Melatonin 3 Mg Tablet) 6 mg PO BEDTIME PRN PRN Reason: Insomnia Morphine Sulfate (Morphine Sulfate 4 Mg/Ml Cartridge) 3 mg IVPUSH Q4H PRN; Protocol PRN Reason: Pain, Severe (Pain Scale 7-10) Last Admin: 04/02/25 01:36 Dose: 3 mg Documented By: ALONZO Ondansetron HCl (Ondansetron Hcl 4 Mg/2 Ml Vial) 4 mg IVPUSH Q8H PRN PRN Reason: Nausea and Vomiting Sodium Chloride (0.9 % Sodium Chloride Flush 3 Ml Syringe) 3 ml IVFLUSH QSHIFT [facility] Last Admin: 04/01/25 23:10 Dose: Not Given Documented By: ALONZO Non-Admin Reason: IV Running <Sada Crawford - Last Filed: 04/02/25 07:32> Labs CBC & Chem 7: 04/02/25 05:57 04/02/25 05:57 <Sada Crawford - Last Filed: 04/02/25 07:32> Labs: Laboratory Results - last 24 hr 04/01/25 04/02/25 13:44 05:57 Anion Gap 12 Estim Creat Clear Calc 184.6 Estimated GFR > 60 Random Glucose 90 Calcium 8.9 B-Natriuretic Peptide 16 <Sada Crawford - Last Filed: 04/02/25 07:32> Procedures Date of Service Date of Service: 04/02/25 <Sada Crawford - Last Filed: 04/02/25 07:32> 04/02/25 <Alecia Sierra PA-C - Last Filed: 04/02/25 08:06> 04/02/25 <Olivier Howell MD - Last Filed: 04/02/25 08:53> Progress Note: A&P Assessment and plan (1) Small bowel obstruction: Status: Acute <Sada Crawford - Last Filed: 04/02/25 07:32> Assessment and Plan: He has been passing flatus and BMs Denies any abdominal pain Abdomen is soft, benign, nontender He looks well Symptoms appear resolved Clamp NG tube today and possibly remove her on Seen and examined independently <Olivier Howell MD - Last Filed: 04/02/25 08:53> Assessment and Plan: NG tube clamped. We will will re-assess in 4 hours for any pain or bloating. If asymptomatic, we will advance diet. <Sada Crawford - Last Filed: 04/02/25 07:32> NG tube clamped. We will will re-assess in 4 hours for any pain or bloating. If asymptomatic, we will advance diet. Agree with above assessment and plan by Sada Crawford MS-3. Patient clinically improved now with evidence of GI function. NGT output low. Abd very benign, soft, nontender. Will clamp NGT for 4 hrs, check residual and remove if <100cc. Unclamp sooner if develops worsening abd pain, nausea/vomiting, distention. Encouraged OOB/ambulation and increasing activity. AM BMP reviewed. <Alecia Sierra PA-C - Last Filed: 04/02/25 08:06> Time Spent With Patient Time: Total time managing care of this patient today ____ minutes. <Sada Crawford - Last Filed: 04/02/25 07:32> Quality Stroke Does the patient have a stroke diagnosis?: No <Alecia Sierra PA-C - Last Filed: 04/02/25 08:06> VTE Prior VTE?: No <Alecia Sierra PA-C - Last Filed: 04/02/25 08:06> VTE Risk Level:: Medical - moderate - high <Sada Crawford - Last Filed: 04/02/25 07:32> VTE Device Contraindication: N/A - Device Ordered <Sada Crawford - Last Filed: 04/02/25 07:32> VTE Drug Contraindication: N/A - Med Ordered <Sada Crawford - Last Filed: 04/02/25 07:32>
[2025-04-02 07:56] VITALS: BP 132/68; PULSE 64; RESP 16; TEMP 36.4; O2SAT 94
--- NOTE | 2025-04-02 14:04 | MHC.CM.PN ---
Patient continue with NGT to [facility]. He is not cleared for discharge today. DP Home self care. Patient's will provide transportation home.
--- NOTE | 2025-04-02 15:29 | PM.EVENT ---
Event Note Date of Service: 04/02/25 Event Note: Seen on afternoon rounds He feels well overall No significant output from his NG tube after an clamping NG tube was therefore removed Abdomen remained soft and benign He says he is comfortable denies any abdominal pain or tenderness He is passing flatus well We will slowly advance diet as tolerated Time Spent With Patient Time: Total time managing care of this patient today ____ minutes.
[2025-04-02 16:00] VITALS: BP 120/60; PULSE 74; RESP 14; TEMP 37.1; O2SAT 94
[2025-04-02 19:49] VITALS: BP 125/67; PULSE 63; RESP 18; TEMP 36.8; O2SAT 98
[2025-04-02] MEDS: 0.9 % Sodium Chloride Flush 3 ML SYRINGE IVFLUSH (21:15)
[2025-04-03 03:27] VITALS: BP 122/62; PULSE 62; RESP 18; TEMP 36.9; O2SAT 95
[2025-04-03] MEDS: Lactated Ringers 1,000 ML 80 ML IVCONT (05:34)
--- NOTE | 2025-04-03 06:50 | P.PNGS_ITS ---
Subjective Subjective Date of Service: 04/03/25 <Sada Crawford - Last Filed: 04/03/25 06:56> 04/03/25 <Alecia Sierra PA-C - Last Filed: 04/03/25 07:31> 04/03/25 <Olivier Howell MD - Last Filed: 04/03/25 08:31> Interval history: Pt has been tolerating liquid diet well and reports BM last night, consistently passing flatus, and urinating. He denies any pain, nausea, or vomiting and states he feels well. Pt is ambulatory. WBC elevated but trending downward <Sada Crawford - Last Filed: 04/03/25 06:56> Pt has been tolerating liquid diet well and reports BM last night, consistently passing flatus, and urinating. He denies any pain, nausea, or vomiting and states he feels well. Pt is ambulatory. <Alecia Sierra PA-C - Last Filed: 04/03/25 07:31> Physical Exam 2 Vital Signs: Vital Signs: Last Vital Signs Temp 98.4 F 04/03/25 03:27 Pulse 62 04/03/25 03:27 Resp 18 04/03/25 03:27 BP 122/62 04/03/25 03:27 Pulse Ox 95 04/03/25 03:27 O2 Del Method Room Air 04/03/25 03:27 O2 Flow Rate 2 04/01/25 18:48 Oxygen Flow Rate 3 04/01/25 01:34 BMI result Body Mass Index 45.9 <Sada Crawford - Last Filed: 04/03/25 06:56> Const: Orientation/consciousness: patient oriented x3 <Sada Crawford - Last Filed: 04/03/25 06:56> Resp: Effort & Inspection: normal respiratory effort and able to speak in complete sentences <Sada Crawford - Last Filed: 04/03/25 06:56> Cardio: Heart sounds: S1 normal heart sound present and S2 normal heart sound present <Sada Crawford - Last Filed: 04/03/25 06:56> GI: Inspection: Yes normal to inspection <Sada Crawford - Last Filed: 04/03/25 06:56> Inspection: Yes distended (mild, improved) <Alecia Sierra PA-C - Last Filed: 04/03/25 07:31> Palpation (GI): Soft to palpation <Sada Crawford - Last Filed: 04/03/25 06:56> Percussion: Yes normal to percussion <Sada Crawford - Last Filed: 04/03/25 06:56> Auscultation: normal bowel sounds <Sada Crawford - Last Filed: 04/03/25 06:56> Neuro: General: patient oriented x3 <Sada Crawford - Last Filed: 04/03/25 06:56> Objective Data Active Medications Acetaminophen (Acetaminophen 325 Mg Tablet) 650 mg PO Q6H PRN PRN Reason: Pain, Mild 1-3,fever,headache Benzocaine (Throat Lozenge, Medicated Lozenge) 1 lozenge MUCOUS MEM Q2H PRN PRN Reason: Sore Throat Last Admin: 04/01/25 11:34 Dose: 1 lozenge Documented By: KATLYN Furosemide (Furosemide 20 Mg Tablet) 20 mg PO DAILY [facility]; Protocol Last Admin: 04/02/25 08:14 Dose: 20 mg Documented By: ADENIKE Gabapentin (Gabapentin 300 Mg Capsule) 900 mg PO BEDTIME [facility] Last Admin: 04/02/25 23:22 Dose: 900 mg Documented By: BRIA Heparin Sodium (Porcine) (Heparin Sodium,Porcine 5,000 Unit/Ml Vial) 5,000 unit SUBCUT Q8H [facility] Last Admin: 04/03/25 01:19 Dose: 5,000 unit Documented By: BRIA Lactated Ringer's (Lr) 1,000 mls @ 80 mls/hr IVCONT .[id number] [facility] Last Admin: 04/03/25 05:34 Dose: 80 mls/hr Documented By: BRIA Melatonin (Melatonin 3 Mg Tablet) 6 mg PO BEDTIME PRN PRN Reason: Insomnia Morphine Sulfate (Morphine Sulfate 4 Mg/Ml Cartridge) 3 mg IVPUSH Q4H PRN; Protocol PRN Reason: Pain, Severe (Pain Scale 7-10) Last Admin: 04/02/25 01:36 Dose: 3 mg Documented By: ALONZO Ondansetron HCl (Ondansetron Hcl 4 Mg/2 Ml Vial) 4 mg IVPUSH Q8H PRN PRN Reason: Nausea and Vomiting Ropinirole HCl (Ropinirole Hcl 0.5 Mg Tablet) 0.5 mg PO TID [facility] Last Admin: 04/02/25 23:20 Dose: Not Given Documented By: BRIA Non-Admin Reason: Med Not Available Sodium Chloride (0.9 % Sodium Chloride Flush 3 Ml Syringe) 3 ml IVFLUSH QSHIFT [facility] Last Admin: 04/02/25 21:15 Dose: 3 ml Documented By: BRIA <Sada Crawford - Last Filed: 04/03/25 06:56> Labs CBC & Chem 7: 04/02/25 05:57 04/02/25 05:57 <Sada Crawford - Last Filed: 04/03/25 06:56> Labs: Laboratory Results - last 24 hr 04/02/25 05:57 MCV 90.1 MCH 30.9 MCHC 34.3 RDW 15.0 Plt Count 462 H MPV 9.9 Immature Gran % (Auto) 0.1 Neut % (Auto) 49.7 Lymph % (Auto) 34.5 Ector % (Auto) 11.3 H Eos % (Auto) 4.0 Baso % (Auto) 0.4 Lymph # (Auto) 5.3 H Ector # (Auto) 1.7 H Eos # (Auto) 0.6 H Baso # (Auto) 0.1 Abs Immat Gran (auto) 0.02 Absolute Neuts (auto) 7.6 Absolute Nucleated RBC 0.000 Nucleated RBC % (auto) 0.0 Smear Tech's Comments VERIFIED <Sada Crawford - Last Filed: 04/03/25 06:56> Procedures Date of Service Date of Service: 04/03/25 <Sada Crawford - Last Filed: 04/03/25 06:56> 04/03/25 <Alecia Sierra PA-C - Last Filed: 04/03/25 07:31> 04/03/25 <Olivier Howell MD - Last Filed: 04/03/25 08:31> Progress Note: A&P Assessment and plan (1) Small bowel obstruction: Status: Acute <Sada Crawford - Last Filed: 04/03/25 06:56> Assessment and Plan: Continues to pass good flatus and bowel movements Denies any nausea Tolerating liquids well Abdomen is soft and benign Looks well Diet as tolerated Possible DC home this afternoon Seen and examined independently <Olivier Howell MD - Last Filed: 04/03/25 08:31> Assessment and Plan: advance diet to soft solids <Sada Crawford - Last Filed: 04/03/25 06:56> advance diet to soft solids Agree with above assessment by Sada Crawford MS-3. PSBO resolved, continues with good GI function and tolerating clear liquids. Abdomen remains benign- soft, nontender. Will advance to solid diet and reassess later today. If tolerating without recurrent symptoms, stable for dc to home today. <Alecia Sierra PA-C - Last Filed: 04/03/25 07:31> advance diet to soft solids Agree with above assessment by Sada Crawford MS-3. PSBO resolved, continues with good GI function and tolerating clear liquids. Abdomen remains benign- soft, nontender. Will advance to solid diet and reassess later today. If tolerating without recurrent symptoms, stable for dc to home today. <Olivier Howell MD - Last Filed: 04/03/25 08:31> Time Spent With Patient Time: Total time managing care of this patient today ____ minutes. <Sada Crawford - Last Filed: 04/03/25 06:56> Quality Stroke Does the patient have a stroke diagnosis?: No <Sada Crawford - Last Filed: 04/03/25 06:56> VTE Prior VTE?: No <Sada Crawford - Last Filed: 04/03/25 06:56> VTE Risk Level:: Medical - moderate - high <Sada Crawford - Last Filed: 04/03/25 06:56> VTE Device Contraindication: N/A - Device Ordered <Sada Crawford - Last Filed: 04/03/25 06:56> VTE Drug Contraindication: N/A - Med Ordered <Sada Crawford - Last Filed: 04/03/25 06:56>
[2025-04-03 07:40] VITALS: BP 143/86; PULSE 63; RESP 17; TEMP 36.6; O2SAT 96
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
== END 2025-04-03 14:13 | disposition home or self-care (01) | DRG 247 ==
LOC: HO.ED 02:57 → HO.EDOVER 07:39 → HO.S3 19:11
PROVIDERS: Internal Medicine; Admitting Provider Surgery; Emergency Provider Emergency Medicine; Visit Provider Surgery
DX: K56.600 Partial intestinal obstruction, unspecified as to cause (principal); I27.20 Pulmonary hypertension, unspecified; I50.32 Chronic diastolic (congestive) heart failure; I11.0 Hypertensive heart disease with heart failure; G47.33 Obstructive sleep apnea (adult) (pediatric); K21.9 Gastro-esophageal reflux disease without esophagitis; E66.01 Morbid (severe) obesity due to excess calories; Z68.42 Body mass index [BMI] 45.0-49.9, adult; Z71.3 Dietary counseling and surveillance; J44.9 Chronic obstructive pulmonary disease, unspecified; Z98.84 Bariatric surgery status; Z90.81 Acquired absence of spleen; Z79.899 Other long term (current) drug therapy
CPT/HCPCS: 36415; 71045; 74177; 80048; 80053; 81003; 83690; 83880; 85025; 99285; J0737; J1171; J1644; J2270; J2405; J7120; Q9967

== ENCOUNTER → 2025-04-01 02:58 | Outpatient (BNV) | payer MEDICAID, SELFPAY | PROVIDERS: Emergency Provider Emergency Medicine; Visit Provider General Practice | DX: K56.609 Unspecified intestinal obstruction, unspecified as to partial versus complete obstruction (principal); J81.1 Chronic pulmonary edema | CPT/HCPCS: 71045; 74177 ==

== ENCOUNTER → 2025-04-01 07:24 | Outpatient (BNV) | payer MEDICAID, SELFPAY | PROVIDERS: Admitting Provider Surgery; Emergency Provider Emergency Medicine; Visit Provider Nurse Practitioner Family | DX: I50.810 Right heart failure, unspecified (principal) | CPT/HCPCS: 99223 ==

== ENCOUNTER → 2025-04-01 07:24 | Outpatient (BNV) | payer MEDICAID, SELFPAY | PROVIDERS: Admitting Provider Surgery; Emergency Provider Emergency Medicine; Visit Provider Physician Assistant Surgical | DX: K56.609 Unspecified intestinal obstruction, unspecified as to partial versus complete obstruction (principal) | CPT/HCPCS: 99222; 99232; 99499 ==

== ENCOUNTER 2025-04-10 10:37 | Outpatient (REF) | payer MEDICAID, SELFPAY ==
--- OUTSIDE RECORDS SUMMARY | 2025-04-10 11:21 | XMS_ITS | Encounter Summary ---
Author Organization [employer] [facility] Address [address] [place] [address] [address] [place] [address] Care Team Providers Care Airworthiness Safety Inspector Name Role Phone Ham Burgos MD Primary Care Provider Roberta Jolly RN Unavailable [phone] Taye Garcia Unavailable Encounter Details Date Type Department Care Team ([facility] Contact Info) Description 05/19/2023 Orders Only [facility] MED & PEDS [address] [place] [address] Ham Burgos MD [address] [place] [address] Dry skin (Primary Dx) Social History Tobacco [...] Upcoming Encounters Date Type Department Care Team ([facility] Contact Info) Description 07/16/2025 3:00 PM EST Office Visit [facility] ADULT DENTAL [address] [place] [address] Brie Bazan documented as of this encounter Visit Diagnoses Diagnosis Dry skin- Primary Other symptoms involving skin and integumentary tissues documented in this encounter Additional Health Concerns Assessment Noted Time PHQ-9 Depression Total Score: 14 023 11:04 AM EDT documented as of this encounter Care Teams Airworthiness Safety Inspector Relationship Specialty Start Date End Date Ham Burgos MD [address] [place] [address] PCP - General Internal Medicine 05/10/18 Roberta Jolly RN [address] [place] [address] Registered Nurse Family Medicine 01/29/25 Taye Garcia 01/29/25 documented as of this encounter
[2025-04-10 14:33] LABS: Anion Gap 10 (12-20); Blood Urea Nitrogen 16 mg/dL (9-16); Calcium 8.8 mg/dL (8.4-10.2); Carbon Dioxide 26 mmol/L (22-29); Chloride 108 mmol/L (96-108); Estimated Glomerular Filt Rate > 60; Magnesium 2.1 mg/dL (1.6-2.6); Potassium 4.2 mmol/L (3.3-5.1); Sodium 140 mmol/L (135-145)
== END 2025-04-10 10:38 | disposition home or self-care (01) ==
LOC: HO.CHCLDS 10:37
PROVIDERS: Visit Provider Internal Medicine
DX: K56.609 Unspecified intestinal obstruction, unspecified as to partial versus complete obstruction (principal)
CPT/HCPCS: 36415; 80048; 83735

== ENCOUNTER 2025-04-23 10:22 | Outpatient (REF) | payer MEDICAID, SELFPAY ==
--- NOTE | ~2025-04-23 | US_ITS ---
EXAMINATION: US LOWER EXTREMITY VENOUS (REFLUX EXAM), BILATERAL CLINICAL INFORMATION: Varices. Left greater saphenous vein ablation.. COMPARISON: December 23, 2021 and October 03, 2019 TECHNIQUE: Color flow triplex imaging and compression Doppler was performed to evaluate both the deep and the superficial systems bilaterally. To evaluate the superficial system, the examination was performed in the upright position. Color-flow Doppler ultrasound and compression ultrasound were utilized. In addition, maneuvers were utilized to demonstrate reflux. FINDINGS: 1. DEEP VENOUS ULTRASOUND OF THE RIGHT LOWER EXTREMITY: Common Femoral Vein: Compressible, normal respiratory variation and augmented flow. Femoral Vein: Compressible, normal color flow and augmentation. Popliteal Vein: Compressible, normal augmentation. Deep Reflux: There is no evidence of reflux in the deep system in either the common femoral vein, superficial femoral or the popliteal vein. There is no evidence of a Weinberg's cyst. 2. SUPERFICIAL ULTRASOUND WITH DOPPLER OF RIGHT LOWER EXTREMITY: GREAT SAPHENOUS VEIN: Saphenofemoral Junction: 0.9 cm; Reflux: 0 ms Proximal Thigh: 0.7 cm; Reflux: 0 ms Mid Thigh: 0.5 cm; Reflux: 0 ms Distal Thigh: 0.4 cm; Reflux: 0 ms At Knee: 0.5 cm; Reflux: 0 ms Proximal Calf: 0.5 cm; Reflux: 0 ms Mid Calf: 0.4 cm; Reflux: 0 ms Distal Calf: 0.4 cm; Reflux: 0 ms DUPLICATED MEDIAL GREAT SAPHENOUS VEIN: Diameter: None imaged Reflux: NA DUPLICATED LATERAL GREAT SAPHENOUS VEIN: Diameter: None imaged Reflux: NA SMALL SAPHENOUS VEIN: Saphenopopliteal Junction: 0.3 cm; Reflux: 0 ms Proximal: 0.3 cm; Reflux: 0 ms Distal: 0.3 cm; Reflux: 0 ms VEIN OF GIACOMINI: Size: NA Reflux: NA PERFORATORS: Location: Mid and distal calf. Size: 0.2 cm. Reflux: NA VARICOSITIES: Location: Mid thigh and at the knee. Size: 0.4 cm. Reflux: NA 3. DEEP VENOUS ULTRASOUND OF THE LEFT LOWER EXTREMITY: Common Femoral Vein: Compressible, normal respiratory variation and augmented flow. Femoral Vein: Compressible, normal color flow and augmentation. Popliteal Vein: Compressible, normal augmentation. Deep Reflux: There is no evidence of reflux in the deep system in either the common femoral vein, superficial femoral or the popliteal vein. There is no evidence of a Weinberg's cyst. 4. SUPERFICIAL ULTRASOUND WITH DOPPLER OF LEFT LOWER EXTREMITY: GREAT SAPHENOUS VEIN: Saphenofemoral Junction: 0.7 cm; Reflux: 0 ms Proximal Thigh: 0.4 cm; Reflux: 0 ms Mid Thigh: Not seen. Distal Thigh: 0.3 cm. Status post ablation. At Knee: 0.3 cm Status post ablation. Proximal Calf: 0.3 cm; Reflux: 0 ms Mid Calf: 0.2 cm; Reflux: 0 ms Distal Calf: 0.5 cm; Reflux: 0 ms DUPLICATED MEDIAL GREAT SAPHENOUS VEIN: Diameter: 0.6 cm. Reflux: NA DUPLICATED LATERAL GREAT SAPHENOUS VEIN: Diameter: None imaged. Reflux: NA SMALL SAPHENOUS VEIN: Saphenopopliteal Junction: 0.2 cm; Reflux: 0 ms Proximal: 0.2 cm; Reflux: 0 ms Distal: 0.3 cm; Reflux: 0 ms VEIN OF GIACOMINI: Size: NA Reflux: NA PERFORATORS: Location: Proximal and mid calf. Size: 0.5 and 0.2 cm respectively. Reflux: NA VARICOSITIES: Location: Distal thigh and proximal to mid calf. Size: 0.3-0.4 cm. Reflux: 3316 ms at the distal thigh, 3416 ms in the proximal calf and 3168 ms in the mid calf. US/US venous insuf bilat IMPRESSION: Right: No venous insufficiency. Perforators and varices without reflux. Left: Venous insufficiency at the biceps is in the distal thigh, proximal and mid calf. Electronically signed by: Don Mallory MD 04/23/2025 12:36 PM EDT
--- OUTSIDE RECORDS SUMMARY | 2025-04-23 11:07 | XMS_ITS | Clinical Summary ---
Author Organization [address] [place] [address] Address [address] [place] [address] Phone Care Team Providers Care Recording Clerk Name Role Phone Josie Schmid MD Primary Care Provider [phone] Allergies No known active allergies Medications albuterol HFA (PROAIR HFA ; PROVENTIL HFA ; VENTOLIN HFA) 90 mcg/actuation inhaler Inhale 2 Puffs into the lungs every 4 hours as needed. Active ammonium lactate (LAC-HYDRIN) 12 % lotion Apply to soles of feet daily. At night wear socks to bed 02/27/2024 Active budesonide-form oteroL (SYMBICORT) 160-4.5 mcg/actuation inhaler Inhale 2 Puffs into the lungs 2 times daily. Active buPROPion XL (WELLBUTRIN XL) 150 mg 24 hr tablet Take 1 Tablet by mouth every morning. Active cholecalciferol (VITAMIN D-3) 25 mcg (1,000 unit) capsule Take by mouth. Active clotrimazole (LOTRIMIN) 1 % cream Apply to skin and toenails daily for 12 weeks 02/27/2024 Active eszopiclone (LUNESTA) 3 mg tablet Take 1 Tablet by mouth at bedtime as needed. Active fluticasone furoate (Arnuity Ellipta) 50 mcg/actuation blister with device inhaler Inhale into the lungs. Active gabapentin (NEURONTIN) 300 mg capsule Take 1 Capsule by mouth 2 times daily. Active pantoprazole (PROTONIX) 20 mg EC tablet Take 1 Tablet by mouth daily. Active sildenafiL (VIAGRA) 25 mg tablet Take 1 Tablet by mouth as needed. Active terbinafine (LamISIL) 250 mg tablet Take 1 Tablet by mouth daily. Active ZINC ORAL Take by mouth. Active Active Problems Problem Noted Date Diagnosed Date Adjustment insomnia 02/23/2024 Depressive disorder 02/23/2024 Diverticulosis 02/23/2024 Hemorrhoids 02/23/2024 Venous insufficiency 02/23/2024 Immunizations Name Administration Dates Next Due Moderna SARS-CoV-2 COVID-19, mRNA, LNP-S, preservative free 07/28/2022 Medical History Medical History Date Comments Pulmonary hypertension (CMS/ HCC V24, CMS/HCC V28) DX:Pulmonary hypertension (H CC) Social History Tobacco Use Types Packs/Day Years Used Date Smoking Tobacco: Never Assessed Sex and Gender Information Value Date Recorded Sex Assigned at Not on file Legal Sex Male 11:05 AM EDT Gender Identity Not on file Sexual Orientation Not on file Obstetrics History Last Filed Vital Signs Vital Sign Reading Time Taken Comments Blood Pressure - - Pulse - - Temperature - - Respiratory Rate - - Oxygen Saturation - - Inhaled Oxygen Concentration - - Weight 165 kg (363 lb) 07/08/2024 10:08 AM EDT Height 185.4 cm (6' 1 ) 07/08/2024 10:08 AM EDT Body Mass Index 47.89 07/08/2024 10:08 AM EDT Plan of Treatment Upcoming Encounters Date Type Department Care Team (Late st Contact Info) Description 07/09/2025 9:45 AM EDT Office Visit Orthopedic Surgery - [place] [address] [id number] Joao Thomas, DPM [address] [address] Health Maintenance Due Date Last Done Comments DTaP,Tdap,and Td Vaccines (1 - Tdap) 1982 Pneumococcal Vaccine: 50+ Ye ars (1 of 1 - PCV) 2013 Zoster Vaccines (1 of 2) 2013 RSV Immunization Adult Patie nts (1 - Risk 60-74 years 1-dose series) 2023 Cholesterol Screening (Lipid Panel) 04/05/2024 Colorectal Cancer Screening: Colonoscopy 04/05/2024 HIV Screening 04/05/2024 Hepatitis C Screening 04/05/2024 Social Influencers of Health Screening 04/05/2024 COVID-19 Vaccine (2 - 2023-2 5 season) 2024 07/28/2022 Depression Screening 09/11/2024 Influenza Vaccine (#1) 2025 HIB Vaccines Aged Out No longer eligi [...] on patient's age to complete this topic MMR Vaccines Aged Out No longer eligi ble based on patient's age to complete this topic Meningococcal ACWY Vaccine Aged Out N o longer eligible based on patient's age to complete this topic Meningococcal B Vaccine Aged Out No l onger eligible based on patient's age to complete this topic RSV Immunization Patients Un aidan 20 months Aged Out No longer eligible b ased on patient's age to complete this topic Varicella Vaccines Aged Out No longer eligible based on patient's age to complete this topic Insurance MEDICAID - [place] Care Teams Recording Clerk Relationship Specialty Start Date End Date Josie Schmid MD [address] [place] [address] PCP - General 12/21/23
--- OUTSIDE RECORDS SUMMARY | 2025-04-23 11:07 | XMS_ITS | Encounter Summary ---
Author Organization [employer] [facility] Address [address] [place] [address] [address] [place] [address] Care Team Providers Care Registered Health Nurse Name Role Phone Ham Burgos MD Primary Care Provider Roberta Jolly RN Unavailable [phone] Taye Garcia Unavailable Encounter Details Date Type Department Care Team ([facility] Contact Info) Description 05/19/2023 Orders Only [facility] MED & PEDS [address] [place] [address] Ham Burgos MD [address] [place] [address] Dry skin (Primary Dx) Social History Tobacco [...] Upcoming Encounters Date Type Department Care Team ([facility] Contact Info) Description 07/16/2025 3:00 PM EST Office Visit [facility] ADULT DENTAL [address] [place] [address] Brie Bazan documented as of this encounter Visit Diagnoses Diagnosis Dry skin- Primary Other symptoms involving skin and integumentary tissues documented in this encounter Additional Health Concerns Assessment Noted Time PHQ-9 Depression Total Score: 14 023 11:04 AM EDT documented as of this encounter Care Teams Registered Health Nurse Relationship Specialty Start Date End Date Ham Burgos MD [address] [place] [address] PCP - General Internal Medicine 05/10/18 Roberta Jolly RN [address] [place] [address] Registered Nurse Family Medicine 01/29/25 Taye Garcia 01/29/25 documented as of this encounter
== END 2025-04-23 10:23 | disposition home or self-care (01) ==
LOC: HO.US 10:22
PROVIDERS: PCP Internal Medicine; Visit Provider Surgery Vascular Surgery
DX: I83.11 Varicose veins of right lower extremity with inflammation (principal)
CPT/HCPCS: 93970

== ENCOUNTER → 2025-04-23 10:23 | Outpatient (BNV) | payer MEDICAID, SELFPAY | PROVIDERS: PCP Internal Medicine; Visit Provider Radiology Diagnostic Radiology | DX: I87.2 Venous insufficiency (chronic) (peripheral) (principal) | CPT/HCPCS: 93970 ==

== ENCOUNTER 2025-06-03 12:56 | Outpatient (AMB) | payer MEDICAID, SELFPAY ==
--- NOTE | 2025-06-03 13:02 | A.OFFVIS_ITS ---
Intake Visit Reasons: 3m follow up 04/23/25 Intake Note: Patient presents for follow up US performed on 04/23/25. No new symptoms. Accompanied by: Self / Same As Patient Allergies No Known Allergies (No Known Allergies*) Allergy (Verified 06/03/25 13:04) HPI HPI 3m follow up 04/23/25: Details: Very pleasant 59-year-old gentleman presents for follow-up regarding venous insufficiency. He prior left-sided venous ablation by us. Reports that the swelling has generally improved. In addition he has lost 25 lb through diet and exercise. He has been using lymphedema pumps. He now presents to us for routine follow-up with venous insufficiency testing. 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 Pulmonary hypertension Lower extremity edema CHF (congestive heart failure) Insomnia ELO on CPAP Atelectasis Pulmonary nodules Dyspnea Rupture, spleen HTN (hypertension) ELO (obstructive sleep apnea) Varicose veins of both lower extremities with inflammation Surgical History History of esophagogastroduodenoscopy (EGD) Hx of splenectomy Hx of colonoscopy S/P gastric surgery History of vasectomy H/O hernia repair Social History Household Members: Family Housing: House Do you presently have visiting nurse or other home services: Yes ([employer]) Patient Tobacco Use Status: Never used Tobacco service: No Current occupational status: unemployed and disabled 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 Review of Systems Const All systems reviewed & are unremarkable except as noted in HPI and below Reports no additional complaints ENT Reports Normal hearing present Card Denies chest pain, Denies chest pain at rest, Denies chest pain with activity and Denies pedal edema Resp Denies cough GI Denies abdominal pain Musc Denies abnormal gait, Denies muscle cramps and Denies radiating pain into limb Skin/Breast Denies skin ulcer and Denies wounds Neuro Reports Normal hearing present and Denies abnormal gait Psych Reports no additional complaints Physical Exam Const General: cooperative, healthy appearing and comfortable Orientation/consciousness: oriented to person, oriented to place and oriented to time HEENT Head: Yes normal to inspection Neck Neck: Yes normal visual inspection Carotids: no bruits Chest Chest palpation & inspection: normal inspection of the chest Resp Effort & Inspection: normal respiratory effort and able to speak in complete sentences Auscultation: clear to auscultation bilaterally, no crackles, no rales, no rhonchi and no wheezes Cardio Rate: regular rate Rhythm: regular rhythm Heart sounds: S1 normal heart sound present and S2 normal heart sound present Bruits: no carotid bruits Peripheral pulses: Peripheral pulses 2+ throughout GI Inspection: Yes normal to inspection Skin Wounds: no wounds Hair: normal Neuro General: oriented to person, oriented to place and oriented to time Cranial nerves: Yes CN's II-XII intact bilaterally and Yes Normal hearing present Cognition (Neuro): normal cognition Motor exam (neuro): 5/5 motor strength present throughout Extrem Other: venous exam: +2 edema left greater than right General: No clubbing, No cyanosis and No edema Psych Appearance: grossly normal Mental Status: mental status grossly normal Speech and movement: Normal speech and movement present Results Reviewed Results Reviewed: Brief summary of venous insufficiency testing is as follows: right great saphenous vein: negative right small saphenous vein: negative right accessory vein: none present left great saphenous vein: negative left small saphenous vein: negative left accessory vein: none present Please note there is no evidence of any venous aneurysms or significant tortuosity Assessment & Plan Assessment & Plan (1) Varicose veins of left lower extremity with inflammation: Comment: 03/19/2021 left great saphenous vein Cyanoacralate ablation Code(s): I83.12 - Varicose veins of left lower extremity with inflammation Category: Medical Plan: In short patient has continued lower extremity swelling. He is negative for any significant venous insufficiency. We did discuss routine conservative measures including compression elevation and exercise. We did encourage continued use of his lymphedema pumps. He will follow up with us on an as-needed basis. Thank you for allowing us to assist in his care. Coding Level of Care Code Est Pt Level 4 (98555) Diagnoses Varicose veins of left lower extremity with inflammation I83.12
--- OUTSIDE RECORDS SUMMARY | 2025-06-03 15:49 | XMS_ITS | Clinical Summary ---
Author Organization [employer] Address [address] [place] [address] [address] [place] [address] Care Team Providers Care Box Coverer Hand Name Role Phone Ham Burgos MD Primary Care Provider [phone] Taye Garcia Unavailable Allergies No known active allergies Medications aspirin 81 MG EC tablet Take 1 tablet by mouth at bed time. Take 1 tablet by mouth at bed time. 018 Active buPROPion XL (Wellbutrin XL) 300 MG 24 hr tablet Take 300 mg by mouth in the morning. 023 Active cholecalciferol (CVS D3) 25 MCG (1000 UT) capsule Take 1 capsule by mouth Once per day. Active cyanocobalamin (Vitamin B-12) 500 MCG tablet Take 1 tablet by mouth Once per day. Active fluticasone (Flonase) 50 MCG/ACT nasal spray USE ONE SPRAY IN EACH NOSTRIL TWICE DAILY FOR NASAL CONGESTION 022 Active furosemide (Lasix) 20 MG tablet 021 Active gabapentin (Neurontin) 300 MG capsule TAKE THREE CAPSULES AT BEDTIME NEEDED 023 Active mirtazapine (Remeron) 7.5 MG tablet Take 7.5 mg by mouth at bedtime. 022 Active Sulfacetamide Sodium 10 % liquid Wash 2 times a day 022 Active zinc 50 MG tablet Ac tive Symbicort 160-4.5 MCG/ACT inhaler Inhale 2 puffs in the morning and at bedtime. 023 Active Diclofenac Sodium 1 % gelIndications:Ar thralgia of toe, unspecified laterality To apply to the affected area 3 times a day 100 g 023 Active betamethasone valerate (Valisone) 0.1 % ointmentIndicatio ns:Irritant contact dermatitis due to other chemical products Apply topically if needed in the morning and at bedtime (dryness). 45 g 2 024 Active lidocaine (Lidoderm) 5 % patchIndications: Primary osteoarthritis of both knees Apply 1 patch topically Once per day. Remove & discard patch within 12 hours or as directed by MD. 30 patch 3 024 Active ammonium lactate (Lac-Hydrin) 12 % lotionIndications :Dry skin Apply topically every 12 (twelve) hours. Apply topically every 12 (twelve) hours. 500 g 11 024 Active ketoconazole (NIZOral) 2 % shampoo apply by topical route 2 times every week shampoo with at least 3 days between each shampooing 120 mL 2 024 Active pantoprazole (ProtoNix) 20 MG EC tablet Take 20 mg by mouth in the morning. 024 Active Lunesta 3 MG tablet 023 Active econazole nitrate 1 % creamIndications: Seborrheic dermatitis To apply to the affected area 2 times a day 15 g 024 Active atorvastatin (Lipitor) 40 MG tabletIndications :Hypercholesterol emia Take 1 tablet (40 mg) by mouth Once per day. 30 tablet 11 024 2024 Active terbinafine (LamISIL) 250 MG tabletIndications :Onychomycosis TAKE ONE TABLET EVERY MORNING 30 tablet 2 024 Active chlorhexidine (Peridex) 0.12 % solutionIndicatio ns:History of tooth extraction, unspecified edentulism class Swish 15 mL morning and night for 1 minute. Spit, do not swallow. Do not eat or drink for 30 minutes following use. 473 mL 025 Active acetaminophen (Tylenol) 500 MG tabletIndications :History of tooth extraction, unspecified edentulism class Take 1 tablet (500 mg) by mouth every 6 (six) hours if needed for mild pain for up to 20 doses. 20 tablet 025 Active Sod Fluoride-Potassiu m Nitrate (Sodium Fluoride 5000 Sensitive) 1.1-5 % gelIndications:De ntal caries [place] teeth for 2 minutes, morning and night. Spit, do not rinse. Do not eat or drink anything for 30 minutes following brushing. 112 g 11 025 Active IBU 800 MG tabletIndications :Primary osteoarthritis involving multiple joints TAKE ONE TABLET EVERY 8 HOURS NEEDED FOR PAIN 60 tablet 3 Active sildenafil (Viagra) 25 MG tablet TAKE 1 TABLET BY MOUTH EVERY DAY NEEDED FOR ERECTILE DYSFUNCTION 8 tablet 5 025 Active Tirzepatide-Weigh t Management (Zepbound) 2.5 MG/0.5ML solution auto-injectorIndi cations:Morbid obesity (CMS/HCC),ELO (obstructive sleep apnea) Inject 0.5 mL (2.5 mg) under the skin 1 (one) time per week. 2 mL 1 Active Ventolin HFA 108 (90 Base) MCG/ACT inhaler Inhale 2 puffs every 6 (six) hours if needed for wheezing or shortness of breath. Active Procto-Med HC 2.5 % rectal cream Insert into the rectum at bedtime. For hemorrhoids 024 Active rOPINIRole (Requip) 0.5 MG tabletIndications :Restless legs TAKE ONE TABLET BY MOUTH THREE TIMES DAILY 90 tablet 11 025 Active rOPINIRole (Requip) 0.5 MG tabletIndications :Restless legs Take 1 tablet (0.5 mg) by mouth 3 times daily. 90 tablet 024 2024 Discontinued Active Problems Problem Noted [...] recommended reduction of 20-30% of maintenance calories; marking stitcher referral offered. Recommended to decrease soda and [...] Encounters Date Type Department Care Team Description 05/23/[address] [facility] [address] [place] [phone] Ham Burgos MD Care Management (C3- f/u call) 05/07/[address] [facility] [address] [place] [phone] aHm Burgos MD Care Coordination ([facility]/W FELIZ Roque f/u call) 05/07/2025 Patient Outreach [facility] [address] [place] [address] Ham Burgos MD Care Coordination (C3 f/u call) 05/03/2025 Refill [facility] [address] [place] [address] Ham Burgos MD Morbid obesity ([facility]); ELO (obstructive sleep apnea) 05/03/2025 Refill [facility] [address] [place] [address] Ham Burgos MD Restless legs 04/29/[address] [facility] [address] [place] [phone] Ham Burgos MD Care Management (C3- f/u call) 04/14/2025 Patient Outreach [address] [address] Ham Burgos MD Care Management (C3- f/u call) 04/10/2025 10:00 AM EDT Office Visit [facility] [address] [place] [address] Ham Burgos MD Small bowel obstruction (CMS/HCC) (Primary Dx) 04/10/2025 Results Follow-Up [facility] [address] [place] [address] Ham Burgos MD Basic Metabolic Panel, Magnesium 04/10/2025 Travel 04/09/2025 Telephone [facility] [address] [place] [phone] Ham Burgos MD Chart Prep 03/31/2025 Patient Outreach [address] [address] Ham Burgos MD Care Coordination ([facility]/W Darryl Roquefl f/u call_lvm) 03/31/2025 Patient Outreach [facility] [address] [place] [phone] Ham Burgos MD Care Coordination ([facility] f/u call- LVM) 03/26/2025 Orders Only [facility] [address] [place] [address] Ham Matthew MD Morbid obesity (CMS/HCC) (Primary Dx); ELO (obstructive sleep apnea) 03/26/2025 Refill [facility] [address] [place] [address] Ham Matthew MD 03/19/2025 Patient Outreach [facility] [address] [place] [phone] Ham Matthew MD Care Coordination ([facility] f/u call) 03/17/2025 3:30 PM EDT Office Visit [facility] ADULT DENTAL [address] [place] [address] Robb Pickering DMD Edentulism (Primary Dx); Partial edentulism, class I 03/17/2025 Results Follow-Up [facility] [address] [place], [place] [phone] Sandy Lisa RN Basic Metabolic Panel, CBC auto differential 03/17/2025 Refill [facility] [address] [place] [address] Ham Burgos MD Primary osteoarthritis involving multiple joints 03/16/2025 Refill [facility] [address] [place] [address] Robb Pickering DMD Dental caries 03/13/2025 9:45 AM EDT Office Visit [facility] [address] [place] [address] Ham Burgos MD Small bowel obstruction (CMS/HCC) (Primary Dx); Other elevated white blood cell (WBC) count; S/P splenectomy; Gastroesophageal reflux disease without esophagitis; ELO (obstructive sleep apnea) 03/13/2025 9:00 AM EDT Office Visit [facility] [address] [place] [address] Robb Pickering DMD Partial edentulism, class I (Primary Dx); Edentulism; Periodontal disease 03/13/2025 Orders Only [facility] [address] [place] [address] Ham Burgos MD 03/13/2025 Travel 03/06/2025 11:30 AM EDT Office Visit [facility] [address] [place] [phone] Robb Pickering DMD Edentulism (Primary Dx); Partial edentulism, class I 03/06/2025 Patient Outreach [facility] [address] [place] [address] Ham Matthew MD 03/05/2025 Telephone [facility] [address] [place] [address] Ham Burgos MD Prior Authorization 03/05/2025 Patient Outreach [facility] [address] [place] [address] Ham Burgos MD Care Coordination ([facility] FELIZ Roque f/u call) 03/05/2025 Patient Outreach [facility] [address] [place] [address] Ham Burgos MD from Last 3 Months Immunizations Immunization Administration Dates Next Due Influenza injectable quadriv alent IIV4 with preservative 08/01/2019,08/25/2017 Influenza injectable quadriv alent preservative free 06/20/2023,07/11/2022,08/25/2017 Influenza, IIV3, injectable 07/13/2021 Influenza, seasonal, injecta ble, preservative free 06/19/2024 Meningococcal Polysaccharide A,C,Y,W-135 TT Conjugate 12/11/2024 Moderna Covid-19 Vaccine 12+ 07/28/2022 Pfizer Covid-19 Vaccine 12+ 06/19/2024,1 ,07/30/2021,01/01 Pfizer Covid-19 Vaccine 12+ dana-sucrose ([place] Cap) 12/09/2020 Pneumococcal Conjugate PCV 20 09/15/2023 Tdap 08/25/2017 Social History Tobacco Use Types Packs/Day Years Used Date Smoking Tobacco: Never Passive Smoke Exposure: Never Smokeless Tobacco: Never Tobacco Cessation:Counseling Given: Not Answered Alcohol Use Standard Drinks/Week Comments Never 0 (1 standard drink = 0.6 oz pur e alcohol) Depression Answer Date Recorded Patient Health Questionnaire-9 Score 0 02/20/2025 Patient Health Questionnaire-9 Score 0 02/20/2025 Last PHQ-9: Questionnaire Data Not on file 0 02/20/2025 Housing Stability Answer Date Recorded What is [...] Answer Date Recorded Patient Health Questionnaire-2 Score 0 02/20/2025 Internet Access Answer Date Recorded Internet Access [...] Sign Reading Time Taken Comments Blood Pressure 151/83 04/10/2025 9:50 AM EDT Pulse 70 04/10/2025 9:50 AM EDT Temperature 36.6 C (97.8 F) 04/10/2025 9:50 AM EDT Respiratory Rate 20 04/10/2025 9:50 AM EDT Oxygen Saturation 96% 04/10/2025 9:50 AM EDT Inhaled Oxygen Concentration - - Weight 157 kg (346 lb) 04/10/2025 9:50 AM EDT Height 185.4 cm (6' 1 ) 04/10/2025 9:50 AM EDT Body Mass Index 45.65 04/10/2025 9:50 AM EDT Plan of Treatment Upcoming Encounters Date Type Department Care Team (Late st Contact Info) Description 07/16/2025 3:00 PM EST Office Visit [facility] ADULT D[facility] [address] [place] [address] Jorgito Burgos Health Maintenance Due Date Last Done Comments [...] - Risk 60-74 years 1-dose series) 2023 Meningococcal Vaccine (2 - Risk 2-dose series) 02/05/2025 12/11/2024 Influenza Vaccine (#1) 2025 , 06/20/2023, 07/11/2022, Additional history exists Dental X-Ray: Bitewings 06/12/2025 06/11/2024 Dental Oral Exam 07/05/2025 01/02/2025, 06/11/2024 Dental Prophylaxis 09/14/2025 03/13/2025, 07/04/2024 Alcohol/Substance Use Screening 11/11/2025 11/11/2024 Depression Screening 02/20/2026 02/20/2025, 02/21/20 SDOH Screening 02/20/2026 02/20/2025 Tobacco Screening 04/10/2026 04/10/2025 Dental X-Ray: Full Mouth 06/12/2027 024, 06/11/2024, 12/07/2017 DTaP/Tdap/Td Vaccines (2 - Td or Tdap) 08/25/2027 08/25/2017 Lipid Panel 01/02/2030 01/02/2025, 11/0 03/2024, 05/03/2023 Colonoscopy 11/22/2033 11/23/2023 Colorectal Cancer Screening 11/22/2033 Pneumococcal Vaccine: 50+ Years Completed 09/15/2023 COVID-19 Vaccine Completed 06/19/2024, 06/2023, 07/28/2022, Additional history exists Hepatitis C Screening Discontinued [...] Procedure Name Priority Date/Time Associated Diagnosis Comments VASC US LOWER EXTREMITY VENOUS INSUFFICIENCY BILATERAL Routine 04/23/2025 10:55 AM EDT MAGNESIUM Routine 04/10/2025 10:38 AM EDT Small bowel obstruction (CMS/HCC) BASIC METABOLIC PANEL Routine 04/10/2025 10:38 AM EDT Small bowel obstruction (CMS/HCC) CASE PRESENTATION, DETAILED AND EXTENSIVE TREATMENT PLANNING Routine 03/17/2025 3:30 PM EDT Partial edentulism, class I Edentulism DENTURE FOLLOWUP Routine 03/17/2025 3:30 PM EDT Partial edentulism, class I Edentulism SLIDE REVIEW Routine 03/13/2025 10:37 AM EDT CBC WITH AUTO DIFFERENTIAL Routine 03/13/2025 10:37 AM EDT S/P splenectomy BASIC METABOLIC PANEL Routine 03/13/2025 10:37 AM EDT Small bowel obstruction (CMS/HCC) S/P splenectomy CASE PRESENTATION, DETAILED AND EXTENSIVE TREATMENT PLANNING Routine 03/13/2025 9:00 AM EDT Partial edentulism, class I Edentulism Periodontal disease DENTURE FOLLOWUP Routine 03/13/2025 9:00 AM EDT Partial edentulism, class I Edentulism Periodontal disease PROPHYLAXIS - ADULT Routine 03/13/2025 9 :00 AM EDT Partial edentulism, class I Edentulism Periodontal disease CASE PRESENTATION, DETAILED AND EXTENSIVE TREATMENT PLANNING Routine 03/06/2025 11:30 AM EDT Edentulism Partial edentulism, class I 18,19,20,23,24,25,26,2 8,29,30,31 MANDIBULAR PARTIAL DENTURE - RESIN BASE (INCLUDING, RETENTIVE/CLASPING MATERIALS, RESTS, AND TEETH) Routine 03/06/2025 11:30 AM EDT Partial edentulism, class I Max COMPLETE DENTURE - MAXILLARY Routine 03/06/2025 11:30 AM EDT Edentulism HEPATITIS PANEL, GENERAL Routine 01/13/2025 9:51 AM EDT Morbid obesity (CMS/HCC) Transaminitis LIPID PANEL, STANDARD Routine 01/02/2025 8:55 AM EDT Hypercholesterolemi a PERIODIC ORAL EVALUATION - ESTABLISHED PATIENT Routine 01/02/2025 8:00 AM EDT Edentulism Partial edentulism, class I INTRAORAL - COMPLETE SERIES OF RADIOGRAPHIC IMAGES Routine 06/11/2024 10:00 AM EDT Dental calculus Periodontal disease Dental caries HM COLONOSCOPY Routine 11/23/2023 from Last 3 Months or Most Recently Relevant to Health Maintenance Results * VASC US Lower Extremity Venous Insufficiency Bilateral (04/23/2025 10:55 AM EDT) 04/23/2025 10:5 5 AM EDT [facility] - 04/23/2025 12:38 PM EDT [place] [address] Ultrasound Report Signed Patient: Shin Ortiz MR #: [id number] : 1965 Acct:[id number] Age/Sex: 59 / M ADM Date: 04/23/25 Loc: HO.US Attending Dr: Eduardo Nunes MD Ordering Physician: Eduardo Nunes MD Date of Service: 04/23/25 Procedure(s): US venous insuf bilat Accession Number(s): [id number] cc: Ham Burgos MD; Eduardo Nunes MD EXAMINATION: US LOWER EXTREMITY VENOUS (REFLUX EXAM), BILATERAL CLINICAL INFORMATION: Varices. Left greater saphenous vein ablation.. COMPARISON: December 23, 2021 and October 03, 2019 TECHNIQUE: Color flow triplex imaging and compression Doppler was performed to evaluate both the deep and the superficial systems bilaterally. To evaluate the superficial system, the examination was performed in the upright position. Color-flow Doppler ultrasound and compression ultrasound were utilized. In addition, maneuvers were utilized to demonstrate reflux. FINDINGS: 1. DEEP VENOUS ULTRASOUND OF THE RIGHT LOWER EXTREMITY: Common Femoral Vein: Compressible, normal respiratory variation and augmented flow. Femoral Vein: Compressible, normal color flow and augmentation. Popliteal Vein: Compressible, normal augmentation. Deep Reflux: There is no evidence of reflux in the deep system in either the common femoral vein, superficial femoral or the popliteal vein. There is no evidence of a Weinberg's cyst. 2. SUPERFICIAL ULTRASOUND WITH DOPPLER OF RIGHT LOWER EXTREMITY: GREAT SAPHENOUS VEIN: Saphenofemoral Junction: 0.9 cm; Reflux: 0 ms Proximal Thigh: 0.7 cm; Reflux: 0 ms Mid Thigh: 0.5 cm; Reflux: 0 ms Distal Thigh: 0.4 cm; Reflux: 0 ms At Knee: 0.5 cm; Reflux: 0 ms Proximal Calf: 0.5 cm; Reflux: 0 ms Mid Calf: 0.4 cm; Reflux: 0 ms Distal Calf: 0.4 cm; Reflux: 0 ms DUPLICATED MEDIAL GREAT SAPHENOUS VEIN: Diameter: None imaged Reflux: NA DUPLICATED LATERAL GREAT SAPHENOUS VEIN: Diameter: None imaged Reflux: NA SMALL SAPHENOUS VEIN: Saphenopopliteal Junction: 0.3 cm; Reflux: 0 ms Proximal: 0.3 cm; Reflux: 0 ms Distal: 0.3 cm; Reflux: 0 ms VEIN OF GIACOMINI: Size: NA Reflux: NA PERFORATORS: Location: Mid and distal calf. Size: 0.2 cm. Reflux: NA VARICOSITIES: Location: Mid thigh and at the knee. Size: 0.4 cm. Reflux: NA 3. DEEP VENOUS ULTRASOUND OF THE LEFT LOWER EXTREMITY: Common Femoral Vein: Compressible, normal respiratory variation and augmented flow. Femoral Vein: Compressible, normal color flow and augmentation. Popliteal Vein: Compressible, normal augmentation. Deep Reflux: There is no evidence of reflux in the deep system in either the common femoral vein, superficial femoral or the popliteal vein. There is no evidence of a Weinberg's cyst. 4. SUPERFICIAL ULTRASOUND WITH DOPPLER OF LEFT LOWER EXTREMITY: GREAT SAPHENOUS VEIN: Saphenofemoral Junction: 0.7 cm; Reflux: 0 ms Proximal Thigh: 0.4 cm; Reflux: 0 ms Mid Thigh: Not seen. Distal Thigh: 0.3 cm. Status post ablation. At Knee: 0.3 cm Status post ablation. Proximal Calf: 0.3 cm; Reflux: 0 ms Mid Calf: 0.2 cm; Reflux: 0 ms Distal Calf: 0.5 cm; Reflux: 0 ms DUPLICATED MEDIAL GREAT SAPHENOUS VEIN: Diameter: 0.6 cm. Reflux: NA DUPLICATED LATERAL GREAT SAPHENOUS VEIN: Diameter: None imaged. Reflux: NA SMALL SAPHENOUS VEIN: Saphenopopliteal Junction: 0.2 cm; Reflux: 0 ms Proximal: 0.2 cm; Reflux: 0 ms Distal: 0.3 cm; Reflux: 0 ms VEIN OF GIACOMINI: Size: NA Reflux: NA PERFORATORS: Location: Proximal and mid calf. Size: 0.5 and 0.2 cm respectively. Reflux: NA VARICOSITIES: Location: Distal thigh and proximal to mid calf. Size: 0.3-0.4 cm. Reflux: 3316 ms at the distal thigh, 3416 ms in the proximal calf and 3168 ms in the mid calf. US/US venous insuf bilat IMPRESSION: Right: No venous insufficiency. Perforators and varices without reflux. Left: Venous insufficiency at the biceps is in the distal thigh, proximal and mid calf. Electronically signed by: Don Mallory MD 04/23/2025 12:36 PM EDT Dictated By: Don Parmar MD Signed By: <Electronically signed by Don Carvalho MD in OV> 04/23/25 1236 DD/ 1055 TD/TT: 04/23/25 1129 Baggage Handling Supervisor: Procedure Note Donotuseinterpreter, Image - 04/23/[address] [address] Ultrasound Report Signed Patient: Shin OrtizoMR #: [id number] : 1965Acct:[id number] Age/Sex: 59 / MADM Date: 04/23/25 Loc: . Attending Dr: Eduardo Nunes MD Ordering Physician: Eduardo Nunes MD Date of Service: 04/23/25 Procedure(s): US venous insuf bilat Accession Number(s): [id number] cc: Ham Burgos MD; Eduardo Nunes MD EXAMINATION: US LOWER EXTREMITY VENOUS (REFLUX EXAM), BILATERAL CLINICAL INFORMATION: Varices. Left greater saphenous vein ablation.. COMPARISON: December 23, 2021 and October 03, 2019 TECHNIQUE: Color flow triplex imaging and compression Doppler was performed to evaluate both the deep and the superficial systems bilaterally. To evaluate the superficial system, the examination was performed in the upright position. Color-flow Doppler ultrasound and compression ultrasound were utilized. In addition, maneuvers were utilized to demonstrate reflux. FINDINGS: 1. DEEP VENOUS ULTRASOUND OF THE RIGHT LOWER EXTREMITY: Common Femoral Vein: Compressible, normal respiratory variation and augmented flow. Femoral Vein: Compressible, normal color flow and augmentation. Popliteal Vein: Compressible, normal augmentation. Deep Reflux: There is no evidence of reflux in the deep system in either the common femoral vein, superficial femoral or the popliteal vein. There is no evidence of a Weinberg's cyst. 2. SUPERFICIAL ULTRASOUND WITH DOPPLER OF RIGHT LOWER EXTREMITY: GREAT SAPHENOUS VEIN: Saphenofemoral Junction: 0.9 cm; Reflux: 0 ms Proximal Thigh: 0.7 cm; Reflux: 0 ms Mid Thigh: 0.5 cm; Reflux: 0 ms Distal Thigh: 0.4 cm; Reflux: 0 ms At Knee: 0.5 cm; Reflux: 0 ms Proximal Calf: 0.5 cm; Reflux: 0 ms Mid Calf: 0.4 cm; Reflux: 0 ms Distal Calf: 0.4 cm; Reflux: 0 ms DUPLICATED MEDIAL GREAT SAPHENOUS VEIN: Diameter: None imaged Reflux: NA DUPLICATED LATERAL GREAT SAPHENOUS VEIN: Diameter: None imaged Reflux: NA SMALL SAPHENOUS VEIN: Saphenopopliteal Junction: 0.3 cm; Reflux: 0 ms Proximal: 0.3 cm; Reflux: 0 ms Distal: 0.3 cm; Reflux: 0 ms VEIN OF GIACOMINI: Size: NA Reflux: NA PERFORATORS: Location: Mid and distal calf. Size: 0.2 cm. Reflux: NA VARICOSITIES: Location: Mid thigh and at the knee. Size: 0.4 cm. Reflux: NA 3. DEEP VENOUS ULTRASOUND OF THE LEFT LOWER EXTREMITY: Common Femoral Vein: Compressible, normal respiratory variation and augmented flow. Femoral Vein: Compressible, normal color flow and augmentation. Popliteal Vein: Compressible, normal augmentation. Deep Reflux: There is no evidence of reflux in the deep system in either the common femoral vein, superficial femoral or the popliteal vein. There is no evidence of a Weinberg's cyst. 4. SUPERFICIAL ULTRASOUND WITH DOPPLER OF LEFT LOWER EXTREMITY: GREAT SAPHENOUS VEIN: Saphenofemoral Junction: 0.7 cm; Reflux: 0 ms Proximal Thigh: 0.4 cm; Reflux: 0 ms Mid Thigh: Not seen. Distal Thigh: 0.3 cm. Status post ablation. At Knee: 0.3 cm Status post ablation. Proximal Calf: 0.3 cm; Reflux: 0 ms Mid Calf: 0.2 cm; Reflux: 0 ms Distal Calf: 0.5 cm; Reflux: 0 ms DUPLICATED MEDIAL GREAT SAPHENOUS VEIN: Diameter: 0.6 cm. Reflux: NA DUPLICATED LATERAL GREAT SAPHENOUS VEIN: Diameter: None imaged. Reflux: NA SMALL SAPHENOUS VEIN: Saphenopopliteal Junction: 0.2 cm; Reflux: 0 ms Proximal: 0.2 cm; Reflux: 0 ms Distal: 0.3 cm; Reflux: 0 ms VEIN OF GIACOMINI: Size: NA Reflux: NA PERFORATORS: Location: Proximal and mid calf. Size: 0.5 and 0.2 cm respectively. Reflux: NA VARICOSITIES: Location: Distal thigh and proximal to mid calf. Size: 0.3-0.4 cm. Reflux: 3316 ms at the distal thigh, 3416 ms in the proximal calf and 3168 ms in the mid calf. US/US venous insuf bilat IMPRESSION: Right: No venous insufficiency. Perforators and varices without reflux. Left: Venous insufficiency at the biceps is in the distal thigh, proximal and mid calf. Electronically signed by: Don Mallory MD 04/23/2025 12:36 PM EDT Dictated By: Don Parmar MD Signed By: <Electronically signed by Don Carvalho MDin OV> 04/23/25 1236 DD/ 1055 TD/TT: 04/23/25 1129 Baggage Handling Supervisor: [facility] External Provider CV VASC ULAR PROCEDURES Final Result Performing Organization Address City/[facility]/ZIP Co de Phone Number [facility] [address] [place] [address] * Magnesium (04/10/2025 10:38 AM EDT) Magnesium 2.1 1.6 - 2.6 mg/dL [facility] Blood Venous blood specimen / Unknown 04/10/2025 10:38 AM EDT 04/10/2025 2:05 PM EDT Ham Burgos MD LAB BLOOD ORDERABLES Final Result Performing Organization Address [facility] Co de Phone Number [facility] [address] [place] [phone] * (ABNORMAL) Basic Metabolic Panel (04/10/2025 10:38 AM EDT) Only the most recent of2 resultswithin the time period is included. Sodium 140 135 - 145 mmol/L [facility] Potassium 4.2 3.3 - 5.1 mmol/L [facility] Chloride 108 96 - 108 mmol/L [facility] Carbon Dioxide 26 22 - 29 mmol/L [facility] Anion Gap 10(L) 12 - 20 [facility] Urea Nitrogen (BUN) 16 9 - 16 mg/dL [facility] Creatinine, Serum 0.78 0.5 - 1.4 mg/dL [facility] Estimated Glomerular Filt Rate >60 [facility] Comment:Chronic Kidney Disea se: Estimated GFR < 60 mL/min/[id number] Kidney Disease: Estimated GFR < 15 mL/min/1.73m2 Glucose 86 60 - 115 mg/dL [facility] LABS Calcium 8.8 8.4 - 10.2 mg/dL [facility] Blood Venous blood specimen / Unknown 04/10/2025 10:38 AM EDT 04/10/2025 2:05 PM EDT us Ham Burgos MD LAB BLOOD ORDERABLES Final Result Performing Organization Address [facility]/ZIP Co de Phone Number [facility] [address] [place] [address] [phone] * Slide Review (03/13/2025 10:37 AM EDT) Slide Review VERIFIED [facility] 03/13/2025 10:3 7 AM EDT 03/13/2025 2:53 PM EDT us Ham Burgos MD LAB BLOOD ORDERABLES Final Result Performing Organization Address [facility] de Phone Number [facility] [address] [place] [address] [phone] * (ABNORMAL) CBC auto differential (03/13/2025 10:37 AM EDT) White Blood Count 11.3(H) 4.8 - 10.8 X10*3/uL [facility] Red Blood Count 4.85 4.60 - 5.80 X10*6/uL [facility] Hemoglobin 14.9 14.0 - 18.0 g/dl [facility] Hematocrit 44.0 42.0 - 52.0 % [facility] Mean Corpuscular Volume 90.7 80.0 - 98.0 fL [facility] Mean Corpuscular Hemoglobin 30.7 27.0 - 33.0 pg [facility] Mean Corpuscular HGB Conc 33.9 31.0 - 36.0 g/dl [facility] Red Cell Distribution Width 15.3 11.0 - 16.0 % [facility] Platelet Count 519(H) 160 - 400 X10*3/uL [facility] Mean Platelet Volume 10.4 9.4 - 12.4 fL [facility] Neutrophils Percent Auto 43.8(L) 45 - 73 % [facility] Imm Gran Pct Auto 0.3 0.0 - 0.4 % [facility] Lymphocytes Percent Auto 36.4 20 - 40 % [facility] Monocytes Percent Auto 13.7(H) 2 - 11 % [facility] Eosinophils Percent Auto 4.9(H) 0 - 4 % [facility] Basophils Percent Auto 0.9 0 - 2 % [facility] NRBC Pct Auto 0.0 0.0 - 0.2 /100WBC [facility] Neutrophils Absolute Auto 5.0 2.0 - 8.3 x10*3/uL [facility] Imm Gran Abs Auto 0.03 0.00 - 0.03 X10*3/uL [facility] Lymphocytes Absolute Auto 4.1 1.2 - 4.9 X10*3/uL [facility] Monocytes Absolute Auto 1.6(H) 0.1 - 1.2 X10*3/uL [facility] Eosinophils Absolute Auto 0.6(H) 0.0 - 0.4 X10*3/uL [facility] Basophils Absolute Auto 0.1 0.0 - 0.2 X10*3/uL [facility] NRBC Abs Auto 0.000 0.0 - 0.012 X10*3/uL [facility] Blood Venous blood specimen / Unknown 03/13/2025 10:37 AM EDT 03/13/2025 2:53 PM EDT us Ham Burgos MD LAB BLOOD ORDERABLES Edited Result - Final [facility] [address], [place] [phone] * Hepatitis A,B,C Profile (01/13/2025 9:51 AM EDT) Hepatitis A IgM Nonreactive Nonreactive [facility] Comment:IgM antibodies to DAILY V not detected; does not exclude earlyacute or recovered HAV infection. ~Hepatitis B Surface Antibody NONREACTIVE Nonreactive [facility] Comment:Nonreactive: < 8.00 mIU/mL Hepatitis B Core Antibody Nonreactive Nonreactive [facility] Hepatitis C Antibody Nonreactive Nonreactive [facility] Comment:Antibodies to HCV no t detected; does not exclude early acuteHCV infection. Hepatitis B Surface Ag Negative Negative [facility] Blood Venous blood specimen / Unknown 01/13/2025 9:51 AM EDT 01/13/2025 2:46 PM EDT us Ham Burgos MD LAB BLOOD ORDERABLES Final Result [facility] [address] [place] [phone] * (ABNORMAL) Lipid Panel, Standard (01/02/2025 8:55 AM EDT) Triglycerides 70 <150 mg/dL [facility] Comment:Slight Lipemia.Izzy able Triglyceride: less than 150 mg/dLBorderline High Triglyceride 150-199 mg/dLHigh Triglyceride: 200-499 mg/dLVery High Triglyceride: greater than or equal to 5OO mg/dL Cholesterol 200(H) <200 mg/dL [facility] Comment:Desirable Cholestero l: less than 200 mg/dLBorderline High Cholesterol: 200-239 mg/dLHigh Cholesterol: greater than 239 mg/dL LDL Cholesterol Calculated 140(H) <100 mg/dL [facility] Comment:Desirable LDL: less than 100 mg/dLNear Optimal/Above Optimal LDL: 110- 129 mg/dLBorderline High LDL: 130-159 mg/dLHigh LDL: 160-189 mg/dLVery High LDL: greater than or equal to 190 mg/dL HDL Cholesterol 46 >40 mg/dL [facility] Comment:Desirable HDL: great er than 40 mg/dL Note: This HDL assay may give artificially low results in patients with liver disease. Blood Venous blood specimen / Unknown 01/02/2025 8:55 AM EDT 01/02/2025 2:06 PM EDT us Ham Burgos MD LAB BLOOD ORDERABLES Final Result [facility] [address] [place] [phone] * Colonoscopy (11/23/2023) Colonoscopy Normal Normal Narrative Jeri Munoz - 11/23/2023 Repeat colonoscopy in 10 years Historical Provider HEALTH MAINTENANCE Final Result from Last 3 Months or Most Recently Relevant to Health Maintenance Insurance [facility] C3 DENTAL-[facility] MEDICAID STAND ADULT Care Teams Box Coverer Hand Relationship Specialty Start Date End Date Ham Burgos MD [address] [place] [address] [place]ENN[place]ER [id number] PCP - General Internal Medicine 05/10/18 Taye Garcia 01/29/25
--- OUTSIDE RECORDS SUMMARY | 2025-06-03 15:49 | XMS_ITS | Encounter Summary ---
Author Organization [employer] Address [address] [place] [address] [address] [place] [address] Care Team Providers Care Toe Closing Machine Tender Name Role Phone Ham Burgos MD Primary Care Provider [phone] Roberta Jolly RN Unavailable [phone] Taye Garcia Unavailable Felipa Garcia RN Unavailable [phone] Reason for Visit * Reason Onset Date Comments Med Refill 05/03/2025 Encounter Details Date Type Department Care Team ([facility] st Contact Info) Description 05/03/2025 Refill [facility] [address] [place], [place] [phone] Ham Burgos MD [address], [place] [phone] Morbid obesity (CMS/HCC); ELO (obstructive sleep apnea) Social History Tobacco Use Types Packs/Day Years [...] Description 07/16/2025 3:00 PM EST Office Visit [facility] [address] [place] [address] Jorgito Burgos documented as of this encounter Visit Diagnoses Diagnosis Morbid obesity (CMS/[facility]) Morbid obesity ELO (obstructive sleep apnea) Obstructive sleep apnea (adult) (pediatric) documented in this encounter Additional Health Concerns Assessment Noted Time PHQ-9 Depression Total Score: 0 02/21/20 25 10:46 AM EDT documented as of this encounter Care Teams Toe Closing Machine Tender Relationship Specialty Start Date End Date Ham Burgos MD [address] [place] [address] PCP - General Internal Medicine 05/10/18 Roberta Jolly RN [address] [place] [address] Registered Nurse Family Medicine 01/29/25 05/19/25 Taye Garcia 01/29/25 Felipa Garcia RN [address] [place] [phone] Registered Nurse Family Medicine 05/19/25 05/23/25 documented as of this encounter
--- OUTSIDE RECORDS SUMMARY | 2025-06-03 15:49 | XMS_ITS | Encounter Summary ---
Author Organization [employer] Address [address] [place] [address] Care Team Providers Care Hand Washer Name Role Phone Ham Burgos MD Primary Care Provider [phone] Roberta Jolly RN Unavailable [phone] Taye Garcia Unavailable Felipa Garcia RN Unavailable [phone] Encounter Details Date Type Department Care Team (Late st Contact Info) Description 12/04/2024 Orders Only [facility] [address] [place] [address] Ham Burgos MD [address] [place] [address] Social History Tobacco Use Types Packs/Day Years [...] Description 07/16/2025 3:00 PM EST Office Visit [facility] [address] [place] [address] Jorgito Burgos documented as of this encounter Visit Diagnoses Not on filedocumented in this encounter Additional Health Concerns Assessment Noted Time PHQ-9 Depression Total Score: 17 025 9:11 AM EST documented as of this encounter Care Teams Hand Washer Relationship Specialty Start Date End Date Ham Burgos MD [address] [place] [address] PCP - General Internal Medicine 05/10/18 Roberta Jolly RN [address] [place] [address] Registered Nurse Family Medicine 01/29/25 05/19/25 Taye Garcia 01/29/25 Felipa Garcia RN [address] [place] [address] Registered Nurse Family Medicine 05/19/25 05/23/25 documented as of this encounter
--- OUTSIDE RECORDS SUMMARY | 2025-06-03 15:49 | XMS_ITS | Encounter Summary ---
Author Organization [employer] [facility] Address [address] [place] [address] 7[address] [place] [address] Care Team Providers Care Marketing Communication Manager Name Role Phone Ham Burgos MD Primary Care Provider [phone] Roberta Jolly RN Unavailable Taye Garcia Unavailable Felipa Garcia RN Unavailable [phone] Reason for Referral * Imaging (Routine) - Closed Specialty Diagnoses / Procedures Referred By Thomas stevenson Referred To Contact Radiology Diagnoses Transaminitis Procedures US Abdomen Complete Ham Burgos MD [address] [place] [address] Phone: tel: fax: [address] Phone: tel: fax: Referral ID Status Reason Start Date Expiration Date Visits Re quested Visits Authorized [id number] Closed 01/07/2025 01/07/2026 1 1 Encounter Details Date Type Department Care Team (Late st Contact Info) Description 01/02/2025 Orders Only [facility] MED & PEDS [address] [place] [phone] Ham Burgos MD [address] [place], [place] [phone] Morbid obesity (CMS/HCC) (Primary Dx); Transaminitis Social [...] 07/16/2025 3:00 PM EST Office Visit [facility] [address] [place] [address] Jorgito Burgos Scheduled Orders Name Type Priority Associated Diagnoses Orde r Schedule Smooth Muscle Antibody with Reflex to Titer Lab Routine Transaminitis Expected: 01/07/2025 (Approximate), Expires: 01/07/2026 Alpha 1 Antitrypsin Lab Routine Transaminitis Expected: 01/07/2025 (Approximate), Expires: 01/07/2026 documented as of this encounter Procedures Procedure Name Priority Date/Time Associated Diagnosis Comments US ABDOMEN COMPLETE Routine 02/17/2025 2 :21 PM EDT Transaminitis XR CHEST 1 VIEW Routine 01/29/2025 7:35 AM EDT XR CHEST 1 VIEW Routine 01/29/2025 4:[address] ABDOMEN PELVIS W CONTRAST Routine 01/29/2025 2:00 AM EDT HEPATITIS PANEL, GENERAL Routine 01/13/2025 9:51 AM EDT Morbid obesity (CMS/HCC) Transaminitis IMMUNOGLOBULINS, QUANTITATIVE, IGA, IGG, IGM Routine 01/13/2025 9:51 AM EDT Transaminitis BECCA SCREEN, IFA, W/REFL TITER AND PATTERN Routine 01/13/2025 9:51 AM EDT Transaminitis FERRITIN Routine 01/13/2025 9:51 AM EDT Transaminitis documented in this encounter Results * US Abdomen Complete (02/17/2025 2:21 PM EDT) Anatomical Region Laterality Modality Abdomen Ultrasound 02/17/2025 2:21 PM EDT Narrative 02/17/2025 2:23 PM EDT [facility] [place] [address] Ultrasound Report Signed with Addenda Patient: Shin Ortiz MR #: [id number] : 1965 Acct:[id number] Age/Sex: 59 / M ADM Date: 02/17/25 Loc: HO.HMGX Attending Dr: Ham Burgos MD Ordering Physician: Ham Burgos MD Date of Service: 02/17/25 Procedure(s): US abdomen complete Accession Number(s): [id number] cc: Ham Burgos MD ADDENDUM This document has been electronically signed by: Ary Weaver MD on 02/17/2025 14:21:54 ADDENDUM: Receipt of this report by the clinical staff was confirmed with Tanmay Hill, Patient Chemistry Technologist on Feb 17, 2025 15:50:00 EDT. This document has been electronically signed by: Nicolasa Penn on 02/17/2025 15:50:48 Addendum Dictated By: Ary Weaver MD Addendum Signed By: <Electronically signed by Ary Weaver MD in OV> 02/17/251550 Addendum Cosigned By: DD/ /05/1421 TD/TT: 02/17/2506/05/1550 CLINICAL HISTORY: Transaminitis US abdomen complete Comparison: CT/SR - CT ABDOMEN PELVIS W IV CON - 01/29/25 00:45 EDT Findings: Pancreas not well visualized secondary to overlying bowel gas. Limited visualization of the IVC and aorta secondary to bowel gas. The liver is echogenic. Limited evaluation of liver parenchyma secondary to poor penetration by the ultrasound beam. Liver length estimated at 16.9 cm. There is no intrahepatic bile duct dilatation. The common duct is 4 mm in diameter. There are multiple gallstones. Gallbladder wall thickness 2.1 mm. Positive sonographic tang's sign. The main portal vein is antegrade. The right kidney is 14.6 cm in length. The left kidney is 15.1 cm in length. There are multiple kidney cysts. Prior splenectomy. A 2.5 x 2.3 x 2.4 cm splenule is present. No ascites. IMPRESSION: 1. Cholelithiasis with a positive sonographic Tang's sign raising the possibility of acute cholecystitis. 2. Fatty infiltration of the liver. This document has been electronically signed by: Ary Weaver MD on 02/17/2025 14:21:54 Dictated By: Ary Weaver MD Signed By: <Electronically signed by Ary Weaver MD in OV> 02/17/251421 DD/ 20 TD/TT: 02/17/251420 Screen Printing Supervisor: Procedure Note Donotuseinterpreter, Image - 02/17/2025 [facility] [place] [address] Ultrasound Report Signed with Addenda Patient: Shin OrtizoMR #: [id number] : 1965Acct:[id number] Age/Sex: 59 / MADM Date: 02/17/25 Loc: HO.HMGCX Attending Dr: Ham Burgos MD Ordering Physician: Ham Burgos MD Date of Service: 02/17/25 Procedure(s): US abdomen complete Accession Number(s): [id number] cc: Ham Burgos MD ADDENDUM This document has been electronically signed by: Ary Weaver MD on 02/17/2025 14:21:54 ADDENDUM: Receipt of this report by the clinical staff was confirmed with Tanmay Hill Patient Chemistry Technologist on Feb 17, 2025 15:50:00 EDT. This document has been electronically signed by: Nicolasa Penn on 02/17/2025 15:50:48 Addendum Dictated By: Ary Weaver MD Addendum Signed By: <Electronically signed by MD Chele in OV> 02/17/251550 Addendum Cosigned By: DD/ /05/1421 TD/TT: 02/17/2506/05/1550 CLINICAL HISTORY: Transaminitis US abdomen complete Comparison: CT/SR - CT ABDOMEN PELVIS W IV CON - 01/29/25 00:45 EDT Findings: Pancreas not well visualized secondary to overlying bowel gas. Limited visualization of the IVC and aorta secondary to bowel gas. The liver is echogenic. Limited evaluation of liver parenchyma secondary to poor penetration by the ultrasound beam. Liver length estimated at 16.9 cm. There is no intrahepatic bile duct dilatation. The common duct is 4 mm in diameter. There are multiple gallstones. Gallbladder wall thickness 2.1 mm. Positive sonographic tang's sign. The main portal vein is antegrade. The right kidney is 14.6 cm in length. The left kidney is 15.1 cm in length. There are multiple kidney cysts. Prior splenectomy. A 2.5 x 2.3 x 2.4 cm splenule is present. No ascites. IMPRESSION: 1. Cholelithiasis with a positive sonographic Tang's sign raising the possibility of acute cholecystitis. 2. Fatty infiltration of the liver. This document has been electronically signed by: Ary Weaver MD on 02/17/2025 14:21:54 Dictated By: Ary Weaver MD Signed By: <Electronically signed by Ary Weaver MD in OV> 02/17/25 1422 DD/ 1421 TD/TT: 02/17/25 142 Screen Printing Supervisor: us Ham Burgos MD IMG US PROCEDURES Edited Re sult - Final * XR Chest 1 View (01/29/2025 7:35 AM EDT) Anatomical Region Laterality Modality Chest Radiographic July ging 01/29/2025 7:35 AM EDT Narrative 01/29/2025 7:54 AM EDT [place] [address] XRay Report Signed Patient: Shin Ortiz MR #: [id number] : 1965 Acct:[id number] Age/Sex: 59 / M ADM Date: 01/29/25 Loc: [place] [address]: Roxy Moses MD Ordering Physician: Generic ED Physician Date of Service: 01/29/25 Procedure(s): XR chest 1V Accession Number(s): [id number] cc: Ham Burgos MD; Generic ED Physician EXAMINATION: XR CHEST CLINICAL INFORMATION: Ng placement COMPARISON: January 29, 2025 at 4:01 AM. TECHNIQUE: Frontal view of the chest was obtained. FINDINGS: The NG tube is present overlapping the mediastinal structures extending below the left hemidiaphragm. Tip is not fully included in the npfnv-en-jscg. No no change in the appearance of the lungs or the cardiomediastinal silhouette. Focal 4 mm calcific abnormality left humeral head. XR/XR chest 1V IMPRESSION: NG tube probably in the stomach region. Electronically signed by: Don Mallory MD 01/29/2025 07:52 AM EDT RP Dictated By: Don Parmar MD Signed By: <Electronically signed by Don Carvalho MD in OV> 01/29/25 0752 DD/ 0735 TD/TT: 01/29/25 0744 Screen Printing Supervisor: Procedure Note Donotuseinterpreter, Image - 01/29/2025 [place] [address] XRay Report Signed Patient: Shin OrtizR #: [id number] : 1965Acct:[id number] Age/Sex: 59 / MADM Date: 01/29/25 Loc: [place] [address]: Roxy Moses MD Ordering Physician: Generic ED Physician Date of Service: 01/29/25 Procedure(s): XR chest 1V Accession Number(s): [id number] cc: Ham Burgos MD; Generic ED Physician EXAMINATION: XR CHEST CLINICAL INFORMATION: Ng placement COMPARISON: January 29, 2025 at 4:01 AM. TECHNIQUE: Frontal view of the chest was obtained. FINDINGS: The NG tube is present overlapping the mediastinal structures extending below the left hemidiaphragm. Tip is not fully included in the hxrwf-hf-rswg. No no change in the appearance of the lungs or the cardiomediastinal silhouette. Focal 4 mm calcific abnormality left humeral head. XR/XR chest 1V IMPRESSION: NG tube probably in the stomach region. Electronically signed by: Don Mallory MD 01/29/2025 07:52 AM EDT RP Dictated By: Don Parmar MD Signed By: <Electronically signed by Don Carvalho MDin OV> 01/29/25 0752 DD/ 0735 TD/TT: 01/29/25 0744 Screen Printing Supervisor: us [facility] External Provider IMG XR PROCEDURES Final Result * XR Chest 1 View (01/29/2025 4:25 AM EDT) Anatomical Region Laterality Modality Chest Radiographic July ging 01/29/2025 4:25 AM EDT Narrative 01/29/2025 4:27 AM EDT [address] [address] XRay Report Signed Patient: Shin Ortiz MR #: [id number] : 1965 Acct:[id number] Age/Sex: 59 / M ADM Date: 01/29/25 Loc: [place] [address]: Roxy Moses MD Ordering Physician: Ailyn Mendoza CNP Date of Service: 01/29/25 Procedure(s): XR chest 1V Accession Number(s): [id number] cc: Ailyn Mendoza CNP; Ham Burgos MD CLINICAL HISTORY: NGT placement 1 view chest x-ray Comparison: CR/SR - XR CHEST 2V - 01/29/24 10:55 EDT Findings: Low lung volumes. Cardiomegaly. No acute fracture. IMPRESSION: NG tube is obscured distally by scatter artifact. Recommend abdomen film. This document has been electronically signed by: Aníbal Chavez MD on 01/29/2025 04:25:25 Dictated By: Aníbal Chavez MD Signed By: <Electronically signed by Aníbal Chavez MD in OV> 01/29/25 0426 DD/ 4 TD/TT: 01/29/25424 Screen Printing Supervisor: Procedure Note Donotuseinterpreter, Image - 01/29/[address] [address] XRay Report Signed Patient: Shin OrtizoMR #: [id number] : 1965Acct:[id number] Age/Sex: 59 / MADM Date: 01/29/25 Loc: [place] [address]: Roxy Moses MD Ordering Physician: Ailyn Mendoza CNP Date of Service: 01/29/25 Procedure(s): XR chest 1V Accession Number(s): [id number] cc: Ailyn Mendoza CNP; Ham Burgos MD CLINICAL HISTORY: NGT placement 1 view chest x-ray Comparison: CR/SR - XR CHEST 2V - 01/29/24 10:55 EDT Findings: Low lung volumes. Cardiomegaly. No acute fracture. IMPRESSION: NG tube is obscured distally by scatter artifact. Recommend abdomen film. This document has been electronically signed by: Aníbal Chavez MD on 01/29/2025 04:25:25 Dictated By: Aníbal Chavez MD Signed By: <Electronically signed by Aníbal Chavez MD in OV> 01/29/25 0426 DD/ 4 TD/TT: 01/29/25424 Screen Printing Supervisor: us [facility] External Provider IMG XR PROCEDURES Edited Result - Final * CT Abdomen Pelvis w/ Contrast (01/29/2025 2:00 AM EDT) Anatomical Region Laterality Modality Body, Pelvis, Abdomen Computed T omography 01/29/2025 2:00 AM EDT Narrative 01/29/2025 2:01 AM EDT [place] [address] CT Scan Report Signed with Addenda Patient: Shin Ortiz MR #: [id number] : 1965 Acct:[id number] Age/Sex: 59 / M ADM Date: 01/29/25 Loc: .ED Attending Dr: Ordering Physician: Ailyn Mendoza CNP Date of Service: 01/29/25 Procedure(s): CT abdomen pelvis w IV con Accession Number(s): [id number] cc: Ailyn Mendoza CAB STATION ATTENDANT; Ham Burgos MD Report Number: [id number]: Total DLP = 1490.00 mGy-cm ADDENDUM This document has been electronically signed by: Trace Godoy MD on 01/29/2025 02:00:09 ADDENDUM: This report was discussed with Ailyn Mendoza NP on January 29, 2025 02:04:00 EDT. 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 Mildly dilated stomach. Threshold dilated loops of proximal and mid small bowel measuring up to 4.8 cm. Anterior transition point on series 3, image 42. No free fluid or free air. Normal appearance of the colon. Normal gallbladder, bile ducts, liver, pancreas, and adrenal glands. Bilateral renal cysts. Otherwise normal kidneys, ureters, and urinary bladder. Prostate unremarkable. No aortic aneurysm. No acute fracture. No suspicious lytic or blastic bone lesion. 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 This document has been electronically signed by: Trace Godoy MD on 01/29/2025 02:00:09 Dictated By: Trace Godoy MD Signed By: <Electronically signed by Trace Godoy MD in OV> 01/29/25199 DD/ 9 TD/TT: 01/29/25199 Screen Printing Supervisor: Procedure Note Donotuseinterpreter, Image - 01/29/[address] [address] [address] Scan Report Signed with Addenda Patient: Shin OrtizoMR #: [id number] : 1965Acct:[id number] Age/Sex: 59 / MADM Date: 01/29/25 Loc: HO.ED Attending Dr: Ordering Physician: Ailyn Mendoza CNP Date of Service: 01/29/25 Procedure(s): CT abdomen pelvis w IV con Accession Number(s): [id number] cc: Ailyn Mendoza CNP; Ham Burgos MD Report Number: [id number]: Total DLP = 1490.00 mGy-cm ADDENDUM This document has been electronically signed by: Trace Godoy MD on 01/29/2025 02:00:09 ADDENDUM: This report was discussed with Ailyn Mendoza NP on January 29, 2025 02:04:00 EDT. 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 Mildly dilated stomach. Threshold dilated loops of proximal and mid small bowel measuring up to 4.8 cm. Anterior transition point on series 3, image 42. No free fluid or free air. Normal appearance of the colon. Normal gallbladder, bile ducts, liver, pancreas, and adrenal glands. Bilateral renal cysts. Otherwise normal kidneys, ureters, and urinary bladder. Prostate unremarkable. No aortic aneurysm. No acute fracture. No suspicious lytic or blastic bone lesion. 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 This document has been electronically signed by: Trace Godoy MD on 01/29/2025 02:00:09 Dictated By: Trace Godoy MD Signed By: <Electronically signed by Trace Godoy MD in OV> 01/29/25199 DD/ 9 TD/TT: 01/29/25 0200 Screen Printing Supervisor: [facility] External Provider IMG CT PROCEDURES Edited Result - Final * Hepatitis A,B,C Profile (01/13/2025 9:51 AM EDT) Hepatitis A IgM Nonreactive Nonreactive [facility] Comment:IgM antibodies to DAILY V not detected; does not exclude earlyacute or recovered HAV infection. ~Hepatitis B Surface Antibody NONREACTIVE Nonreactive [facility] Comment:Nonreactive: < 8.00 mIU/mL Hepatitis B Core Antibody Nonreactive Nonreactive [facility] Hepatitis C Antibody Nonreactive Nonreactive [facility] Comment:Antibodies to HCV no t detected; does not exclude early acuteHCV infection. Hepatitis B Surface Ag Negative Negative [facility] Blood Venous blood specimen / Unknown 01/13/2025 9:51 AM EDT 01/13/2025 2:46 PM EDT Ham Burgos MD LAB BLOOD ORDERABLES Final Result [facility] [address] [place] [address] [phone] * BECCA Screen,IFA, with Reflex to Titer and Pattern (01/13/2025 9:51 AM EDT) Anti Nuclear Antibody Screen NEGATIVE NEGATIVE [facility] Comment:BECCA IFA is a [...] clinicallysuspected inflammatory myopathies.AC-0: NegativeInternational Consensus on BECCA Patterns(https://doi.org/10.1515/oegi-6608-0620)For additional information, please refer tohttp://education.[facility]/faq/XSA873(This link is being provided for informational/educational purposes only.)THIS TEST WAS PERFORMED AT:[employer] [address] [id number] ELIZONDO MD BECCA Titer TNP [facility] BECCA Pattern TNP [facility] BECCA TITER 2 (REF LAB) TNP [facility] BECCA Pattern 2 TNP [facility] BECCA TITER 3 TNP [facility] BECCA PATTERN 3 [facility] Blood Venous blood specimen / Unknown 01/13/2025 9:51 AM EDT 01/13/2025 2:46 PM EDT us Ham Burgos MD LAB BLOOD ORDERABLES Final Result Performing Organization Address [facility] Co de Phone Number [facility] [address] [place] [phone] * (ABNORMAL) Immunoglobulins Panel, Serum (01/13/2025 9:51 AM EDT) IMMUNOGLOBULIN G 971 600 - 1540 mg/dL [facility] IMMUNOGLOBULIN A 185 70 - 320 mg/dL [facility] Immunoglobulin M 30(A) 50 - 300 mg/dL [facility] Comment:THIS TEST WAS PERFOR MED AT:[employer] [address] [id number] ELIZONDO MD Blood Venous blood specimen / Unknown 01/13/2025 9:51 AM EDT 01/13/2025 2:46 PM EDT us Ham Burgos MD LAB BLOOD ORDERABLES Final Result Performing Organization Address [facility]/ZIP Co de Phone Number [facility] [address] [place] [phone] * Ferritin (01/13/2025 9:51 AM EDT) Ferritin 120 20 - 250 ng/mL [facility] Blood Venous blood specimen / Unknown 01/13/2025 9:51 AM EDT 01/13/2025 2:46 PM EDT Ham Burgos MD LAB BLOOD ORDERABLES Final Result [facility] [address] [place] [phone] documented in this encounter Visit Diagnoses Diagnosis Morbid obesity (CMS/HCC)- Primary Morbid obesity Transaminitis Nonspecific elevation of levels of transaminase or lactic acid dehydrogenase (LDH) documented in this encounter Additional Health Concerns Assessment Noted Time PHQ-9 Depression Total Score: 17 025 9:11 AM EST documented as of this encounter Care Teams Marketing Communication Manager Relationship Specialty Start Date End Date Ham Burgos MD [address] [place] [address] PCP - General Internal Medicine 05/10/18 Roberta Jolly RN [address] [place] [address] Registered Nurse Family Medicine 01/29/25 05/19/25 Taye Garcia 01/29/25 Felipa Garcia RN [address] [place] [address] Registered Nurse Family Medicine 05/19/25 05/23/25 documented as of this encounter
--- OUTSIDE RECORDS SUMMARY | 2025-06-03 15:49 | XMS_ITS | Encounter Summary ---
Author Organization [employer] Address [address] [facility] [address] [place] [address] Care Team Providers Care Store Merchandiser Name Role Phone Ham Burgos MD Primary Care Provider [phone] Roberta Jolly RN Unavailable [phone] Taye Garcia Unavailable Felipa Garcia RN Unavailable [phone] Reason for Visit * Reason Onset Date Comments PA 11/29/2024 Encounter Details Date Type Department Care Team (Late st Contact Info) Description 11/29/2024 Telephone [facility] MED[facility] [address] [place], [place] [phone] aHm Burgos MD [address] [place], [place] [phone] NOHEMI Social History Tobacco Use Types Packs/Day Years [...] pt calling requesting status on Zepbound 2.5mg. Special Education Secretary works on [facility] Pharmacy and rejection that we have is medication require a PA. PCP DR. Burgos * Telephone Encounter - Christine Freeman - 11/29/2024 4:06 PM EDT Tc from pt calling requesting status on Zepbound 2.5mg. Special Education Secretary works on [facility] Pharmacy and rejection that we have is medication require a PA. PCP DR. Burgos documented in this encounter Plan of Treatment Upcoming Encounters Date Type Department Care Team (Late st Contact Info) Description 07/16/2025 3:00 PM EST Office Visit [facility] [address] [place] [address] Jorgito Burgos documented as of this encounter Visit Diagnoses Not on filedocumented in this encounter Additional Health Concerns Assessment Noted Time PHQ-9 Depression Total Score: 17 11/11/ 025 9:11 AM EST documented as of this encounter Care Teams Store Merchandiser Relationship Specialty Start Date End Date Ham Burgos MD [address] [place] [address] PCP - General Internal Medicine 05/10/18 Roberta Jolly RN [address] [place] [address] Registered Nurse Family Medicine 01/29/25 05/19/25 Taye Garcia 01/29/25 Felipa Garcia, CHELA [address] [place] [address] Registered Nurse Family Medicine 05/19/25 05/23/25 documented as of this encounter
--- OUTSIDE RECORDS SUMMARY | 2025-06-03 15:49 | XMS_ITS | Encounter Summary ---
Author Organization [employer] Address [address] [facility] [address] [place] [address] Care Team Providers Care Shoulder Sawyer Name Role Phone Ham Burgos MD Primary Care Provider [phone] Roberta Jolly RN Unavailable [phone] Taye Garcia Unavailable Felipa Garcia RN Unavailable [phone] Encounter Details Date Type Department Care Team (Latest Contact Info) Description 07/18/2024 Orders Only [facility] [address] [place], [place] [phone] Ham Burgos MD [address] [place], [place] [phone] Hypercholesterolemia (Primary Dx) Social History Tobacco Use [...] Description 07/16/2025 3:00 PM EST Office Visit [facility] ADULT DENTAL [address] [place] [address] Jorgito Burgos documented as of this encounter Visit Diagnoses Diagnosis Hypercholesterolemia- Primary Pure hypercholesterolemia documented in this encounter Additional Health Concerns Assessment Noted Time PHQ-9 Depression Total Score: 8 12/11/19 24 9:29 AM EDT documented as of this encounter Care Teams Shoulder Sawyer Relationship Specialty Start Date End Date Ham Burgos MD [address] [place] [address] PCP - General Internal Medicine 05/10/18 Roberta Jolly RN [address] [place] [address] Registered Nurse Family Medicine 01/29/25 05/19/25 Taye Garcia 01/29/25 Felipa Garcia RN [address] [place] [address] Registered Nurse Family Medicine 05/19/25 05/23/25 documented as of this encounter
--- OUTSIDE RECORDS SUMMARY | 2025-06-03 15:49 | XMS_ITS | Encounter Summary ---
Author Organization [employer] Address 75 [facility] 7t [place] [address] Care Team Providers Care Pallet Rectifier Name Role Phone Ham Burgos MD Primary Care Provider [phone]- [phone] Roberta Jolly RN Unavailable [phone] Taye Garcia Unavailable Felipa Garcia RN Unavailable [phone] Encounter Details Date Type Department Care Team ([facility] st Contact Info) Description 04/16/2024 Orders Only [facility] CHC MED & PEDS [address] [place], [place] [phone] Ham Burgos MD [address] [place], [place] [phone] Restless legs (Primary Dx) Social History Tobacco [...] Description 07/16/2025 3:00 PM EST Office Visit [facility] ADULT DENTAL [address] [place] [address] Jorgito Burgos documented as of this encounter Visit Diagnoses Diagnosis Restless legs- Primary Restless legs syndrome (RLS) documented in this encounter Additional Health Concerns Assessment Noted Time PHQ-9 Depression Total Score: 8 12/11/19 24 9:29 AM EDT documented as of this encounter Care Teams Pallet Rectifier Relationship Specialty Start Date End Date Ham Burgos MD [address] [place] [address] PCP - General Internal Medicine 05/10/18 Roberta Jolly RN [address] [place] [address] Registered Nurse Family Medicine 01/29/25 05/19/25 Taye Garcia 01/29/25 Felipa Gacria RN 505 [place] [address] Registered Nurse Family Medicine 05/19/25 05/23/25 documented as of this encounter
--- OUTSIDE RECORDS SUMMARY | 2025-06-03 15:49 | XMS_ITS | Encounter Summary ---
Author Organization [employer] Address 75 [facility] 7t [place] [address] Care Team Providers Care Diesel Scoop Operator Name Role Phone Ham Burgos MD Primary Care Provider [phone]- [phone] Roberta Jolly RN Unavailable [phone] Taye Garcia Unavailable Felipa Garcia RN Unavailable [phone] Encounter Details Date Type Department Care Team ([facility] st Contact Info) Description 12/05/2024 Orders Only [facility] CHC MED & PEDS [address] [place], [place] [phone] Ham Burgos MD [address] [place], [place] [phone] Morbid obesity (CMS/HCC) (Primary Dx) Social History [...] Description 07/16/2025 3:00 PM EST Office Visit [facility] ADULT DENTAL [address] [place] [address] Jorgito Burgos documented as of this encounter Visit Diagnoses Diagnosis Morbid obesity (CMS/HCC)- Primary Morbid obesity documented in this encounter Additional Health Concerns Assessment Noted Time PHQ-9 Depression Total Score: 17 025 9:11 AM EST documented as of this encounter Care Teams Diesel Scoop Operator Relationship Specialty Start Date End Date Ham Burgos MD 505 [place] [address] PCP - General Internal Medicine 05/10/18 Roberta Jolly RN 505 [place] [address] Registered Nurse Family Medicine 01/29/25 05/19/25 Taye Garcia 01/29/25 Felipa Garcia RN [address] [place] [address] Registered Nurse Family Medicine 05/19/25 05/23/25 documented as of this encounter
--- OUTSIDE RECORDS SUMMARY | 2025-06-03 15:49 | XMS_ITS | Encounter Summary ---
Author Organization [employer] Address [address] [place] [address] 7t [place] [address] Care Team Providers Care Court Messenger Name Role Phone Ham Burgos MD Primary Care Provider [phone] Roberta Jolly RN Unavailable [phone] Taye Garcia Unavailable Felipa Garcia RN Unavailable [phone] Encounter Details Date Type Department Care Team (Late Contact Info) Description 05/19/2023 Orders Only [facility] CHC MED & PEDS [address] [place], [place] [phone] Ham Burgos MD [address] [place], [place] [phone] Dry skin (Primary Dx) Social History Tobacco [...] Department Care Team (Late Contact Info) Description 07/16/2025 3:00 PM EST Office Visit [facility] CHC ADULT DENTAL [address] [place] [address] Jorgito Burgos documented as of this encounter Visit Diagnoses Diagnosis Dry skin- Primary Other symptoms involving skin and integumentary tissues documented in this encounter Additional Health Concerns Assessment Noted Time PHQ-9 Depression Total Score: 14 023 11:04 AM EDT documented as of this encounter Care Teams Court Messenger Relationship Specialty Start Date End Date Ham Burgos MD 505 [place] [address] PCP - General Internal Medicine 05/10/18 Roberta Jolly RN [address] [place] [address] Registered Nurse Family Medicine 01/29/25 05/19/25 Taye Garcia 01/29/25 Felipa Garcia, CHELA 505 [place] [address] Registered Nurse Family Medicine 05/19/25 05/23/25 documented as of this encounter
--- OUTSIDE RECORDS SUMMARY | 2025-06-03 15:49 | XMS_ITS ---
Author Organization [employer] Address [address] [place] [address] [address] [address] Care Team Providers Care Medical Records Coder Name Role Phone Ham Burgos MD Primary Care Provider [phone] Taye Garcia [facility] Complex Status:Enrolled (Active) Start date:01/29/2025 Enrollment date:02/20/2025 Enrollment reason:ADT Feed Overview ADT- Pt admitted to [facility] on 01/29/25. Case Team Name Relationship Phone Taye Garcia(Responsible Staff) [phone] Continued Care and Services Coordination
--- OUTSIDE RECORDS SUMMARY | 2025-06-03 15:50 | XMS_ITS | Encounter Summary ---
Author Organization [employer] Address 75 [facility] 7t [place] [address] Care Team Providers Care Advertising Account Executive Name Role Phone Ham Burgos MD Primary Care Provider [phone] Roberta Jolly RN Unavailable [phone] Taye Garcia Unavailable Felipa Garcia RN Unavailable [phone] Encounter Details Date Type Department Care Team (Late st Contact Info) Description 10/09/2022 Orders Only [facility] MEDICINE [address] [place] [address] Ham Burgos MD [address] [facility] [address] Morbid obesity (CMS/HCC) (Primary Dx) Social History [...] Description 07/16/2025 3:00 PM EST Office Visit [facility] ADULT DENTAL [address] [place] [address] Jorgito Burgos Scheduled Orders Name Type Priority [...] Time PHQ-9 Depression Total Score: 0 10/03/19 1:13 PM EST documented as of this encounter Care Teams Advertising Account Executive Relationship Specialty Start Date End Date Ham Burgos MD 505 [place] [address] PCP - General Internal Medicine 05/10/18 Roberta Jolly, CHELA 505 [place] [address] Registered Nurse Family Medicine 01/29/25 05/19/25 Taye Garcia 01/29/25 Felipa Garcia, CHELA [address] [place] [address] Registered Nurse Family Medicine 05/19/25 05/23/25 documented as of this encounter
--- OUTSIDE RECORDS SUMMARY | 2025-06-03 15:50 | XMS_ITS | Clinical Summary ---
Author Organization [address] [place] [address] Address [address] [place] [address] Phone Care Team Providers Care Transitions Manager Rn Name Role Phone Josie Schmid MD Primary Care Provider [phone] Allergies No known active allergies Medications albuterol [...] AM EDT Office Visit [facility] [place] [address] [address] Joao Thomas, DPM [address] [address] Health Maintenance Due Date Last Done Comments [...] 04/05/2024 Social Influencers of Health Screening 04/05/2024 Depression Screening 09/11/2024 COVID-19 Vaccine (2 - 2024-2 6 season) 2025 07/28/2022 Influenza Vaccine (#1) 2025 HIB Vaccines Aged [...] topic Insurance MEDICAID - [place] Care Teams Transitions Manager Rn Relationship Specialty Start Date End Date Josie Schmid MD [address] [place] [phone] PCP - General 12/21/23
--- OUTSIDE RECORDS SUMMARY | 2025-06-03 15:50 | XMS_ITS | Encounter Summary ---
Author Organization [employer] Address 75 [facility] 7t [place] [address] Care Team Providers Care Beef Boner Name Role Phone Ham Burgos MD Primary Care Provider [phone]- [phone] Roberta Jolly RN Unavailable [phone] Taye Garcia Unavailable Felipa Garcia RN Unavailable [phone] Encounter Details Date Type Department Care Team ([facility] st Contact Info) Description 03/26/2025 Orders Only [facility] CHC MED & PEDS [address] [place], [place] [phone] Ham Burgos MD [address] [place], [place] [phone] Morbid obesity (CMS/HCC) (Primary Dx); ELO (obstructive sleep apnea) Social History Tobacco [...] 07/16/2025 3:00 PM EST Office Visit [facility] ADULT D[facility] [address] [place] [address] Jorgito Burgos documented as of this encounter Procedures Procedure Name Priority Date/Time Associated Diagnosis Comments VAS US LOWER EXTREMITY VENOUS INSUFFICIENCY BILATERAL Routine 04/23/2025 10:55 AM EDT documented in this encounter Results * VAS US Lower Extremity Venous Insufficiency Bilateral (04/23/2025 10:55 AM EDT) 04/23/2025 10:5 5 AM EDT Narrative [facility] - 04/23/2025 12:38 PM EDT [address] [address] Ultrasound Report Signed Patient: Shin Ortiz MR #: [id number] : 1965 Acct:[id number] Age/Sex: 59 / M ADM Date: 04/23/25 Loc: . Attending Dr: Eduardo Nunes MD Ordering Physician: Eduardo Nunes MD Date of Service: 04/23/25 Procedure(s): US venous insuf bilat Accession Number(s): [id number] cc: Ham Burgos MD; Eduardo Nunes MD [...] 04/23/25 1236 DD/ 1055 TD/TT: 04/23/25 1129 Auto Painter: Procedure Note Donotuseinterpreter, Image - 04/23/[address] [address] Ultrasound Report Signed Patient: Shin OrtizR #: [id number] : 1965Acct:[id number] Age/Sex: 59 / MADM Date: 04/23/25 Loc: HO.US Attending Dr: Eduardo Nunes MD Ordering Physician: Eduardo Nunes MD Date of Service: 04/23/25 Procedure(s): US venous insuf bilat Accession Number(s): [id number] cc: Ham Burgos MD; Eduardo Nunes MD [...] Don Mallory MD 04/23/2025 12:36 PM EDT RP Dictated By: Don Parmar MD Signed By: <Electronically signed by Don Carvalho MDin OV> 04/23/25 1236 DD/ 1055 TD/TT: 04/23/25 1129 Auto Painter: us [facility] External Provider CV VASC ULAR PROCEDURES Final Result [facility] [address] [place] [address] documented in this encounter Visit Diagnoses Diagnosis Morbid obesity (CMS/HCC)- Primary Morbid obesity ELO (obstructive sleep apnea) Obstructive sleep apnea (adult) (pediatric) documented in this encounter Additional Health Concerns Assessment Noted Time PHQ-9 Depression Total Score: 0 02/21/20 10:46 AM EDT documented as of this encounter Care Teams Beef Boner Relationship Specialty Start Date End Date Ham Burgos MD [address] [place] [address] PCP - General Internal Medicine 05/10/18 Roberta Jolly RN 505 [place] [address] Registered Nurse Family Medicine 01/29/25 05/19/25 Taye Garcia 01/29/25 Felipa Garcia RN [address] [place] [address] Registered Nurse Family Medicine 05/19/25 05/23/25 documented as of this encounter
--- OUTSIDE RECORDS SUMMARY | 2025-06-03 15:50 | XMS_ITS | Encounter Summary ---
Author Organization [employer] Address 75 [facility] 7t [place] [address] Care Team Providers Care Bi Architect Name Role Phone Ham Burgos MD Primary Care Provider [phone] Roberta Jolly RN Unavailable [phone] Taye Garcia Unavailable Felipa Garcia RN Unavailable [phone] Reason for Visit * Reason Comments Med Refill Encounter Details Date Type Department Care Team ([facility] st Contact Info) Description 02/24/2025 Refill [facility] CHC MED & PEDS [address] [place], [place] [phone] Ham Burgos MD [address] [place], [place] [phone] Social History Tobacco Use Types Packs/Day Years [...] [facility] ADULT D[facility] [address] [place] [address] Jorgito Burgos documented as of this encounter Visit Diagnoses Not on filedocumented in this encounter Additional Health Concerns Assessment Noted Time PHQ-9 Depression Total Score: 0 02/21/20 25 10:46 AM EDT documented as of this encounter Care Teams Bi Architect Relationship Specialty Start Date End Date Ham Burgos MD [address] [place] [address] PCP - General Internal Medicine 05/10/18 Roberta Jolly RN 505 [place] [address] Registered Nurse Family Medicine 01/29/25 05/19/25 Taye Garcia 01/29/25 Felipa Garcia RN [address] [place] [address] Registered Nurse Family Medicine 05/19/25 05/23/25 documented as of this encounter
--- OUTSIDE RECORDS SUMMARY | 2025-06-03 15:50 | XMS_ITS | Encounter Summary ---
Author Organization [employer] Address [address] [facility] [address] 7t [place] [address] Care Team Providers Care Police Booking Officer Name Role Phone Ham Burgos MD Primary Care Provider [phone] Roberta Jolly RN Unavailable [phone] Taye Garcia Unavailable Felipa Garcia RN Unavailable [phone] Encounter Details Date Type Department Care Team ([facility] st Contact Info) Description 04/10/2025 Results Follow-Up [facility] CHC MED & PEDS [address] [place], [place] [phone] Ham Burgos MD [address] [place], [place] [phone] Basic Metabolic Panel, Magnesium Social History Tobacco Use Types Packs/Day Years [...] 3:00 PM EST Office Visit [facility] ADULT DENTAL [address] [place] [address] Jorgito Burgos documented as of this encounter Visit Diagnoses Not on filedocumented in this encounter Additional Health Concerns Assessment Noted Time PHQ-9 Depression Total Score: 0 02/21/20 25 10:46 AM EDT documented as of this encounter Care Teams Police Booking Officer Relationship Specialty Start Date End Date Ham Burgos MD [address] [place] [address] PCP - General Internal Medicine 05/10/18 Roberta Jolly RN [address] [place] [address] Registered Nurse Family Medicine 01/29/25 05/19/25 Taye Garcia 01/29/25 Felipa Garcia RN [address] [place] [address] [place] [address] Registered Nurse Family Medicine 05/19/25 05/23/25 documented as of this encounter
--- OUTSIDE RECORDS SUMMARY | 2025-06-03 15:50 | XMS_ITS | Encounter Summary ---
Author Organization [employer] Address 75 [facility] 7t [place] [address] Care Team Providers Care Director Erp Name Role Phone Ham Burgos MD Primary Care Provider [phone] Roberta Jolly RN Unavailable [phone] Taye Garcia Unavailable Felipa Garcia RN Unavailable [phone] Reason for Visit * Reason Comments Med Refill Encounter Details Date Type Department Care Team (Late st Contact Info) Description 03/16/2025 Refill [facility] CHC ADULT DENTAL [address] [place], [place] [phone] Robb Pickering, DMD [address] [place], [place] [phone] Dental caries Social History Tobacco Use Types Packs/Day Years [...] encounter Miscellaneous Notes * Telephone Encounter - Robb Pickering DMD - 03/17/2025 7:53 AM EDT documented in this encounter Plan of Treatment Upcoming Encounters Date Type Department Care Team ([facility] st Contact Info) Description 07/16/2025 3:00 PM EST Office Visit [facility] ADULT DENTAL [address] [place] [address] Jorgito Burgos documented as of this encounter Visit Diagnoses Diagnosis Dental caries Unspecified dental caries documented in this encounter Additional Health Concerns Assessment Noted Time PHQ-9 Depression Total Score: 0 02/21/20 25 10:46 AM EDT documented as of this encounter Care Teams Director Erp Relationship Specialty Start Date End Date Ham Burgos MD [address] [place] [address] PCP - General Internal Medicine 05/10/18 Roberta Jolly RN 505 [place] [address] Registered Nurse Family Medicine 01/29/25 05/19/25 Taye Garcia 01/29/25 Felipa Garcia RN 505 [place] [address] Registered Nurse Family Medicine 05/19/25 05/23/25 documented as of this encounter
--- OUTSIDE RECORDS SUMMARY | 2025-06-03 15:50 | XMS_ITS | Encounter Summary ---
Author Organization [employer] Address 75 [facility] 7t [place] [address] Care Team Providers Care Brand Sales Manager Name Role Phone Ham Burgos MD Primary Care Provider [phone] Roberta Jolly RN Unavailable [phone] Taye Garcia Unavailable Felipa Garcia RN Unavailable [phone] Reason for Visit * Reason Onset Date Comments Med Refill 01/17/2025 Encounter Details Date Type Department Care Team ([facility] st Contact Info) Description 01/17/2025 Refill [facility] CHC MED & PEDS [address] [place], [place] [phone] Ham Burgos MD [address] [place] [address] Social History Tobacco Use Types Packs/Day Years [...] Description 07/16/2025 3:00 PM EST Office Visit [facility] ADULT DENTAL [address] [place] [address] Jorgito Burgos documented as of this encounter Visit Diagnoses Not on filedocumented in this encounter Additional Health Concerns Assessment Noted Time PHQ-9 Depression Total Score: 17 025 9:11 AM EST documented as of this encounter Care Teams Brand Sales Manager Relationship Specialty Start Date End Date Ham Burgos MD [address] [place] [address] PCP - General Internal Medicine 05/10/18 Roberta Jolly RN 505 [place] [address] Registered Nurse Family Medicine 01/29/25 05/19/25 Taye Garcia 01/29/25 Felipa Garcia RN [address] [place] [address] Registered Nurse Family Medicine 05/19/25 05/23/25 documented as of this encounter
== END 2025-06-03 13:23 | disposition home or self-care (01) ==
LOC: HO.HVS 12:57
PROVIDERS: PCP Internal Medicine; Visit Provider Surgery Vascular Surgery
DX: I83.12 Varicose veins of left lower extremity with inflammation (principal)
CPT/HCPCS: 99214

== ENCOUNTER → 2025-06-03 12:56 | Outpatient (BNVA) | payer MEDICAID, SELFPAY | PROVIDERS: PCP Internal Medicine; Visit Provider Surgery Vascular Surgery | DX: I83.12 Varicose veins of left lower extremity with inflammation (principal) | CPT/HCPCS: 99212 ==

== ENCOUNTER 2025-07-01 10:36 | Outpatient (AMB) | payer MEDICAID, SELFPAY ==
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
[2025-07-01 10:45] VITALS: BP 136/63; PULSE 72; O2SAT 93; BMI 44.9
--- OUTSIDE RECORDS SUMMARY | 2025-07-01 12:43 | XMS_ITS | Encounter Summary ---
Author Organization [employer] Address [address] [place] [address] [address] [place] [address] Care Team Providers Care Nurse Reviewer Name Role Phone Ham Burgos MD Primary Care Provider [phone] Roberta Jolly RN Unavailable Unavailable Taye Garcia Unavailable Fleipa Garcia RN Unavailable [phone] Reason for Visit * Reason Onset Date Comments Med Refill 05/03/2025 Encounter Details Date Type Department Care Team ([facility] st Contact Info) Description 05/03/2025 Refill [facility] MED [facility] PEDS [address] [place], [place] [id number] Ham Burgos MD [address] [place], [place] [id number] Morbid obesity (CMS/HCC); ELO (obstructive sleep apnea) [...] the past 12 months, has t he [employer], gas, oil or water [employer] threatened to shut off services in your [...] Description 07/16/2025 3:00 PM EST Office Visit [facility] ADULT DENTAL [address] [place] [address] Jorgito Burgos documented as of this encounter Visit Diagnoses Diagnosis Morbid obesity (CMS/HCC) (HCC) Morbid obesity ELO (obstructive sleep apnea) Obstructive sleep apnea (adult) (pediatric) documented in this encounter Additional Health Concerns Assessment Noted Time PHQ-9 Depression Total Score: 0 02/21/20 25 10:46 AM EDT documented as of this encounter Care Teams Nurse Reviewer Relationship Specialty Start Date End Date Ham Burgos MD [address] [place] [address] PCP - General Internal Medicine 05/10/18 Roberta Jolly RN [address] [place] [address] Registered Nurse Family Medicine 01/29/25 05/19/25 Taye Garcia 01/29/25 06/04/25 Felipa Garcia RN [address] [place] [address] Registered Nurse Family Medicine 05/19/25 05/23/25 documented as of this encounter
--- OUTSIDE RECORDS SUMMARY | 2025-07-01 12:43 | XMS_ITS | Encounter Summary ---
Author Organization [email or web address] [facility] Address [address] [place] [address] [address] [place] [address] Care Team Providers Care Machine Operator Hop Picker Name Role Phone Ham Burgos MD Primary Care Provider [phone] Roberta Jolly RN Unavailable Unavailable Taye Garcia Unavailable Felipa Garcia RN Unavailable [phone] Encounter Details Date Type Department Care Team (Late Contact Info) Description 05/19/2023 Orders Only [facility] MED & PEDS [address] [place] [address] Ham Burgos MD [address] [place] [address] Dry skin (Primary Dx) Social History Tobacco [...] 07/16/2025 3:00 PM EST Office Visit [facility] ADULT DENTAL [address] [place] [address] Jorgito Burgos documented as of this encounter Visit Diagnoses Diagnosis Dry skin- Primary Other symptoms involving skin and integumentary tissues documented in this encounter Additional Health Concerns Assessment Noted Time PHQ-9 Depression Total Score: 14 023 11:04 AM EDT documented as of this encounter Care Teams Machine Operator Hop Picker Relationship Specialty Start Date End Date Ham Burgos MD [address] [place] [address] PCP - General Internal Medicine 05/10/18 Roberta Jolly RN [address] [place] [address] Registered Nurse Family Medicine 01/29/25 05/19/25 Taye Garcia 01/29/25 06/04/25 Felipa Garcia RN [address] [place] [address] Registered Nurse Family Medicine 05/19/25 05/23/25 documented as of this encounter
--- OUTSIDE RECORDS SUMMARY | 2025-07-01 12:43 | XMS_ITS | Encounter Summary ---
Author Organization [employer] Address [address] [facility] [address] [place] [address] Care Team Providers Care Unload Associate Name Role Phone Ham Burgos MD Primary Care Provider [phone] Taye Garcia Unavailable Reason for Visit * Reason Onset Date Comments Med Refill 06/03/2025 Encounter Details Date Type Department Care Team ([facility] st Contact Info) Description 06/03/2025 Refill [facility] MED [facility] PEDS [address] [place] [address] Ham Burgos MD [address] [place] [address] Morbid obesity (CMS/HCC); ELO (obstructive sleep apnea) [...] Visit [facility] ADULT DENTAL [address] [place] [address] Jorgito Burgos documented as of this encounter Visit Diagnoses Diagnosis Morbid obesity (CMS/HCC) (HCC) Morbid obesity ELO (obstructive sleep apnea) Obstructive sleep apnea (adult) (pediatric) documented in this encounter Additional Health Concerns Assessment Noted Time PHQ-9 Depression Total Score: 0 02/21/20 25 10:46 AM EDT documented as of this encounter Care Teams Unload Associate Relationship Specialty Start Date End Date Ham Burgos MD [address] [place] [address] PCP - General Internal Medicine 05/10/18 Taye Garcia 01/29/25 06/04/25 documented as of this encounter
--- OUTSIDE RECORDS SUMMARY | 2025-07-01 12:43 | XMS_ITS | Encounter Summary ---
Author Organization [employer] Address [address] [facility] [address] [place] [address] Care Team Providers Care Medical File Clerk Name Role Phone Ham Burgos MD Primary Care Provider [phone] Roberta Jolly RN Unavailable Unavailable Taye Garcia Unavailable Felipa Garcia RN Unavailable [phone] Encounter Details Date Type Department Care Team (Latest Contact Info) Description 07/18/2024 Orders Only [facility] MED [facility] PEDS [address] [place], [place] [phone] Ham Burgos MD [address] [place] [address] Hypercholesterolemia (Primary Dx) Social History Tobacco Use [...] [facility] [address] [place] [address] Jorgito Burgos documented as of this encounter Visit Diagnoses Diagnosis Hypercholesterolemia- Primary Pure hypercholesterolemia documented in this encounter Additional Health Concerns Assessment Noted Time PHQ-9 Depression Total Score: 8 12/11/19 24 9:29 AM EDT documented as of this encounter Care Teams Medical File Clerk Relationship Specialty Start Date End Date Ham Burgos MD [address] [place] [address] PCP - General Internal Medicine 05/10/18 Roberta Jolly RN [address] [place] [address] Registered Nurse Family Medicine 01/29/25 05/19/25 Taye Garcia 01/29/25 06/04/25 Felipa Garcia RN [address] [place] [address] Registered Nurse Family Medicine 05/19/25 05/23/25 documented as of this encounter
--- OUTSIDE RECORDS SUMMARY | 2025-07-01 12:43 | XMS_ITS | Clinical Summary ---
Author Organization [employer] Address [address] [place] [address] 7[address] [place] [address] Care Team Providers Care Travel Nurse Name Role Phone Ham Burgos MD Primary Care Provider [phone] Allergies No known active allergies Medications aspirin [...] day 022 Active zinc 50 MG tablet Active Symbicort 160-4.5 MCG/ACT inhaler Inhale 2 puffs in the morning and at bedtime. 023 Active Diclofenac Sodium 1 % gelIndications:A rthralgia of toe, unspecified laterality To apply to the affected area 3 times a day 100 g 023 Active betamethasone valerate (Valisone) 0.1 % ointmentIndicati ons:Irritant contact dermatitis due to other chemical products Apply topically if needed in the morning and at bedtime (dryness). 45 g 2 024 Active lidocaine (Lidoderm) 5 % patchIndications :Primary osteoarthritis of both knees Apply 1 patch topically Once per day. Remove & discard patch within 12 hours or as directed by MD. 30 patch 3 024 Active ammonium lactate (Lac-Hydrin) 12 % lotionIndication s:Dry skin Apply topically every 12 (twelve) hours. Apply topically every 12 (twelve) hours. 500 g 11 024 Active pantoprazole (ProtoNix) 20 MG EC tablet Take 20 mg by mouth in the morning. 024 Active Lunesta 3 MG tablet 023 Active econazole nitrate 1 % creamIndications :Seborrheic dermatitis To apply to the affected area 2 times a day 15 g 024 Active atorvastatin (Lipitor) 40 MG tabletIndication s:Hypercholester olemia Take 1 tablet (40 mg) by mouth Once per day. 30 tablet 11 024 2024 Active terbinafine (LamISIL) 250 MG tabletIndication s:Onychomycosis TAKE ONE TABLET EVERY MORNING 30 tablet 2 024 Active chlorhexidine (Peridex) 0.12 % solutionIndicati ons:History of tooth extraction, unspecified edentulism class Swish 15 mL morning and night for 1 minute. Spit, do not swallow. Do not eat or drink for 30 minutes following use. 473 mL 025 Active acetaminophen (Tylenol) 500 MG tabletIndication s:History of tooth extraction, unspecified edentulism class Take 1 tablet (500 mg) by mouth every 6 (six) hours if needed for mild pain for up to 20 doses. 20 tablet 025 Active Sod Fluoride-Potassi um Nitrate (Sodium Fluoride 5000 Sensitive) 1.1-5 % gelIndications:D ental caries [place] teeth for 2 minutes, morning and night. Spit, do not rinse. Do not eat or drink anything for 30 minutes following brushing. 112 g 11 Active IBU 800 MG tabletIndication s:Primary osteoarthritis involving multiple joints TAKE ONE TABLET EVERY 8 HOURS NEEDED FOR PAIN 60 tablet 3 025 Active Ventolin HFA 108 (90 Base) MCG/ACT inhaler Inhale 2 puffs every 6 (six) hours if needed for wheezing or shortness of breath. Active Procto-Med HC 2.5 % rectal cream Insert into the rectum at bedtime. For hemorrhoids Active rOPINIRole (Requip) 0.5 MG tabletIndication s:Restless legs TAKE ONE TABLET BY MOUTH THREE TIMES DAILY 90 tablet 11 Active Zepbound 2.5 MG/0.5ML solution auto-injectorInd ications:Morbid obesity (CMS/HCC) (HCC),ELO (obstructive sleep apnea) INJECT 0.5ML'S (2.5MG'S) SUBCUTANEOUSLY ONCE PER WEEK 2 mL 1 Active sildenafil (Viagra) 50 MG tabletIndication s:Other male erectile dysfunction TAKE 1 TABLET BY MOUTH EVERY DAY NEEDED FOR ERECTILE DYSFUNCTION 8 tablet 3 025 Active ketoconazole (NIZOral) 2 % shampoo SHAMPOO WITH TWICE A WEEK AT LEAST 3 DAYS BETWEEN EACH SHAMPOOING 120 mL 2 025 Active ketoconazole (NIZOral) 2 % shampoo apply by topical route 2 times every week shampoo with at least 3 days between each shampooing 120 mL 2 024 2024 Discontinued(R eorder (will not trigger notification to Pharmacy)) sildenafil (Viagra) 25 MG tablet TAKE 1 TABLET BY MOUTH EVERY DAY NEEDED FOR ERECTILE DYSFUNCTION 8 tablet 5 025 2024 Discontinued(R eorder (will not trigger notification to Pharmacy)) Tirzepatide-Weig ht Management (Zepbound) 2.5 MG/0.5ML solution auto-injectorInd ications:Morbid obesity (CMS/HCC) (HCC),ELO (obstructive sleep apnea) Inject 0.5 mL (2.5 mg) under the skin 1 (one) time per week. 2 mL 1 025 2024 Discontinued Active Problems Problem Noted Date [...] recommended reduction of 20-30% of maintenance calories; security ambassador referral offered. Recommended to decrease soda and sugary beverage consumption. Recommended at least 20 g per meal of protein to assist with satiety. Recommended at least 150 min/week of moderate intensity exercise. Hypercholesterolemia 07/18/2024 Morbid obesity (CMS/HCC) 10/03/2022 ELO (obstructive sleep apnea) 10/03/2022 Restrictive lung disease 08/15/2022 Cardiomegaly 08/15/2022 Synovial cyst of knee 12/27/2021 Demodex acne 07/13/2018 Adjustment insomnia 02/02/2018 Depressive disorder 02/02/2018 Encounters Date Type Department Care Team Description 06/12/2025 Refill [facility] [address] [place] [address] Ham Burgos MD 06/04/2025 Patient Outreach [facility] [address] [place] [address] Ham Burgos MD Care Coordination (C3/W Donald Roque f/u, program graduation ) 06/04/2025 Orders Only [facility] [address] [place] [address] Ham Burgos MD Other male erectile dysfunction (Primary Dx) 06/04/2025 Refill [facility] [address] [place] [address] Ham Burgos MD Morbid obesity ([facility]); ELO (obstructive sleep apnea) 06/03/2025 Refill [facility] [address] [place] [address] Ham Burgos MD Morbid obesity ([facility]); ELO (obstructive sleep apnea) 05/23/2025 Patient Outreach [address] [address] Ham Burgos MD Care Management (C3- f/u call) 05/07/2025 Patient Outreach [address] [address] Ham Burgos MD Care Coordination ([facility] Taye Garcia [facility] f/u call) 05/07/2025 Patient Outreach [facility] [address] [place] [address] Ham Burgos MD Care Coordination ([facility] f/u call) 05/03/2025 Refill [facility] [address] [place] [address] Ham Burgos MD Morbid obesity ([facility]); ELO (obstructive sleep apnea) 05/03/2025 Refill [facility] [address] [place] [address] Ham Burgos MD Restless legs 04/29/2025 Patient Outreach [address] [address] Ham Burgos MD Care Management (C3- f/u call) 04/14/2025 Patient Outreach [address] [address] Ham Burgos MD Care Management (C3- f/u call) 04/10/2025 10:00 AM EDT Office Visit [facility] [address] [place] [address] Ham Burgos MD Small bowel obstruction (CMS/HCC) (Primary Dx) 04/10/2025 Results Follow-Up [facility] [address] [place] [address] Ham Burgos MD Basic Metabolic Panel, Magnesium 04/10/2025 Travel 04/09/2025 Telephone [facility] [address] [place] [address] Ham Burgos MD Chart Prep 03/31/2025 Patient Outreach [facility] [address] [place] [address] Ham Burgos MD Care Coordination (C3CM/CHW Darryl Roqueco f/u call_lvm) 03/31/2025 Patient Outreach [facility] [address] [place] [address] Ham Burgos MD Care Coordination (C3CM f/u call- LVM) from Last 3 Months Immunizations Immunization Administration [...] Description 07/16/2025 3:00 PM EST Office Visit [facility] [address] [place] [address] Jorgito Burgos Health Maintenance Due Date Last [...] 11/11/2025 11/11/2024 Depression Screening 02/20/2026 02/20/2025, 02/21/20 25 SDOH Screening 02/20/2026 02/20/2025 Tobacco Screening 04/10/2026 [...] 10:38 AM EDT Small bowel obstruction (CMS/HCC) PROPHYLAXIS - ADULT Routine 03/13/2025 9 :00 AM EDT Partial edentulism, class I Edentulism Periodontal disease HEPATITIS PANEL, GENERAL Routine 01/13/2025 9:51 AM [...] EDT) 04/23/2025 10:5 5 AM EDT Narrative [facility] - 04/23/2025 12:38 PM EDT [address] [address] Ultrasound Report Signed Patient: Shin Ortiz MR #: [id number] : 1965 Acct:[id number] Age/Sex: 59 / M ADM Date: 04/23/25 Loc: HO.US Attending Dr: Eduardo Nunes MD Ordering Physician: Eduardo Nunes MD Date of Service: 04/23/25 Procedure(s): US venous insuf bilat Accession Number(s): [id number] cc: Ham Burgos MD; Eduardo Nunes MD [...] 04/23/25 1236 DD/ 1055 TD/TT: 04/23/25 1129 Head Of Mobile: Procedure Note Donotuseinterpreter, Image - 04/23/2025 [place] [address] Ultrasound Report Signed Patient: Shin OrtizR #: [id number] : 1965Acct:[id number] Age/Sex: 59 / MADM Date: 04/23/25 Loc: HO.US Attending Dr: Eduardo Nunes MD Ordering Physician: Eduardo Nunes MD Date of Service: 04/23/25 Procedure(s): US venous insuf bilat Accession Number(s): [id number] cc: Ham Burgos MD; Eduardo Nunes MD [...] 04/23/25 1236 DD/ 1055 TD/TT: 04/23/25 1129 Head Of Mobile: [facility] External Provider CV VASC ULAR PROCEDURES Final Result Performing Organization Address City/[facility]/ZIP Co de Phone Number [facility] [address] [place] [phone] * Magnesium (04/10/2025 10:38 AM EDT) Magnesium 2.1 1.6 - 2.6 mg/dL [facility] Blood Venous blood specimen / Unknown 04/10/2025 10:38 AM EDT 04/10/2025 2:05 PM EDT Ham Burgos MD LAB BLOOD ORDERABLES Final Result Performing Organization Address [facility]/ZIP Co de Phone Number [facility] [address] [place] [phone] * (ABNORMAL) Basic Metabolic Panel (04/10/2025 10:38 AM EDT) Sodium 140 135 - 145 mmol/L [facility] Potassium 4.2 3.3 - 5.1 mmol/L [facility] Chloride 108 96 - 108 mmol/L [facility] Carbon Dioxide 26 22 - 29 mmol/L [facility] Anion Gap 10(L) 12 - 20 [facility] Urea Nitrogen (BUN) 16 9 - 16 mg/dL [facility] Creatinine, Serum 0.78 0.5 - 1.4 mg/dL [facility] Estimated Glomerular Filt Rate >60 [facility] Comment:Chronic Kidney Disea se: Estimated GFR < 60 mL/min/[id number] Kidney Disease: Estimated GFR < 15 mL/min/1.73m2 Glucose 86 60 - 115 mg/dL [facility] Calcium 8.8 8.4 - 10.2 mg/dL [facility] Blood Venous blood specimen / Unknown 04/10/2025 10:38 AM EDT 04/10/2025 2:05 PM EDT Ham Burgos MD LAB BLOOD ORDERABLES Final Result [facility] [address] [place] [phone] * Hepatitis A,B,C Profile (01/13/2025 9:51 [...] Final Result Performing Organization Address [facility]/ZIP Co de Phone Number [facility] [address] [place] [phone] [phone] * (ABNORMAL) Lipid Panel, Standard (01/02/2025 8:55 AM EDT) Triglycerides 70 <150 mg/dL [facility] Comment:Slight Lipemia.Izzy able Triglyceride: less [...] 190 mg/dL HDL Cholesterol 46 >40 mg/dL [facility] Comment:Desirable HDL: great er than 40 mg/dL Note: This HDL assay may give artificially low results in patients with liver disease. Blood Venous blood specimen / Unknown 01/02/2025 8:55 AM EDT 01/02/2025 2:06 PM EDT us Ham Burgos MD LAB BLOOD ORDERABLES Final Result Performing Organization Address City/[facility]/ZIP Co de Phone Number [facility] [address] [place] [phone] * Hm Colonoscopy (11/23/2023) Colonoscopy Normal Normal Narrative Jeri Munoz - 11/23/2023 Repeat colonoscopy in 10 years Historical Provider MD HEALTH MAINTENANCE Final Result from Last 3 Months or Most Recently Relevant to Health Maintenance Insurance [facility] C3 DENTAL-[facility] MEDICAID STAND ADULT Care Teams Travel Nurse Relationship Specialty Start Date End Date Ham Burgos MD [address] [place] [address] YENNIFER Hernandez [address] PCP - General Internal Medicine 05/10/18
--- OUTSIDE RECORDS SUMMARY | 2025-07-01 12:43 | XMS_ITS | Encounter Summary ---
Author Organization [employer] Address [address] [facility] [address] [place] [address] Care Team Providers Care Chemical Analytical Sampler Name Role Phone Ham Burgos MD Primary Care Provider [phone] Roberta Jolly RN Unavailable Unavailable Taye Garcia Unavailable Felipa Garcia RN Unavailable [phone] Reason for Visit * Reason Comments Med Refill Encounter Details Date Type Department Care Team ([facility] st Contact Info) Description 02/24/2025 Refill [facility] [address] [place], [place] [phone] Ham Burgos MD [address] [place] [address] Social History Tobacco Use Types Packs/Day Years [...] 3:00 PM EST Office Visit [facility] [address] [place] [address] Jorgito Burgos documented as of this encounter Visit Diagnoses Not on filedocumented in this encounter Additional Health Concerns Assessment Noted Time PHQ-9 Depression Total Score: 0 02/21/20 25 10:46 AM EDT documented as of this encounter Care Teams Chemical Analytical Sampler Relationship Specialty Start Date End Date Ham Burgos MD [address] [place] [address] PCP - General Internal Medicine 05/10/18 Roberta Jolly RN [address] [place] [address] Registered Nurse Family Medicine 01/29/25 05/19/25 Taye Garcia 01/29/25 06/04/25 Felipa Garcia RN [address] [place] [address] Registered Nurse Family Medicine 05/19/25 05/23/25 documented as of this encounter
--- OUTSIDE RECORDS SUMMARY | 2025-07-01 12:43 | XMS_ITS | Encounter Summary ---
Author Organization [employer] Address [address] [facility] [address] [place] [address] Care Team Providers Care Weight Trainer Name Role Phone Ham Burgos MD Primary Care Provider [phone] Taye Garcia Unavailable Encounter Details Date Type Department Care Team ([facility] st Contact Info) Description 06/04/2025 Orders Only [facility] [address] [place], [place] [phone] Ham Burgos MD [address] [place], [place] [phone] Other male erectile dysfunction (Primary Dx) Social History Tobacco Use Types [...] Upcoming Encounters Date Type Department Care Team ([facility] st Contact Info) Description 07/16/2025 3:00 PM EST Office Visit [facility] [address] [place] [address] Jorgito Burgos documented as of this encounter Visit Diagnoses Diagnosis Other male erectile dysfunction- Primary documented in this encounter Additional Health Concerns Assessment Noted Time PHQ-9 Depression Total Score: 0 02/21/20 25 10:46 AM EDT documented as of this encounter Care Teams Weight Trainer Relationship Specialty Start Date End Date Ham Burgos MD [address] [place] [address] PCP - General Internal Medicine 05/10/18 Taye Garcia 01/29/25 06/04/25 documented as of this encounter
--- OUTSIDE RECORDS SUMMARY | 2025-07-01 12:43 | XMS_ITS | Encounter Summary ---
Author Organization [employer] Address [address] [facility] [address] [place] [address] Care Team Providers Care Lumber Loader Name Role Phone Ham Burgos MD Primary Care Provider [phone] Roberta Jolly RN Unavailable Unavailable Taye Garcia Unavailable Felipa Garcia RN Unavailable [phone] Encounter Details Date Type Department Care Team ([facility] st Contact Info) Description 04/16/2024 Orders Only [facility] [address] [place], [place] [phone] Ham Burgos MD [address] [place] [address] Restless legs (Primary Dx) Social History Tobacco [...] Upcoming Encounters Date Type Department Care Team ([facility] st Contact Info) Description 07/16/2025 3:00 PM EST Office Visit [facility] [address] [place] [address] Jorgito Burgos documented as of this encounter Visit Diagnoses Diagnosis Restless legs- Primary Restless legs syndrome (RLS) documented in this encounter Additional Health Concerns Assessment Noted Time PHQ-9 Depression Total Score: 8 12/11/19 24 9:29 AM EDT documented as of this encounter Care Teams Lumber Loader Relationship Specialty Start Date End Date Ham Burgos MD [address] [place] [address] PCP - General Internal Medicine 05/10/18 Roberta Jolly RN [address] [place] [address] Registered Nurse Family Medicine 01/29/25 05/19/25 Taye Garcia 01/29/25 06/04/25 Felipa Garcia, CHELA [address] [place] [address] Registered Nurse Family Medicine 05/19/25 05/23/25 documented as of this encounter
--- OUTSIDE RECORDS SUMMARY | 2025-07-01 12:43 | XMS_ITS | Encounter Summary ---
Author Organization [facility] Address [address] [place] [address] [address] [place] [address] Care Team Providers Care Potato Chip Packaging Machine Operator Name Role Phone Ham Burgos MD Primary Care Provider +1- [phone] Roberta Jolly RN Unavailable Unavailable Taye Garcia Unavailable Felipa Garcia RN Unavailable [phone] Reason for Referral * Imaging (Routine) - Closed Specialty Diagnoses / Procedures Referred By Thomas stevenson Referred To Contact Radiology Diagnoses Transaminitis Procedures US Abdomen Complete Ham Burgos MD [address] [place] [address] Phone: tel: fax: [address] Phone: tel: fax: Referral ID Status Reason Start Date Expiration Date Visits Re quested Visits Authorized [id number] Closed 01/07/2025 01/07/2026 1 1 Encounter Details Date Type Department Care Team (Late st Contact Info) Description 01/02/2025 Orders Only [facility] CHC MED & PEDS [address] [place] [address] Ham Burgos MD [address] [place] [address] Morbid obesity (CMS/HCC) (Primary Dx); Transaminitis Social [...] Upcoming Encounters Date Type Department Care Team ([facility] st Contact Info) Description 07/16/2025 3:00 PM EST Office Visit [facility] ADULT DENTAL [address] [place] [address] Jorgito Burgos Scheduled Orders Name Type Priority [...] PM EDT Narrative 02/17/2025 2:23 PM EDT [facility] Adult Primary Care [facility] [place] [address] Ultrasound Report Signed with Maribel Patient: Shin Ortiz MR #: [id number] : 1965 Acct:[id number] Age/Sex: 59 / M ADM Date: 02/17/25 Loc: HO.HMGCX Attending Dr: Ham Burgos MD Ordering Physician: Ham Burgos MD Date of Service: 02/17/25 Procedure(s): US abdomen complete Accession Number(s): [id number] cc: Ham Burgos MD ADDENDUM This document has been electronically signed by: Ary Weaver MD on 02/17/2025 14:21:54 ADDENDUM: Receipt of this report by the clinical staff was confirmed with Tanmay Hill, Patient Men'S Leather Dress Belt Maker on Feb 17, 2025 15:50:00 EDT. This document has been electronically signed by: Nicolasa Penn on 02/17/2025 15:50:48 Addendum Dictated By: Ary Weaver MD Addendum Signed By: <Electronically signed by Ary Weaver MD in OV> 02/17/25 155 Addendum Cosigned By: DD/ /05/1421 TD/TT: 02/17/2506/05/1550 [...] by Ary Weaver MD in OV> 02/17/25 142 DD/ 20 TD/TT: 02/17/251420 Vp Transportation: Procedure Note Donotsultanainterpreter, Image - 02/17/2025 [facility] Adult Primary Care [facility] [place] [address] Ultrasound Report Signed with Maribel Patient: Shin OrtizR #: [id number] : 1965Acct:[id number] Age/Sex: 59 / MADM Date: 02/17/25 Loc: HO.HMGCX Attending Dr: Ham Burgos MD Ordering Physician: Ham Burgos MD Date of Service: 02/17/25 Procedure(s): US abdomen complete Accession Number(s): [id number] cc: Ham Burgos MD ADDENDUM This document has been electronically signed by: Ary Weaver MD on 02/17/2025 14:21:54 ADDENDUM: Receipt of this report by the clinical staff was confirmed with Tanmay Hill Patient Men'S Leather Dress Belt Maker on Feb 17, 2025 15:50:00 EDT. This [...] MD in OV> 02/17/251421 DD/ 20 TD/TT: 02/17/25 142 Vp Transportation: us Ham Burgos MD IMG US PROCEDURES Edited Re sult - Final * XR Chest 1 View (01/29/2025 7:35 AM EDT) Anatomical Region Laterality Modality Chest Radiographic July ging 01/29/2025 7:35 AM EDT Narrative 01/29/2025 7:54 AM EDT [place] [address] XRay Report Signed Patient: Shin Ortiz MR #: [id number] : 1965 Acct:[id number] Age/Sex: 59 / M ADM Date: 01/29/25 Loc: [place] [address]: Roxy Moses MD Ordering Physician: Generic ED Physician Date of Service: 01/29/25 Procedure(s): XR chest 1V Accession Number(s): [id number] cc: Ham Burgos MD; Generic ED Physician EXAMINATION: XR CHEST CLINICAL INFORMATION: Ng placement COMPARISON: January 29, 2025 at 4:01 AM. TECHNIQUE: Frontal view of the chest was obtained. FINDINGS: The NG tube is present overlapping the mediastinal structures extending below the left hemidiaphragm. Tip is not fully included in the wmopg-jc-xjtp. No no change in the appearance of the lungs or the cardiomediastinal silhouette. Focal 4 mm calcific abnormality left humeral head. XR/XR chest 1V IMPRESSION: NG tube probably in the stomach region. Electronically signed by: Don Mallory MD 01/29/2025 07:52 AM EDT RP Dictated By: Don Parmar MD Signed By: <Electronically signed by Don Carvalho MD in OV> 01/29/25 0752 DD/ TD/TT: 01/29/2544 Vp Transportation: Procedure Note Donotuseinterpreter, Image - 01/29/[address] [address] XRay Report Signed Patient: Shin OrtizR #: [id number] : 1965Acct:[id number] Age/Sex: 59 / MADM Date: 01/29/25 Loc: [place] [address]: Roxy Moses MD Ordering Physician: Generic ED Physician Date of Service: 01/29/25 Procedure(s): XR chest 1V Accession Number(s): [id number] cc: Ham Burgos MD; Generic ED Physician EXAMINATION: XR CHEST CLINICAL INFORMATION: Ng placement COMPARISON: January 29, 2025 at 4:01 AM. TECHNIQUE: Frontal view of the chest was obtained. FINDINGS: The NG tube is present overlapping the mediastinal structures extending below the left hemidiaphragm. Tip is not fully included in the hnkaj-we-auwt. No no change in the appearance of the lungs or the cardiomediastinal silhouette. Focal 4 mm calcific abnormality left humeral head. XR/XR chest 1V IMPRESSION: NG tube probably in the stomach region. Electronically signed by: Don Mallory MD 01/29/2025 07:52 AM EDT RP Dictated By: Don Parmar MD Signed By: <Electronically signed by Don Carvalho MDin OV> 01/29/25 0752 DD/ TD/TT: 01/29/25 0744 Vp Transportation: us [facility] External Provider IMG XR PROCEDURES Final Result * XR Chest 1 View (01/29/2025 4:25 AM EDT) Anatomical Region Laterality Modality Chest Radiographic July ging 01/29/2025 4:25 AM EDT Narrative 01/29/2025 4:27 AM EDT [address] [address] XRay Report Signed Patient: Shin Ortiz MR #: [id number] : 1965 Acct:[id number] Age/Sex: 59 / M ADM Date: 01/29/25 Loc: [place] [address]: Roxy Moses MD Ordering Physician: Ailyn Mendoza CNP Date of Service: 01/29/25 Procedure(s): XR chest 1V Accession Number(s): [id number] cc: Ailyn Mendoza CNP; Ham Burgos MD [...] Chavez MD in OV> 01/29/25 0426 DD/ 042 TD/TT: 01/29/25424 Vp Transportation: Procedure Note Donotsultanainterpreter, Image - 01/29/[address] [address] XRay Report Signed Patient: Shin OrtizoMR #: [id number] : 1965Acct:[id number] Age/Sex: 59 / MADM Date: 01/29/25 Loc: [place] [address]: Roxy Moses MD Ordering Physician: Ailyn Mendoza CNP Date of Service: 01/29/25 Procedure(s): XR chest 1V Accession Number(s): [id number] cc: Ailyn Mendoza CNP; Ham Burgos MD [...] signed by Aníbal Chavez MD in OV> 01/29/25425 DD/ 4 TD/TT: 01/29/25424 Vp Transportation: us [facility] External Provider IMG XR PROCEDURES Edited Result - Final * CT Abdomen Pelvis w/ Contrast (01/29/2025 2:00 AM EDT) Anatomical Region Laterality Modality Body, Pelvis, Abdomen Computed T omography 01/29/2025 2:00 AM EDT Narrative 01/29/2025 2:01 AM EDT [place] [address] CT Scan Report Signed with Addenda Patient: Shin Ortiz MR #: [id number] : 1965 Acct:[id number] Age/Sex: 59 / M ADM Date: 01/29/25 Loc: .ED Attending Dr: Ordering Physician: Ailyn Mendoza CNP Date of Service: 01/29/25 Procedure(s): CT abdomen pelvis w IV con Accession Number(s): [id number] cc: Ailyn Mendoza CNP; Ham Burgos MD Report Number: [id number]: Total DLP = 1490.00 mGy-cm ADDENDUM This [...] in OV> 01/29/25199 DD/ 9 TD/TT: 01/29/25199 Vp Transportation: Procedure Note Donotuseinterpreter, Image - 01/29/[address] [address] [address] Scan Report Signed with Addenda Patient: Shin OrtizoMR #: [id number] : 1965Acct:[id number] Age/Sex: 59 / MADM Date: 01/29/25 Loc: HO.ED Attending Dr: Ordering Physician: Ailyn Mendoza CNP Date of Service: 01/29/25 Procedure(s): CT abdomen pelvis w IV con Accession Number(s): [id number] cc: Ailyn Mendoza CNP; Ham Burgos MD Report Number: [id number]: Total DLP = 1490.00 mGy-cm ADDENDUM This [...] MD in OV> 01/29/25199 DD/ 9 TD/TT: 05/21/25 0200 Vp Transportation: [facility] External Provider IMG CT PROCEDURES Edited Result - Final * Hepatitis A,B,C Profile (01/13/2025 9:51 AM EDT) Hepatitis A IgM Nonreactive Nonreactive [facility] Comment:IgM antibodies to DAILY V not detected; does not exclude earlyacute or recovered HAV infection. ~Hepatitis B Surface Antibody NONREACTIVE Nonreactive [facility] Comment:Nonreactive: < 8.00 mIU/mL Hepatitis B Core Antibody Nonreactive Nonreactive [facility] Hepatitis C Antibody Nonreactive Nonreactive [facility] Comment:Antibodies to HCV no t detected; does not exclude early acuteHCV infection. Hepatitis B Surface Ag Negative Negative [facility] Blood Venous blood specimen / Unknown 01/13/2025 9:51 AM EDT 01/13/2025 2:46 PM EDT Ham Burgos MD LAB BLOOD ORDERABLES Final Result [facility] [address] [place] [address] [phone] * BECCA Screen,IFA, with Reflex to Titer and Pattern (01/13/2025 9:51 AM EDT) Anti Nuclear Antibody Screen NEGATIVE NEGATIVE [facility] Comment:BECCA IFA is a first [...] clinicallysuspected inflammatory myopathies.AC-0: NegativeInternational Consensus on BECCA Patterns(https://doi.org/10.1515/gvbt-9683-3111)For additional information, please refer tohttp://education.Gimado/faq/GNO187(This link is being provided for informational/educational purposes only.)THIS TEST WAS PERFORMED AT:[employer] [place] [phone] ELIZONDO MD BECCA Titer TNP [facility] BECCA Pattern TNP [facility] BECCA TITER 2 (REF LAB) TNP [facility] BECCA Pattern 2 TNP [facility] BECCA TITER 3 TNP [facility] BECCA PATTERN 3 [facility] Blood Venous blood specimen / Unknown 01/13/2025 9:51 AM EDT 01/13/2025 2:46 PM EDT us Ham Burgos MD LAB BLOOD ORDERABLES Final Result Performing Organization Address [facility] Co de Phone Number [facility] [address] [place] [phone] * (ABNORMAL) Immunoglobulins Panel, Serum (01/13/2025 9:51 AM EDT) IMMUNOGLOBULIN G 971 600 - 1540 mg/dL [facility] IMMUNOGLOBULIN A 185 70 - 320 mg/dL [facility] Immunoglobulin M 30(A) 50 - 300 mg/dL [facility] Comment:THIS TEST WAS PERFOR MED AT:[facility] [place] [phone] ELIZONDO MD Blood Venous blood specimen / Unknown 01/13/2025 9:51 AM EDT 01/13/2025 2:46 PM EDT us Ham Burgos MD LAB BLOOD ORDERABLES Final Result Performing Organization Address [facility]/ZIP Co de Phone Number [facility] [address] [place] [phone] * Ferritin (01/13/2025 9:51 AM EDT) Ferritin 120 20 - 250 ng/mL [facility] Blood Venous blood specimen / Unknown 01/13/2025 9:51 AM EDT 01/13/2025 2:46 PM EDT Ham Burgos MD LAB BLOOD ORDERABLES Final Result [facility] [address] [place] [phone] documented in this encounter Visit Diagnoses Diagnosis Morbid obesity (CMS/HCC) (HCC)- Primary Morbid obesity Transaminitis Nonspecific elevation of levels of transaminase or lactic acid dehydrogenase (LDH) documented in this encounter Additional Health Concerns Assessment Noted Time PHQ-9 Depression Total Score: 17 025 9:11 AM EST documented as of this encounter Care Teams Potato Chip Packaging Machine Operator Relationship Specialty Start Date End Date Ham Burgos MD [address] [place] [address] PCP - General Internal Medicine 05/10/18 Roberta Jolly RN [address] [place] [address] Registered Nurse Family Medicine 01/29/25 05/19/25 Taye Garcia 01/29/25 06/04/25 Felipa Garcia RN [address] [place] [address] Registered Nurse Family Medicine 05/19/25 05/23/25 documented as of this encounter
--- OUTSIDE RECORDS SUMMARY | 2025-07-01 12:43 | XMS_ITS | Encounter Summary ---
Author Organization [employer] Address [address] [place] [address] Care Team Providers Care Housekeeping Laundry Worker Name Role Phone Ham Burgos MD Primary Care Provider [phone]- [phone] Roberta Jolly RN Unavailable Unavailable Taye Garcia Unavailable Felipa Garcia RN Unavailable [phone] Encounter Details Date Type Department Care Team (Late st Contact Info) Description 12/04/2024 Orders Only [facility] MED[facility] [address] [place] [address] Ham Burgos MD [address] [place] [address] Social History Tobacco Use Types Packs/Day Years [...] Description 07/16/2025 3:00 PM EST Office Visit [facility] ADULT DENTAL [address] [place] [address] Jorgito Burgos documented as of this encounter Visit Diagnoses Not on filedocumented in this encounter Additional Health Concerns Assessment Noted Time PHQ-9 Depression Total Score: 17 025 9:11 AM EST documented as of this encounter Care Teams Housekeeping Laundry Worker Relationship Specialty Start Date End Date Ham Burgos MD [address] [place] [address] PCP - General Internal Medicine 05/10/18 Roberta Jolly RN [address] [place] [address] Registered Nurse Family Medicine 01/29/25 05/19/25 Taye Garcia 01/29/25 06/04/25 Felipa Garcia RN [address] [place] [address] Registered Nurse Family Medicine 05/19/25 05/23/25 documented as of this encounter
--- OUTSIDE RECORDS SUMMARY | 2025-07-01 12:43 | XMS_ITS | Encounter Summary ---
Author Organization [employer] Address [address] [facility] 7t [place] [address] Care Team Providers Care Basket Bottom Machine Operator Name Role Phone Ham Burgos MD Primary Care Provider [phone]- [phone] Roberta Jolly RN Unavailable Unavailable Taye Garcia Unavailable Felipa Garcia RN Unavailable [phone] Encounter Details Date Type Department Care Team ([facility] st Contact Info) Description 12/05/2024 Orders Only [facility] CHC MED & PEDS [address] [place], [place] [phone] Ham Burgos MD [address] [place] [address] Morbid obesity (CMS/HCC) (Primary Dx) Social History [...] 07/16/2025 3:00 PM EST Office Visit [facility] AD[facility] [address] [place] [address] Jorgito Burgos documented as of this encounter Visit Diagnoses Diagnosis Morbid obesity (CMS/HCC) (HCC)- Primary Morbid obesity documented in this encounter Additional Health Concerns Assessment Noted Time PHQ-9 Depression Total Score: 17 025 9:11 AM EST documented as of this encounter Care Teams Basket Bottom Machine Operator Relationship Specialty Start Date End Date Ham Burgos MD [address] [place] [address] PCP - General Internal Medicine 05/10/18 Roberta Jolly, CHELA [address] [place] [address] Registered Nurse Family Medicine 01/29/25 05/19/25 Taye Garcia 01/29/25 06/04/25 Felipa Garcia RN [address] [place] [address] Registered Nurse Family Medicine 05/19/25 05/23/25 documented as of this encounter
--- OUTSIDE RECORDS SUMMARY | 2025-07-01 12:43 | XMS_ITS | Encounter Summary ---
Author Organization [employer] Address [address] [facility] 7t [place] [address] Care Team Providers Care Auto Striper Name Role Phone Ham Burgos MD Primary Care Provider [phone] Roberta Jolly RN Unavailable Unavailable Taye Garcia Unavailable Felipa Garcia RN Unavailable [phone] Reason for Visit * Reason Onset Date Comments PA 11/29/2024 Encounter Details Date Type Department Care Team (Late st Contact Info) Description 11/29/2024 Telephone [facility] [address] [place] [address] Ham Burgos MD [address] [place] [address] NOHEMI Social History Tobacco Use Types Packs/Day [...] pt calling requesting status on Zepbound 2.5mg. [employer] works on [facility] Pharmacy and rejection that we have is medication require a PA. PCP DR. Burgos * Telephone Encounter - Christine Freeman - 11/29/2024 4:06 PM EDT Tc from pt calling requesting status on Zepbound 2.5mg. [employer] works on [facility] Pharmacy and rejection that we have is medication require a PA. PCP DR. Burgos documented in this encounter Plan of Treatment Upcoming Encounters Date Type Department Care Team (Late st Contact Info) Description 07/16/2025 3:00 PM EST Office Visit [facility] ADULT DENTAL [address] [place] [address] Jorgito Burgos documented as of this encounter Visit Diagnoses Not on filedocumented in this encounter Additional Health Concerns Assessment Noted Time PHQ-9 Depression Total Score: 17 025 9:11 AM EST documented as of this encounter Care Teams Auto Striper Relationship Specialty Start Date End Date Ham Burgos MD [address] [place] [address] PCP - General Internal Medicine 05/10/18 Roberta Jolly RN [address] [place] [address] Registered Nurse Family Medicine 01/29/25 05/19/25 Taye Garcia 01/29/25 06/04/25 Felipa Garcia, CHELA [address] [place] [address] Registered Nurse Family Medicine 05/19/25 05/23/25 documented as of this encounter
--- OUTSIDE RECORDS SUMMARY | 2025-07-01 12:44 | XMS_ITS | Encounter Summary ---
Author Organization [employer] Address [address] [facility] 7t [place] [address] Care Team Providers Care Branch Store Manager Name Role Phone Ham Burgos MD Primary Care Provider [phone]- [phone] Roberta Jolly RN Unavailable Unavailable Taye Garcia Unavailable Felipa Garcia RN Unavailable [phone] Reason for Visit * Reason Comments Med Refill Encounter Details Date Type Department Care Team ([facility] st Contact Info) Description 03/16/2025 Refill [facility] ADULT DENTAL [address] [place], [place] [phone] Robb Pickering, DMD [address] [place], [place] [phone] Dental caries Social History Tobacco Use Types [...] Visit [facility] ADULT DENTAL [address] [place] [address] Jorgito Burgos documented as of this encounter Visit Diagnoses Diagnosis Dental caries Unspecified dental caries documented in this encounter Additional Health Concerns Assessment Noted Time PHQ-9 Depression Total Score: 0 02/21/20 25 10:46 AM EDT documented as of this encounter Care Teams Branch Store Manager Relationship Specialty Start Date End Date Ham Burgos MD [address] [place] [address] PCP - General Internal Medicine 05/10/18 Roberta Jolly RN [address] [place] [address] Registered Nurse Family Medicine 5/21/25 9/8/25 Taye Garcia 01/29/25 06/04/25 Felipa Garcia RN [address] [place] [address] [place] [address] Registered Nurse Family Medicine 05/19/25 05/23/25 documented as of this encounter
--- OUTSIDE RECORDS SUMMARY | 2025-07-01 12:44 | XMS_ITS | Encounter Summary ---
Author Organization [employer] Address [address] [facility] 7t [place] [address] Care Team Providers Care Supervisor [employer] Name Role Phone Ham Burgos MD Primary Care Provider Roberta Jolly RN Unavailable Unavailable Taye Garcia Unavailable Felipa Gacria RN Unavailable [phone] Encounter Details Date Type Department Care Team (Late Contact Info) Description 10/09/[address] [facility] MED[facility] [address] [place] [address] Ham Burgos MD [address] [place] [address] Morbid obesity (CMS/HCC) (Primary Dx) Social History [...] Office Visit [facility]ULT [facility] [address] [place] [address] Jorgito Burgos Scheduled Orders Name Type Priority [...] as of this encounter Care Teams Supervisor [employer] Relationship Specialty Start Date End Date Ham Burgos MD [address] [place] [address] PCP - General Internal Medicine 05/10/18 Roberta Jolly RN [address] [place] [address] Registered Nurse Family Medicine 01/29/25 05/19/25 Taye Garcia 01/29/25 06/04/25 Felipa Garcia RN [address] [place] [address] Registered Nurse Family Medicine 05/19/25 05/23/25 documented as of this encounter
--- OUTSIDE RECORDS SUMMARY | 2025-07-01 12:44 | XMS_ITS | Encounter Summary ---
Author Organization [employer] Address [address] [facility] 7t [place] [address] Care Team Providers Care Design Director Name Role Phone Ham Burgos MD Primary Care Provider [phone] Roberta Jolly RN Unavailable Unavailable Taye Garcia Unavailable Felipa Garcia RN Unavailable [phone] Reason for Visit * Reason Onset Date Comments Med Refill 01/17/2025 Encounter Details Date Type Department Care Team ([facility] st Contact Info) Description 01/17/2025 Refill [facility] MED & PEDS [address] [place], [place] [phone] Ham Burgos MD [address] [place] [address] Social History Tobacco Use Types Packs/Day Years [...] 07/16/2025 3:00 PM EST Office Visit [facility] ADULT D[facility] [address] [place] [address] Jorgito Burgos documented as of this encounter Visit Diagnoses Not on filedocumented in this encounter Additional Health Concerns Assessment Noted Time PHQ-9 Depression Total Score: 17 025 9:11 AM EST documented as of this encounter Care Teams Design Director Relationship Specialty Start Date End Date Ham Burgos MD [address] [place] [address] PCP - General Internal Medicine 05/10/18 Roberta Jolly, CHELA [address] [place] [address] Registered Nurse Family Medicine 01/29/25 05/19/25 Taye Garcia 01/29/25 06/04/25 Felipa Garcia RN [address] [place] [address] Registered Nurse Family Medicine 05/19/25 05/23/25 documented as of this encounter
--- OUTSIDE RECORDS SUMMARY | 2025-07-01 12:44 | XMS_ITS | Encounter Summary ---
Author Organization [employer] Address [address] [facility] 7[address] [place] [address] Care Team Providers Care Welfare Manager Name Role Phone Ham Burgos MD Primary Care Provider [phone] Roberta Jolly RN Unavailable Unavailable Taye Garcia Unavailable Felipa Garcia RN Unavailable [phone] Encounter Details Date Type Department Care Team ([facility] st Contact Info) Description 03/26/2025 Orders Only [facility] [address] [place], [place] [id number] Ham Burgos MD [address] [place], [place] [id number] Morbid obesity (CMS/HCC) (Primary Dx); ELO (obstructive [...] 3:00 PM EST Office Visit [facility] [address] [place] [address] Jorgito Burgos documented as of this encounter Procedures Procedure Name Priority Date/Time Associated Diagnosis Comments [facility] US LOWER EXTREMITY VENOUS INSUFFICIENCY BILATERAL Routine 04/23/2025 10:55 AM EDT documented in this encounter Results * VAS US Lower Extremity Venous Insufficiency Bilateral (04/23/2025 10:55 AM EDT) 04/23/2025 10:5 5 AM EDT Narrative [facility] - 04/23/2025 12:38 PM EDT [address] [address] Ultrasound Report Signed Patient: Shin Ortiz MR #: [id number] : 1965 Acct:[id number] Age/Sex: 59 / M ADM Date: 04/23/25 Loc: HO.US Attending Dr: Eduardo Nunes MD Ordering Physician: Eduardo Nunes MD Date of Service: 04/23/25 Procedure(s): US venous insuf bilat Accession Number(s): [id number] cc: Ham Burgos MD; Eduardo Nunes MD [...] 04/23/25 1236 DD/ 1055 TD/TT: 04/23/25 1129 Electric Meter Setter: Procedure Note Donotsultanainterpreter, Image - 04/23/2025 [place] [address] Ultrasound Report Signed Patient: Shin OrtizR #: [id number] : 1965Acct:[id number] Age/Sex: 59 / MADM Date: 04/23/25 Loc: HO.US Attending Dr: Eduardo Nunes MD Ordering Physician: Eduardo Nunes MD Date of Service: 04/23/25 Procedure(s): US venous insuf bilat Accession Number(s): [id number] cc: Ham Burgos MD; Eduardo Nunes MD [...] 04/23/25 1236 DD/ 1055 TD/TT: 04/23/25 1129 Electric Meter Setter: us [facility] External Provider CV VASC ULAR PROCEDURES Final Result [facility] [address] [place] [address] documented in this encounter Visit Diagnoses Diagnosis Morbid obesity (CMS/HCC) (HCC)- Primary Morbid obesity ELO (obstructive sleep apnea) Obstructive sleep apnea (adult) (pediatric) documented in this encounter Additional Health Concerns Assessment Noted Time PHQ-9 Depression Total Score: 0 02/21/20 10:46 AM EDT documented as of this encounter Care Teams Welfare Manager Relationship Specialty Start Date End Date Ham Burgos MD [address] [place] [address] PCP - General Internal Medicine 05/10/18 Roberta Jolly RN [address] [place] [address] Registered Nurse Family Medicine 01/29/25 05/19/25 Taye Garcia 01/29/25 06/04/25 Felipa Garcia, CHELA [address] [place] [address] Registered Nurse Family Medicine 05/19/25 05/23/25 documented as of this encounter
== END 2025-07-01 11:39 | disposition home or self-care (01) ==
LOC: HO.HGI 10:37
PROVIDERS: PCP Internal Medicine; Visit Provider Nurse Practitioner Family
DX: Z87.19 Personal history of other diseases of the digestive system (principal); E66.01 Morbid (severe) obesity due to excess calories; K57.90 Diverticulosis of intestine, part unspecified, without perforation or abscess without bleeding; K64.9 Unspecified hemorrhoids; M62.08 Separation of muscle (nontraumatic), other site
CPT/HCPCS: 99215

== ENCOUNTER → 2025-07-01 10:36 | Outpatient (BNVA) | payer MEDICAID, SELFPAY | PROVIDERS: PCP Internal Medicine; Visit Provider Nurse Practitioner Family | DX: E66.01 Morbid (severe) obesity due to excess calories (principal); K57.90 Diverticulosis of intestine, part unspecified, without perforation or abscess without bleeding; K64.9 Unspecified hemorrhoids; M62.08 Separation of muscle (nontraumatic), other site; Z87.19 Personal history of other diseases of the digestive system | CPT/HCPCS: 99212 ==

== ENCOUNTER 2025-07-08 09:07 | Outpatient (AMB) | payer MEDICAID, SELFPAY ==
[2025-07-08 09:09] VITALS: BP 124/64; PULSE 64; O2SAT 94; BMI 46.4
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
--- OUTSIDE RECORDS SUMMARY | 2025-07-08 10:13 | XMS_ITS | Encounter Summary ---
Author Organization [employer] Address [address] [facility] [address] [place] [address] Care Team Providers Care Gimp Tacker Name Role Phone Ham Burgos MD Primary Care Provider [phone] Roberta Jolly RN Unavailable Unavailable Taye Garcia Unavailable Felipa Garcia RN Unavailable [phone] Encounter Details Date Type Department Care Team (Late st Contact Info) Description 12/04/2024 Orders Only [facility] [address] [place] [address] Ham Burgos MD [address] [place] [address] Social History Tobacco Use Types Packs/Day Years [...] 3:00 PM EST Office Visit [facility] [address] [place] [address] Jorgito Burgos documented as of this encounter Visit Diagnoses Not on filedocumented in this encounter Additional Health Concerns Assessment Noted Time PHQ-9 Depression Total Score: 17 025 9:11 AM EST documented as of this encounter Care Teams Gimp Tacker Relationship Specialty Start Date End Date Ham Burgos MD [address] [place] [address] PCP - General Internal Medicine 05/10/18 Roberta Jolly RN [address] [place] [address] Registered Nurse Family Medicine 01/29/25 05/19/25 Taye Garcia 01/29/25 06/04/25 Felipa Garcia RN [address] [place] [address] Registered Nurse Family Medicine 05/19/25 05/23/25 documented as of this encounter
--- OUTSIDE RECORDS SUMMARY | 2025-07-08 10:13 | XMS_ITS | Encounter Summary ---
Author Organization [employer] [facility] Address [address] [place] [address] 7t [place] [address] Care Team Providers Care Fish Agent Name Role Phone Ham Burgos MD Primary Care Provider Roberta Jolly RN Unavailable Unavailable Taye Garcia Unavailable Felipa Garcia RN Unavailable [phone] Encounter Details Date Type Department Care Team (Late Contact Info) Description 05/19/2023 Orders Only [facility] MED & PEDS [address] [place] [address] Ham Burgos MD [address] [place] [address] Dry skin (Primary Dx) Social History Tobacco [...] [facility] [address] [place] [address] Jorgito Burgos documented as of this encounter Visit Diagnoses Diagnosis Dry skin- Primary Other symptoms involving skin and integumentary tissues documented in this encounter Additional Health Concerns Assessment Noted Time PHQ-9 Depression Total Score: 14 023 11:04 AM EDT documented as of this encounter Care Teams Fish Agent Relationship Specialty Start Date End Date Ham Burgos MD [address] [place] [address] PCP - General Internal Medicine 05/10/18 Roberta Jolly RN [address] [place] [address] Registered Nurse Family Medicine 01/29/25 05/19/25 Taye Garcia 01/29/25 06/04/25 Felipa Garcia RN [address] [place] [address] Registered Nurse Family Medicine 05/19/25 05/23/25 documented as of this encounter
--- OUTSIDE RECORDS SUMMARY | 2025-07-08 10:13 | XMS_ITS | Encounter Summary ---
Author Organization [employer] Address [address] [facility] 7t [place] [address] Care Team Providers Care Bowling Alley Mechanic Name Role Phone Ham Burgos MD Primary Care Provider +1- [phone] Roberta Jolly RN Unavailable Unavailable Taye Garcia Unavailable Felipa Garcia RN Unavailable [phone] Encounter Details Date Type Department Care Team ([facility] st Contact Info) Description 12/05/2024 Orders Only [facility] MED & PEDS [address] [place], [place] [phone] Ham Burgos MD [address] [place] [address] Morbid obesity (CMS/HCC) (Primary Dx) Social History [...] Visit [facility] ADULT DENTAL [address] [place] [address] Jorgito Burgos documented as of this encounter Visit Diagnoses Diagnosis Morbid obesity (CMS/HCC) (HCC)- Primary Morbid obesity documented in this encounter Additional Health Concerns Assessment Noted Time PHQ-9 Depression Total Score: 17 025 9:11 AM EST documented as of this encounter Care Teams Bowling Alley Mechanic Relationship Specialty Start Date End Date Ham Burgos MD [address] [place] [address] PCP - General Internal Medicine 05/10/18 Roberta Jolly, CHELA [address] [place] [address] Registered Nurse Family Medicine 01/29/25 05/19/25 Taye Garcia 01/29/25 06/04/25 Felipa Garcia RN 505 [place] [address] Registered Nurse Family Medicine 05/19/25 05/23/25 documented as of this encounter
--- OUTSIDE RECORDS SUMMARY | 2025-07-08 10:14 | XMS_ITS | Encounter Summary ---
Author Organization [employer] Address [address] [facility] 7t [place] [address] Care Team Providers Care Lingo Cleaner Name Role Phone Ham Burgos MD Primary Care Provider [phone]- [phone] Roberta Jolly RN Unavailable Unavailable Taye Garcia Unavailable Felipa Garcia RN Unavailable [phone] Reason for Visit * Reason Comments Med Refill Encounter Details Date Type Department Care Team ([facility] st Contact Info) Description 02/24/2025 Refill [facility] CHC MED & PEDS [address] [place], [place] [phone] Ham Burgos MD [address] [place] [address] Social History Tobacco Use Types Packs/Day Years [...] PM EST Office Visit [facility] ADULT DENTAL [address] [place] [address] Jorgito Burgos documented as of this encounter Visit Diagnoses Not on filedocumented in this encounter Additional Health Concerns Assessment Noted Time PHQ-9 Depression Total Score: 0 02/21/20 25 10:46 AM EDT documented as of this encounter Care Teams Lingo Cleaner Relationship Specialty Start Date End Date Ham Burgos MD [address] [place] [address] PCP - General Internal Medicine 05/10/18 Roberta Jolly RN [address] [place] [address] Registered Nurse Family Medicine 01/29/25 05/19/25 Taye Garcia 01/29/25 06/04/25 Felipa Garcia RN 505 [place] [address] Registered Nurse Family Medicine 05/19/25 05/23/25 documented as of this encounter
--- OUTSIDE RECORDS SUMMARY | 2025-07-08 10:14 | XMS_ITS | Encounter Summary ---
Author Organization [employer] Address [address] [facility] 7t [place] [address] Care Team Providers Care Crown Assembly Machine Set Up Mechanic Name Role Phone Ham Burgos MD Primary Care Provider [phone]- [phone] Roberta Jolly RN Unavailable Unavailable Taye Garcia Unavailable Felipa Garcia RN Unavailable [phone] Reason for Visit * Reason Onset Date Comments PA 11/29/2024 Encounter Details Date Type Department Care Team (Late st Contact Info) Description 11/29/2024 Telephone [facility] MED[facility]INE [address] [place] [address] Ham Burgos MD [address] [place] [address] NOHEMI Social History Tobacco Use Types Packs/Day [...] pt calling requesting status on Zepbound 2.5mg. Wireless Field Technician works on [facility] and rejection that we have is medication require a PA. PCP DR. Burgos * Telephone Encounter - Christine Freeman - 11/29/2024 4:06 PM EDT Tc from pt calling requesting status on Zepbound 2.5mg. Wireless Field Technician works on [facility] and rejection that we have is medication require a PA. PCP DR. Burgos documented in this encounter Plan of Treatment Upcoming Encounters Date Type Department Care Team (Late st Contact Info) Description 07/16/2025 3:00 PM EST Office Visit [facility] ADULT DENTAL [address] [place] [address] Jorgito Burgos documented as of this encounter Visit Diagnoses Not on filedocumented in this encounter Additional Health Concerns Assessment Noted Time PHQ-9 Depression Total Score: 17 025 9:11 AM EST documented as of this encounter Care Teams Crown Assembly Machine Set Up Mechanic Relationship Specialty Start Date End Date Ham Burgos MD [address] [place] [address] PCP - General Internal Medicine 05/10/18 Roberta Jolly RN [address] [place] [address] Registered Nurse Family Medicine 01/29/25 05/19/25 Taye Garcia 01/29/25 06/04/25 Felipa Garcia, CHELA [address] [place] [address] Registered Nurse Family Medicine 05/19/25 05/23/25 documented as of this encounter
--- OUTSIDE RECORDS SUMMARY | 2025-07-08 10:14 | XMS_ITS | Encounter Summary ---
Author Organization [employer] Address 75 [facility] 7t [place] [address] Care Team Providers Care Canvassing Manager Name Role Phone Ham Burgos MD Primary Care Provider [phone]- [phone] Roberta Jolly RN Unavailable Unavailable Taye Garcia Unavailable Felipa Garcia RN Unavailable [phone] Encounter Details Date Type Department Care Team ([facility] st Contact Info) Description 03/26/2025 Orders Only [facility] CHC MED & PEDS [address] [place], [place] [phone] Ham Burgos MD 505 [place], [place] [phone] Morbid obesity (CMS/HCC) (Primary Dx); ELO (obstructive [...] [facility] [address] [place] [address] Jorgito Burgos documented as of this encounter Procedures Procedure Name Priority Date/Time Associated Diagnosis Comments [facility] US LOWER EXTREMITY VENOUS INSUFFICIENCY BILATERAL Routine 04/23/2025 10:55 AM EDT documented in this encounter Results * VAS US Lower Extremity Venous Insufficiency Bilateral (04/23/2025 10:55 AM EDT) 04/23/2025 10:5 5 AM EDT Narrative [facility] - 04/23/2025 12:38 PM EDT [address] [address] Ultrasound Report Signed Patient: Shin Ortiz MR #: [id number] : [id number] Acct:[id number] Age/Sex: 59 / M ADM Date: 04/23/25 Loc: HO.US Attending Dr: Eduardo Nunes MD Ordering Physician: Eduardo Nunes MD Date of Service: 04/23/25 Procedure(s): US venous insuf bilat Accession Number(s): [id number] cc: Ham Burgos MD; Eduardo Nunes MD [...] 04/23/25 1236 DD/ 1055 TD/TT: 04/23/25 1129 Flying Squad Salesperson: Procedure Note Donotsultanainterpreter, Image - 04/23/2025 [place] [address] Ultrasound Report Signed Patient: Shin OrtizR #: [id number] : [id number]:[id number] Age/Sex: 59 / MADM Date: 04/23/25 Loc: HO.US Attending Dr: Eduardo Nunes MD Ordering Physician: Eduardo Nunes MD Date of Service: 04/23/25 Procedure(s): US venous insuf bilat Accession Number(s): [id number] cc: Ham Brugos MD; Eduardo Nunes MD EXAMINATION: US LOWER [...] 04/23/25 1236 DD/ 1055 TD/TT: 04/23/25 1129 Flying Squad Salesperson: us [facility] External Provider CV VASC ULAR PROCEDURES Final Result [facility] [address] [place] [address] documented in this encounter Visit Diagnoses Diagnosis Morbid obesity (CMS/HCC) (HCC)- Primary Morbid obesity ELO (obstructive sleep apnea) Obstructive sleep apnea (adult) (pediatric) documented in this encounter Additional Health Concerns Assessment Noted Time PHQ-9 Depression Total Score: 0 02/21/20 10:46 AM EDT documented as of this encounter Care Teams Canvassing Manager Relationship Specialty Start Date End Date Ham Burgos MD [address] [place] [address] PCP - General Internal Medicine 05/10/18 Roberta Jolly RN [address] [place] [address] Registered Nurse Family Medicine 01/29/25 05/19/25 Taye Garcia 01/29/25 06/04/25 Felipa Garcia, CHELA [address] [place] [address] Registered Nurse Family Medicine 05/19/25 05/23/25 documented as of this encounter
--- OUTSIDE RECORDS SUMMARY | 2025-07-08 10:14 | XMS_ITS | Encounter Summary ---
Author Organization [employer] Address 75 [facility] 7t [place] [address] Care Team Providers Care Surgery Tech Name Role Phone Ham Burgos MD Primary Care Provider Roberta Jolly RN Unavailable Unavailable Taye Garcia Unavailable Felipa Garcia RN Unavailable [phone] Encounter Details Date Type Department Care Team (Late Contact Info) Description 10/09/2022 Orders Only [facility] MEDICINE [address] [place] [address] Ham Burgos MD [address] [place] [address] Morbid obesity (CMS/HCC) (Primary Dx) Social History [...] Office Visit [facility] ADULT [facility] [address] [place] [address] Jorgito Burgos Scheduled Orders Name Type Priority [...] documented as of this encounter Care Teams Surgery Tech Relationship Specialty Start Date End Date Ham Burgos MD [address] [place] [address] PCP - General Internal Medicine 05/10/18 Roberta Jolly RN [address] [place] [address] Registered Nurse Family Medicine 01/29/25 05/19/25 Taye Garcia 01/29/25 06/04/25 Felipa Garcia RN 505 [place] [address] Registered Nurse Family Medicine 05/19/25 05/23/25 documented as of this encounter
--- OUTSIDE RECORDS SUMMARY | 2025-07-08 10:14 | XMS_ITS | Encounter Summary ---
Author Organization [employer] Address [address] [facility] 7t [place] [address] Care Team Providers Care Supervisor Slitting And Shipping Name Role Phone Ham Burgos MD Primary Care Provider [phone]- [phone] Roberta Jolly RN Unavailable Unavailable Taye Garcia Unavailable Felipa Garcia RN Unavailable [phone] Encounter Details Date Type Department Care Team (Latest Contact Info) Description 07/18/2024 Orders Only [facility] CH[facility] MED & PEDS [address] [place], [place] [phone] Ham Burgos MD [address] [place], [place] [phone] Hypercholesterolemia (Primary Dx) Social History Tobacco Use [...] 3:00 PM EST Office Visit [facility] ADULT DENTAL [address] [place] [address] Jorgito Burgos documented as of this encounter Visit Diagnoses Diagnosis Hypercholesterolemia- Primary Pure hypercholesterolemia documented in this encounter Additional Health Concerns Assessment Noted Time PHQ-9 Depression Total Score: 8 12/11/19 24 9:29 AM EDT documented as of this encounter Care Teams Supervisor Slitting And Shipping Relationship Specialty Start Date End Date Ham Burgos MD [address] [place] [address] PCP - General Internal Medicine 05/10/18 Roberta Jolly RN [address] [place] [address] Registered Nurse Family Medicine 01/29/25 05/19/25 Taye Garcia 01/29/25 06/04/25 Felipa Garcia RN [address] [place] [address] Registered Nurse Family Medicine 05/19/25 05/23/25 documented as of this encounter
--- OUTSIDE RECORDS SUMMARY | 2025-07-08 10:14 | XMS_ITS | Encounter Summary ---
Author Organization [employer] Address [address] [facility] 7t [place] [address] Care Team Providers Care Ship Purser Name Role Phone Ham Burgos MD Primary Care Provider [phone]- [phone] Roberta Jolly RN Unavailable Unavailable Taye Garcia Unavailable Felipa Garcia RN Unavailable [phone] Reason for Visit * Reason Comments Med Refill Encounter Details Date Type Department Care Team ([facility] st Contact Info) Description 03/16/2025 Refill [facility] CH[facility] ADULT DENTAL [address] [place], [place] [phone] Robb Pickering, DMD 505 [place], [place] [phone] Dental caries Social History Tobacco Use Types [...] 3:00 PM EST Office Visit [facility] ADULT D[facility] [address] [place] [address] Jorgito Burgos documented as of this encounter Visit Diagnoses Diagnosis Dental caries Unspecified dental caries documented in this encounter Additional Health Concerns Assessment Noted Time PHQ-9 Depression Total Score: 0 02/21/20 25 10:46 AM EDT documented as of this encounter Care Teams Ship Purser Relationship Specialty Start Date End Date Ham Burgos MD [address] [place] [address] PCP - General Internal Medicine 05/10/18 Roberta Jolly RN [address] [place] [address] Registered Nurse Family Medicine 5/21/25 9/8/25 Taye Garcia 01/29/25 06/04/25 Felipa Garcia RN [address] [place] [address] YENNIFER Hernandez [address] Registered Nurse Family Medicine 05/19/25 05/23/25 documented as of this encounter
--- OUTSIDE RECORDS SUMMARY | 2025-07-08 10:14 | XMS_ITS | Encounter Summary ---
Author Organization [employer] Address [address] [place] [address] 7t [place] [address] Care Team Providers Care Slitting Machine Operator Name Role Phone Ham Burgos MD Primary Care Provider [phone]- [phone] Roberta Jolly RN Unavailable Unavailable Taye Garcia Unavailable Felipa Garcia RN Unavailable [phone] Reason for Visit * Reason Onset Date Comments Med Refill 05/03/2025 Encounter Details Date Type Department Care Team ([facility] st Contact Info) Description 05/03/2025 Refill [facility] CHC MED & PEDS [address] [place], [place] [phone] Ham Burgos MD [address] [place], [place] [phone] Morbid obesity (CMS/HCC); ELO (obstructive sleep apnea) [...] the past 12 months, has t he [employer], gas, oil or water [employer] threatened to shut off services in your [...] Description 07/16/2025 3:00 PM EST Office Visit [facility] CHC ADULT DENTAL [address] [place] [address] Jorgito Burgos documented as of this encounter Visit Diagnoses Diagnosis Morbid obesity (CMS/HCC) (HCC) Morbid obesity ELO (obstructive sleep apnea) Obstructive sleep apnea (adult) (pediatric) documented in this encounter Additional Health Concerns Assessment Noted Time PHQ-9 Depression Total Score: 0 02/21/20 25 10:46 AM EDT documented as of this encounter Care Teams Slitting Machine Operator Relationship Specialty Start Date End Date Ham Burgos MD [address] [place] [address] PCP - General Internal Medicine 05/10/18 Roberta Jolly RN [address] [place] [address] Registered Nurse Family Medicine 01/29/25 05/19/25 Taye Garcia 01/29/25 06/04/25 Felipa Garcia RN [address] [place] [address] Registered Nurse Family Medicine 05/19/25 05/23/25 documented as of this encounter
--- OUTSIDE RECORDS SUMMARY | 2025-07-08 10:14 | XMS_ITS | Encounter Summary ---
Author Organization [employer] Address 75 [facility] 7t [place] [address] Care Team Providers Care Hospice Chaplain Name Role Phone Ham Burgos MD Primary Care Provider +1- [phone] Roberta Jolly RN Unavailable Unavailable Taye Garcia Unavailable Felipa Garcia RN Unavailable [phone] Encounter Details Date Type Department Care Team ([facility] st Contact Info) Description 04/16/2024 Orders Only [facility] CHC MED & PEDS [address] [place], [place] [phone] Ham Burgos MD [address] [place] [address] Restless legs (Primary Dx) Social History Tobacco [...] Upcoming Encounters Date Type Department Care Team ([facility] st Contact Info) Description 07/16/2025 3:00 PM EST Office Visit [facility]ULT [facility] [address] [place] [address] Jorgito Burgos documented as of this encounter Visit Diagnoses Diagnosis Restless legs- Primary Restless legs syndrome (RLS) documented in this encounter Additional Health Concerns Assessment Noted Time PHQ-9 Depression Total Score: 8 12/11/19 24 9:29 AM EDT documented as of this encounter Care Teams Hospice Chaplain Relationship Specialty Start Date End Date Ham Burgos MD [address] [place] [address] PCP - General Internal Medicine 05/10/18 Roberta Jolly RN [address] [place] [address] Registered Nurse Family Medicine 01/29/25 05/19/25 Taye Garcia 01/29/25 06/04/25 Felipa Garcia, CHELA [address] [place] [address] Registered Nurse Family Medicine 05/19/25 05/23/25 documented as of this encounter
--- OUTSIDE RECORDS SUMMARY | 2025-07-08 10:14 | XMS_ITS | Clinical Summary ---
Author Organization [employer] Address [address] [place] [address] [address] [place] [address] Care Team Providers Care Electrical Machinist Name Role Phone Ham Burgos MD Primary Care Provider [phone]- [phone] Allergies No known active allergies Medications aspirin [...] 5000 Sensitive) 1.1-5 % gelIndications:D ental caries [place] teeth for 2 minutes, morning and night. Spit, do not rinse. Do not eat or drink anything for 30 minutes following brushing. 112 g 11 025 Active IBU 800 MG tabletIndication s:Primary osteoarthritis [...] hemorrhoids 024 Active rOPINIRole (Requip) 0.5 MG tabletIndication s:Restless legs TAKE ONE TABLET BY MOUTH THREE TIMES DAILY 90 tablet 11 025 Active Zepbound 2.5 MG/0.5ML solution auto-injectorInd ications:Morbid obesity (CMS/HCC) (HCC),ELO (obstructive sleep apnea) INJECT 0.5ML'S (2.5MG'S) SUBCUTANEOUSLY ONCE PER WEEK 2 mL 1 025 Active sildenafil (Viagra) 50 MG tabletIndication s:Other [...] eorder (will not trigger notification to Pharmacy)) Active Problems Problem Noted Date Diagnosed Date [...] recommended reduction of 20-30% of maintenance calories; data operations leader referral offered. Recommended to decrease soda and [...] Type Department Care Team Description 06/12/2025 Refill [facility] [address] [place] [address] Ham Burgos MD 06/04/2025 Patient Outreach [facility] [address] [place], [place] [phone] Ham Burgos MD Care Coordination ([facility]/W Darryl Roqueal f/u, program graduation ) 06/04/2025 Orders Only [facility] [address] [place] [address] Ham Burgos MD Other male erectile dysfunction (Primary Dx) 06/04/2025 Refill [facility] [address] [place] [address] Ham Burgos MD Morbid obesity ([facility]); ELO (obstructive sleep apnea) 06/03/2025 Refill [facility] [address] [place] [address] Ham Burgos MD Morbid obesity ([facility]); ELO (obstructive sleep apnea) 05/23/2025 Patient Outreach [address] [address] Ham Burgos MD Care Management ([facility]- f/u call) 05/07/2025 Patient Outreach [address] [address] Ham Burgos MD Care Coordination ([facility]/W FELIZ Roque f/u call) 05/07/2025 Patient Outreach [facility] [address] [place] [address] Ham Burgos MD Care Coordination ([facility] f/u call) 05/03/2025 Refill [facility] [address] [place] [address] Ham Burgos MD Morbid obesity ([facility]); ELO (obstructive sleep apnea) 05/03/2025 Refill [facility] [address] [place] [address] Ham Burgos MD Restless legs 04/29/2025 Patient Outreach [address] [address] Ham Burgos MD Care Management ([facility]- f/u call) 04/14/2025 Patient Outreach [address] [address] Ham Burgos MD Care Management ([facility]- f/u call) 04/10/2025 10:00 AM EDT Office Visit [facility] [address] [place] [address] Ham Burgos MD Small bowel obstruction ([facility]) (Primary Dx) 04/10/2025 Results Follow-Up [facility] [address] [place] [address] Ham Burgos MD Basic Metabolic Panel, Magnesium 04/10/2025 Travel 04/09/2025 Telephone [facility] [address] [place] [address] Ham Burgos MD Chart Prep from Last 3 Months Immunizations Immunization Administration [...] 07/16/2025 3:00 PM EST Office Visit [facility] [address] [place] [address] Jorgito Burgos Health Maintenance Due Date Last [...] EDT) 04/23/2025 10:5 5 AM EDT Narrative [facility] - 04/23/2025 12:38 PM EDT [place] [address] Ultrasound Report Signed Patient: Shin Ortiz MR #: [id number] : [id number] Acct:[id number] Age/Sex: 59 / M ADM Date: 04/23/25 Loc: HO.US Attending Dr: Eduardo Nunes MD Ordering Physician: Eduardo Nunes MD Date of Service: 04/23/25 Procedure(s): US venous insuf bilat Accession Number(s): [id number] cc: Ham Burgos MD; Eduardo Nunes MD [...] 04/23/25 1236 DD/ 1055 TD/TT: 04/23/25 1129 Quiller Tender: Procedure Note Donotuseinterpreter, Image - 04/23/[address] [address] Ultrasound Report Signed Patient: Shin rOtizoMR #: [id number] : 1965Acct:[id number] Age/Sex: 59 / MADM Date: 04/23/25 Loc: HO.US Attending Dr: Eduardo Nunes MD Ordering Physician: Eduardo Nunes MD Date of Service: 04/23/25 Procedure(s): US venous insuf bilat Accession Number(s): [id number] cc: Ham Burgos MD; Eduardo Nunes MD [...] 04/23/25 1236 DD/ 1055 TD/TT: 04/23/25 1129 Quiller Tender: [facility] External Provider CV VASC ULAR PROCEDURES Final Result [facility] [address] [place] [address] * Magnesium (04/10/2025 10:38 AM EDT) Magnesium 2.1 1.6 - 2.6 mg/dL [facility] Blood Venous blood specimen / Unknown 04/10/2025 10:38 AM EDT 04/10/2025 2:05 PM EDT Ham Burgos MD LAB BLOOD ORDERABLES Final Result Performing Organization Address City/[facility]/ZIP Co de Phone Number [facility] [address] [place] [phone] * (ABNORMAL) Basic Metabolic Panel (04/10/2025 10:38 AM EDT) Sodium 140 135 - 145 mmol/L [facility] Potassium 4.2 3.3 - 5.1 mmol/L [facility] Chloride 108 96 - 108 mmol/L [facility] Carbon Dioxide 26 22 - 29 mmol/L [facility] Anion Gap 10(L) 12 - 20 [facility] Urea Nitrogen (BUN) 16 9 - 16 mg/dL [facility] Creatinine, Serum 0.78 0.5 - 1.4 mg/dL [facility] Estimated Glomerular Filt Rate >60 [facility] Comment:Chronic Kidney Disea se: Estimated GFR < 60 mL/min/1.59v1Haolbd Kidney Disease: Estimated GFR < 15 mL/min/1.73m2 Glucose 86 60 - 115 mg/dL [facility] Calcium 8.8 8.4 - 10.2 mg/dL [facility] Blood Venous blood specimen / Unknown 04/10/2025 10:38 AM EDT 04/10/2025 2:05 PM EDT us Ham Burgos MD LAB BLOOD ORDERABLES Final Result Performing Organization Address [facility] de Phone Number [facility] [address] [place] [phone] * Hepatitis A,B,C Profile (01/13/2025 9:51 AM EDT) Hepatitis A IgM Nonreactive Nonreactive [facility] Comment:IgM antibodies to DAILY V not detected; does not exclude earlyacute or recovered HAV infection. ~Hepatitis B Surface Antibody NONREACTIVE Nonreactive [facility] Comment:Nonreactive: < 8.00 mIU/mL Hepatitis B Core Antibody Nonreactive Nonreactive [facility] Hepatitis C Antibody Nonreactive Nonreactive [facility] Comment:Antibodies to HCV no t detected; does not exclude early acuteHCV infection. Hepatitis B Surface Ag Negative Negative [facility] Blood Venous blood specimen / Unknown 01/13/2025 9:51 AM EDT 01/13/2025 2:46 PM EDT us Ham Burgos MD LAB BLOOD ORDERABLES Final Result Performing Organization Address [facility] Phone Number [facility] [address] [place] [phone] * (ABNORMAL) Lipid Panel, Standard (01/02/2025 8:55 AM EDT) Triglycerides 70 <150 mg/dL [facility] Comment:Slight Lipemia.Izzy able Triglyceride: less than 150 mg/dLBorderline High Triglyceride 150-199 mg/dLHigh Triglyceride: 200-499 mg/dLVery High Triglyceride: greater than or equal to 5OO mg/dL Cholesterol 200(H) <200 mg/dL [facility] Comment:Desirable Cholestero l: less than 200 mg/dLBorderline High Cholesterol: 200-239 mg/dLHigh Cholesterol: greater than 239 mg/dL LDL Cholesterol Calculated 140(H) <100 mg/dL [facility] Comment:Desirable LDL: less than 100 mg/dLNear Optimal/Above Optimal LDL: 110- 129 mg/dLBorderline High LDL: 130-159 mg/dLHigh LDL: 160-189 mg/dLVery High LDL: greater than or equal to 190 mg/dL HDL Cholesterol 46 >40 mg/dL [facility] Comment:Desirable HDL: great er than 40 mg/dL Note: This HDL assay may give artificially low results in patients with liver disease. Blood Venous blood specimen / Unknown 01/02/2025 8:55 AM EDT 01/02/2025 2:06 PM EDT Ham Burgos MD LAB BLOOD ORDERABLES Final Result [facility] [address] [place] [phone] [phone] * Colonoscopy (11/23/2023) Colonoscopy Normal Normal Narrative Jeri Munoz - 11/23/2023 Repeat colonoscopy in 10 years Historical Provider HEALTH MAINTENANCE Final Result from Last 3 Months or Most Recently Relevant to Health Maintenance Insurance [facility] C3 DENTAL-[facility] MEDICAID STAND ADULT Care Teams Electrical Machinist Relationship Specialty Start Date End Date Ham Burgos MD [address] [place] [address] YENNIFER Hernandez [phone] PCP - General Internal Medicine 05/10/18
--- OUTSIDE RECORDS SUMMARY | 2025-07-08 10:14 | XMS_ITS | Encounter Summary ---
Author Organization [employer] Address [address] [facility] [address] [place] [address] Care Team Providers Care Instructional Leader Name Role Phone Ham Burgos MD Primary Care Provider [phone] Taye Garcia Unavailable Reason for Visit * Reason Onset Date Comments Med Refill 06/03/2025 Encounter Details Date Type Department Care Team ([facility] st Contact Info) Description 06/03/2025 Refill [facility] [address] [place] [address] Ham Burgos MD [address] [place] [address] Morbid obesity (CMS/HCC); ELO (obstructive sleep apnea) [...] 3:00 PM EST Office Visit [facility] [address] [place] [address] Jorgito Burgos documented as of this encounter Visit Diagnoses Diagnosis Morbid obesity (CMS/HCC) (HCC) Morbid obesity ELO (obstructive sleep apnea) Obstructive sleep apnea (adult) (pediatric) documented in this encounter Additional Health Concerns Assessment Noted Time PHQ-9 Depression Total Score: 0 02/21/20 25 10:46 AM EDT documented as of this encounter Care Teams Instructional Leader Relationship Specialty Start Date End Date Ham Burgos MD [address] [place] [address] PCP - General Internal Medicine 05/10/18 Taye Garcia 01/29/25 06/04/25 documented as of this encounter
--- OUTSIDE RECORDS SUMMARY | 2025-07-08 10:14 | XMS_ITS | Encounter Summary ---
Author Organization [employer] Address [address] [facility] [address] [place] [address] Care Team Providers Care Facility Maintenance Technician Name Role Phone Ham Burgos MD Primary Care Provider [phone]- [phone] Taye Garcia Unavailable Encounter Details Date Type Department Care Team ([facility] st Contact Info) Description 06/04/[address] [facility] [address] [place], [place] [phone] Ham Burgos MD [address] [place], [place] [phone] Other male erectile dysfunction (Primary Dx) Social [...] Upcoming Encounters Date Type Department Care Team ([facility] st Contact Info) Description 07/16/2025 3:00 PM EST Office Visit [facility] [address] [place] [address] Jorgito Burgos documented as of this encounter Visit Diagnoses Diagnosis Other male erectile dysfunction- Primary documented in this encounter Additional Health Concerns Assessment Noted Time PHQ-9 Depression Total Score: 0 02/21/20 25 10:46 AM EDT documented as of this encounter Care Teams Facility Maintenance Technician Relationship Specialty Start Date End Date Ham Burgos MD [address] [place] [address] PCP - General Internal Medicine 05/10/18 Taye Garcia 01/29/25 06/04/25 documented as of this encounter
--- OUTSIDE RECORDS SUMMARY | 2025-07-08 10:14 | XMS_ITS | Encounter Summary ---
Author Organization [employer] [facility] Address [address] [place] [address] [address] [place] [address] Care Team Providers Care Insurance Rater Name Role Phone Ham Burgos MD Primary Care Provider [phone] Roberta Jolly RN Unavailable Unavailable Taye Garcia Unavailable Felipa Garcia RN Unavailable [phone] Reason for Referral * Imaging (Routine) - Closed Specialty Diagnoses / Procedures Referred By Thomas stevenson Referred To Contact Radiology Diagnoses Transaminitis Procedures US Abdomen Complete Ham Burgos MD [address] [place] [address] Phone: tel: fax: [address] Phone: tel: fax: Referral ID Status Reason Start Date Expiration Date Visits Re quested Visits Authorized [id number] Closed 01/07/2025 01/07/2026 1 1 Encounter Details Date Type Department Care Team (Late st Contact Info) Description 01/02/2025 Orders Only [facility] MED & PEDS [address] [place] [address] Ham Burgos MD [address] [place] [address] Morbid obesity (CMS/HCC) (Primary Dx); Transaminitis Social [...] Upcoming Encounters Date Type Department Care Team ([facility] st Contact Info) Description 07/16/2025 3:00 PM EST Office Visit [facility] ADULT DENTAL [address] [place] [address] Jorgito Burgos Scheduled Orders Name Type Priority [...] PM EDT Narrative 02/17/2025 2:23 PM EDT [facility] [place] [address] Ultrasound Report Signed with Maribel Patient: Shin Ortiz MR #: [id number] : 1965 Acct:[id number] Age/Sex: 59 / M ADM Date: 02/17/25 Loc: HO.HMGCX Attending Dr: Ham Burgos MD Ordering Physician: Ham Burgos MD Date of Service: 02/17/25 Procedure(s): US abdomen complete Accession Number(s): [id number] cc: Ham Burgos MD ADDENDUM This document has been electronically signed by: Ary Weaver MD on 02/17/2025 14:21:54 ADDENDUM: Receipt of this report by the clinical staff was confirmed with Tanmay Hill, Patient Franchise Sales Director on Feb 17, 2025 15:50:00 EDT. This [...] Weaver MD on 02/17/2025 14:21:54 Dictated By: Ayr Weaver MD Signed By: <Electronically signed by Ary Weaver MD in OV> 02/17/25 142 DD/ 20 TD/TT: 02/17/251420 Tar Worker: Procedure Note Donotsultanainterpreter, Image - 02/17/2025 [facility] [address] Ultrasound Report Signed with Maribel Patient: Shin OrtizR #: [id number] : 1965Acct:[id number] Age/Sex: 59 / MADM Date: 02/17/25 Loc: HO.HMGCX Attending Dr: Ham Burgos MD Ordering Physician: Ham Burgos MD Date of Service: 02/17/25 Procedure(s): US abdomen complete Accession Number(s): [id number] cc: Ham Burgos MD ADDENDUM This document has been electronically signed by: Ary Weaver MD on 02/17/2025 14:21:54 ADDENDUM: Receipt of this report by the clinical staff was confirmed with aTnmay Hill Patient Franchise Sales Director on Feb 17, 2025 15:50:00 EDT. This [...] OV> 02/17/251421 DD/ 20 TD/TT: 02/17/25 142 Tar Worker: us Ham Burgos MD IMG US PROCEDURES Edited Re sult - Final * XR Chest 1 View (01/29/2025 7:35 AM EDT) Anatomical Region Laterality Modality Chest Radiographic July ging 01/29/2025 7:35 AM EDT Narrative 01/29/2025 7:54 AM EDT [place] [address] XRay Report Signed Patient: Shin Ortiz MR #: [id number] : 1965 Acct:[id number] Age/Sex: 59 / M ADM Date: 01/29/25 Loc: [place] [address]: Roxy Moses MD Ordering Physician: Generic ED Physician Date of Service: 01/29/25 Procedure(s): XR chest 1V Accession Number(s): [id number] cc: Ham Burgos MD; Generic ED Physician EXAMINATION: XR CHEST CLINICAL INFORMATION: Ng placement COMPARISON: January 29, 2025 at 4:01 AM. TECHNIQUE: Frontal view of the chest was obtained. FINDINGS: The NG tube is present overlapping the mediastinal structures extending below the left hemidiaphragm. Tip is not fully included in the jgljc-ls-epwd. No no change in the appearance of the lungs or the cardiomediastinal silhouette. Focal 4 mm calcific abnormality left humeral head. XR/XR chest 1V IMPRESSION: NG tube probably in the stomach region. Electronically signed by: Don Mallory MD 01/29/2025 07:52 AM EDT RP Dictated By: Don Parmar MD Signed By: <Electronically signed by Don Carvalho MD in OV> 01/29/25 0752 DD/ TD/TT: 01/29/2544 Tar Worker: Procedure Note Donotuseinterpreter, Image - 01/29/[address] [address] XRay Report Signed Patient: Shin OrtizR #: [id number] : 1965Acct:[id number] Age/Sex: 59 / MADM Date: 01/29/25 Loc: [place] [address]: Roxy Moses MD Ordering Physician: Generic ED Physician Date of Service: 01/29/25 Procedure(s): XR chest 1V Accession Number(s): [id number] cc: Ham Burgos MD; Generic ED Physician EXAMINATION: XR CHEST CLINICAL INFORMATION: Ng placement COMPARISON: January 29, 2025 at 4:01 AM. TECHNIQUE: Frontal view of the chest was obtained. FINDINGS: The NG tube is present overlapping the mediastinal structures extending below the left hemidiaphragm. Tip is not fully included in the mpxhd-an-jtsv. No no change in the appearance of the lungs or the cardiomediastinal silhouette. Focal 4 mm calcific abnormality left humeral head. XR/XR chest 1V IMPRESSION: NG tube probably in the stomach region. Electronically signed by: Don Mallory MD 01/29/2025 07:52 AM EDT RP Dictated By: Don Parmar MD Signed By: <Electronically signed by Don Carvalho MDin OV> 01/29/25 0752 DD/ TD/TT: 01/29/25 0744 Tar Worker: us [facility] External Provider IMG XR PROCEDURES Final Result * XR Chest 1 View (01/29/2025 4:25 AM EDT) Anatomical Region Laterality Modality Chest Radiographic July ging 01/29/2025 4:25 AM EDT Narrative 01/29/2025 4:27 AM EDT [address] [address] XRay Report Signed Patient: Shin Ortiz MR #: [id number] : 1965 Acct:[id number] Age/Sex: 59 / M ADM Date: 01/29/25 Loc: [place] [address]: Roxy Moses MD Ordering Physician: Ailyn Mendoza CNP Date of Service: 01/29/25 Procedure(s): XR chest 1V Accession Number(s): [id number] cc: Ailyn Mendoza CNP; Ham Burgos MD CLINICAL HISTORY: NGT placement 1 view chest x-ray Comparison: CR/SR - XR CHEST 2V - 01/29/24 10:55 EDT Findings: Low lung volumes. Cardiomegaly. No acute fracture. IMPRESSION: NG tube is obscured distally by scatter artifact. Recommend abdomen film. This document has been electronically signed by: Aníbla Chavez MD on 01/29/2025 04:25:25 Dictated By: Aníbal Chavez MD Signed By: <Electronically signed by Aníbal Chavez MD in OV> 01/29/25 0426 DD/ 042 TD/TT: 01/29/25424 Tar Worker: Procedure Note Donotsultanainterpreter, Image - 01/29/[address] [address] XRay Report Signed Patient: Shin OrtizoMR #: [id number] : 1965Acct:[id number] Age/Sex: 59 / MADM Date: 01/29/25 Loc: [place] [address]: Roxy Moses MD Ordering Physician: Ailyn Mendoza CNP Date of Service: 01/29/25 Procedure(s): XR chest 1V Accession Number(s): [id number] cc: Ailyn Mendoza CNP; Ham Burgos MD [...] in OV> 01/29/25425 DD/ 4 TD/TT: 01/29/25424 Tar Worker: us [facility] External Provider IMG XR PROCEDURES Edited Result - Final * CT Abdomen Pelvis w/ Contrast (01/29/2025 2:00 AM EDT) Anatomical Region Laterality Modality Body, Pelvis, Abdomen Computed T omography 01/29/2025 2:00 AM EDT Narrative 01/29/2025 2:01 AM EDT [place] [address] CT Scan Report Signed with Addenda Patient: Shin Ortiz MR #: [id number] : 1965 Acct:[id number] Age/Sex: 59 / M ADM Date: 01/29/25 Loc: .ED Attending Dr: Ordering Physician: Ailyn Mendoza CNP Date of Service: 01/29/25 Procedure(s): CT abdomen pelvis w IV con Accession Number(s): [id number] cc: Ailyn Mendoza CNP; Ham Burgos MD Report Number: [id number]: Total DLP = 1490.00 mGy-cm ADDENDUM This [...] in OV> 01/29/25199 DD/ 9 TD/TT: 01/29/25199 Tar Worker: Procedure Note Donotuseinterpreter, Image - 01/29/[address] [address] [address] Scan Report Signed with Addenda Patient: Shin OrtizoMR #: [id number] : 1965Acct:[id number] Age/Sex: 59 / MADM Date: 01/29/25 Loc: HO.ED Attending Dr: Ordering Physician: Ailyn Mendoza CNP Date of Service: 01/29/25 Procedure(s): CT abdomen pelvis w IV con Accession Number(s): [id number] cc: Ailyn Mendoza CNP; Ham Burgos MD Report Number: [id number]: Total DLP = 1490.00 mGy-cm ADDENDUM This [...] OV> 01/29/25199 DD/ 9 TD/TT: 05/21/25 0200 Tar Worker: [facility] External Provider IMG CT PROCEDURES Edited Result - Final * Hepatitis A,B,C Profile (01/13/2025 9:51 AM EDT) Hepatitis A IgM Nonreactive Nonreactive [facility] Comment:IgM antibodies to DAILY V not detected; does not exclude earlyacute or recovered HAV infection. ~Hepatitis B Surface Antibody NONREACTIVE Nonreactive [facility] Comment:Nonreactive: < 8.00 mIU/mL Hepatitis B Core Antibody Nonreactive Nonreactive [facility] Hepatitis C Antibody Nonreactive Nonreactive [facility] Comment:Antibodies to HCV no t detected; does not exclude early acuteHCV infection. Hepatitis B Surface Ag Negative Negative [facility] Blood Venous blood specimen / Unknown 01/13/2025 9:51 AM EDT 01/13/2025 2:46 PM EDT Ham Burgos MD LAB BLOOD ORDERABLES Final Result [facility] [address] [place] [address] [phone] * BECCA Screen,IFA, with Reflex to Titer and Pattern (01/13/2025 9:51 AM EDT) Anti Nuclear Antibody Screen NEGATIVE NEGATIVE [facility] Comment:BECCA IFA is a [...] clinicallysuspected inflammatory myopathies.AC-0: NegativeInternational Consensus on BECCA Patterns(https://doi.org/10.1515/puwk-9769-3279)For additional information, please refer tohttp://education.[employer]/faq/KGW088(This link is being provided for informational/educational purposes only.)THIS TEST WAS PERFORMED AT:[employer] [place] [id number] ELIZONDO MD BECCA Titer TNP [facility] BECCA Pattern TNP [facility] BECCA TITER 2 (REF LAB) TNP [facility] BECCA Pattern 2 TNP [facility] BECCA TITER 3 TNP [facility] BECCA PATTERN 3 [facility] Blood Venous blood specimen / Unknown 01/13/2025 9:51 AM EDT 01/13/2025 2:46 PM EDT us Ham Burgos MD LAB BLOOD ORDERABLES Final Result Performing Organization Address [facility] Co de Phone Number [facility] [address] [place] [phone] * (ABNORMAL) Immunoglobulins Panel, Serum (01/13/2025 9:51 AM EDT) IMMUNOGLOBULIN G 971 600 - 1540 mg/dL [facility] IMMUNOGLOBULIN A 185 70 - 320 mg/dL [facility] Immunoglobulin M 30(A) 50 - 300 mg/dL [facility] Comment:THIS TEST WAS PERFOR MED AT:[employer] [place] [id number] ELIZONDO MD Blood Venous blood specimen / Unknown 01/13/2025 9:51 AM EDT 01/13/2025 2:46 PM EDT us Ham Burgos MD LAB BLOOD ORDERABLES Final Result Performing Organization Address [facility]/ZIP Co de Phone Number [facility] [address] [place] [phone] * Ferritin (01/13/2025 9:51 AM EDT) Ferritin 120 20 - 250 ng/mL [facility] Blood Venous blood specimen / Unknown 01/13/2025 9:51 AM EDT 01/13/2025 2:46 PM EDT Ham Burgos MD LAB BLOOD ORDERABLES Final Result [facility] [address] [place] [phone] documented in this encounter Visit Diagnoses Diagnosis Morbid obesity (CMS/HCC) (HCC)- Primary Morbid obesity Transaminitis Nonspecific elevation of levels of transaminase or lactic acid dehydrogenase (LDH) documented in this encounter Additional Health Concerns Assessment Noted Time PHQ-9 Depression Total Score: 17 025 9:11 AM EST documented as of this encounter Care Teams Insurance Rater Relationship Specialty Start Date End Date Ham Burgos MD [address] [place] [address] PCP - General Internal Medicine 05/10/18 Roberta Jolly RN [address] [place] [address] Registered Nurse Family Medicine 01/29/25 05/19/25 Taye Garcia 01/29/25 06/04/25 Felipa Garcia RN [address] [place] [address] Registered Nurse Family Medicine 05/19/25 05/23/25 documented as of this encounter
--- OUTSIDE RECORDS SUMMARY | 2025-07-08 10:14 | XMS_ITS | Encounter Summary ---
Author Organization [employer] Address [address] [facility] [address] [place] [address] Care Team Providers Care Technical Laboratory Asst Name Role Phone Ham Burgos MD Primary Care Provider [phone] Roberta Jolly RN Unavailable Unavailable Taye Garcia Unavailable Felipa Garcia RN Unavailable [phone] Reason for Visit * Reason Onset Date Comments Med Refill 01/17/2025 Encounter Details Date Type Department Care Team ([facility] st Contact Info) Description 01/17/2025 Refill [facility] CH[facility] MED & PEDS [address] [place], [place] [phone] Ham Burgos MD [address] [place] [address] Social History Tobacco Use Types Packs/Day Years [...] Description 07/16/2025 3:00 PM EST Office Visit [facility] ADULT DENTAL [address] [place] [address] Jorgito Burgos documented as of this encounter Visit Diagnoses Not on filedocumented in this encounter Additional Health Concerns Assessment Noted Time PHQ-9 Depression Total Score: 17 025 9:11 AM EST documented as of this encounter Care Teams Technical Laboratory Asst Relationship Specialty Start Date End Date Ham Burgos MD [address] [place] [address] PCP - General Internal Medicine 05/10/18 Roberta Jolly, CHELA [address] [place] [address] Registered Nurse Family Medicine 01/29/25 05/19/25 Taye Garcia 01/29/25 06/04/25 Felipa Garcia RN [address] [place] [address] Registered Nurse Family Medicine 05/19/25 05/23/25 documented as of this encounter
== END 2025-07-08 09:40 | disposition home or self-care (01) ==
LOC: HO.HPS 09:08
PROVIDERS: PCP Internal Medicine; Visit Provider Hospitalist
DX: R06.09 Other forms of dyspnea (principal); I27.20 Pulmonary hypertension, unspecified; R91.8 Other nonspecific abnormal finding of lung field; J98.11 Atelectasis; G47.33 Obstructive sleep apnea (adult) (pediatric); Z99.89 Dependence on other enabling machines and devices; F51.01 Primary insomnia; R60.0 Localized edema; I50.810 Right heart failure, unspecified; J96.11 Chronic respiratory failure with hypoxia
CPT/HCPCS: 99214

== ENCOUNTER → 2025-07-08 09:07 | Outpatient (BNVA) | payer MEDICAID, SELFPAY | PROVIDERS: PCP Internal Medicine; Visit Provider Hospitalist | DX: J96.11 Chronic respiratory failure with hypoxia (principal); I50.810 Right heart failure, unspecified; I27.20 Pulmonary hypertension, unspecified; G47.33 Obstructive sleep apnea (adult) (pediatric); J98.11 Atelectasis; F51.01 Primary insomnia; R91.8 Other nonspecific abnormal finding of lung field; Z99.81 Dependence on supplemental oxygen; Z99.89 Dependence on other enabling machines and devices; Z98.84 Bariatric surgery status | CPT/HCPCS: 99212 ==